=== PATIENT | male | born 1955 | race Caucasian/White ===

== ENCOUNTER → 2018-01-29 13:16 | Outpatient (CLI) | payer OTHER, SELFPAY ==
--- NOTE | 2018-01-29 14:15 | DI.REPORT_ITS ---
SYMPTOMS/DIAGNOSIS: FEVER, R50.9 PA AND LATERAL CHEST: Comparison is made with August,. The heart size is at the upper limits of normal, unchanged. The lungs appear clear. No infiltrate or effusion is seen. IMPRESSION: No acute abnormality.
[2018-01-29 14:17] LABS: Abs Immature Grans 0.23 k/cumm (0.0-0.09); Absolute Basophil Count 0.02 k/cumm (0.0-0.2); Absolute Eosinophil Count 0.05 k/cumm (0.0-0.7); Absolute Lymphocyte Count 1.39 k/cumm (1.2-3.4); Absolute Monocyte Count 0.67 k/cumm (0.11-0.7); Absolute Neutrophil Count 20.79 k/cumm (1.2-6.7); Basophils % 0.1; Eosinophils % 0.2; HCT 29.8 % (40.0-50.0); HGB 10.1 g/dL (13.5-17.5); Mean Corp. HGB Concentration 33.9 g/dL (32.0-36.0); Mean Corpuscular Hemoglobin 30.1 pg (27.0-33.0); Mean Platelet Volume 12.4 fL (8.0-11.0); Monocytes % 2.9; Neutrophils % 89.8; Platelet Count 285 x1000/uL (130-400); RBC 3.35 m/cumm (4.50-6.00); RBC Distribution Width 15.3 % (11.8-14.1); White Blood Cell Count 23.15 k/cumm (4.4-10.8)
[2018-01-29 14:56] LABS: ESR 94 MM/HR (1-20)
[2018-01-29 15:07] LABS: C-Reactive Protein 18.59 mg/dL (0.0-0.3); Creatine Kinase 91 U/L (39-308); LDH 197 U/L (85-227); Uric Acid 6.8 mg/dL (3.5-7.2)
[2018-01-29 19:37] LABS: Mono Screening Negative (Negative)
[2018-01-29 19:50] LABS: Folate 4.4 ng/mL (8.6-20.0); Vitamin B12 531 pg/mL (193-986)
[2018-01-29 20:09] LABS: Iron 16 ug/dL (50-175); Total Iron Binding Capacity 113 ug/dL (250-450); Transferrin Sat 14 % (20-55)
[2018-01-29 20:54] LABS: Ferritin 565 ng/mL (8-388)
[2018-01-30 10:21] LABS: Rheumatoid Factor 16 IU/mL (<12.5)
[2018-01-30 12:18] LABS: ANA Interpretation Positive (NEGAT); ANA Titer Pattern 1:160 Speckled
[2018-01-30 15:26] LABS: Lyme Ab w Rflx to Lyme Confirm Positive
[2018-01-30 15:35] LABS: Glucose 187 mg/dL (70-100)
[2018-01-30 15:36] LABS: BUN 104 mg/dL (7-18); CREATININE 4.59 mg/dL (0.70-1.30); Estimated GFR 13.09 (mL/min/1.73m2)
[2018-01-30 15:37] LABS: AST 46 U/L (15-37); Albumin 2.3 g/dL (3.4-5.0); Alkaline Phosphatase 223 U/L (46-116); Anion Gap 14.4 mmol/L (3-11); Bilirubin, Total 0.6 mg/dL (0.2-1.0); CO2 17.6 mmol/L (21.0-32.0); Chloride 93 mmol/L (98-107); Potassium 5.6 mmol/L (3.5-5.1); Sodium 125 mmol/L (136-145); Total Protein 5.8 g/dL (6.4-8.2)
[2018-01-30 15:38] LABS: ALT 59 U/L (12-78)
[2018-01-31 14:31] LABS: c-ANCA Negative (Negative); p-ANCA Negative (Negative)
[2018-02-02 14:40] LABS: TB Interpretation Negative (NEGAT)
[2018-02-03 15:09] LABS: IgG Western Blot Negative (Negative); IgM Western Blot Positive (Negative); Western Blot Interpretation SEE COMMENTS
== END ==
PROVIDERS: Visit Provider Nurse Practitioner
DX: R50.9 Fever, unspecified (principal); M79.1 Myalgia; D72.829 Elevated white blood cell count, unspecified
CPT/HCPCS: 36410; 80053; 82550; 85652; 87040; 71046; 81003; 82565; 82607; 82728; 82746; 83540; 83550; 83615; 84156; 84550; 85025; 85045; 85610; 86038; 86140; 86255; 86308; 86431; 86480; 86617; 86618

== ENCOUNTER → 2018-01-29 16:11 | Outpatient (REF) | payer OTHER, SELFPAY ==
[2018-01-29 21:25] LABS: Bilirubin Negative (Negative); Blood Negative (Negative); Clarity Clear; Glucose Negative (Negative); Ketones Trace mg/dL (Negative); Leukocyte Esterase Negative (Negative); Nitrite Negative (Negative); Specific Gravity 1.015 (1.005-1.025); Urobilinogen 0.2 EU/dL (Up TO 0.2)
[2018-01-29 21:37] LABS: PROTEIN 38.7 mg/dL
[2018-01-29 21:50] LABS: COMMENT (LAB VIEW ONLY) 201.59 mg/dL; Prot/Crea Ur Ratio 0.19
[2018-01-29 22:07] LABS: Bacteria Negative HPF (Negative); C & S Indicated? Yes; Casts Negative LPF (Negative); Crystals Few Amorphous HPF (Negative); Epithelial Cells Few HPF (Negative); Mucus Moderate (Negative); RBC Negative (0-2)
== END ==
LOC: NCHCN 16:11
PROVIDERS: Visit Provider Nurse Practitioner
DX: D72.829 Elevated white blood cell count, unspecified (principal); R50.9 Fever, unspecified; E11.22 Type 2 diabetes mellitus with diabetic chronic kidney disease
CPT/HCPCS: 81003; 81015; 82565; 84156; 87086

== ENCOUNTER → 2018-01-30 11:47 | Outpatient (CLI) | payer OTHER, SELFPAY ==
--- NOTE | 2018-01-30 11:45 | DI.REPORT_ITS ---
SYMPTOMS/DIAGNOSIS: ABD DISTENTION, FEVER, MYALGIAS, RENAL FAILURE, R14.0, R50.9, M79.1 ABDOMINAL AND RENAL ULTRASOUND: Routine examination was performed. The aorta could not be well visualized due to overlying bowel. The inferior vena cava is unremarkable. The liver, gallbladder, common duct, kidneys and spleen are unremarkable. The pancreas is not well visualized due to overlying bowel. The prevoid urinary bladder volume was 56 cc's. The postvoid urinary bladder volume was less than 1 cc. No intraluminal mass was identified. The ureteral jets were not visualized during this examination. IMPRESSION: Unremarkable abdominal and renal ultrasound as described above.
== END ==
PROVIDERS: Visit Provider Nurse Practitioner
DX: R14.0 Abdominal distension (gaseous) (principal); M79.1 Myalgia; N19 Unspecified kidney failure; R50.9 Fever, unspecified
CPT/HCPCS: 76770; 76700

== ENCOUNTER → 2018-01-30 14:08 | Outpatient (REF) | payer OTHER, SELFPAY ==
[2018-01-30 20:15] LABS: Abs Immature Grans 0.34 k/cumm (0.0-0.09); Absolute Lymphocyte Count 1.53 k/cumm (1.2-3.4); Eosinophils % 0.2; HCT 33.5 % (40.0-50.0); HGB 11.1 g/dL (13.5-17.5); Immature Grans % 1.3; Lymphocytes % 5.9; Mean Corp. HGB Concentration 33.1 g/dL (32.0-36.0); Mean Corpuscular Hemoglobin 29.2 pg (27.0-33.0); Mean Corpuscular Volume 88.2 fL (80-95); Monocytes % 2.2; Neutrophils % 90.4; Platelet Count 268 x1000/uL (130-400); RBC Distribution Width 15.1 % (11.8-14.1)
[2018-01-30 20:18] LABS: ALT 73 U/L (12-78); AST 76 U/L (15-37); Albumin 2.3 g/dL (3.4-5.0); Alkaline Phosphatase 239 U/L (46-116); Anion Gap 13.1 mmol/L (3-11); Bilirubin, Total 0.7 mg/dL (0.2-1.0); CO2 16.9 mmol/L (21.0-32.0); Calcium 8.2 mg/dL (8.5-10.1); Chloride 90 mmol/L (98-107); Estimated GFR 12.93 (mL/min/1.73m2); Glucose 175 mg/dL (70-100); Potassium 5.8 mmol/L (3.5-5.1)
[2018-01-30 20:30] LABS: Absolute Eosinophil Count 0.05 k/cumm (0.0-0.7); Absolute Monocyte Count 0.57 k/cumm (0.11-0.7); Absolute Neutrophil Count 23.44 k/cumm (1.2-6.7)
[2018-01-30 20:34] LABS: BUN 105 mg/dL (7-18); CREATININE 4.64 mg/dL (0.70-1.30); Sodium 120 mmol/L (136-145); White Blood Cell Count 25.93 k/cumm (4.4-10.8)
[2018-01-30 21:42] LABS: Diff Comment Diff Reviewed; RBC Morphology Normal
== END ==
LOC: NCHCN 14:08
PROVIDERS: Visit Provider Nurse Practitioner
DX: R06.00 Dyspnea, unspecified (principal)
CPT/HCPCS: 80053; 85025

== ENCOUNTER 2018-01-31 18:33 | Emergency (ER) | payer OTHER, SELFPAY ==
[2018-01-31] VITALS (17 sets, daily range): BP systolic 115–126; BP diastolic 43–54; PULSE 61–80; RESP 13–28; TEMP 37.4; O2SAT 94–98
--- NOTE | 2018-01-31 19:01 | ED.GENADUL_ITS ---
Disposition Clinical Impression: Hyponatremia, Hyperkalemia, Lhpxg-yu-hvjvlel kidney injury, Leukocytosis, Metabolic acidosis, Positive Lyme disease serology, Transaminitis Disposition: OTHER Condition: Stable Medical Decision Making - Lab Data Laboratory Tests 01/31/18 01/31/18 01/31/18 19:07 19:07 19:07 WBC 21.62 H RBC 3.63 L Hgb 10.6 L Hct 31.2 L MCV 86.0 MCH 29.2 MCHC 34.0 RDW 14.6 H Plt Count 338 MPV 11.8 H Immature Gran % 1.3 Neutrophils % 89.3 Lymphocytes % 6.8 Monocytes % 2.3 Eosinophils % 0.3 Basophils % 0.0 Absolute Neutrophils 19.31 H Absolute Lymphocytes 1.47 Absolute Monocytes 0.50 Absolute Eosinophils 0.06 Absolute Basophils 0.00 Sodium 120 L* Potassium 5.2 H Chloride 89 L Carbon Dioxide 18.0 L Anion Gap 13.0 H BUN 106 H* Creatinine 4.30 H* Estimated GFR/1.73 m2 14.11 Glucose 166 H Lactate 1.1 Calcium 7.9 L Magnesium Total Bilirubin 0.7 AST 129 H ALT 116 H Alkaline Phosphatase 268 H Troponin I Total Protein 6.5 Albumin 2.0 L Urine Color Urine Clarity Urine pH Ur Specific [place] Urine Protein Urine Ketones Urine Blood Urine Nitrite Urine Bilirubin Urine Urobilinogen Ur Leukocyte Esterase Urine Glucose 01/31/18 01/31/18 19:07 19:34 WBC RBC Hgb Hct MCV MCH MCHC RDW Plt Count MPV Immature Gran % Neutrophils % Lymphocytes % Monocytes % Eosinophils % Basophils % Absolute Neutrophils Absolute Lymphocytes Absolute Monocytes Absolute Eosinophils Absolute Basophils Sodium Potassium Chloride Carbon Dioxide Anion Gap BUN Creatinine Estimated GFR/1.73 m2 Glucose Lactate Calcium Magnesium 2.2 Total Bilirubin AST ALT Alkaline Phosphatase Troponin I < 0.02 Total Protein Albumin Urine Color Yellow Urine Clarity Clear Urine pH 5.0 Ur Specific [place] 1.015 Urine Protein Negative Urine Ketones Trace H Urine Blood Negative Urine Nitrite Negative Urine Bilirubin Small H Urine Urobilinogen 2.0 H Ur Leukocyte Esterase Negative Urine Glucose Negative 01/31/18 1951: 64 bpm. Read as possible atrial fibrillation but this appears to have flattened T waves and does not appear consistent with A. fib. Prominent T waves noted in V2 and V3. QRS 106. - Medical Decision Making 62yo M w/ a h/o really controlled noncompliant DM, HTN, and diabetic retinopathy who presents with fever, fatigue, muscle cramping and stiffness for 2 weeks. Patient was seen by PCP 2 days ago and yesterday and had lab work drawn noting multiple lab abnormalities specifically acute on chronic kidney disease, hyperkalemia, hyponatremia and positive Lyme disease antibody. Creatinine from November 2016 was 2.32. Lab work from 01/29 noted a white blood cell count of 23. Sodium 125. Creatinine 4.59. Potassium 5.6. Bicarb 17. [place] positive. Rheumatoid factor XVI. Lyme disease antibody positive. CRP 18.59. ESR 94. UA noted 5-10 WBCs. Additional findings of iron deficiency. Patient also had a negative chest x- ray and abdominal ultrasound. Lab work from 01/30 noted white blood cell count 25. Sodium 120. Creatinine 4.64. Potassium 5.8. Bicarb 16.9. On evaluation today, patient is ill-appearing. Vitals within normal limits. He is morbidly obese. Will repeat labs, urinalysis and EKG and bolus IV fluids. 2029: Labs reviewed and note a white blood cell count of 21. Sodium 120. Creatinine 4.3. Potassium 5.2. Bicarb 18. Glucose 166. UA negative. EKG notes prominent T waves in anterior leads and flattened P waves and QRS 106. No old EKG to compare. Will treat hyperkalemia with insulin and glucose, and bicarbonate. Will add doxycycline for positive Lyme disease antibody 2 days ago. It is possible that patient's fever has been due to this. Although he denies recent tick bite, he has been camping recently and has seen ticks on him. He also denies bull's-eye rash. Will plan for admission for further workup of his chronic fever and multiple lab abnormalities. At this point time I do not think he needs dialysis but will need evaluation by nephrology and infectious disease. There are no beds available here. Will call [facility]. 2044: Discussed with [facility] transfer center -there are no beds available here but will forward information to [place] for transfer. Family is okay with plan for transfer to [place]. 2144: Discussed with Dr. Almendarez at [facility] -states that they are full on the dialysis unit and are requesting a repeat BMP to see if his electrolytes have improved after fluid bolus and then if there is no worsening of potassium or renal function, will d/w nephrology and will accept patient. 2214: Repeat BMP notes improvement in sodium, potassium, and renal function. Will call [facility] for transfer. 2199: Case endorsed to Dr. Velazquez - dariusz f/u with [facility]. History of Present Illness - General Chief complaint: Fever Stated complaint: UNKNOWN Time Seen by Provider: 01/31/18 18:38 Source: patient Mode of arrival: ambulatory Limitations: no limitations - History of Present Illness Initial comments: Patient is a 62-year-old male who presents - Related Data Furosemide 40 mg PO BID 05/16/13 Insulin Aspart [Novolog] unit SQ DIRECTED 05/16/13 Insulin Glargine,Hum.rec.anlog [Lantus] 55 units SQ HS 05/16/13 Allopurinol 1 tab PO BID 08/22/14 Aspirin E.c. [Ecotrin] 81 mg PO DAILY 08/22/14 Candesartan [Atacand] 32 mg PO DAILY 08/22/14 Diltiazem HCl [Diltiazem 24Hr ER] 360 mg PO DAILY 08/22/14 Doxazosin [Cardura] 1 mg PO 01/31/18 Allergies Allergy/AdvReac Type Severity Reaction Status Date / Time No Known Allergies Allergy Unverified 01/31/18 18:59 Review of Systems Constitutional: chills, fever, malaise Eyes: denies: eye pain ENT: denies: ear pain, throat pain, dental pain Respiratory: denies: cough, shortness of breath Cardiovascular: denies: chest pain, dyspnea on exertion Gastrointestinal: denies: abdominal pain, nausea, vomiting Genitourinary: denies: urgency, dysuria, frequency Musculoskeletal: denies: back pain Skin: denies: rash, lesions Neurological: headache, weakness Past Medical History - Past Medical History Medical history: diabetes, hypertension Diabetic retinopathy Surgical history: herniorraphy, other (Laser eye surgery, Cataract surgery, Tonsillectomy) - Social History Drug use: none General Exam - General Limitations: no limitations General appearance: alert, in no apparent distress - Head Head exam: Present: atraumatic - Eye Eye exam: Present: PERRL, EOMI - ENT ENT exam: Present: normal orophraynx, mucous membranes dry - Neck Neck exam: Present: normal inspection - Respiratory Respiratory exam: Present: normal lung sounds bilaterally. Absent: respiratory distress, wheezes, rales, rhonchi, stridor - Cardiovascular Cardiovascular Exam: Present: regular rate, normal rhythm. Absent: bradycardia , tachycardia - GI/Abdominal GI/Abdominal exam: Present: soft, normal bowel sounds, other (obese abdomen). Absent: distended, tenderness, guarding, rebound, rigid - Neurological Exam Neurological exam: Present: alert, oriented X3, CN II-XII intact. Absent: motor sensory deficit - Psychiatric Psychiatric exam: Present: normal affect - Skin Skin exam: Present: warm, dry, intact Course Vital Signs - 24 hr 01/31/18 18:55 Temperature 99.3 F Pulse 61 Respiratory 16 Rate Blood Pressure 126/43 Pulse Oximetry 95
[2018-01-31 19:14] LABS: Lactate-non-spesis 1.1 mmol/L (0.6-1.4)
[2018-01-31 19:18] LABS: Abs Immature Grans 0.29 k/cumm (0.0-0.09); Absolute Eosinophil Count 0.06 k/cumm (0.0-0.7); Absolute Lymphocyte Count 1.47 k/cumm (1.2-3.4); Absolute Neutrophil Count 19.31 k/cumm (1.2-6.7); Eosinophils % 0.3; HCT 31.2 % (40.0-50.0); HGB 10.6 g/dL (13.5-17.5); Immature Grans % 1.3; Lymphocytes % 6.8; Mean Corpuscular Hemoglobin 29.2 pg (27.0-33.0); Mean Platelet Volume 11.8 fL (8.0-11.0); Monocytes % 2.3; Neutrophils % 89.3; Platelet Count 338 x1000/uL (130-400); RBC 3.63 m/cumm (4.50-6.00); RBC Distribution Width 14.6 % (11.8-14.1); White Blood Cell Count 21.62 k/cumm (4.4-10.8)
[2018-01-31] MEDS: Normal Saline 500 ML IV (19:52)
[2018-01-31 19:56] LABS: ALT 116 U/L (12-78); AST 129 U/L (15-37); Alkaline Phosphatase 268 U/L (46-116); Bilirubin, Total 0.7 mg/dL (0.2-1.0); Calcium 7.9 mg/dL (8.5-10.1); Chloride 89 mmol/L (98-107); Estimated GFR 14.11 (mL/min/1.73m2); Glucose 166 mg/dL (70-100); Potassium 5.2 mmol/L (3.5-5.1); Total Protein 6.5 g/dL (6.4-8.2)
[2018-01-31 19:58] LABS: BUN 106 mg/dL (7-18)
[2018-01-31 19:59] LABS: Magnesium 2.2 mg/dL (1.8-2.4); Sodium 120 mmol/L (136-145); Troponin I < 0.02 ng/mL (0.00-0.06)
[2018-01-31 20:12] LABS: Bilirubin Small (Negative); Blood Negative (Negative); Clarity Clear; Glucose Negative (Negative); Ketones Trace mg/dL (Negative); Leukocyte Esterase Negative (Negative); Nitrite Negative (Negative); Specific Gravity 1.015 (1.005-1.025)
[2018-01-31] MEDS: Dextrose 50%-Water 25 GM/50 ML SYR IVP (20:20)
[2018-01-31] MEDS: Insulin REGULAR-Human 100 UNITS/ML UNIT IV (20:23)
[2018-01-31] MEDS: Sodium Bicarbonate 50 MEQ/50 ML SYR IVP (20:24)
[2018-01-31] MEDS: DOXYCYCLINE 100 MG in Normal Saline 100 ML IVPB (21:39)
[2018-01-31 22:12] LABS: Anion Gap 10.3 mmol/L (3-11); CO2 19.7 mmol/L (21.0-32.0); Calcium 7.5 mg/dL (8.5-10.1); Chloride 92 mmol/L (98-107); Estimated GFR 15.84 (mL/min/1.73m2); Glucose 166 mg/dL (70-100)
[2018-01-31 22:18] LABS: BUN 105 mg/dL (7-18); CREATININE 3.89 mg/dL (0.70-1.30)
[2018-01-31 22:19] LABS: Sodium 122 mmol/L (136-145)
--- NOTE | 2018-01-31 23:14 | ED.FU_ITS ---
Disposition Clinical Impression: Hyponatremia, Hyperkalemia, Trqub-ig-ivsxwlt kidney injury, Leukocytosis, Metabolic acidosis, Positive Lyme disease serology, Transaminitis Disposition: OTHER Condition: Stable Medical Decision Making - Lab Data Laboratory Tests 01/31/18 01/31/18 01/31/18 19:07 19:07 19:07 WBC 21.62 H RBC 3.63 L Hgb 10.6 L Hct 31.2 L MCV 86.0 MCH 29.2 MCHC 34.0 RDW 14.6 H Plt Count 338 MPV 11.8 H Immature Gran % 1.3 Neutrophils % 89.3 Lymphocytes % 6.8 Monocytes % 2.3 Eosinophils % 0.3 Basophils % 0.0 Absolute Neutrophils 19.31 H Absolute Lymphocytes 1.47 Absolute Monocytes 0.50 Absolute Eosinophils 0.06 Absolute Basophils 0.00 Sodium 120 L* Potassium 5.2 H Chloride 89 L Carbon Dioxide 18.0 L Anion Gap 13.0 H BUN 106 H* Creatinine 4.30 H* Estimated GFR/1.73 m2 14.11 Glucose 166 H Lactate 1.1 Calcium 7.9 L Magnesium Total Bilirubin 0.7 AST 129 H ALT 116 H Alkaline Phosphatase 268 H Troponin I Total Protein 6.5 Albumin 2.0 L Urine Color Urine Clarity Urine pH Ur Specific [place] Urine Protein Urine Ketones Urine Blood Urine Nitrite Urine Bilirubin Urine Urobilinogen Ur Leukocyte Esterase Urine Glucose 01/31/18 01/31/18 01/31/18 19:07 19:34 21:58 WBC RBC Hgb Hct MCV MCH MCHC RDW Plt Count MPV Immature Gran % Neutrophils % Lymphocytes % Monocytes % Eosinophils % Basophils % Absolute Neutrophils Absolute Lymphocytes Absolute Monocytes Absolute Eosinophils Absolute Basophils Sodium 122 L* Potassium 5.0 Chloride 92 L Carbon Dioxide 19.7 L Anion Gap 10.3 BUN 105 H* Creatinine 3.89 H* Estimated GFR/1.73 m2 15.84 Glucose 166 H Lactate Calcium 7.5 L Magnesium 2.2 Total Bilirubin AST ALT Alkaline Phosphatase Troponin I < 0.02 Total Protein Albumin Urine Color Yellow Urine Clarity Clear Urine pH 5.0 Ur Specific [place] 1.015 Urine Protein Negative Urine Ketones Trace H Urine Blood Negative Urine Nitrite Negative Urine Bilirubin Small H Urine Urobilinogen 2.0 H Ur Leukocyte Esterase Negative Urine Glucose Negative Care Signed Out By:: dr. sharp - Vital Signs Recent Vitals - 8H: Vital Signs - 8 hr 01/31/18 18:55 Temperature 99.3 F Pulse 61 Respiratory 16 Rate Blood Pressure 126/43 Pulse Oximetry 95 - Continuation of Care Continuation of Care Plan: PT signed out to me pending call back from [facility]. Dr. Dubois from [place] called back and accepts pt in transfer. Pt hd stable during my time with him
[2018-01-31] MEDS: Normal Saline 1,000 ML 125 ML IV (23:50)
== END 2018-02-01 01:45 | disposition other institution (70) ==
PROVIDERS: Emergency Provider Physician Assistant
DX: E87.1 Hypo-osmolality and hyponatremia (principal); E87.5 Hyperkalemia; N17.9 Acute kidney failure, unspecified; N18.9 Chronic kidney disease, unspecified; D72.829 Elevated white blood cell count, unspecified; E87.2 Acidosis; A69.20 Lyme disease, unspecified; R74.0 Nonspecific elevation of levels of transaminase and lactic acid dehydrogenase [LDH]; I10 Essential (primary) hypertension; E11.319 Type 2 diabetes mellitus with unspecified diabetic retinopathy without macular edema; Z79.4 Long term (current) use of insulin
CPT/HCPCS: 36415; 36416; 80048; 80053; 82962; 93005; 96361; 96365; 96375; 99285; 81003; 83605; 83735; 84484; 85025; 93010

== ENCOUNTER → 2018-02-05 15:05 | Outpatient (REF) | payer OTHER, SELFPAY ==
[2018-02-05 20:56] LABS: INR 1.1 (1.0-3.5); Prothrombin Time 10.5 sec (9.3-10.8)
[2018-02-05 21:20] LABS: Abs Immature Grans 0.28 k/cumm (0.0-0.09); Absolute Neutrophil Count 5.99 k/cumm (1.2-6.7); HGB 11.6 g/dL (13.5-17.5); Mean Corp. HGB Concentration 33.1 g/dL (32.0-36.0); Mean Corpuscular Hemoglobin 29.1 pg (27.0-33.0); Mean Corpuscular Volume 87.7 fL (80-95); Mean Platelet Volume 12.7 fL (8.0-11.0); RBC 3.99 m/cumm (4.50-6.00); RBC Distribution Width 15.7 % (11.8-14.1); White Blood Cell Count 9.22 k/cumm (4.4-10.8)
[2018-02-05 21:31] LABS: Absolute Basophil Count 0.09 k/cumm (0.0-0.2); Absolute Eosinophil Count 0.18 k/cumm (0.0-0.7); Absolute Lymphocyte Count 2.31 k/cumm (1.2-3.4); Absolute Monocyte Count 0.46 k/cumm (0.11-0.7); Atypical Lymphocytes % 1; Diff Comment Manual Differential
[2018-02-05 21:35] LABS: ALT 130 U/L (12-78); AST 83 U/L (15-37); Albumin 2.6 g/dL (3.4-5.0); Alkaline Phosphatase 208 U/L (46-116); Anion Gap 11.9 mmol/L (3-11); Anisocytosis 1+; BUN 65 mg/dL (7-18); Bilirubin, Total 0.3 mg/dL (0.2-1.0); CO2 22.1 mmol/L (21.0-32.0); CREATININE 2.21 mg/dL (0.70-1.30); Calcium 8.9 mg/dL (8.5-10.1); Chloride 103 mmol/L (98-107); Estimated GFR 30.42 (mL/min/1.73m2); Glucose 136 mg/dL (70-100); Potassium 5.8 mmol/L (3.5-5.1); Sodium 137 mmol/L (136-145); Total Protein 6.5 g/dL (6.4-8.2)
== END ==
LOC: NCHCN 15:05
PROVIDERS: Visit Provider Nurse Practitioner
DX: I48.91 Unspecified atrial fibrillation (principal); R79.89 Other specified abnormal findings of blood chemistry
CPT/HCPCS: 80053; 85025; 85610

== ENCOUNTER → 2018-02-09 02:21 | Outpatient (CLI) | payer OTHER, SELFPAY ==
--- NOTE | 2018-02-13 08:16 | HOLTER_ITS ---
HOLTER MONITOR REPORT DATE OF DICTATION/ANALYSIS February 12, 2018 DATE OF RECORDING February 09, 2018 INDICATION Afib. REFERRAL Nica Boone N.P. FINDINGS 1. Baseline sinus rhythm with first-degree AV delay, 63-109 beats per minute, average 76 beats per m inute. 2. Rare PAC (2/2 days), No SVT, No AF. 3. Rare PVC (455/2 days), 6 couplets, no VT. 4. No pauses. 5. No symptoms recorded. Giacomo Currie M.D. AMY/tammy T - 02/13/2018
== END ==
PROVIDERS: Visit Provider Nurse Practitioner
DX: I48.91 Unspecified atrial fibrillation (principal)
CPT/HCPCS: 93225

== ENCOUNTER → 2018-02-09 17:59 | Outpatient (REF) | payer OTHER, SELFPAY ==
[2018-02-09 21:31] LABS: ALT 71 U/L (12-78); AST 42 U/L (15-37); Albumin 2.8 g/dL (3.4-5.0); Alkaline Phosphatase 180 U/L (46-116); Anion Gap 10.6 mmol/L (3-11); BUN 55 mg/dL (7-18); Bilirubin, Total 0.3 mg/dL (0.2-1.0); CO2 23.4 mmol/L (21.0-32.0); CREATININE 2.01 mg/dL (0.70-1.30); Calcium 8.8 mg/dL (8.5-10.1); Chloride 103 mmol/L (98-107); Estimated GFR 33.94 (mL/min/1.73m2); Glucose 145 mg/dL (70-100); Potassium 5.4 mmol/L (3.5-5.1); Sodium 137 mmol/L (136-145); Total Protein 6.7 g/dL (6.4-8.2)
== END ==
LOC: NCHCN 17:59
PROVIDERS: Visit Provider Nurse Practitioner
DX: E87.5 Hyperkalemia (principal); R79.89 Other specified abnormal findings of blood chemistry
CPT/HCPCS: 80053

== ENCOUNTER → 2018-02-12 08:14 | Outpatient (CLI) | payer OTHER, SELFPAY | PROVIDERS: PCP Nurse Practitioner; Visit Provider Nurse Practitioner | DX: I48.91 Unspecified atrial fibrillation (principal) | CPT/HCPCS: 93226 ==

== ENCOUNTER → 2018-02-12 14:07 | Outpatient (CLI) | payer OTHER, SELFPAY | PROVIDERS: PCP Family Medicine; Visit Provider Internal Medicine Cardiovascular Disease | DX: I44.1 Atrioventricular block, second degree (principal); I44.0 Atrioventricular block, first degree; I10 Essential (primary) hypertension | CPT/HCPCS: 93005; 93010 ==

== ENCOUNTER → 2018-02-13 10:26 | Outpatient (REF) | payer OTHER, SELFPAY ==
[2018-02-13 15:05] LABS: ALT 41 U/L (12-78); AST 26 U/L (15-37); Albumin 2.9 g/dL (3.4-5.0); Alkaline Phosphatase 162 U/L (46-116); Anion Gap 10.7 mmol/L (3-11); BUN 61 mg/dL (7-18); Bilirubin, Total 0.3 mg/dL (0.2-1.0); CO2 26.3 mmol/L (21.0-32.0); Calcium 8.8 mg/dL (8.5-10.1); Chloride 103 mmol/L (98-107); Estimated GFR 34.14 (mL/min/1.73m2); Glucose 93 mg/dL (70-100); Potassium 4.8 mmol/L (3.5-5.1); Sodium 140 mmol/L (136-145); Total Protein 6.6 g/dL (6.4-8.2)
== END ==
LOC: NCHCN 10:26
PROVIDERS: PCP Family Medicine
DX: E87.5 Hyperkalemia (principal); E87.1 Hypo-osmolality and hyponatremia
CPT/HCPCS: 80053

== ENCOUNTER → 2018-02-16 16:25 | Outpatient (REF) | payer OTHER, SELFPAY | LOC: NCHCN 16:25 | PROVIDERS: PCP Family Medicine; Visit Provider Nurse Practitioner | DX: Z53.8 Procedure and treatment not carried out for other reasons (principal); I48.91 Unspecified atrial fibrillation | CPT/HCPCS: 85610 ==

== ENCOUNTER → 2018-02-25 15:41 | Outpatient (REF) | payer OTHER, SELFPAY ==
[2018-02-25 22:25] LABS: ALT 22 U/L (12-78); AST 26 U/L (15-37); Albumin 2.6 g/dL (3.4-5.0); Alkaline Phosphatase 158 U/L (46-116); BUN 55 mg/dL (7-18); Bilirubin, Total 0.3 mg/dL (0.2-1.0); CREATININE 2.08 mg/dL (0.70-1.30); Calcium 8.2 mg/dL (8.5-10.1); Chloride 103 mmol/L (98-107); Estimated GFR 32.63 (mL/min/1.73m2); Glucose 236 mg/dL (70-100); Potassium 4.4 mmol/L (3.5-5.1); Sodium 135 mmol/L (136-145); Total Protein 6.1 g/dL (6.4-8.2)
== END ==
LOC: NCHCN 15:41
PROVIDERS: PCP Family Medicine; Visit Provider Nurse Practitioner
DX: R79.89 Other specified abnormal findings of blood chemistry (principal)
CPT/HCPCS: 80053

== ENCOUNTER 2018-03-13 17:20 | Outpatient (REF) | payer OTHER, SELFPAY ==
[2018-03-13 21:15] LABS: ALT 22 U/L (12-78); AST 19 U/L (15-37); Albumin 2.8 g/dL (3.4-5.0); Alkaline Phosphatase 136 U/L (46-116); Bilirubin, Direct 0.08 mg/dL (0.00-0.20); Bilirubin, Total 0.3 mg/dL (0.2-1.0); Total Protein 6.1 g/dL (6.4-8.2)
== END 2018-03-13 17:40 ==
LOC: NCHCN 17:20
PROVIDERS: PCP Family Medicine; Visit Provider Nurse Practitioner
DX: R79.89 Other specified abnormal findings of blood chemistry (principal)
CPT/HCPCS: 80076

== ENCOUNTER 2018-06-08 15:35 | Outpatient (CLI) | payer OTHER, SELFPAY ==
[2018-06-08 17:16] LABS: ALT 18 U/L (12-78); AST 20 U/L (15-37); Albumin 3.1 g/dL (3.4-5.0); Alkaline Phosphatase 116 U/L (46-116); Bilirubin, Total 0.3 mg/dL (0.2-1.0); Cholesterol 143 mg/dL (50-200); HDL Cholesterol 43 mg/dL (40-60); LDL CHOLESTEROL 80 mg/dL (<100); Total Protein 6.2 g/dL (6.4-8.2); Triglyceride 148 mg/dL (30-150)
[2018-06-08 17:42] LABS: Bilirubin, Direct 0.09 mg/dL (0.00-0.20)
== END 2018-06-08 15:55 ==
LOC: LBO 15:36 → NCHCO 15:36
PROVIDERS: PCP Family Medicine; Visit Provider Family Medicine
DX: R79.89 Other specified abnormal findings of blood chemistry (principal); E78.5 Hyperlipidemia, unspecified
CPT/HCPCS: 36415; 80061; 80076; 83721

== ENCOUNTER 2018-06-11 16:52 | Outpatient (REF) | payer OTHER, SELFPAY ==
[2018-06-11 21:07] LABS: Anion Gap 9.4 mmol/L (3-11); BUN 48 mg/dL (7-18); CO2 26.6 mmol/L (21.0-32.0); CREATININE 2.22 mg/dL (0.70-1.30); Calcium 8.2 mg/dL (8.5-10.1); Chloride 105 mmol/L (98-107); Estimated GFR 30.16 (mL/min/1.73m2); Glucose 193 mg/dL (70-100); Potassium 3.9 mmol/L (3.5-5.1); Sodium 141 mmol/L (136-145)
== END 2018-06-11 17:12 ==
LOC: NCHCN 16:52
PROVIDERS: PCP Family Medicine; Visit Provider Family Medicine
DX: N17.9 Acute kidney failure, unspecified (principal)
CPT/HCPCS: 80048

== ENCOUNTER 2018-07-14 01:59 | Outpatient (CLI) | payer OTHER, SELFPAY ==
[2018-07-14 16:55] LABS: Abs Immature Grans 0.02 k/cumm (0.0-0.09); Absolute Basophil Count 0.02 k/cumm (0.0-0.2); Absolute Lymphocyte Count 2.35 k/cumm (1.2-3.4); Absolute Neutrophil Count 6.66 k/cumm (1.2-6.7); Basophils % 0.2; HCT 38.3 % (40.0-50.0); HGB 12.5 g/dL (13.5-17.5); Immature Grans % 0.2; Lymphocytes % 23.9; Mean Corp. HGB Concentration 32.6 g/dL (32.0-36.0); Mean Corpuscular Volume 88.9 fL (80-95); Mean Platelet Volume 12.5 fL (8.0-11.0); Monocytes % 7.1; Neutrophils % 67.6; Platelet Count 189 x1000/uL (130-400); RBC 4.31 m/cumm (4.50-6.00); RBC Distribution Width 15.6 % (11.8-14.1); White Blood Cell Count 9.85 k/cumm (4.4-10.8)
[2018-07-14 17:05] LABS: Anion Gap 10.2 mmol/L (3-11); BUN 51 mg/dL (7-18); CO2 26.8 mmol/L (21.0-32.0); CREATININE 2.45 mg/dL (0.70-1.30); Calcium 8.5 mg/dL (8.5-10.1); Chloride 106 mmol/L (98-107); Estimated GFR 26.92 (mL/min/1.73m2); Glucose 139 mg/dL (70-100); PHOSPHORUS 3.7 mg/dL (2.6-4.7); Potassium 4.3 mmol/L (3.5-5.1); Sodium 143 mmol/L (136-145)
[2018-07-16 06:07] LABS: Vitamin D 25 Total 17.8 ng/ml (30-100)
[2018-07-16 11:40] LABS: Parathyroid Hormone,Intact 390 pg/ml (19-88)
== END 2018-07-14 02:19 ==
PROVIDERS: PCP Family Medicine; Visit Provider Internal Medicine
DX: R79.89 Other specified abnormal findings of blood chemistry (principal)
CPT/HCPCS: 36415; 80048; 82306; 83970; 84100; 85025

== ENCOUNTER 2018-08-08 10:00 | Outpatient (CLI) | payer OTHER, SELFPAY ==
[2018-08-08 11:35] LABS: Anion Gap 8.8 mmol/L (3-11); BUN 64 mg/dL (7-18); CO2 25.2 mmol/L (21.0-32.0); CREATININE 2.61 mg/dL (0.70-1.30); Calcium 8.2 mg/dL (8.5-10.1); Chloride 106 mmol/L (98-107); Estimated GFR 25.03 (mL/min/1.73m2); Glucose 144 mg/dL (70-100); Potassium 4.6 mmol/L (3.5-5.1); Sodium 140 mmol/L (136-145)
== END 2018-08-08 10:20 ==
PROVIDERS: PCP Family Medicine; Visit Provider Internal Medicine
DX: N18.4 Chronic kidney disease, stage 4 (severe) (principal)
CPT/HCPCS: 36415; 80048

== ENCOUNTER 2018-11-26 15:20 | Outpatient (CLI) | payer OTHER, SELFPAY ==
[2018-11-26 16:27] LABS: Anion Gap 8.7 mmol/L (3-11); BUN 57 mg/dL (7-18); CO2 23.3 mmol/L (21.0-32.0); CREATININE 2.62 mg/dL (0.70-1.30); Calcium 8.4 mg/dL (8.5-10.1); Chloride 106 mmol/L (98-107); Estimated GFR 24.91 (mL/min/1.73m2); Glucose 155 mg/dL (70-100); PHOSPHORUS 3.6 mg/dL (2.6-4.7); Potassium 4.7 mmol/L (3.5-5.1); Sodium 138 mmol/L (136-145)
[2018-11-26 16:50] LABS: Vitamin D 25 Total 21.1 ng/ml (30-100)
[2018-11-30 10:38] LABS: Parathyroid Hormone,Intact 480 pg/ml (19-88)
== END 2018-11-26 15:40 ==
PROVIDERS: PCP Family Medicine; Visit Provider Internal Medicine
DX: N18.9 Chronic kidney disease, unspecified (principal)
CPT/HCPCS: 36415; 80048; 82306; 83970; 84100

== ENCOUNTER 2019-05-12 15:34 | Outpatient (CLI) | payer BC, OTHER, SELFPAY ==
[2019-05-12 16:04] LABS: Abs Immature Grans 0.02 k/cumm (0.0-0.09); Absolute Basophil Count 0.02 k/cumm (0.0-0.2); Absolute Eosinophil Count 0.09 k/cumm (0.0-0.7); Absolute Lymphocyte Count 1.98 k/cumm (1.2-3.4); Absolute Monocyte Count 0.71 k/cumm (0.11-0.7); Absolute Neutrophil Count 6.22 k/cumm (1.2-6.7); Basophils % 0.2; HCT 35.2 % (40.0-50.0); HGB 11.5 g/dL (13.5-17.5); Immature Grans % 0.2; Lymphocytes % 21.9; Mean Corp. HGB Concentration 32.7 g/dL (32.0-36.0); Mean Corpuscular Hemoglobin 29.9 pg (27.0-33.0); Mean Corpuscular Volume 91.7 fL (80-95); Mean Platelet Volume 11.2 fL (8.0-11.0); Monocytes % 7.9; Neutrophils % 68.8; Platelet Count 208 x1000/uL (130-400); RBC 3.84 m/cumm (4.50-6.00); RBC Distribution Width 15.3 % (11.8-14.1); White Blood Cell Count 9.04 k/cumm (4.4-10.8)
[2019-05-12 19:43] LABS: Anion Gap 14.4 mmol/L (3-11); CO2 17.6 mmol/L (21.0-32.0); CREATININE 3.32 mg/dL (0.70-1.30); Calcium 8.2 mg/dL (8.5-10.1); Chloride 107 mmol/L (98-107); Glucose 151 mg/dL (70-100); PHOSPHORUS 3.5 mg/dL (2.6-4.7); Potassium 5.3 mmol/L (3.5-5.1); Sodium 139 mmol/L (136-145)
[2019-05-12 20:12] LABS: BUN 86 mg/dL (7-18)
[2019-05-13 05:17] LABS: Vitamin D 25 Total 30.7 ng/ml (30-100)
[2019-05-14 15:47] LABS: Parathyroid Hormone,Intact 501 pg/mL (19-88)
== END 2019-05-12 15:54 ==
PROVIDERS: PCP Family Medicine; Visit Provider Internal Medicine
DX: N18.9 Chronic kidney disease, unspecified (principal)
CPT/HCPCS: 36415; 80048; 82306; 83970; 84100; 85025

== ENCOUNTER 2019-06-18 15:35 | Outpatient (CLI) | payer BC, OTHER, SELFPAY ==
[2019-06-18 16:56] LABS: Anion Gap 10.4 mmol/L (3-11); BUN 72 mg/dL (7-18); CO2 21.6 mmol/L (21.0-32.0); CREATININE 2.87 mg/dL (0.70-1.30); Calcium 8.8 mg/dL (8.5-10.1); Chloride 106 mmol/L (98-107); Estimated GFR 22.35 (mL/min/1.73m2); Glucose 148 mg/dL (74-106); Potassium 5.7 mmol/L (3.5-5.1); Sodium 138 mmol/L (136-145)
== END 2019-06-18 15:55 ==
PROVIDERS: PCP Family Medicine; Visit Provider Internal Medicine
DX: N18.3 Chronic kidney disease, stage 3 (moderate) (principal)
CPT/HCPCS: 36415; 80048

== ENCOUNTER 2019-09-21 14:42 | Outpatient (REF) | payer BC, OTHER, SELFPAY ==
[2019-09-21 20:21] LABS: Anion Gap 6.7 mmol/L (3-11); BUN 44 mg/dL (7-18); CO2 26.3 mmol/L (21.0-32.0); CREATININE 2.67 mg/dL (0.70-1.30); Calcium 9.1 mg/dL (8.5-10.1); Chloride 107 mmol/L (98-107); Glucose 135 mg/dL (74-106); Potassium 5.4 mmol/L (3.5-5.1); Sodium 140 mmol/L (136-145)
== END 2019-09-21 15:02 ==
LOC: NCHCN 14:42
PROVIDERS: PCP Family Medicine; Visit Provider Family Medicine
DX: I10 Essential (primary) hypertension (principal); N18.9 Chronic kidney disease, unspecified; E11.9 Type 2 diabetes mellitus without complications
CPT/HCPCS: 80048

== ENCOUNTER 2019-10-14 09:46 | Outpatient (REF) | payer BC, SELFPAY ==
[2019-10-14 20:23] LABS: Abs Immature Grans 0.01 k/cumm (0.0-0.09); Absolute Basophil Count 0.01 k/cumm (0.0-0.2); Absolute Eosinophil Count 0.08 k/cumm (0.0-0.7); Absolute Lymphocyte Count 1.38 k/cumm (1.2-3.4); Absolute Monocyte Count 0.57 k/cumm (0.11-0.7); Absolute Neutrophil Count 6.23 k/cumm (1.2-6.7); Basophils % 0.1; HCT 33.9 % (40.0-50.0); HGB 10.5 g/dL (13.5-17.5); Immature Grans % 0.1 %; Lymphocytes % 16.7; Mean Corpuscular Hemoglobin 29.2 pg (27.0-33.0); Mean Corpuscular Volume 94.4 fL (80-95); Monocytes % 6.9; Neutrophils % 75.2; RBC 3.59 m/cumm (4.50-6.00); RBC Distribution Width 14.9 % (11.8-14.1); White Blood Cell Count 8.28 k/cumm (4.4-10.8)
[2019-10-14 20:44] LABS: Anion Gap 9.2 mmol/L (3-11); BUN 36 mg/dL (7-18); CO2 24.8 mmol/L (21.0-32.0); CREATININE 2.45 mg/dL (0.70-1.30); Chloride 106 mmol/L (98-107); Estimated GFR 26.83 (mL/min/1.73m2); Glucose 151 mg/dL (74-106); Potassium 4.6 mmol/L (3.5-5.1); Sodium 140 mmol/L (136-145)
[2019-10-14 20:55] LABS: Vitamin D 25 Total 47.2 ng/ml (30-100)
[2019-10-14 21:23] LABS: PHOSPHORUS 3.6 mg/dL (2.6-4.7)
[2019-10-14 21:54] LABS: Diff Comment PLT Morph Reviewed; Platelet Count 104 x1000/uL (130-400); RBC Morphology Normal
[2019-10-18 13:53] LABS: Parathyroid Hormone,Intact 403 pg/mL (19-88)
== END 2019-10-14 10:06 ==
LOC: NCHCN 09:46
PROVIDERS: PCP Family Medicine; Visit Provider Family Medicine
DX: N18.9 Chronic kidney disease, unspecified (principal); E55.9 Vitamin D deficiency, unspecified
CPT/HCPCS: 80048; 82306; 83970; 84100; 85025

== ENCOUNTER 2020-01-17 10:20 | Day surgery (SDC) | payer BC, SELFPAY ==
--- NOTE | 2020-01-17 06:14 | W.COLOREPORT ---
Date of service: 01/17/20 Time of Service: 11:44 Colonoscopy Report Date of procedure: 01/17/20 Pre-op diagnosis general: Colon Cancer Screening Post-op diagnosis procedure note: other (Transverse polyp and diverticulosis) Procedure: Colonoscopy with polypectomy Surgeon: Jody Dobson Anesthesia proc note operative: other (General/ ASA 3/ Christy Epps CRNA) Estimated blood loss (mL): 3 Pathology: other (Transverse polyp) Complications: None Disposition: same day Indications: Mr. Choi is here today for a screening colonoscopy. His last colonoscopy was 10 years ago and was normal. He has a history of DM and renal insufficiency. Risks, benefits and complications have been reviewed. Complications include but are not limited to bleeding, perforation, abdominal pain, missed small lesion or polyp, cardiac arrest or adverse reaction to the medications. Questions were entertained and answered to his satisfaction and he wished to proceed. NO guarantees were given or implied. Prep: Miralax/Dulcolax Procedure Start Time: :44 Procedure End Time: 12:18 Retraction Time: 24 minutes Findings: <1 cm pedunculated polyp Mild chang-diverticulosis Procedure Description: After informed consent was obtained the patient was taken to the procedure room and placed in a left decubitous position. Monitors were applied and a time out was done. The patients name, date of , procedure, allergies to medications and metal in their body was reviewed. The patient was then sedated. Once sedated and comfortable a rectal exam was done. External exam was normal. Internal exam revealed a normal sphincter tone and no palpable masses. The prostate felt smooth. The scope was then introduced and retro-flexed. No internal hemorrhoids, masses or polyps were identified on retro-flexion. The scope was then advanced to the cecum without difficulty. The ileocecal valve and appendiceal orifice were identified. The prep was adequate. The scope was then slowly retracted over 24 minutes back into the rectum. The scope was retracted to the proximal transverse colon were a pedunculated polyp was identified and removed with a hot snare. The polyp was too large to be able to suction it through the scope. The scope was then retracted and the polyp was placed in formalin. The scope was then replaced and advanced to the area were the polypectomy was performed. The scope was then slowly retracted the rest of the way back to the rectum. There was mild chang-diverticulosis noted as well. The scope was removed and the patient was woken up and taken back to Same day surgery in stable condition. The patient tolerated the procedure well and there were no immediate complications. Follow up: Next colonoscopy will depend on final pathology results.
--- NOTE | 2020-01-17 06:16 | W.PM.DSUDISC ---
Discharge Plan Disposition Patient Disposition: HOME Condition: Stable Discharge Details Reason For Visit: Colon Cancer Screening Attending Provider: Jody Dobson Primary Care Provider: Lizbet Mohan Home Meds and New Rx's Prescriptions: Continued doxycycline hyclate 100 MG capsule 100 mg PO BID RF: 0 insulin lispro [Humalog KwikPen Insulin] 100 unit/mL insulin pen 5 unit SC TID RF: 0 losartan 50 mg tablet 50 mg PO DAILY RF: 0 cholecalciferol (vitamin D3) 1,250 mcg (50,000 unit) capsule 1,250 mcg PO QWEEK RF: 0 atorvastatin [Lipitor] 20 mg tablet 20 mg PO QHS RF: 0 amlodipine [Norvasc] 5 mg tablet 10 mg PO HS RF: 0 furosemide 40 MG tablet 40 mg PO BID RF: 0 Lantus U-100 Insulin 100 UNIT/ML solution 55 units SQ HS RF: 0 allopurinol 100 MG tablet 1 tab PO BID RF: 0 aspirin 81 MG tablet,delayed release (DR/EC) 81 mg PO DAILY RF: 0 doxazosin 1 MG tablet 1 mg PO DAILY RF: 0 Discontinued bisacodyl [Dulcolax (bisacodyl)] 5 mg tablet,delayed release (DR/EC) 5 mg PO ONCE Qty: 4 RF: 0 polyethylene glycol 3350 17 gram powder in packet 255 g PO DAILY Qty: 15 RF: 0 Discharge Instructions Instructions: Colorectal Polyps (DC), Diverticulosis (DC) Additional Instructions: Findings: One polyp Diverticulosis Follow up: depends on pathology result Please call if you develop: fevers >101.5 Nausea or Vomiting Abdominal pain that is not transient DAY SURGERY UNIT POST ENDOSCOPY INSTRUCTIONS 1. Because there will be medication in your system for the next 24 hours, you may feel a little sleepy. Your coordination will be affected. Therefore: a. Do not drive or operate dangerous equipment for 24 hours. b. Do not drink alcohol beverages for 24 hours (not even beer). c. Plan to go home and rest for the day. 2. Generally there are no restrictions on your activity after a day or so has gone by, but you may feel a bit fatigued for a few days. 3 After you arrive home you may have a light meal and return to a normal diet as you can tolerate it without feeling sick to your stomach. 4. After surgery, you may feel pain or discomfort. This should be only transient, but if it persists please contact your doctor. 5. If there are any questions regarding the findings of your procedure, please feel free to contact your doctor. 6. If you are unable to contact your doctor with a problem, contact the hospital at [phone]. 7. Continue all your regular medications unless directed otherwise. I understand the above instructions and have no questions. Signature of Patient or Responsible Adult Escort Date/Time Name of Responsible Adult Escort Signature of Nurse Date/Time Activity:: Activity as Tolerated Diet:: high fiber diet Discharge Orders Discharge Orders: Discharge Order (Routine); Ordered 01/17/20 Ordered By: Jody Dobson
[2020-01-17 10:38] VITALS: BP 134/74; PULSE 81; RESP 16; TEMP 36.5; O2SAT 99
[2020-01-17] MEDS: Normal Saline 1,000 ML 80 ML IV (11:15)
--- NOTE | 2020-01-17 12:03 | BOWEL_PTH ---
PATIENT: Jairon Choi LOC: [facility] U#:[id number] AGE/SX: 64/M ROOM: RE01/17/[address]: Jody oDbson MD : [id number] BED: DIS: 01/17/2020 SPEC #: [id number] RECD: 01/17/20 12:54 STATUS: YASH REQ #: [id number] RAFAEL: 01/17/20 12:[address]: Jody Dobson DEPT: Surgical Specimen RECD BY: Pastora Martin ENTERED: 01/17/20 12:54 SP TYPE: Bowel OTHR DR: Lizbet Mohan Tissues: 1 - BIOPSY BOWEL Procedures: GROSS AND MICRO LEVEL 4 Comments: [id number]
[2020-01-17 12:55] VITALS: BP 117/74; PULSE 85; RESP 18; TEMP 36.3; O2SAT 95
== END 2020-01-17 13:30 | disposition home or self-care (01) ==
LOC: SUR 10:20
PROVIDERS: PCP Family Medicine; Visit Provider Surgery
PROC: 0DJD8ZZ Inspection of Lower Intestinal Tract, Via Natural or Artificial Opening Endoscopic (ICD-10-PCS; CPT 45378; principal; 2020-01-17 11:30)
DX: Z12.11 Encounter for screening for malignant neoplasm of colon (principal); D12.3 Benign neoplasm of transverse colon; K57.30 Diverticulosis of large intestine without perforation or abscess without bleeding; E11.22 Type 2 diabetes mellitus with diabetic chronic kidney disease; N18.9 Chronic kidney disease, unspecified
CPT/HCPCS: 45385; 88305; J2001; J2704

== ENCOUNTER 2020-02-03 14:56 | Outpatient (REF) | payer BC, SELFPAY ==
[2020-02-03 20:37] LABS: HCT 36.7 % (40.0-50.0); HGB 11.7 g/dL (13.5-17.5); MCH 29.8 pg (27.0-33.0); MCHC 31.9 % (32.0-36.0); MCV 93.6 fL (80-95); RBC 3.92 10^6/uL (4.36-5.78); RDW 14.7 % (11.8-14.1)
[2020-02-03 21:10] LABS: WBC 8.69 10^3/uL (4.4-10.8)
== END 2020-02-03 15:16 ==
LOC: NCHCN 14:56
PROVIDERS: PCP Family Medicine; Visit Provider Family Medicine
DX: N18.9 Chronic kidney disease, unspecified (principal)
CPT/HCPCS: 85027

== ENCOUNTER 2020-02-13 22:21 | Observation (INO) | payer BC, SELFPAY ==
[2020-02-13] VITALS (14 sets, daily range): BP systolic 137–165; BP diastolic 69–80; PULSE 81–107; RESP 10–31; TEMP 36.7; O2SAT 96–99
--- NOTE | 2020-02-13 22:15 | RT.EKG_ITS ---
APPROVED REPORT Exam: Resting ECG Patient Location: E HR:95 bpm ECG Measurements Heart Rate 95 AXIS VA 276 P 267 QRSd 93 QRS -18 QT 367 T 65 QTc 462 Conclusion EKG 22: 28 Sinus rhythm, occasional PVC, VA slightly prolonged, intervals otherwise unremarkable, no significant ST elevation or depression, no evidence of STEMI, no evidence of epsilon wave, Brugada syndrome, or [id number]. No S1Q3T3
--- NOTE | 2020-02-13 22:39 | ED.GENADUL_ITS ---
Discharge Plan Disposition Patient Disposition: [facility] INPATIENT Condition: Stable Discharge Details Chief Complaint: Dizzy/Sync Clinical Impression: Acute dyspnea, D-dimer, elevated, Malaise Primary Care Provider: Lizbet Mohan ED Provider: Fritz Whatley Home Meds and New Rx's Prescriptions: No Action insulin lispro [Humalog KwikPen Insulin] 100 unit/mL insulin pen See Protocol unit SC TID RF: 0 losartan 50 mg tablet 50 mg PO HS RF: 0 cholecalciferol (vitamin D3) 1,250 mcg (50,000 unit) capsule 1,250 mcg PO QWEEK RF: 0 atorvastatin [Lipitor] 20 mg tablet 20 mg PO QHS RF: 0 amlodipine [Norvasc] 5 mg tablet 10 mg PO DAILY RF: 0 furosemide 40 MG tablet 40 mg PO BID RF: 0 allopurinol 100 MG tablet 1 tab PO BID RF: 0 aspirin 81 MG tablet,delayed release (DR/EC) 81 mg PO DAILY RF: 0 doxazosin 1 MG tablet 1 mg PO DAILY RF: 0 ergocalciferol (vitamin D2) 1,250 mcg (50,000 unit) capsule 1,250 mcg PO QWEEK RF: 0 Medical Decision Making Pleasant 64-year-old male with a past medical history of gout, type 2 diabetes, hypertension, previous atrial fibrillation which was thought to be iatrogenic and is since resolved, not currently on blood thinners, hypertension, history of chronic Lyme which is led to transaminitis and previous renal failure, presents today for evaluation of malaise. Patient states that earlier this afternoon he was out gardening, but while gardening he felt lightheaded, and notably short of breath. He went inside drink some water sat down started to feel better with time. And later this evening while preparing dinner and eating he again developed symptoms of shortness of breath malaise mild stomach nausea and unease. Sitting down relaxing and resting again resolved his symptoms. Currently the patient feels fine. He denies any cough, fever, chill s, current abdominal pain, nausea, vomiting, diarrhea. He does take furosemide, and does have some chronic lower extremity edema and states that this is unchanged. He does admit to losing 20 to 30 pounds over the last few months but he states this is been secondary to going to a vegan diet. He denies any history of cardiac ischemic problems, or personal history of heart disease. He denies family history of heart disease. Denies PE risk factors such as recent long car rides, immobilization, recent surgery, prior history of DVT or PE, family history of PE or DVT, morbid obesity, exogenous estrogen and smoking, hemoptysis, history of cancer. Physical exam is unremarkable, trace pitting edema in the lower extremities, patient is mildly tachycardic, exam otherwise benign. Patient is PERC positive with his heart rate, differential also includes cardiac equivalent/etiology, less likely ACS. CHF is on the differential. We will get a proBNP. We will get a d-dimer, cardiac work-up monitor closely and reassess. Differential also does include overexertion in conjunction with inadequate hydration at home during the hot day that it has been today. 12: 17 AM Patient's work-up is returned relatively benign aside for a few concerning components. Patient has a slightly elevated white count of 12.3, however this appears to be relatively benign compared to some of his prior work-ups. Hemoglobin stable. Platelets normal. Renal function at baseline with a creatinine of 2.58, GFR 25, proBNP normal, initial troponin normal, lipase normal, TSH normal. D-dimer is 1173, not appropriate for age adjustment. Chest x-ray read as negative. With the patient's elevated d-dimer of 1173 in conjunction with his recent surgical procedure 2 weeks ago, and his elevated heart rate and symptoms of shortness of breath I do feel that he would benefit from further work-up and VQ scan as he is not a candidate for CTA. I did discuss this with the patient and he is amendable to it. I discussed this with the hospitalist Dr. Jones and he agrees with the assessment and plan. We will give the first dose of Lovenox and 1 mg/kg dose here in the ED, recommend every 12 hours. We will admit the patient for observation, serial troponins and further monitoring. I have extensively reviewed the treatment plan with the patient. I have addressed all patient concerns at this time. I have also discussed the plan with the admitting physician and they agree with the current assessment and plan and have agreed to assume responsibility for the patient. All parties demonstrate verbal understanding and agreement with our assessment and plan at this time. Also of note notably limited bedside cardiac echo was performed, patient does have mild trace pericardial effusion versus more likely pericardial fat pad. Good contractility is best as I can appreciate, no signs of severe right heart strain. EKG 22: 28 Sinus rhythm, occasional PVC, CO slightly prolonged, intervals otherwise unrem arkable, no significant ST elevation or depression, no evidence of STEMI, no evidence of epsilon wave, Brugada syndrome, or Pvzcf-Ymrlddqnm-Haglo. No S1Q3T3 FINDINGS: Tubes, catheters and devices: Telemetry leads overlie the thorax. Lungs: Lung volumes are adequate. Linear opacities at the peripheral left base appear similar to comparison, likely areas of chronic atelectasis/scarring. No focal consolidation is seen. Pleural space: Unremarkable. No pleural effusion. No pneumothorax. Heart/Mediastinum: Indistinct appearance of the left heart border likely represents a prominent epicardial fat pad. No cardiomegaly. Vascular calcifications are noted in the aortic arch. Bones/joints: Osseous degenerative changes commensurate with age noted. No acute fractures are seen. Other findings: Right diaphragmatic eventration noted, unchanged. IMPRESSION: No acute findings. Thank you for allowing us to participate in the care of your patient. Dictated and Authenticated by: Evan Bender MD 02/13/2020 11:50 PM Eastern Time ([place] & [place]) HPI General Date/Time Provider Initiated Documentation: 02/13/20 22:23 . HPI Narrative: Pleasant 64-year-old male with a past medical history of gout, type 2 diabetes, hypertension, previous atrial fibrillation which was thought to be i atrogenic and is since resolved, not currently on blood thinners, hypertension, history of chronic Lyme which is led to transaminitis and previous renal failure, presents today for evaluation of malaise. Patient states that earlier this afternoon he was out gardening, but while gardening he felt lightheaded, and notably short of breath. He went inside drink some water sat down started to feel better with time. And later this evening while preparing dinner and eating he again developed symptoms of shortness of breath malaise mild stomach nausea and unease. Sitting down relaxing and resting again resolved his symptoms. Currently the patient feels fine. He denies any cough, fever, chills, current abdominal pain, nausea, vomiting, diarrhea. He does take furosemide, and does have some chronic lower extremity edema and states that this is unchanged. He does admit to losing 20 to 30 pounds over the last few months but he states this is been secondary to going to a vegan diet. He denies any history of cardiac ischemic problems, or personal history of heart disease. He denies family history of heart disease. Denies PE risk factors such as recent long car rides, immobilization, recent surgery, prior history of DVT or PE, family history of PE or DVT, morbid obesity, exogenous estrogen and smoking, hemoptysis, history of cancer. Related Data Home Medications Medication Instructions Recorded Confirmed furosemide 40 mg PO BID 05/16/13 02/13/20 allopurinol 1 tab PO BID 08/22/14 02/13/20 aspirin 81 mg PO DAILY 08/22/14 02/13/20 doxazosin 1 mg PO DAILY 01/31/18 02/13/20 amlodipine 5 mg tablet 10 mg PO DAILY tab 12/08/19 02/13/20 atorvastatin 20 mg tablet 20 mg PO QHS 12/08/19 02/13/20 cholecalciferol (vitamin D3) 1,250 1,250 mcg PO QWEEK 12/08/19 02/13/20 mcg (50,000 unit) capsule insulin lispro 100 unit/mL See Protocol SC TID 12/08/19 02/13/20 subcutaneous pen losartan 50 mg tablet 50 mg PO HS 12/08/19 02/13/20 ergocalciferol (vitamin D2) 1,250 mcg PO QWEEK 02/13/20 02/13/20 Allergies Allergy/AdvReac Type Severity Reaction Status Date / Time No Known Allergies Allergy Unverified 02/13/20 22:27 General Stated Complaint: Dizzy/Sync ALEJANDRO: 3 Review of Systems All systems reviewed & are unremarkable except as noted in HPI and below [facility] Medical History Acute kidney injury (nontraumatic) Afib F/U Cardiology Dr. Currie...per pt. was told this was related to his Lyme disease and the medication he was on was causing an episode of a-fib. Chronic renal disease Depression Diabetes mellitus Diverticulosis Dyspnea Elevated LFTs First degree AV block Gout Gout, arthritis Hyperkalemia Hyperlipidemia Hypertension Kidney disease Lyme disease Myalgia Obesity Pain in right hip Retinopathy Tubulovillous adenoma of colon (Inactive) Type 2 diabetes mellitus Surgical History History of surgical procedure on eye proper using laser (Acute) pt. reports for retinopathy Hx of eye surgery (Acute) R eye Hx of tonsillectomy (Chronic) Hx of umbilical hernia repair (Acute) with mesh S/P colonoscopy (Acute) Social History Smoking/Tobacco Use Status: Former Tobacco Use Quit Date: 06/30/89 Alcohol Intake: current Alcohol Intake frequency: holidays/special occasions only Alcohol type: beer Drug use: Never Substance use type: does not use Do you feel safe at home: Yes Do you feel safe in your relationship?: Yes Exam Narrative Exam Narrative: 1.Const: Well-nourished, Well-developed, appearing stated age 2.Eyes: PERRL, no conjunctival injection, and symmetrical lids. 3.ENT: Atraumatic external nose and ears. Moist MM. Neck: Symmetric, trachea midline, No thyromegaly. 4.CVS: +S1/S2, No murmurs or gallops. Peripheral pulses 2+ and equal in all e xtremities. Brisk capillary refill in all extremities. 5.RESP: Unlabored respiratory effort. Clear to auscultation bilaterally. No wheezes rales or rhonchi 6.GI: Soft, Nontender/Nondistended, No hepatosplenomegaly. No guarding or rebound. 7.MSK: Normocephalic/Atraumatic, Extremities w/o deformity or ttp No cyanosis or clubbing, Normal movement of all extremities, trace +1 pitting edema in the lower extremities bilaterally. 8.Skin: Warm, Dry. No rashes or lesions. 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 Sensation grossly intact, no focal neurologic deficits. 10.Psych: (AAO) x3. Appropriate mood and affect Course Vital Signs Vital signs: Vital Signs Temperature 36.7 C 02/13/20 22:24 Pulse 107 H 02/13/20 22:24 Respiratory Rate 16 02/13/20 22:24 Blood Pressure 146/80 H 02/13/20 22:24 Pulse Oximetry 96 02/13/20 22:24 Temperature 36.7 C 02/13/20 22:24 Temperature Source Temporal Artery Scan 02/13/20 22:24 Pulse 104 H 02/13/20 22:26 Pulse 95 H 02/13/20 22:27 Respiratory Rate 13 02/13/20 22:27 Respiratory Effort Non-Labored 02/13/20 22:28 Blood Pressure 146/80 H 02/13/20 22:26 Blood Pressure Mean 98 02/13/20 22:26 Blood Pressure Position Sitting 02/13/20 22:24 Pulse Oximetry 97 02/13/20 22:27 Oxygen Delivery Method Room Air 02/13/20 22:24 Oxygen Flow Rate 0 02/13/20 22:24 Pain Level 0 02/13/20 22:24
[2020-02-13] MEDS: Normal Saline 500 ML 250 ML IV (22:43)
[2020-02-13 22:48] LABS: Abs Immature Grans 0.05 10^3/uL (0.0-0.06); Absolute Eosinophil Count 0.02 10^3/uL (0.0-0.7); Absolute Lymphocyte Count 2.71 10^3/uL (1.2-3.4); Absolute Monocyte Count 0.64 10^3/uL (0.1-0.8); Absolute Neutrophil Count 8.93 10^3/uL (1.2-6.7); Basophils % 0.2; Eosinophils % 0.2; Immature Grans % 0.4; Lymphocytes % 21.9; MCH 30.1 pg (27.0-33.0); MCHC 32.4 % (32.0-36.0); MCV 92.7 fL (80-95); MPV 12.9 fL (8.0-11.0); Monocytes % 5.2; Neutrophils % 72.1; Nucleated RBC 0 %; Platelet Count 164 10^3/uL (130-400); RBC 3.99 10^6/uL (4.36-5.78); RDW 14.8 % (11.8-14.1); RDW-SD 50.4 fL; WBC 12.38 10^3/uL (4.4-10.8)
[2020-02-13 22:49] LABS: Absolute Basophil Count 0.02 10^3/uL (0.0-0.2)
[2020-02-13 23:03] LABS: INR 1.1 (0.9-1.1); PTT Activated 19.6 sec (21.0-31.4); Prothrombin Time 10.9 sec (9.3-11.0)
[2020-02-13 23:12] LABS: ALT 16 U/L (16-63); AST 18 U/L (15-37); Albumin 3.2 g/dL (3.4-5.0); Alkaline Phosphatase 137 U/L (46-116); Anion Gap 9.9 mmol/L (3-11); BUN 25 mg/dL (7-18); Bilirubin, Total 0.5 mg/dL (0.2-1.0); CO2 24.1 mmol/L (21.0-32.0); CREATININE 2.58 mg/dL (0.70-1.30); Calcium 8.6 mg/dL (8.5-10.1); Chloride 102 mmol/L (98-107); Estimated GFR 25.28 (mL/min/1.73m2); Glucose 166 mg/dL (74-106); Lipase 76 U/L (73-393); NT-proBNP 389 pg/mL (<300); Sodium 136 mmol/L (136-145); TSH (W/Ref FT4) 1.48 uIU/mL (0.36-3.74); Total Protein 6.9 g/dL (6.4-8.2)
[2020-02-13 23:13] LABS: Troponin I < 0.05 ng/mL (<0.06)
--- NOTE | 2020-02-13 23:15 | DI.RAD_ITS ---
EXAM: XR CHEST 2V PA LATERAL CLINICAL HISTORY: sob, d dimer elevated, eval for hamptoms hump/cons TECHNIQUE: 2D digital imaging was performed. COMPARISON: CR CHEST 2 VIEWS PA,LAT from 01/29/2018 FINDINGS: MEDIASTINUM: Normal. HEART: Normal. PULMONARY VASCULATURE: Normal. LUNGS: Clear. PLEURAL SPACE: No pleural effusion or pneumothorax. BONE:Degenerative changes of the spine. OTHER FINDINGS:Eventration of the right diaphragm. IMPRESSION: No acute pulmonary findings. DATA REPOSITORY: RADIATION DOSE DELIVERED:
[2020-02-13 23:18] LABS: D-Dimer 1173 ng/mlFEU (<500)
--- NOTE | 2020-02-13 23:51 | DI.VRAD_ITS ---
PROCEDURE INFORMATION: Exam: XR Chest, 2 Views Exam date and time: 02/13/2020 11:32 PM Age: 64 years old Clinical indication: Abnormal findings; Abnormal diagnostic tests; Elevated d-dimer; Shortness of breath; Patient HX: SOB, elevated d dimer, eval for hamtons hump/cons TECHNIQUE: Imaging protocol: XR of the chest Views: 2 views. COMPARISON: CR CHEST 2 VIEWS PA,LAT 01/29/2018 2:08 PM FINDINGS: Tubes, catheters and devices: Telemetry leads overlie the thorax. Lungs: Lung volumes are adequate. Linear opacities at the peripheral left base appear similar to comparison, likely areas of chronic atelectasis/scarring. No focal consolidation is seen. Pleural space: Unremarkable. No pleural effusion. No pneumothorax. Heart/Mediastinum: Indistinct appearance of the left heart border likely represents a prominent epicardial fat pad. No cardiomegaly. Vascular calcifications are noted in the aortic arch. Bones/joints: Osseous degenerative changes commensurate with age noted. No acute fractures are seen. Other findings: Right diaphragmatic eventration noted, unchanged. IMPRESSION: No acute findings. Dictated and Authenticated by: Evan Bender MD. Ordering:KEESHA Hu MD
[2020-02-14] VITALS (9 sets, daily range): BP systolic 131–149; BP diastolic 68–74; PULSE 75–97; RESP 10–20; TEMP 35.5–36.8; O2SAT 96–99
--- NOTE | 2020-02-14 | DI.US_ITS ---
EXAM: US EXTREMITY VENOUS BI CLINICAL HISTORY: bilateral leg edema and elevated d-dimer. TECHNIQUE: Bilateral lower extremity venous ultrasound performed using grayscale, color-flow, and sp ectral Doppler analysis. COMPARISON: No exams were available for comparison FINDINGS: The bilateral common femoral, femoral and popliteal veins demonstrate normal compressibility, augment ation, and color Doppler. The posterior tibial veins are patent. IMPRESSION: Right: Negative for DVT Left: Negative for DVT DATA REPOSITORY:
--- NOTE | 2020-02-14 00:11 | W.PM.HP.N ---
Date of service: 02/14/20 Time of Service: 00:12 Assessment and Plan Assessment and plan (1) Dyspnea: Start date: 02/13/20 Status: Acute Assessment and plan: This is a 64-year-old gentleman who had dyspnea upon exertion with minimal activity prior to admission. He has lost weight recently but does have chronic edema and has diabetes with CKD not allowing CTA of the chest to rule out PE. He was placed on treatment dose Lovenox with VQ scan planned for this morning. His cardiac work-up was negative with a only slightly elevated BNP and normal troponin. We are trending his troponins. He does have a history of atrial fibrillation in the past but with no evidence of this upon presentation. He had no palpitations or chest pain. 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 He is willing to evaluate and seek treatment for his anxiety and coping skills. He is a full code and this was respected. Qualifiers: Dyspnea type: dyspnea on exertion Qualified Code(s): R06.00 - Dyspnea, unspecified (2) Kidney disease: Status: Chronic Assessment and plan: Stable presently but entering evaluation for possible PE. Continue to monitor with patient receiving some fluids upon admission but now on oral hydration. This is associated mostly with his long-term diabetes but was exacerbated with Lyme infection. He is at stage IV. (3) Type 2 diabetes mellitus: Status: Chronic Assessment and plan: Glucometers before meals and at bedtime with short acting insulin coverage. Patient is on only short acting insulin coverage at home but review of his home meds and is not on metformin most likely secondary to CKD but also is not on GLP-1 agonist. There is no previous hemoglobin A1c for review this to be done as an outpatient. If hemoglobin A1c is elevated consider more aggressive treatment such as GLP-1 agonist and basal insulin. He has associated CKD and anemia with his diabetes. Qualifiers: Chronic kidney disease stage: stage 4 (severe) Diabetes mellitus complication detail: with chronic kidney disease Diabetes mellitus complication status: with kidney complications Diabetes mellitus buttermaker continuous churn insulin use: with buttermaker continuous churn use Qualified Code(s): E11.22 - Type 2 diabetes mellitus with diabetic chronic kidney disease; N18.4 - Chronic kidney disease, stage 4 (severe); Z79.4 - [facility] (current) use of insulin History of Present Illness History of Present Illness Chief Complaint: Dyspnea with exertion Narrative: 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 Presented with notable dyspnea with mild exertion when he was gardening and felt slightly dizzy with some discomfort behind his neck which he now attributes to increased stress with anticipating returning to school with a COVID-19 pandemic. He had lightheadedness and shortness of breath while gardening and again while preparing dinner the evening of presentation prompting reporting to the ED. Evaluation in the ED was significant for a positive d-dimer and essentially negative cardiac evaluation for acute event. He does have chronic peripheral edema but no significant change, in fact improved but since he has lost weight of about 30 pounds recently. He does have central obesity with diabetes and CKD associated with diabetes but was exacerbated by an acute episode of Lyme disease in the recent past. This presented with fever and malaise with primary and secondary stages of Lyme suspected. He had no heart block at that time but did have atrial fibrillation which he attributed to supplements and meds and this has not continued or required anticoagulation. 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 He has had no previous cardiac events other than atrial fibrillation which was transient. He has had no previous thromboembolic events and there is no family history of hypercoagulability. Patient was admitted to observation for VQ scan today and placed on treatment dose of Lovenox for possible PE. He was unable to have CTA of the chest secondary to his CKD which is stage IV. Review of Systems Narrative: 13 point review of systems otherwise unrevealing or stable. Patient is very active. He has been on antidepressants or anxiety medicines in the past and has no ongoing counseling or treatment. [facility] Medical History Acute kidney injury (nontraumatic) Afib F/U Cardiology Dr. Currie...per pt. was told this was related to his Lyme disease and the medication he was on was causing an episode of a-fib. Chronic renal disease Depression Diabetes mellitus Diverticulosis Dyspnea Elevated LFTs First degree AV block Gout Gout, arthritis Hyperkalemia Hyperlipidemia Hypertension Kidney disease Lyme disease Myalgia Obesity Pain in right hip Retinopathy Tubulovillous adenoma of colon (Inactive) Type 2 diabetes mellitus Surgical History History of surgical procedure on eye proper using laser (Acute) pt. reports for retinopathy Hx of eye surgery (Acute) R eye Hx of tonsillectomy (Chronic) Hx of umbilical hernia repair (Acute) with mesh S/P colonoscopy (Acute) Social History Smoking/Tobacco Use Status: Former Tobacco Use Quit Date: 06/30/89 Alcohol Intake: current Alcohol Intake frequency: holidays/special occasions only Alcohol type: beer Drug use: Never Substance use type: does not use Do you feel safe at home: Yes Do you feel safe in your relationship?: Yes Meds Home Medications and Allergies Home Medications Medication Instructions Recorded Confirmed Type furosemide 40 mg PO BID 05/16/13 02/13/20 History allopurinol 1 tab PO BID 08/22/14 02/13/20 History aspirin 81 mg PO DAILY 08/22/14 02/13/20 History doxazosin 1 mg PO DAILY 01/31/18 02/13/20 History amlodipine 5 mg tablet 10 mg PO DAILY tab 12/08/19 02/13/20 History atorvastatin 20 mg tablet 20 mg PO QHS 12/08/19 02/13/20 History cholecalciferol (vitamin D3) 1,250 1,250 mcg PO QWEEK 12/08/19 02/13/20 History mcg (50,000 unit) capsule insulin lispro 100 unit/mL See Protocol SC TID 12/08/19 02/13/20 History subcutaneous pen losartan 50 mg tablet 50 mg PO HS 12/08/19 02/13/20 History ergocalciferol (vitamin D2) 1,250 mcg PO QWEEK 02/13/20 02/13/20 History Allergies Allergy/AdvReac Type Severity Reaction Status Date / Time No Known Allergies Allergy Unverified 02/13/20 22:27 Exam Narrative Exam Narrative: General: Patient appears older than stated age, moderate to severe central obesity and in no acute distress. Alert and oriented x3. Slightly flattened affect but normal variation in good eye contact. Higher than normal intelligence and insightful. HEENT: Normocephalic, eyes with pupils equal and reactive light symmetrically, extraocular movement intact and sclera anicteric. Oropharynx with normal moist mucosa and good dentition. External nose and ears normal. Neck: Supple without JVD. Back: Stooped posture with no CVA tenderness. Lungs: Clear to auscultation percussion with no focalizing rales or rhonchi. Normal inspiratory to expiratory phase ratio. No expiratory wheeze. Heart: Regular rate and rhythm with no murmurs, rubs or gallops appreciated. Abdomen: Obese contour, soft and nontender to palpation with no palpable hepatosplenomegaly. Genitalia/rectal: Exam deferred. Extremities: Without clubbing or cyanosis. 1-2+ pitting edema lower extremities below the knees especially with chronic venous stasis change of skin including hyperpigmentation, shiny atrophic skin and loss of hair but no ulcerations or open skin lesions. No palpable cords over the calves and a negative Santi's sign bilaterally. Good capillary refill bilaterally. Peripheral pulses intact. Skin: Normal color, warm and dry with no rashes except skin changes as mentioned on lower extremities. Neuro: Cranial nerves II through XII grossly intact, no focalizing motor or gross sensory deficits. Patient does have long-term diabetes with Crivitz Apollo monofilament testing not performed. Psych: Slightly flattened affect but normal mood and normal thought processes. Remote and recent memory intact. Results Imaging Imaging Studies: Exam: XR Chest, 2 Views Exam date and time: 02/13/2020 11:32 PM Age: 64 years old Clinical indication: Abnormal findings; Abnormal diagnostic tests; Elevated d-dimer; Shortness of breath; Patient HX: SOB, elevated d dimer, eval for hamtons hump/cons TECHNIQUE: Imaging protocol: XR of the chest Views: 2 views. COMPARISON: CR CHEST 2 VIEWS PA,LAT 01/29/2018 2:08 PM FINDINGS: Tubes, catheters and devices: Telemetry leads overlie the thorax. Lungs: Lung volumes are adequate. Linear opacities at the peripheral left base appear similar to comparison, likely areas of chronic atelectasis/scarring. No focal consolidation is seen. Pleural space: Unremarkable. No pleural effusion. No pneumothorax. Heart/Mediastinum: Indistinct appearance of the left heart border likely represents a prominent epicardial fat pad. No cardiomegaly. Vascular calcifications are noted in the aortic arch. Bones/joints: Osseous degenerative changes commensurate with age noted. No acute fractures are seen. Other findings: Right diaphragmatic eventration noted, unchanged. IMPRESSION: No acute findings. Dictated and Authenticated by: Evan Bender MD. Labs Result diagrams: 02/13/20 22:20 02/13/20 22:20 Labs: Laboratory Results - last 24 hr 02/13/20 02/13/20 02/13/20 22:15 22:20 22:20 WBC 12.38 H RBC 3.99 L Hgb 12.0 L Hct 37.0 L MCV 92.7 MCH 30.1 MCHC 32.4 RDW 14.8 H Plt Count 164 MPV 12.9 H Immature Gran % 0.4 Neutrophils % 72.1 Lymphocytes % 21.9 Monocytes % 5.2 Eosinophils % 0.2 Basophils % 0.2 Absolute Neutrophils 8.93 H Absolute Lymphocytes 2.71 Absolute Monocytes 0.64 Absolute Eosinophils 0.02 Absolute Basophils 0.02 PT 10.9 INR 1.1 APTT 19.6 L D-Dimer Sodium 136 Potassium 5.0 Chloride 102 Carbon Dioxide 24.1 Anion Gap 9.9 BUN 25 H Creatinine 2.58 H Estimated GFR/1.73 m2 25.28 Glucose 166 H Calcium 8.6 Total Bilirubin 0.5 AST 18 ALT 16 Alkaline Phosphatase 137 H Troponin I < 0.05 NT-Pro-B Natriuret Pep 389 H Total Protein 6.9 Albumin 3.2 L Lipase 76 TSH 1.48 02/13/20 22:20 WBC RBC Hgb Hct MCV MCH MCHC RDW Plt Count MPV Immature Gran % Neutrophils % Lymphocytes % Monocytes % Eosinophils % Basophils % Absolute Neutrophils Absolute Lymphocytes Absolute Monocytes Absolute Eosinophils Absolute Basophils PT INR APTT D-Dimer 1173 H Sodium Potassium Chloride Carbon Dioxide Anion Gap BUN Creatinine Estimated GFR/1.73 m2 Glucose Calcium Total Bilirubin AST ALT Alkaline Phosphatase Troponin I NT-Pro-B Natriuret Pep Total Protein Albumin Lipase TSH Last Vital Signs Temp 36.7 C 02/13/20 22:24 Pulse 94 H 02/14/20 00:01 Resp 14 02/14/20 00:02 BP 149/70 H 02/14/20 00:01 Pulse Ox 98 02/14/20 00:02 COVID-19 Screening Have you,or household,traveled outside [place] in last 14 days?: No Had IN PERSON contact w/suspected or confirmed C-19 person: No
[2020-02-14] MEDS: Enoxaparin 120 MG/0.8 ML SYR SC ×2 (00:24→10:35)
[2020-02-14] MEDS: Atorvastatin 20 MG TAB PO (01:38)
[2020-02-14 02:06] LABS: Troponin I < 0.05 ng/mL (<0.06)
[2020-02-14 07:10] LABS: Abs Immature Grans 0.03 10^3/uL (0.0-0.06); Absolute Basophil Count 0.02 10^3/uL (0.0-0.2); Absolute Eosinophil Count 0.08 10^3/uL (0.0-0.7); Absolute Lymphocyte Count 2.58 10^3/uL (1.2-3.4); Absolute Monocyte Count 0.69 10^3/uL (0.1-0.8); Basophils % 0.2; Eosinophils % 0.9; HCT 32.7 % (40.0-50.0); HGB 10.6 g/dL (13.5-17.5); Immature Grans % 0.4; Lymphocytes % 30.4; MCH 30.4 pg (27.0-33.0); MCHC 32.4 % (32.0-36.0); MCV 93.7 fL (80-95); MPV 12.8 fL (8.0-11.0); Monocytes % 8.1; Nucleated RBC 0 %; RBC 3.49 10^6/uL (4.36-5.78); RDW 14.7 % (11.8-14.1); RDW-SD 50.9 fL
[2020-02-14 07:18] LABS: ALT 13 U/L (16-63); AST 16 U/L (15-37); Albumin 2.7 g/dL (3.4-5.0); Alkaline Phosphatase 115 U/L (46-116); Anion Gap 8.2 mmol/L (3-11); BUN 25 mg/dL (7-18); Bilirubin, Total 0.4 mg/dL (0.2-1.0); CO2 25.8 mmol/L (21.0-32.0); CREATININE 2.27 mg/dL (0.70-1.30); Calcium 8.4 mg/dL (8.5-10.1); Chloride 105 mmol/L (98-107); Glucose 125 mg/dL (74-106); Potassium 4.4 mmol/L (3.5-5.1); Sodium 139 mmol/L (136-145); Total Protein 5.8 g/dL (6.4-8.2); Troponin I < 0.05 ng/mL (<0.06)
[2020-02-14 07:27] LABS: Platelet Count 128 10^3/uL (130-400)
[2020-02-14] MEDS: Doxazosin 1 MG TAB PO (07:52)
[2020-02-14] MEDS: Aspirin E.C. 81 MG TABEC PO (07:52)
[2020-02-14] MEDS: Furosemide 40 MG TAB PO ×2 (07:52→16:44)
[2020-02-14] MEDS: Allopurinol 100 MG TAB PO (07:53)
[2020-02-14] MEDS: amLODIPine 5 MG TAB 10 MG PO (07:53)
--- NOTE | 2020-02-14 08:00 | DI.NM_ITS ---
EXAM: NM LUNG SCAN VENT PERF GRP CLINICAL HISTORY: Dyspnea with tachycardia and positive D-Dimer. TECHNIQUE: Injected Dose: Ventilation: 33 mCi Tc-99m DTPA via inhalation Perfusion: 4 0.2 mCi Tc-99m MAA via IV COMPARISON: CR,XR XR CHEST 2V PA LATERAL from 02/13/2020 FINDINGS: Chest X-Ray: Clear lungs. Perfusion: Normal. Ventilation:Normal . IMPRESSION: 1. Low probability VQ examination. . . . Modified PIOPED II criteria Probability Criteria High Two or more segments of V/Q mismatch Low Normal Perfusion, Non segmental perfusion abnormalitie s, pleural effusion in at least 1/3 of pleural cavity with no other defect Radiograph/perfusion matched defect in mid to upper lung confined to segment, one to three small segmental perfusion defects (<25% of segment) Perfusion defect smaller than corresponding radiogra phic lesion. Intermediate All other findings DATA REPOSITORY:
--- NOTE | 2020-02-14 08:04 | INITIAL_ITS ---
- If Service Date Differs Date of service: 02/14/20 Time of Service: 08:04 Care Management Initial Assess REASON FOR HOSPITALIZATION:: Dyspnea with exertion, elevated d-dimer PAST MEDICAL HISTORY/PAST SURGICAL HISTORY:: Acute kidney injury (nontraumatic). Afib. Chronic renal disease. Depression. Diabetes mellitus. Diverticulosis. Dyspnea. Elevated LFTs. First degree AV block. Gout. Gout, arthritis. Hyperkalemia. Hyperlipidemia. Hypertension. Kidney disease. Lyme disease. Myalgia. Obesity. Pain in right hip. Retinopathy. Tubulovillous adenoma of colon (Inactive). Type 2 diabetes mellitus. Surgical History. History of surgical procedure on eye proper using laser (Acute). pt. reports for retinopathy. Hx of eye surgery (Acute). R eye. Hx of tonsillectomy (Chronic). Hx of umbilical hernia repair (Acute). 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 He is independent with ADL's and transportation. CURRENT FUNCTIONAL STATUS:: Jairon is engaged during assessment, CM did review the plan he reports he had a ultra sound this morning. He continues on Lovenox at this time, while DVT and PE is being ruled out. Anticipate he may need to transition to DO[facility] prior to discharge pending scan results. ADVANCE DIRECTIVES:: On file is spouse is his agent (Zoila) Has patient been provided with info about the portal/API?: Yes Did the patient sign up for the portal?: Yes CODE STATUS:: Full Code INSURANCE COVERAGE / FINANCIAL ISSUES:: BCBS CURRENT HOME/COMMUNITY SERVICES/EQUIPMENT:: None at this time PRIMARY CARE PHYSICIAN:: Lizbet Mohan, [facility] POTENTIAL DISCHARGE NEEDS:: Discharge instructions, limitations and follow up plan of care including ask me three and self management. PATIENT/FAMILY EDUCATION NEEDS:: Discharge education, limitations and follow up plan of care including ask me three and self management. ANTICIPATED BARRIERS TO DISCHARGE:: None identified TRANSPORTATION:: Via private car with spouse PLAN:: Jairon will be discharged when medically ready. He will not need any additional services he may need a eliquis card depending scan results. CM will continue to assess for discharge needs.
[2020-02-14] MEDS: Pantoprazole 40 MG TABCR PO (08:45)
[2020-02-14] MEDS: Insulin Aspart 300 UNITS/3 ML PEN SC ×2 (11:36→16:45)
--- NOTE | 2020-02-14 12:56 | W.PM.PROGNOT ---
Date of Service Date of service: 02/14/20 Time of Service: 12:56 Assessment and Plan Assessment and plan (1) Dyspnea: Status: Acute Assessment and plan: I talked to the patient regarding symptoms of unstable angina and myocardial infarction and instructed him that if he has any chest tightness pain or pressure or near syncopal symptoms or unusual dyspnea than he should come back to the emergency room immediately. Because he has had a history of exertional dyspnea this been going on for a few months I did recommend that he get a stress MPI study as well as an echocardiogram. These will be arranged as an outpatient in the next week. Qualifiers: Dyspnea type: dyspnea on exertion Qualified Code(s): R06.00 - Dyspnea, unspecified (2) Dizziness: Status: Acute Assessment and plan: no further dizziness, nor any CP or dyspnea. No arrhythmias overnight. Patient to have outpatient echo and stress MPI. Subjective Subjective Interval history since last seen: Patient's had no more shortness of breath and no dizziness since entering the hospital. His blood pressure stable he is not tachycardic. He denies any leg pain. Patient underwent venous duplex scan this morning and was negative for DVT. This afternoon VQ scan was read as low probability. In this setting I feel that most likely there is no evidence for pulmonary embolus. As a studies not tachycardic and he is not hypoxemic as his saturations 99% on room air. At this point the patient would like to go home. 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 Exam Narrative Exam Narrative: Obese male who is alert and oriented person place time circumstance sitting up in his bed in semi-hernandez position. Neck is supple nontender no JVD. Lungs are clear to auscultation. Heart is regular rate and rhythm without murmur rub or gallop. Abdomen soft and nontender nondistended normal active bowel sounds. Lower extremities no calf tenderness there is slight trace of bilateral edema. Objective Objective Clinical Data: Abnormal lab results 02/13/20 02/13/20 02/13/20 Range/Units 22:15 22:20 22:20 WBC 12.38 H (4.4-10.8) 10^3/uL RBC 3.99 L (4.36-5.78) 10^6/uL Hgb 12.0 L (13.5-17.5) g/dL Hct 37.0 L (40.0-50.0) % RDW 14.8 H (11.8-14.1) % Plt Count (130-400) 10^3/uL MPV 12.9 H (8.0-11.0) fL Absolute Neutrophils 8.93 H (1.2-6.7) 10^3/uL APTT 19.6 L (21.0-31.4) sec D-Dimer (<500) ng/mlFEU BUN 25 H (7-18) mg/dL Creatinine 2.58 H (0.70-1.30) mg/dL Glucose 166 H (74-106) mg/dL Calcium (8.5-10.1) mg/dL ALT (16-63) U/L Alkaline Phosphatase 137 H (46-116) U/L NT-Pro-B Natriuret Pep 389 H (<300) pg/mL Total Protein (6.4-8.2) g/dL Albumin 3.2 L (3.4-5.0) g/dL 02/13/20 02/14/20 02/14/20 Range/Units 22:20 05:52 05:52 WBC (4.4-10.8) 10^3/uL RBC 3.49 L (4.36-5.78) 10^6/uL Hgb 10.6 L (13.5-17.5) g/dL Hct 32.7 L (40.0-50.0) % RDW 14.7 H (11.8-14.1) % Plt Count 128 L (130-400) 10^3/uL MPV 12.8 H (8.0-11.0) fL Absolute Neutrophils (1.2-6.7) 10^3/uL APTT (21.0-31.4) sec D-Dimer 1173 H (<500) ng/mlFEU BUN 25 H (7-18) mg/dL Creatinine 2.27 H (0.70-1.30) mg/dL Glucose 125 H (74-106) mg/dL Calcium 8.4 L (8.5-10.1) mg/dL ALT 13 L (16-63) U/L Alkaline Phosphatase (46-116) U/L NT-Pro-B Natriuret Pep (<300) pg/mL Total Protein 5.8 L (6.4-8.2) g/dL Albumin 2.7 L (3.4-5.0) g/dL Vital Signs Temperature 35.5 C L 02/14/20 10:51 Temperature Source Tympanic 02/14/20 10:51 Pulse 76 02/14/20 10:51 Pulse Rhythm Regular 02/14/20 10:15 Pulse 85 02/14/20 00:31 Respiratory Rate 20 02/14/20 10:51 Respiratory Effort Non-Labored 02/14/20 10:15 Respiratory Depth Normal 02/14/20 10:15 Respiratory Pattern Normal 02/14/20 10:15 Blood Pressure 131/69 02/14/20 10:51 Blood Pressure Mean 84 02/14/20 00:31 Blood Pressure Position Sitting 02/13/20 22:24 Pulse Oximetry 97 02/14/20 10:51 Oxygen Delivery Method Room Air 02/14/20 10:51 Oxygen Flow Rate 0 02/14/20 10:51 Pain Level 0 02/14/20 10:51 Intake & Output 02/13/20 02/14/20 02/14/20 23:59 11:59 23:59 Intake Total 500 / 500 Output Total 550 / 550 Balance -50 / -50 Weight 115.666 kg 114.4 kg Intake: IV 500 / 500 Output: Urine 550 / 550 Other: Urine Color Pale Yellow Urine Appearance Clear Urine Odor Normal Comment Pt urinated in [place]liet independently. COMMUNICATIONS SPECIALIST did not see urinate. Voiding Methods Toilet Laboratory Results WBC 8.50 10^3/uL (4.4-10.8) D 02/14/20 05:52 RBC 3.49 10^6/uL (4.36-5.78) L 02/14/20 05:52 Hgb 10.6 g/dL (13.5-17.5) L 02/14/20 05:52 Hct 32.7 % (40.0-50.0) L 02/14/20 05:52 MCV 93.7 fL (80-95) 02/14/20 05:52 MCH 30.4 pg (27.0-33.0) 02/14/20 05:52 MCHC 32.4 % (32.0-36.0) 02/14/20 05:52 RDW 14.7 % (11.8-14.1) H 02/14/20 05:52 Plt Count 128 10^3/uL (130-400) L 02/14/20 05:52 MPV 12.8 fL (8.0-11.0) H 02/14/20 05:52 Immature Gran % 0.4 02/14/20 05:52 Neutrophils % 60.0 02/14/20 05:52 Lymphocytes % 30.4 02/14/20 05:52 Monocytes % 8.1 02/14/20 05:52 Eosinophils % 0.9 02/14/20 05:52 Basophils % 0.2 02/14/20 05:52 Absolute Neutrophils 5.10 10^3/uL (1.2-6.7) 02/14/20 05:52 Absolute Lymphocytes 2.58 10^3/uL (1.2-3.4) 02/14/20 05:52 Absolute Monocytes 0.69 10^3/uL (0.1-0.8) 02/14/20 05:52 Absolute Eosinophils 0.08 10^3/uL (0.0-0.7) 02/14/20 05:52 Absolute Basophils 0.02 10^3/uL (0.0-0.2) 02/14/20 05:52 PT 10.9 sec (9.3-11.0) 02/13/20 22:15 INR 1.1 (0.9-1.1) 02/13/20 22:15 APTT 19.6 sec (21.0-31.4) L 02/13/20 22:15 D-Dimer 1173 ng/mlFEU (<500) H 02/13/20 22:20 Sodium 139 mmol/L (136-145) 02/14/20 05:52 Potassium 4.4 mmol/L (3.5-5.1) 02/14/20 05:52 Chloride 105 mmol/L (98-107) 02/14/20 05:52 Carbon Dioxide 25.8 mmol/L (21.0-32.0) 02/14/20 05:52 Anion Gap 8.2 mmol/L (3-11) 02/14/20 05:52 BUN 25 mg/dL (7-18) H 02/14/20 05:52 Creatinine 2.27 mg/dL (0.70-1.30) H 02/14/20 05:52 Estimated GFR/1.73 m2 29.30 (mL/min/1.73m2) 02/14/20 05:52 Glucose 125 mg/dL (74-106) H 02/14/20 05:52 Calcium 8.4 mg/dL (8.5-10.1) L 02/14/20 05:52 Total Bilirubin 0.4 mg/dL (0.2-1.0) 02/14/20 05:52 AST 16 U/L (15-37) 02/14/20 05:52 ALT 13 U/L (16-63) L 02/14/20 05:52 Alkaline Phosphatase 115 U/L (46-116) 02/14/20 05:52 Troponin I < 0.05 ng/mL (<0.06) 02/14/20 05:52 NT-Pro-B Natriuret Pep 389 pg/mL (<300) H 02/13/20 22:20 Total Protein 5.8 g/dL (6.4-8.2) L 02/14/20 05:52 Albumin 2.7 g/dL (3.4-5.0) L 02/14/20 05:52 Lipase 76 U/L (73-393) 02/13/20 22:20 TSH 1.48 uIU/mL (0.36-3.74) 02/13/20 22:20
[2020-02-14 14:46] LABS: COVID-19 RT-PCR UVMMC Result Negative (Negative)
--- NOTE | 2020-02-14 14:58 | CHAPLAIN ---
Jairon was resting in bed when I visited. 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 He may be discharged today, he said.
== END 2020-02-14 17:12 | disposition home or self-care (01) ==
LOC: ER 02-14 00:33 → MS 02-14 00:58
PROVIDERS: Admitting Provider Family Medicine; Emergency Provider Student in an Organized Health Care Education/Training Program; PCP Family Medicine; Visit Provider Family Medicine
DX: R06.00 Dyspnea, unspecified (principal); R06.02 Shortness of breath; R42 Dizziness and giddiness; Z79.4 Long term (current) use of insulin; N18.4 Chronic kidney disease, stage 4 (severe); Z79.82 Long term (current) use of aspirin; Z79.899 Other long term (current) drug therapy; M10.9 Gout, unspecified; R53.1 Weakness; N17.9 Acute kidney failure, unspecified; F32.9 Major depressive disorder, single episode, unspecified; I44.0 Atrioventricular block, first degree; E78.5 Hyperlipidemia, unspecified; E66.9 Obesity, unspecified; A69.20 Lyme disease, unspecified; E11.22 Type 2 diabetes mellitus with diabetic chronic kidney disease; I12.9 Hypertensive chronic kidney disease with stage 1 through stage 4 chronic kidney disease, or unspecified chronic kidney disease; D64.9 Anemia, unspecified
CPT/HCPCS: 36415; 78582; 80053; 83690; 93005; 96360; 96372; 99219; 99285; NC; U0003; 71046; 83880; 84443; 84484; 85025; 85379; 85610; 85730; 93010; 93970; G0378; J1650

== ENCOUNTER 2020-05-22 03:50 | Outpatient (CLI) | payer BC, SELFPAY ==
[2020-05-22 16:42] LABS: Anion Gap 9.2 mmol/L (3-11); BUN 40 mg/dL (7-18); CO2 23.8 mmol/L (21.0-32.0); CREATININE 2.35 mg/dL (0.70-1.30); Calcium 8.1 mg/dL (8.5-10.1); Chloride 105 mmol/L (98-107); Estimated GFR 28.07 (mL/min/1.73m2); Glucose 179 mg/dL (74-106); PHOSPHORUS 2.8 mg/dL (2.6-4.7); Potassium 4.7 mmol/L (3.5-5.1); Sodium 138 mmol/L (136-145)
[2020-06-02 13:11] LABS: Parathyroid Hormone,Intact 256 pg/mL (15-65)
== END 2020-05-22 04:10 ==
PROVIDERS: PCP Family Medicine; Visit Provider Internal Medicine
DX: N18.4 Chronic kidney disease, stage 4 (severe) (principal)
CPT/HCPCS: 36415; 80048; 83970; 84100

== ENCOUNTER 2020-07-12 04:37 | Outpatient (CLI) | payer BC, SELFPAY ==
[2020-07-12 10:05] LABS: Hemoglobin A1C 6.6 % (<5.7)
[2020-07-12 10:09] LABS: ALT 19 U/L (16-63); AST 25 U/L (15-37); Albumin 3.2 g/dL (3.4-5.0); Alkaline Phosphatase 115 U/L (46-116); Anion Gap 9.2 mmol/L (3-11); BUN 34 mg/dL (7-18); Bilirubin, Total 0.4 mg/dL (0.2-1.0); CO2 24.8 mmol/L (21.0-32.0); CREATININE 2.26 mg/dL (0.70-1.30); Calcium 8.3 mg/dL (8.5-10.1); Chloride 106 mmol/L (98-107); Estimated GFR 29.36 (mL/min/1.73m2); Glucose 127 mg/dL (74-106); Potassium 5.1 mmol/L (3.5-5.1); Sodium 140 mmol/L (136-145); Total Protein 6.1 g/dL (6.4-8.2)
[2020-07-13 09:02] LABS: Parathyroid Hormone,Intact 236 pg/mL (19-88)
[2020-07-13 12:29] LABS: C-Peptide 4.5 ng/mL (1.1 - 4.4)
[2020-07-17 19:55] LABS: 1,25-Dihydroxyvitamin D 26 pg/mL (18-64)
== END 2020-07-12 04:57 ==
PROVIDERS: PCP Family Medicine; Visit Provider Internal Medicine Endocrinology, Diabetes & Metabolism
DX: N18.4 Chronic kidney disease, stage 4 (severe) (principal); N25.81 Secondary hyperparathyroidism of renal origin; E11.21 Type 2 diabetes mellitus with diabetic nephropathy; Z79.4 Long term (current) use of insulin
CPT/HCPCS: 36415; 80053; 82306; 82652; 83036; 83970; 84681

== ENCOUNTER 2021-01-11 03:33 | Outpatient (CLI) | payer BC, SELFPAY ==
[2021-01-11 11:38] LABS: Hemoglobin A1C 6.5 % (<5.7)
[2021-01-11 12:01] LABS: ALT 17 U/L (16-63); AST 16 U/L (15-37); Albumin 3.2 g/dL (3.4-5.0); Alkaline Phosphatase 116 U/L (46-116); Anion Gap 8.1 mmol/L (3-11); BUN 42 mg/dL (7-18); Bilirubin, Total 0.5 mg/dL (0.2-1.0); CO2 23.9 mmol/L (21.0-32.0); CREATININE 2.5 mg/dL (0.70-1.30); Calcium 8.2 mg/dL (8.5-10.1); Chloride 108 mmol/L (98-107); Estimated GFR 26.13 (mL/min/1.73m2); Glucose 123 mg/dL (74-106); Potassium 4.8 mmol/L (3.5-5.1); Sodium 140 mmol/L (136-145); Total Protein 6.1 g/dL (6.4-8.2)
[2021-01-12 10:09] LABS: Parathyroid Hormone,Intact 340 pg/mL (19-88)
[2021-01-16 09:03] LABS: 1,25-Dihydroxyvitamin D 26 pg/mL (18-64)
[2021-01-17 16:30] LABS: 25-Hydroxy D Total 45 ng/mL; 25-Hydroxy D2 40 ng/mL; 25-Hydroxy D3 5.1 ng/mL
== END 2021-01-11 03:34 | disposition home or self-care (01) ==
LOC: LBO 03:33
PROVIDERS: PCP Family Medicine; Visit Provider Internal Medicine Endocrinology, Diabetes & Metabolism
DX: E11.21 Type 2 diabetes mellitus with diabetic nephropathy (principal); Z79.4 Long term (current) use of insulin; N18.4 Chronic kidney disease, stage 4 (severe); N25.81 Secondary hyperparathyroidism of renal origin
CPT/HCPCS: 36415; 80053; 82306; 82652; 83036; 83970

== ENCOUNTER 2021-08-07 11:40 | Outpatient (REF) | payer BC, SELFPAY ==
[2021-08-09 13:05] LABS: COVID-19 RT-PCR UVMMC Result Negative (Negative)
== END 2021-08-07 11:41 | disposition home or self-care (01) ==
LOC: NCHCN 11:40
PROVIDERS: PCP Family Medicine; Visit Provider Family Medicine
DX: Z20.822 Contact with and (suspected) exposure to COVID-19 (principal)
CPT/HCPCS: U0003

== ENCOUNTER 2021-09-14 11:36 | Outpatient (CLI) | payer BC, SELFPAY ==
--- NOTE | 2021-09-14 11:30 | RT.EKG_ITS ---
APPROVED REPORT Exam: Resting ECG Reason for Exam: NPW Baseline needed Patient Location: O HR:53 bpm ECG Measurements Heart Rate 53 AXIS MI 325 P -4 QRSd 100 QRS 4 QT 417 T 124 QTc 392 Conclusion Sinus rhythm...normal P axis, V-rate 50- 99 Prolonged MI interval...MI >220, V-rate 50- 90 Low voltage, precordial leads...precordial leads <1.0mV Anteroseptal infarct, old...Q >40mS, V1-V2 Nonspecific T abnormalities, lateral leads...T <-0.10mV, I aVL V5 V6
== END 2021-09-14 11:37 | disposition home or self-care (01) ==
LOC: DI.CARD 11:38
PROVIDERS: PCP Family Medicine; Visit Provider Internal Medicine Cardiovascular Disease
DX: I10 Essential (primary) hypertension (principal); R06.02 Shortness of breath; R42 Dizziness and giddiness
CPT/HCPCS: 93010

== ENCOUNTER 2021-09-17 03:26 | Outpatient (CLI) | payer BC, SELFPAY ==
[2021-09-17 14:50] LABS: HCT 28.4 % (40.0-50.0); HGB 9.1 g/dL (13.5-17.5); MCH 29.7 pg (27.0-33.0); MCV 92.8 fL (80-95); MPV 11.2 fL (8.0-11.0); Platelet Count 161 10^3/uL (130-400); RBC 3.06 10^6/uL (4.36-5.78); RDW 15.9 % (11.8-14.1); RDW-SD 54.4 fL; WBC 6.49 10^3/uL (4.4-10.8)
[2021-09-17 15:47] LABS: ALT 13 U/L (16-63); AST 13 U/L (15-37); Albumin 2.7 g/dL (3.4-5.0); Alkaline Phosphatase 125 U/L (46-116); Anion Gap 7.6 mmol/L (3-11); BUN 53 mg/dL (7-18); Bilirubin, Total 0.4 mg/dL (0.2-1.0); CO2 21.4 mmol/L (21.0-32.0); Calcium 7.9 mg/dL (8.5-10.1); Chloride 108 mmol/L (98-107); Glucose 129 mg/dL (74-106); NT-proBNP 20845 pg/mL (<300); Sodium 137 mmol/L (136-145); Total Protein 5.6 g/dL (6.4-8.2)
[2021-09-17 16:10] LABS: CREATININE 3.6 mg/dL (0.70-1.30)
== END 2021-09-17 03:27 | disposition home or self-care (01) ==
LOC: LBO 03:26
PROVIDERS: PCP Family Medicine; Visit Provider Internal Medicine Cardiovascular Disease
DX: R06.02 Shortness of breath (principal); I10 Essential (primary) hypertension; R60.0 Localized edema
CPT/HCPCS: 36415; 80053; 85027; 83880

== ENCOUNTER 2021-09-18 00:59 | Outpatient (CLI) | payer BC, SELFPAY ==
--- NOTE | 2021-09-18 07:30 | DI.RAD_ITS ---
Exam(s) XR CHEST 2V PA LATERAL EXAM: XR CHEST 2V PA LATERAL CLINICAL HISTORY: DYSPNEA ON EXERTION,SOB, R06.02, LOWER EXT EDEMA TECHNIQUE: 2D digital imaging was performed. COMPARISON: CR,XR XR CHEST 2V PA LATERAL from 02/13/2020 FINDINGS: Moderate-sized bilateral pleural effusions, left greater than right. There is adjacent compressive a telectasis. The cardiac silhouette is obscured. No pneumothorax. Upper lobes appear clear. IMPRESSION: Moderate-sized bilateral pleural effusions, left greater than right. DATA REPOSITORY: RADIATION DOSE DELIVERED:
--- NOTE | 2021-09-18 14:49 | DI.US_ITS ---
APPROVED REPORT EXAM: Comprehensive 2D, Doppler, and color-flow Echocardiogram Patient Location: Out-Patient Protective Signal Installer Helper: Antionette Cortez RDCS (AE) Indications: SOB, Lower ext edema Other Information Study Quality: Fair. Technically limited study due to inability to position patient, body habitus. Conclusion Normal left ventricular wall thickness. Top normal chamber size. Estimated ejection fraction is 50% . Segmental wall motion could not be accurately assessed Right ventricle was not well visualized The left atrium is mildly dilated. The right atrium is normal in size The aortic valve is trileaflet and sclerotic without stenosis or regurgitation Thickened mitral leaflets with mild regurgitation Normal tricuspid valve with trace regurgitation. Estimated right ventricular systolic pressure is 30 mmHg Left pleural effusion Wall motion Left Ventricle The left ventricle is normal size. Left ventricular systolic function is mildly decreased. There is n ormal left ventricular wall thickness. Regional wall motion abnormalities cannot be excluded. There i s no ventricular septal defect visualized. LVEF is 50%. Right Ventricle Right ventricle is not well visualized. Right ventricular systolic function could not be assessed. Th e RVSP is 30 mmHg. Atria Left atrium is mildly dilated. The right atrium size is normal. The interatrial septum is intact with no evidence for an atrial septal defect. Aortic Valve The Aortic valve is sclerotic. Aortic valve is trileaflet. There is no aortic valvular stenosis. No a ortic regurgitation is present. Mitral Valve Mitral valve leaflets are mildly thickened. No evidence of mitral valve stenosis. Mild mitral regurgi tation. Tricuspid Valve The tricuspid valve is normal in structure. There is no tricuspid valve stenosis. Trace tricuspid reg urgitation. Pulmonic Valve The pulmonary valve is normal in structure. There is no pulmonic valvular stenosis. Trace pulmonic re gurgitation. Great Vessels The aortic root is normal in size. The ascending aorta is normal in size. Aortic arch is not well vis ualized. The IVC collapses <50% with inspiration. Pericardium Large pleural effusion. 2D Dimensions IVSD d PLAX 1.15 cm M: 0.6-1.2 LV Vol A2C d MOD 255.5 mL LVPW d PLAX 1.16 cm M: 0.6 - 1.2 LV Vol A4C d MOD 315.0 mL LVID d PLAX 5.65 cm M: 4.2 - 5.8 LA vol/ BSA A2C s A-L 34.4 mL/m2 LVDs 4.15 cm M: 2.5 - 4.0 LA vol/ BSA A4C s A-L 54.2 mL/m2 Ao Root d 3.45 cm M: 3.1 - 3.7 LA Vol/ BSA Biplane s A-L 45.9 mL/m2 Ao Asc Diam d 3.43 cm M: 2.6 - 3.4 LA Area A4C s MOD 31.12 cm2 LV EF Teichholz 49.9 % LA Area A2C s MOD 23.36 cm2 LVEF (Ty's) 48.93 % M: 52 - 72 LV EF A4C MOD 50.8 % LV Volume 204.30 mL M: 62 - 150 LV EF A2C MOD 48.2 % LV Volume Index 88.44 mL/m2 M: 34 - 74 LV EF Biplane MOD 48.9 % LV Vol Biplane MOD 285.3 mL SV 139.59 mL FS 25.60 % SV Index 60.32 mL/m2 M-Mode TAPSE 1.82 cm (M/F) >1.7 LV Diastology MV E' medial 0.056 (>0.07 m/s) E/A Ratio 0.7 LV E/e MED 13.25 (<14) MV E Vmax 0.74 (0.4-1.3 m/s) MV E' lateral 0.074 (>0.1 m/s) MV A Vmax 1.10 (0.4-1.3 m/s) LV E/e LAT 9.90 (<14) MV E/A Ratio 0.65 MV E/E' medial 13.26 MV E/E' lateral 9.95 Aortic Valve LVOT Area 4.12 cm2 AoV Area Vmax 3.19 cm2 LVOT Vmax 1.14 m/s AoV Area/ BSA (Vmax) 1.38 cm2/m2 LVOT Mean Fei. 0.82 m/s BRIA Mean Fei. 3.39 cm2 LVOT Peak Grad 5.2 mmHg BRIA Mean Fei. Index 1.46 cm2/m2 LVOT Mean Grad 3.1 mmHg LVOT VTI 0.278 m LVOT Diam s 2.25 cm AoV Vmax 1.47 m/s Velocity Ratio 0.77 AoV Mean Fei. 0.99 m/s AoV Peak Grad 8.7 mmHg LVOT SV 114.61 mL AoV Mean Grad 4.5 mmHg AoV VTI 0.354 m AoV Area VTI 3.24 cm2 AoV Area/ BSA (VTI) 1.40 cm/m2 Mitral Valve MV DT 356 (160-240 msec) MV PHT 103 msec MV Area PHT 2.13 cm2 MV VTI 0.411 m MV VTI Annulus 0.419 m MV Area VTI 2.84 (4.0-6.0 cm2) Pulmonary Valve PV Vmax 1.11 (0.5-1.5 m/s) RVOT Peak Gr. 2.60 mmHg PV Peak Grad 5.0 mmHg RVOT Mean Gr. 1.40 mmHg PV Mean Grad 2.3 mmHg RVOT VTI 0.210 m PV VTI 0.254 m RVOT Vmax 0.81 m/s Tricuspid Valve TR Peak Grad 22.0 mmHg TR Vmax 2.35 m/s RA Pressure 8.00 mmHg RVSP (TR) 30.0 mmHg
== END 2021-09-18 01:19 ==
PROVIDERS: PCP Family Medicine; Visit Provider Internal Medicine Cardiovascular Disease
DX: R60.0 Localized edema (principal); R06.02 Shortness of breath; J91.8 Pleural effusion in other conditions classified elsewhere
CPT/HCPCS: 71046; 93306

== ENCOUNTER → 2021-09-20 01:42 | Outpatient (CLI) | payer BC, SELFPAY ==
--- NOTE | 2021-09-20 06:45 | DI.NM_ITS ---
APPROVED REPORT Exam: Pharmacologic Patient Location: Out-Patient Room/Bed: Stress Nurse: Savannah Mnaning RN Ordering Provider:RODRICK LONDON, Contact Number: BMI: 36.58 Baseline Rhythm: Sinus Rhythm/1DHB Indications: DYSPNEA ON EXERTION, HYPERTENSION, HYPERLIPIDEMIA, DIABETES MELLITUS Medical History Medical History: AFIB (related to Lyme's Disease), DM II, HTN, HLD, Former smoker, Obesity, SOB Cardiac Medications: Metoprolol succinate, Losartan, Insulin lispro, Furosemide (on hold temporarily) , Atorvastatin, Aspirin, Amlodipine Allergies: No known drug allergies Cardiac Risk Factors: HTN, Hyperlipidemia, Diabetes (insulin), Smoking (former), SOB, Obesity Previous Cardiac Procedures: None Pretest Chest Pain Characteristics: Dyspnea Exercise History: Sedentary Lung Sounds: Diminished Heart Sounds: Regular Stress Test Details Test: Pharmacologic stress testing performed using 0.4 mg of regadenoson per 5 mL given IV over 10 s econds. Reason for pharmacologic stress test: physical limitation. Nuclear Acquisition: Rest Tc-99m/Stress Tc-99m 1 day Rest Isotope: Tc-99m Sestamibi. Dose: 11.5 Date: 09/20/2021 Injection Time: 0930 Stress Isotope: Tc-99m Sestamibi. Dose: 36.6 Date: 09/20/2021 Injection Time: 1121 HR Resting HR Supine: 59 bpm Max Heart Rate (APMHR): 155.818874 bpm Target HR (85% APMHR): 131.165361 bpm Max HR Achieved: 59 bpm % of APMHR: 38.06 Recovery HR: 56 bpm Comment: Metoprolol succinate held for 48 hours BP Resting BP Supine: 130/60 mmHg Max BP: 130/60 mmHg Recovery BP: 118/56 mmHg ECG Resting ECG: Sinus Bradycardia, 1st degree AV block Stress ECG: Sinus Bradycardia, 1st degree AV block ST Change: No significant ST segment changes noted Arrhythmia: PVCs Recovery ECG: Sinus Bradycardia, 1st degree AV block Recovery ST Change: No significant ST segment changes noted Recovery Arrhythmia: PVCs Clinical Stress Symptoms: Dyspnea, Chest pain Rate Pressure Product: [id number] Stress ECG Conclusion 1. Resting electrocardiogram showed sinus rhythm, long first-degree AV block, late transition 2. Patient underwent pharmacologic stress with regadenoson. Peak heart rate achieved was 38% of pred icted for age 3. The electrocardiographic portion of the test was nondiagnostic due to inadequate heart rate 4. See MPI report Stress Test Summary STAGE HR BP Symptoms NOTES Supine 59 130/60 1 min post Lexiscan injection 57 130/60 increased SOB, chest pain 3 min post Lexiscan injection 59 122/58 symptoms resolved 6 min post Lexiscan injection 56 118/56 MPI Conclusion There is no myocardial ischemia Inferior and posterior lateral roman appear to have a mild fixed defect The LV is dilated EF is 45% with inferior and posterior lateral hypokinesis Radiologist Interpretation Radiologist Interpretation by: Jewel Delgado MD Interpretation Date/Time: 09/21/2021 15:44:09
[2021-09-20 10:04] LABS: Anion Gap 6.2 mmol/L (3-11); BUN 53 mg/dL (7-18); CO2 23.8 mmol/L (21.0-32.0); CREATININE 3.4 mg/dL (0.70-1.30); Calcium 7.9 mg/dL (8.5-10.1); Chloride 106 mmol/L (98-107); Estimated GFR 18.27 (mL/min/1.73m2); Glucose 105 mg/dL (74-106); Potassium 5.8 mmol/L (3.5-5.1); Sodium 136 mmol/L (136-145)
[2021-09-20] MEDS: Regadenoson 0.4 MG/5 ML SYR IVP (11:14)
== END ==
PROVIDERS: Internal Medicine; PCP Family Medicine; Visit Provider Internal Medicine Cardiovascular Disease
DX: I10 Essential (primary) hypertension (principal)
CPT/HCPCS: 78452; 80048; 93017; J2785

== ENCOUNTER 2021-09-21 15:02 | Inpatient (IN) | payer BC, MEDICARE, SELFPAY ==
[2021-09-21] VITALS (17 sets, daily range): BP systolic 113–151; BP diastolic 54–74; PULSE 49–62; RESP 8–24; TEMP 36.1–36.5; O2SAT 92–97
--- NOTE | 2021-09-21 15:15 | RT.EKG_ITS ---
APPROVED REPORT Exam: Resting ECG Reason for Exam: shortness of breath Patient Location: E HR:52 bpm ECG Measurements Heart Rate 52 AXIS KY 275 P 262 QRSd 95 QRS 20 QT 433 T 120 QTc 403 Conclusion Sinus or ectopic atrial bradycardia...P axis (-45,135), rate< 60 Ventricular trigeminy...trigeminy string>6 w/ V complexes Aberrant complex...small R-R variation, aberrant QRS Prolonged KY interval...KY >220, V-rate 50- 90 Low voltage, precordial leads...precordial leads <1.0mV Consider anteroseptal infarct...Q >30mS, dimin R, V1-V2 Nonspecific T abnormalities, lateral leads...T <-0.10mV, I aVL V5 V6
--- NOTE | 2021-09-21 15:15 | DI.RAD_ITS ---
Exam(s) XR CHEST 2V PA LATERAL EXAM: XR CHEST 2V PA LATERAL CLINICAL HISTORY: shortness of breath TECHNIQUE: 2D digital imaging was performed of the chest. Two images were obtained. PA and lateral views were obtained. COMPARISON: CR XR CHEST 2V PA LATERAL from 09/18/2021 FINDINGS: MEDIASTINUM: Normal. HEART: Cardiac silhouette cannot be evaluated due to the poor inspiration bilateral pleural effusions . PULMONARY VASCULATURE: Stable. LUNGS: There are stable bilateral pleural effusions. Air bronchograms are seen in the left lung base and a left basilar infiltrate/atelectasis should be considered. PLEURAL SPACE: Stable bilateral pleural effusions. No pneumothorax. BONE:Within normal limits for the patient's age. OTHER FINDINGS:Normal. IMPRESSION: There has been no change in appearance of the chest x-ray compared to the prior examination. DATA REPOSITORY: RADIATION DOSE DELIVERED:
--- NOTE | 2021-09-21 15:30 | ED.GENADUL_ITS ---
Discharge Plan Disposition Patient Disposition: [facility] Condition: Serious Discharge Details Chief Complaint: SOB Clinical Impression: Volume overload, SHERMAN (acute kidney injury), Acute hyperkalemia Primary Care Provider: Lizbet Mohan ED Provider: Terry Marrero Home Meds and New Rx's Prescriptions: No Action insulin lispro [Humalog KwikPen Insulin] 100 unit/mL insulin pen See Protocol unit SC TID 0RF Protocol: Insulin Infusion Condition: Hyperglycemia Protocol Text: a. Independent double checks of all calculations, solution preparations, and pump rates are required. b. Discontinue subcutaneous insulin and any oral anti-hyperglycemic agents while on insulin infusion. c. Use low sorbing tubing (Nitroglycerin tubing) and flush with 20ml insulin infusion solution. d. Inline filters should NOT be used. e. Change insulin infusion bag every 24 hours. losartan 50 mg tablet 50 mg PO HS 0RF cholecalciferol (vitamin D3) 1,250 mcg (50,000 unit) capsule 1,250 mcg PO QWEEK 0RF atorvastatin [Lipitor] 20 mg tablet 20 mg PO QHS 0RF amlodipine [Norvasc] 5 mg tablet 10 mg PO DAILY 0RF metoprolol succinate 50 mg tablet extended release 24 hr 50 mg PO DAILY 0RF doxazosin 4 mg tablet 4 mg PO DAILY 0RF triamcinolone acetonide 0.1 % cream 1 applic topical BID 0RF doxazosin 2 mg tablet 2 mg PO DAILY 0RF allopurinol 100 MG tablet 1 tab PO BID 0RF aspirin 81 MG tablet,delayed release (DR/EC) 81 mg PO DAILY 0RF ergocalciferol (vitamin D2) 1,250 mcg (50,000 unit) capsule 1,250 mcg PO QWEEK 0RF Label Comments: TAKE ONE CAPSULE BY MOUTH ONCE A WEEK furosemide 20 mg tablet 20 mg PO BID 0RF Label Comments: TAKE 2 TABLETS BY MOUTH TWICE DAILY Medical Decision Making 1538 --56-year-old male with multiple medical problems occluding history of chronic kidney disease, here with progressive shortness of breath and dyspnea on exertion over the past 2 weeks, recently seen by cardiology who recommended hospitalization for IV diuresis. Patient did recently have hyperkalemia. I will treat check labs and EKG. I reviewed echocardiogram from 09/18/2021: Conclusion Normal left ventricular wall thickness.? Top normal chamber size.? Estimated ejection fraction is 50%.? Segmental wall motion could not be accurately assessed Right ventricle was not well visualized The left atrium is mildly dilated.? The right atrium is normal in size The aortic valve is trileaflet and sclerotic without stenosis or regurgitation Thickened mitral leaflets with mild regurgitation Normal tricuspid valve with trace regurgitation.? Estimated right ventricular systolic pressure is 30 mmHg Left pleural effusion There is a stress test that is not yet interpreted. 1600 --I called and spoke with the radiologist who reviewed nuclear medicine stress test that was performed on 09/20/2021 which reveals wall motion abnormalities, likely old infarct, dilated LV, EF 45%. Patient was given Lasix 20 mg IV. 170 --EKG was reviewed interpreted by me: Please see report, sinus bradycardia 52 bpm, PVCs present, first-degree AV block noted with VT interval of 275, no STEMI. Chest x-ray was reviewed and interpreted by radiology:FINDINGS: MEDIASTINUM: Normal.? HEART: Cardiac silhouette cannot be evaluated due to the poor inspiration bilateral pleural effusions.? PULMONARY VASCULATURE: Stable.? LUNGS: There are stable bilateral pleural effusions.? Air bronchograms are seen in the left lung base and a left basilar infiltrate/atelectasis should be considered. ? PLEURAL SPACE: Stable bilateral pleural effusions.? No pneumothorax.? BONE:Within normal limits for the patient's age.? OTHER FINDINGS:Normal.? IMPRESSION: There has been no change in appearance of the chest x-ray compared to the prior examination.? Labs reviewed and continues to have persistent mild hyperkalemia 5.9 with stable elevated creatinine of 3.4. I will call hospitalist to discuss hospitalizing here for continued diuresis. 1708 --I spoke with the hospitalist on-call, Dr. Veloz, discussed ED presentation course including diagnostics, she will admit the patient. Care transition at time of admission HPI General Mode of arrival: ambulatory . Date/Time Provider Initiated Documentation: 09/21/21 15:13 . Limitations to Documentation: no limitations . Information obtained by: patient . HPI Narrative: 66-year-old male with history of multiple medical problems including history of chronic kidney disease, diabetes, hyperlipidemia, hypertension, first-degree AV block, here with chief complaint of shortness of breath. Patient notes worsening and persistent shortness of breath over the past 2 weeks. Shortness of breath is moderate. Symptoms are worse with exertion. He has no associated chest pain. He does note chronic unchanged lower extremity edema. Patient was seen by cardiology recently and had echocardiogram that showed borderline normal EF 50% with no evidence of significant myocardial ischemia. He had chest x-ray that showed bilateral pleural effusions left greater than right. He also had blood work that revealed potassium significantly elevated at 5.8. Patient had a televisit with Dr. Rodriguez, cardiology, today who recommended that he present to [facility] for evaluation and treatment for IV diuretics. Patient notes he called and spoke with nephrology at [facility] who recommended he present to [facility] and noted that he could be admitted here for treatment. Related Data Home Medications Medication Instructions Recorded Confirmed allopurinol 100 mg tablet 1 tab PO BID 08/22/14 09/21/21 aspirin 81 mg tablet,delayed 81 mg PO DAILY 08/22/14 09/21/21 release amlodipine 5 mg tablet (Norvasc) 10 mg PO DAILY tab 12/08/19 09/21/21 atorvastatin 20 mg tablet (Lipitor) 20 mg PO QHS 12/08/19 09/21/21 cholecalciferol (vitamin D3) 1,250 1,250 mcg PO QWEEK 12/08/19 09/21/21 mcg (50,000 unit) capsule insulin lispro 100 unit/mL See Protocol SC TID 12/08/19 09/21/21 subcutaneous pen (Humalog KwikPen (U-100) Insulin) losartan 50 mg tablet 50 mg PO HS 12/08/19 09/21/21 ergocalciferol (vitamin D2) 1,250 1,250 mcg PO QWEEK 02/13/20 09/21/21 mcg (50,000 unit) capsule doxazosin 2 mg tablet 2 mg PO DAILY 09/13/21 09/21/21 doxazosin 4 mg tablet 4 mg PO DAILY 09/13/21 09/21/21 metoprolol succinate 50 mg 50 mg PO DAILY 09/13/21 09/21/21 tablet,extended release 24 hr triamcinolone acetonide 0.1 % 1 applic TOPICAL BID 09/13/21 09/21/21 topical cream furosemide 20 mg tablet 20 mg PO BID 09/21/21 09/21/21 Allergies Allergy/AdvReac Type Severity Reaction Status Date / Time No Known Allergies Allergy Verified 09/21/21 15:13 General Stated Complaint: SOB ALEJANDRO: 3 Review of Systems All systems reviewed & are unremarkable except as noted in HPI and below Constitutional Constitutional: Denies fever(s) Cardiovascular Cardiovascular: Reports dyspnea Respiratory Respiratory: Denies cough and Reports dyspnea PFSH All Active Problems (Updated 09/21/21 @ 17:10 by Terry Marrero MD) Volume overload (Acute) SHERMAN (acute kidney injury) (Acute) Acute hyperkalemia (Acute) Shortness of breath (Acute) Lower extremity edema (Acute) Tinnitus (Acute) Abnormal auditory perception (Acute) Sensorineural hearing loss of both ears (Acute) Dizziness (Acute) Type 2 diabetes mellitus (Chronic) Kidney disease (Chronic) Dyspnea (Acute) Essential hypertension (Acute 02/12/18) Elevated serum creatinine (Acute 01/30/18) Medical History Acute kidney injury (nontraumatic) Afib F/U Cardiology Dr. Currie...per pt. was told this was related to his Lyme disease and the medication he was on was causing an episode of a-fib. Atrioventricular block Bilateral hearing loss Chronic renal disease Depression Diabetes mellitus Diverticulosis Diverticulosis Elevated LFTs First degree AV block Gout Gout, arthritis Hyperkalemia Hyperlipidemia Hypertension Lyme disease Myalgia Neck pain Obesity Pain in right hip Retinopathy SOB (shortness of breath) Tubulovillous adenoma of colon Vitamin D deficiency Surgical History History of surgical procedure on eye proper using laser pt. reports for retinopathy Hx of eye surgery R eye Hx of tonsillectomy Hx of umbilical hernia repair with mesh S/P colonoscopy Social History Smoking/Tobacco Use Status: Former Tobacco Use Quit Date: 06/30/89 Smoking risk assessment performed?: Yes Alcohol Intake: current Alcohol Intake frequency: holidays/special occasions only Alcohol type: beer Drug use: Never Substance use type: does not use Do you feel safe at home: Yes Do you feel safe in your relationship?: Yes Exam Const General: cooperative and no acute distress HENMT Mouth: moist mucous membranes Eyes Conjunctivae: normal conjunctivae Sclera: normal sclerae Neck Neck: trachea midline and supple Resp Effort & Inspection: able to speak in complete sentences and tachypneic Auscultation: clear to auscultation bilaterally, diminished lung sounds bilaterally in the lower lung jones, no rales, no rhonchi and no wheezes Cardio Rate: bradycardic and not tachycardic Rhythm: regular rhythm Heart Sounds: no murmurs GI Palpation: soft, not firm, no guarding, no masses, not rigid and nontender Skin General skin exam: no rashes or lesions noted Neuro General: patient alert, patient awake and tone normal Extrem General: edema Laterality: bilateral Psych Appearance: grossly normal Mental Status: mental status grossly normal Speech and Movement: speech and movement normal Course Vital Signs Vital signs: Vital Signs Temperature 36.3 C L 09/21/21 15:06 Pulse 55 L 09/21/21 15:06 Respiratory Rate 24 09/21/21 15:06 Blood Pressure 117/59 L 09/21/21 15:06 Pulse Oximetry 92 09/21/21 15:06 Temperature 36.3 C L 09/21/21 15:06 Temperature Source Skin 09/21/21 15:06 Pulse 55 L 09/21/21 15:06 Respiratory Rate 24 09/21/21 15:06 Respiratory Effort Accessory Muscle Use 09/21/21 15:13 Blood Pressure 117/59 L 09/21/21 15:06 Blood Pressure Position Sitting 09/21/21 15:06 Pulse Oximetry 92 09/21/21 15:06 Oxygen Delivery Method Room Air 09/21/21 15:06 Oxygen Flow Rate 0 09/21/21 15:06 Pain Level 0 09/21/21 15:06
[2021-09-21 15:44] LABS: Abs Immature Grans 0.01 10^3/uL (0.0-0.06); Absolute Basophil Count 0.02 10^3/uL (0.0-0.2); Absolute Lymphocyte Count 0.95 10^3/uL (1.2-3.4); Absolute Monocyte Count 0.38 10^3/uL (0.1-0.8); Absolute Neutrophil Count 4.02 10^3/uL (1.2-6.7); Basophils % 0.4; Eosinophils % 1.8; HGB 9.2 g/dL (13.5-17.5); Immature Grans % 0.2; Lymphocytes % 17.3; MCH 29.3 pg (27.0-33.0); MCHC 31.7 % (32.0-36.0); MCV 92.4 fL (80-95); MPV 12.1 fL (8.0-11.0); Monocytes % 6.9; Neutrophils % 73.4; Nucleated RBC 0 %; Platelet Count 192 10^3/uL (130-400); RBC 3.14 10^6/uL (4.36-5.78); RDW 15.9 % (11.8-14.1); RDW-SD 53.6 fL; WBC 5.48 10^3/uL (4.4-10.8)
[2021-09-21] MEDS: Furosemide 20 MG/2 ML VIAL IVP (15:50)
[2021-09-21 15:57] LABS: Source Nasal/Nares
[2021-09-21 16:06] LABS: ALT 14 U/L (16-63); AST 16 U/L (15-37); Albumin 2.8 g/dL (3.4-5.0); Alkaline Phosphatase 127 U/L (46-116); Anion Gap 5.6 mmol/L (3-11); BUN 53 mg/dL (7-18); Bilirubin, Total 0.5 mg/dL (0.2-1.0); CO2 23.4 mmol/L (21.0-32.0); CREATININE 3.4 mg/dL (0.70-1.30); Calcium 8.2 mg/dL (8.5-10.1); Chloride 108 mmol/L (98-107); Estimated GFR 18.27 (mL/min/1.73m2); Glucose 151 mg/dL (74-106); NT-proBNP 15337 pg/mL (<300); Potassium 5.9 mmol/L (3.5-5.1); Sodium 137 mmol/L (136-145); Total Protein 6.2 g/dL (6.4-8.2); Troponin I < 50 ng/L (<or=60)
--- NOTE | 2021-09-21 17:17 | HPE_ITS ---
Date of service: 09/21/21 Time of Service: 17:17 Assessment and Plan Assessment and plan (1) Acute diastolic CHF (congestive heart failure): Status: Acute Assessment and plan: Will diurese with IV lasix 40 mg IV BID, while monitoring I/Os and daily weights. (2) Acute kidney injury superimposed on chronic kidney disease: Status: Acute Assessment and plan: Rule out urinary retention. Hold losartan. Monitor Cr. (3) Type 2 diabetes mellitus: Status: Chronic Assessment and plan: Cover with SSI. Qualifiers: Chronic kidney disease stage: stage 4 (severe) Diabetes mellitus complication detail: with chronic kidney disease Diabetes mellitus complication status: with kidney complications Diabetes mellitus halfway insulin use: with terminal superintendent use Qualified Code(s): E11.22 - Type 2 diabetes mellitus with diabetic chronic kidney disease; N18.4 - Chronic kidney disease, stage 4 ( severe); Z79.4 - intermediate frame tender (current) use of insulin (4) Acute electrocardiogram changes: Status: Acute Assessment and plan: These are more concerning for ischemia and lead placement issues than hyperkal emia. Continue to trend troponins. Diurese. Check magnesium. (5) Acute hyperkalemia: Status: Acute Assessment and plan: hold losartan. Lokelma. Trend chemistries. Restrict K in diet. Diuresis will also hopefully help this. (6) DVT prophylaxis: Status: Acute Assessment and plan: Sc heparin (7) Discharge planning issues: Status: Acute Assessment and plan: Full code History of Present Illness History of Present Illness Chief Complaint: Shortness of breath Narrative: Mr Choi is a 66 year old male with PMHx of CKD IV, IDDM2, HTN, hyperkalemia in the past, Afib in the past, not on anticoagulation, Obesity with BMI of 36.6 kg/m2, who was referred to the ED by cardiology today after review of his outpatient CXR (09/18/21 showing CHF and bilateral pleural effusions) as well as his echo (LVEF 50%, unable to assess wall motion, RVSP of 30 mmhg), and MPI (09/20/21 w/ regional wall motion abnormalities, no acute ischemia, EF 41%) as he was felt to benefit from diuresis. The patient was seen in cardiology office on 09/14/21 for shortness of breath, at which point all of the above studies were ordered as there was suspicion for CHF and CAD. His lasix had evidently been lowered as outpatient from 40 mg PO BID to 20 mg PO BID about a week ago after seeing worsening kidney function, but the worsening shortness of breath started before this. The patient had a positive rapid test for COVID-19 3 weeks ago which he took for an isolated symptom of shortness of breath. His PCR was negative, however. He felt better soon after, then started to have worsening shortness of breath over the last 2 weeks. He endorses no SOB at rest, but arik re NUNEZ, and orthopnea. Denies fevers, chest pain, cough, worsening edema. He does not weigh himself regularly, and we discussed how it might be helpful. He tries to control his salt intake, but has not been watching the labels. The patient is found to be in CHF on his presentation, with Cr of 3.4. His potassium is 5.9. He was initiated on IV lasix. Hospitalist admission was requested. Review of Systems All systems reviewed & are unremarkable except as noted in HPI and below PFSH All Active Problems Discharge planning issues (Acute) DVT prophylaxis (Acute) Acute electrocardiogram changes (Acute) Acute kidney injury superimposed on chronic kidney disease (Acute) Acute diastolic CHF (congestive heart failure) (Acute) Volume overload (Acute) SHERMAN (acute kidney injury) (Acute) Acute hyperkalemia (Acute) Shortness of breath (Acute) Lower extremity edema (Acute) Tinnitus (Acute) Abnormal auditory perception (Acute) Sensorineural hearing loss of both ears (Acute) Dizziness (Acute) Type 2 diabetes mellitus (Chronic) Kidney disease (Chronic) Dyspnea (Acute) Essential hypertension (Acute 02/12/18) Elevated serum creatinine (Acute 01/30/18) Medical History Acute kidney injury (nontraumatic) Afib F/U Cardiology Dr. Currie...per pt. was told this was related to his Lyme disease and the medication he was on was causing an episode of a-fib. Atrioventricular block Bilateral hearing loss Chronic renal disease Depression Diabetes mellitus Diverticulosis Diverticulosis Elevated LFTs First degree AV block Gout Gout, arthritis Hyperkalemia Hyperlipidemia Hypertension Lyme disease Myalgia Neck pain Obesity Pain in right hip Retinopathy SOB (shortness of breath) Tubulovillous adenoma of colon Vitamin D deficiency Surgical History History of surgical procedure on eye proper using laser pt. reports for retinopathy Hx of eye surgery R eye Hx of tonsillectomy Hx of umbilical hernia repair with mesh S/P colonoscopy Family History Paternal Grandfather Heart disease Hypertension Father Hypertension Diabetes Mother Cancer breast cancer Paternal Grandmother Cancer breast cancer Social History Smoking/Tobacco Use Status: Former Tobacco Use Quit Date: 06/30/89 Smoking risk assessment performed?: Yes Alcohol Intake: current Alcohol Intake frequency: holidays/special occasions only Alcohol type: beer Drug use: Never Substance use type: does not use Do you feel safe at home: Yes Do you feel safe in your relationship?: Yes Meds Allergies and Home Medications Allergies Allergy/AdvReac Type Severity Reaction Status Date / Time No Known Allergies Allergy Verified 09/21/21 15:13 Home Medications Medication Instructions Recorded Confirmed Type allopurinol 100 mg tablet 2 tab PO DAILY 08/22/14 09/21/21 History aspirin 81 mg tablet,delayed 81 mg PO DAILY 08/22/14 09/21/21 History release amlodipine 5 mg tablet (Norvasc) 10 mg PO DAILY tab 12/08/19 09/21/21 History atorvastatin 20 mg tablet (Lipitor) 20 mg PO HS 12/08/19 09/21/21 History cholecalciferol (vitamin D3) 1,250 1,250 mcg PO QWEEK 12/08/19 09/21/21 History mcg (50,000 unit) capsule insulin lispro 100 unit/mL See Protocol SC TID 12/08/19 09/21/21 History subcutaneous pen (Humalog KwikPen (U-100) Insulin) losartan 50 mg tablet 50 mg PO HS 12/08/19 09/21/21 History ergocalciferol (vitamin D2) 1,250 1,250 mcg PO QWEEK 02/13/20 09/21/21 History mcg (50,000 unit) capsule doxazosin 2 mg tablet 2 mg PO HS 09/13/21 09/21/21 History doxazosin 4 mg tablet 4 mg PO HS 09/13/21 09/21/21 History metoprolol succinate 50 mg 50 mg PO DAILY 09/13/21 09/21/21 History tablet,extended release 24 hr triamcinolone acetonide 0.1 % 1 applic TOPICAL BID 09/13/21 09/21/21 History topical cream furosemide 20 mg tablet 40 mg PO BID 09/21/21 09/21/21 History Exam Narrative Exam Narrative: General: Very pleasant mildly dyspneic middle-aged male who is sitting up in bed, A&Ox3, speaking in full sentences, on room air Neurological: A&Ox3, no focal deficits Psychiatric: Appropriate speech pattern/content Skin: Visible skin intact HEENT: Atraumatic, normocephalic, EOMI, MMM, clear oropharynx, no submandibular or cervical lymphadenopathy, no goiter or JVD Cardiovascular: RRR, no m/r/g Lungs: Diminished breath sounds up 1/2 of B lung jones, CTAB otherwise Gastrointestinal: soft, obese, nontender Genitourinary: deferred Extremities: 3+ edema BLE's, 2+ pedal pulses BLEs, no c/c, no lesions on B feet Results Imaging Additional studies: CXR: There has been no change in appearance of the chest x-ray compared to the prior examination.? Echo: Normal left ventricular wall thickness.? Top normal chamber size.? Estimated ejection fraction is 50%.? Segmental wall motion could not be accurately assessed Right ventricle was not well visualized The left atrium is mildly dilated.? The right atrium is normal in size The aortic valve is trileaflet and sclerotic without stenosis or regurgitation Thickened mitral leaflets with mild regurgitation Normal tricuspid valve with trace regurgitation.? Estimated right ventricular systolic pressure is 30 mmHg Left pleural effusion Per cardiology note, MPI on 09/20/21 did not show any evidence of myocardial i schemia.? There appeared to be fixed decreased uptake in the inferior and posterior lateral roman.? EF was 41% EKG: SB, HR 52, PVC, T wave inversions in lateral leads (new from EKG done on 09/14/2021) Labs Result diagrams: 09/21/21 15:25 09/21/21 15:25 Labs: Laboratory Results - last 24 hr 09/21/21 09/21/21 09/21/21 15:25 15:25 15:50 WBC 5.48 RBC 3.14 L Hgb 9.2 L Hct 29.0 L MCV 92.4 MCH 29.3 MCHC 31.7 L RDW 15.9 H Plt Count 192 MPV 12.1 H Immature Gran % 0.2 Neutrophils % 73.4 Lymphocytes % 17.3 Monocytes % 6.9 Eosinophils % 1.8 Basophils % 0.4 Nucleated RBC % 0 Absolute Neutrophils 4.02 Absolute Lymphocytes 0.95 L Absolute Monocytes 0.38 Absolute Eosinophils 0.10 Absolute Basophils 0.02 Sodium 137 Potassium 5.9 H Chloride 108 H Carbon Dioxide 23.4 Anion Gap 5.6 BUN 53 H Creatinine 3.4 H Estimated GFR/1.73 m2 18.27 Glucose 151 H Calcium 8.2 L Total Bilirubin 0.5 AST 16 ALT 14 L Alkaline Phosphatase 127 H Troponin I < 50 NT-Pro-B Natriuret Pep 29855 H Total Protein 6.2 L Albumin 2.8 L COVID-19 Source Nasal/Nares Last Vital Signs Temp 36.3 C L 09/21/21 15:06 Pulse 51 L 09/21/21 17:07 Resp 13 09/21/21 17:10 BP 123/58 L 09/21/21 17:07 Pulse Ox 94 09/21/21 17:10
[2021-09-21] MEDS: Furosemide 40 MG/4 ML VIAL IVP ×2 (17:28→21:33)
[2021-09-21] MEDS: Sodium Zirconium Cyclosilicate 10 GM PKT PO ×2 (17:29→21:48)
[2021-09-21 18:11] LABS: Bilirubin Negative (Negative); Blood Negative (Negative); Clarity Clear (Clear); Glucose Negative (Negative); Ketones Negative (Negative); Leukocyte Esterase Negative (Negative); Nitrite Negative (Negative); Urobilinogen 0.2 EU/dL (Up TO 0.2); pH 5.5 (5-8)
[2021-09-21 18:25] LABS: Lab Add On Test DONE
[2021-09-21 18:32] LABS: Bacteria Negative HPF (Negative); C & S Indicated? No; Casts Negative LPF (Negative); Crystals Negative HPF (Negative); Epithelial Cells Negative HPF (Negative); Mucus Negative (Negative); Other Cells Few Spermatozoa (Negative); RBC 0-2 HPF (0-2); WBC 0-2 HPF (0-5)
[2021-09-21 18:32] LABS: Magnesium 2.6 mg/dL (1.8-2.4)
[2021-09-21 19:06] LABS: Troponin I < 50 ng/L (<or=60)
[2021-09-21] MEDS: Atorvastatin 20 MG TAB PO (21:31)
[2021-09-21] MEDS: Doxazosin 2 MG TAB 6 MG PO (21:31)
[2021-09-21] MEDS: Heparin 5,000 UNITS/ML VIAL 5000 UNITS SC (21:32)
[2021-09-21] MEDS: Normal Saline Flush 10 ML SYR IVP (21:33)
[2021-09-21 21:46] LABS: COVID-19 PCR Negative (Negative)
[2021-09-21 22:02] LABS: Anion Gap 6.8 mmol/L (3-11); BUN 53 mg/dL (7-18); CO2 23.2 mmol/L (21.0-32.0); CREATININE 3.4 mg/dL (0.70-1.30); Calcium 8.2 mg/dL (8.5-10.1); Chloride 107 mmol/L (98-107); Estimated GFR 18.27 (mL/min/1.73m2); Glucose 139 mg/dL (74-106); Potassium 5.8 mmol/L (3.5-5.1); Sodium 137 mmol/L (136-145)
[2021-09-22] VITALS (9 sets, daily range): BP systolic 119–146; BP diastolic 58–70; PULSE 47–55; RESP 16–18; TEMP 36.2–36.7; O2SAT 93–96
[2021-09-22] MEDS: Sodium Zirconium Cyclosilicate 10 GM PKT PO ×3 (05:36→21:44)
[2021-09-22] MEDS: Heparin 5,000 UNITS/ML VIAL 5000 UNITS SC ×3 (05:36→21:36)
[2021-09-22 07:51] LABS: Abs Immature Grans 0.01 10^3/uL (0.0-0.06); Absolute Basophil Count 0.02 10^3/uL (0.0-0.2); Absolute Monocyte Count 0.43 10^3/uL (0.1-0.8); Absolute Neutrophil Count 2.49 10^3/uL (1.2-6.7); Basophils % 0.5; Eosinophils % 4.8; HCT 26.9 % (40.0-50.0); HGB 8.6 g/dL (13.5-17.5); Immature Grans % 0.2; Lymphocytes % 24.1; MCH 29.3 pg (27.0-33.0); MCV 91.5 fL (80-95); MPV 12.3 fL (8.0-11.0); Monocytes % 10.4; Nucleated RBC 0 %; Platelet Count 173 10^3/uL (130-400); RBC 2.94 10^6/uL (4.36-5.78); RDW 15.8 % (11.8-14.1); RDW-SD 52.9 fL; WBC 4.15 10^3/uL (4.4-10.8)
[2021-09-22 08:05] LABS: Anion Gap 7.7 mmol/L (3-11); BUN 53 mg/dL (7-18); CO2 23.3 mmol/L (21.0-32.0); CREATININE 3.3 mg/dL (0.70-1.30); Calcium 8.1 mg/dL (8.5-10.1); Chloride 107 mmol/L (98-107); Estimated GFR 18.91 (mL/min/1.73m2); Glucose 105 mg/dL (74-106); Potassium 5.4 mmol/L (3.5-5.1); Sodium 138 mmol/L (136-145)
[2021-09-22 08:11] LABS: Magnesium 2.3 mg/dL (1.8-2.4); Troponin I < 50 ng/L (<or=60)
[2021-09-22] MEDS: Furosemide 40 MG/4 ML VIAL IVP ×2 (08:54→16:56)
[2021-09-22] MEDS: amLODIPine 5 MG TAB 10 MG PO (08:55)
[2021-09-22] MEDS: Allopurinol 100 MG TAB 200 MG PO (08:55)
[2021-09-22] MEDS: Aspirin E.C. 81 MG TABEC PO (08:56)
--- NOTE | 2021-09-22 09:46 | W.PM.PROGNOT ---
Date of Service Date of service: 09/22/21 Time of Service: 09:46 Assessment and Plan Assessment and plan (1) Acute diastolic CHF (congestive heart failure): Status: Acute Assessment and plan: His fluid status is improving at a good pace on IV furosemide 40mg, will continue this. Borderline deminished LVEF is new, but right now with hyperkalemia this limits ARNI/AYAZ/ARB/spironolactone. Pulse too low to tolerate increase in metoprolol. (2) Acute kidney injury superimposed on chronic kidney disease: Status: Acute Assessment and plan: Cr slightly improved with diuresis, continue to monitor (3) Type 2 diabetes mellitus: Status: Chronic Assessment and plan: A1c in prediabetic range without medication. Continue diabetic diet. could consider SGLT-2 with CHF, though this is unlikely to lower sugars much given GFR. 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 Would be nice to treat with AYAZ/ARB if possible if potassium comes down and stabilizes. (5) Acute hyperkalemia: Status: Acute Assessment and plan: Coming down well on Lokelma and furosemide. I will stop Lokelma after 4 doses. (6) Anemia: Status: Chronic Assessment and plan: Likely associated with CKD. Will get iron/tibc as he would be candidate for EPO if iron adequate. If transferrin saturation not above 20% will supplument with iron. (7) DVT prophylaxis: Status: Acute Assessment and plan: on heparin (8) Discharge planning issues: Status: Acute Assessment and plan: Pending adequate diruresis, should have follow up with cardiology Subjective Subjective Interval history since last seen: Feels like urinating a lot with furosmide, breathing has improved. He feels well overall. He is eating well, but doesn't eat eggs/milk. no chest pain, palpitations, fever, cough, dysuria, or nausea. Exam Narrative Exam Narrative: General:? Very pleasant male who is sitting up in bed, A&Ox3, speaking in full sentences, not visibly dyspneic on room air Neurological:? A&Ox3, no focal deficits Skin:? Visible skin intact HEENT: neck supple, no JVP elevation Cardiovascular: RRR, no m/r/g Lungs: Diminished breath sounds up 1/3 of Yovany lung jones to purcussion and ascultation. CTAB otherwise Gastrointestinal: soft, obese, nontender Extremities: 2+ edema BLE's to knees Objective Last Vital Signs Temp 36.7 C 09/22/21 07:35 Pulse 50 L 09/22/21 07:35 Resp 16 09/22/21 07:35 BP 134/67 09/22/21 07:35 Pulse Ox 94 09/22/21 07:35 Laboratory Results - last 24 hr 09/21/21 09/21/21 09/21/21 15:25 15:25 15:25 WBC 5.48 RBC 3.14 L Hgb 9.2 L Hct 29.0 L MCV 92.4 MCH 29.3 MCHC 31.7 L RDW 15.9 H Plt Count 192 MPV 12.1 H Immature Gran % 0.2 Neutrophils % 73.4 Lymphocytes % 17.3 Monocytes % 6.9 Eosinophils % 1.8 Basophils % 0.4 Nucleated RBC % 0 Absolute Neutrophils 4.02 Absolute Lymphocytes 0.95 L Absolute Monocytes 0.38 Absolute Eosinophils 0.10 Absolute Basophils 0.02 Sodium 137 Potassium 5.9 H Chloride 108 H Carbon Dioxide 23.4 Anion Gap 5.6 BUN 53 H Creatinine 3.4 H Estimated GFR/1.73 m2 18.27 Glucose 151 H Hemoglobin A1c Calcium 8.2 L Magnesium Total Bilirubin 0.5 AST 16 ALT 14 L Alkaline Phosphatase 127 H Troponin I < 50 NT-Pro-B Natriuret Pep 01568 H Total Protein 6.2 L Albumin 2.8 L TSH Urine Color Urine Clarity Urine pH Ur Specific [place] Urine Protein Urine Ketones Urine Blood Urine Nitrite Urine Bilirubin Urine Urobilinogen Ur Leukocyte Esterase Urine RBC Urine WBC Ur Epithelial Cells Urine Crystals Urine Bacteria Urine Casts Urine Mucus Urine Other Ur Culture Indicated? Urine Glucose COVID-19 Source SARS-CoV-2 (PCR) Add-On Test Request DONE 09/21/21 09/21/21 09/21/21 15:25 15:25 15:25 WBC RBC Hgb Hct MCV MCH MCHC RDW Plt Count MPV Immature Gran % Neutrophils % Lymphocytes % Monocytes % Eosinophils % Basophils % Nucleated RBC % Absolute Neutrophils Absolute Lymphocytes Absolute Monocytes Absolute Eosinophils Absolute Basophils Sodium Potassium Chloride Carbon Dioxide Anion Gap BUN Creatinine Estimated GFR/1.73 m2 Glucose Hemoglobin A1c Calcium Magnesium 2.6 H Total Bilirubin AST ALT Alkaline Phosphatase Troponin I NT-Pro-B Natriuret Pep Total Protein Albumin TSH 2.10 Urine Color Urine Clarity Urine pH Ur Specific [place] Urine Protein Urine Ketones Urine Blood Urine Nitrite Urine Bilirubin Urine Urobilinogen Ur Leukocyte Esterase Urine RBC Urine WBC Ur Epithelial Cells Urine Crystals Urine Bacteria Urine Casts Urine Mucus Urine Other Ur Culture Indicated? Urine Glucose COVID-19 Source SARS-CoV-2 (PCR) Add-On Test Request DONE 09/21/21 09/21/21 09/21/21 15:50 17:32 18:36 WBC RBC Hgb Hct MCV MCH MCHC RDW Plt Count MPV Immature Gran % Neutrophils % Lymphocytes % Monocytes % Eosinophils % Basophils % Nucleated RBC % Absolute Neutrophils Absolute Lymphocytes Absolute Monocytes Absolute Eosinophils Absolute Basophils Sodium Potassium Chloride Carbon Dioxide Anion Gap BUN Creatinine Estimated GFR/1.73 m2 Glucose Hemoglobin A1c Calcium Magnesium Total Bilirubin AST ALT Alkaline Phosphatase Troponin I < 50 NT-Pro-B Natriuret Pep Total Protein Albumin TSH Urine Color Yellow Urine Clarity Clear Urine pH 5.5 Ur Specific [place] 1.020 Urine Protein 100 H Urine Ketones Negative Urine Blood Negative Urine Nitrite Negative Urine Bilirubin Negative Urine Urobilinogen 0.2 Ur Leukocyte Esterase Negative Urine RBC 0-2 Urine WBC 0-2 Ur Epithelial Cells Negative Urine Crystals Negative Urine Bacteria Negative Urine Casts Negative Urine Mucus Negative Urine Other Few [place] Ur Culture Indicated? No Urine Glucose Negative COVID-19 Source Nasal/Nares SARS-CoV-2 (PCR) Negative Add-On Test Request 09/21/21 09/22/21 09/22/21 21:50 07:00 07:00 WBC RBC Hgb Hct MCV MCH MCHC RDW Plt Count MPV Immature Gran % Neutrophils % Lymphocytes % Monocytes % Eosinophils % Basophils % Nucleated RBC % Absolute Neutrophils Absolute Lymphocytes Absolute Monocytes Absolute Eosinophils Absolute Basophils Sodium 137 138 Potassium 5.8 H 5.4 H Chloride 107 107 Carbon Dioxide 23.2 23.3 Anion Gap 6.8 7.7 BUN 53 H 53 H Creatinine 3.4 H 3.3 H Estimated GFR/1.73 m2 18.27 18.91 Glucose 139 H 105 Hemoglobin A1c Calcium 8.2 L 8.1 L Magnesium 2.3 Total Bilirubin AST ALT Alkaline Phosphatase Troponin I < 50 NT-Pro-B Natriuret Pep Total Protein Albumin TSH Urine Color Urine Clarity Urine pH Ur Specific [place] Urine Protein Urine Ketones Urine Blood Urine Nitrite Urine Bilirubin Urine Urobilinogen Ur Leukocyte Esterase Urine RBC Urine WBC Ur Epithelial Cells Urine Crystals Urine Bacteria Urine Casts Urine Mucus Urine Other Ur Culture Indicated? Urine Glucose COVID-19 Source SARS-CoV-2 (PCR) Add-On Test Request 09/22/21 09/22/21 07:00 07:00 WBC 4.15 L RBC 2.94 L Hgb 8.6 L Hct 26.9 L MCV 91.5 MCH 29.3 MCHC 32.0 RDW 15.8 H Plt Count 173 MPV 12.3 H Immature Gran % 0.2 Neutrophils % 60.0 Lymphocytes % 24.1 Monocytes % 10.4 Eosinophils % 4.8 Basophils % 0.5 Nucleated RBC % 0 Absolute Neutrophils 2.49 Absolute Lymphocytes 1.00 L Absolute Monocytes 0.43 Absolute Eosinophils 0.20 Absolute Basophils 0.02 Sodium Potassium Chloride Carbon Dioxide Anion Gap BUN Creatinine Estimated GFR/1.73 m2 Glucose Hemoglobin A1c 6.0 H Calcium Magnesium Total Bilirubin AST ALT Alkaline Phosphatase Troponin I NT-Pro-B Natriuret Pep Total Protein Albumin TSH Urine Color Urine Clarity Urine pH Ur Specific [place] Urine Protein Urine Ketones Urine Blood Urine Nitrite Urine Bilirubin Urine Urobilinogen Ur Leukocyte Esterase Urine RBC Urine WBC Ur Epithelial Cells Urine Crystals Urine Bacteria Urine Casts Urine Mucus Urine Other Ur Culture Indicated? Urine Glucose COVID-19 Source SARS-CoV-2 (PCR) Add-On Test Request
--- NOTE | 2021-09-22 13:07 | PHA.REVIEW ---
Pharmacy Admission Review - Admission Clinical Review (Last Reviewed 09/21/21 @ 19:34 by Andie Veloz MD) Discharge planning issues (Acute) DVT prophylaxis (Acute) Acute electrocardiogram changes (Acute) Acute kidney injury superimposed on chronic kidney disease (Acute) Acute diastolic CHF (congestive heart failure) (Acute) Volume overload (Acute) SHERMAN (acute kidney injury) (Acute) Acute hyperkalemia (Acute) Essential hypertension (Acute 02/12/18) No Known Allergies Allergy (Verified 09/21/21 15:13) Resuscitation Status Full Code Height 5 ft 10 in Weight 112.6 kg - Renal Dosing Renal Dosing: BUN 53 mg/dL (7-18) H 09/22/21 07:00 Creatinine 3.3 mg/dL (0.70-1.30) H 09/22/21 07:00 Medications needing adjustments: Reviewed (SCr: 3.3, eCrCl: 28.0mL/min (using adjusted body weight). All medications dosed appropriately.) - Anticoagulation Anticoagulation: Hgb 8.6 g/dL (13.5-17.5) L 09/22/21 07:00 Hct 26.9 % (40.0-50.0) L 09/22/21 07:00 Plt Count 173 10^3/uL (130-400) 09/22/21 07:00 Creatinine 3.3 mg/dL (0.70-1.30) H 09/22/21 07:00 DVT Prophylaxis: Reviewed Medications: Heparin (Heparin 5000 units SC Q8H ordered.) - Opiate Usage Evaluate Pain Scale/Pains Meds: N/A (No opiates ordered.) - Relevant Labs Sodium 138 mmol/L (136-145) 09/22/21 07:00 Potassium 5.4 mmol/L (3.5-5.1) H 09/22/21 07:00 Chloride 107 mmol/L (98-107) 09/22/21 07:00 Magnesium 2.3 mg/dL (1.8-2.4) 09/22/21 07:00 Electrolytes, C-Reactive P, ESR: Reviewed (Potassium: 5.4 (trending down), Lokelma 10gm TID ordered.) - DM Control DM Control: Glucose 105 mg/dL (74-106) 09/22/21 07:00 Hemoglobin A1c 6.0 % (<5.7) H 09/22/21 07:00 Finger Stick Blood Glucose 132 Finger Stick Blood Glucose 132 Finger Stick Blood Glucose 108 Finger Stick Blood Glucose 108 Insulin Dosing: Reviewed (Blood glucose within normal limits, insulin aspart SS ordered.) - Heart Failure/OR Heart Failure/OR: Troponin I < 50 ng/L (<or=60) 09/22/21 07:00 NT-Pro-B Natriuret Pep 63635 pg/mL (<300) H 09/21/21 15:25 EF%, AYAZ's, B-Blockers, Diuretics: Reviewed (LVEF 50%. Metoprolol, Furosemide currently ordered. ARB/AYAZ/ARNI/Spironolactone currently not ordered d/t hyperkalemia and SHERMAN.) - BP Control BP Control: Blood Pressure 124/70 Blood Pressure 134/67 Blood Pressure 146/58 If elevated: Reviewed - Qtc Review If Elevated: N/A (QTc: 403 on admission.) - IV to PO Switch IV Medications: Reviewed - Home Meds Home Med List reviewed: Reviewed Relevent Home Meds Not ordered & why?: Losartan 50mg daily not ordered d/t hyperkalemia and SHERMAN. - Current meds Current Medication Order Review: Reviewed - Comments Comments/Follow Ups: Continue to monitor potassium level, labs, vitals and for medication changes.
--- NOTE | 2021-09-22 13:34 | INITIAL_ITS ---
- If Service Date Differs Date of service: 09/22/21 Time of Service: 13:34 Care Management Initial Assess REASON FOR HOSPITALIZATION:: Acute on Chronic diastolic CHF, SHERMAN on CKD PAST MEDICAL HISTORY/PAST SURGICAL HISTORY:: Medical History . Acute kidney injury (nontraumatic). Afib. F/U Cardiology Dr. Currie...per pt. was told this was related to his Lyme disease and the medication he was on was causing an episode of a-fib. Atrioventricular block. Bilateral hearing loss. Chronic renal disease. Depression. Diabetes mellitus. Diverticulosis. Diverticulosis. Elevated LFTs. First degree AV block. Gout. Gout, arthritis. Hyperkalemia. Hyperlipidemia. Hypertension. Lyme disease. Myalgia. Neck pain. Obesity. Pain in right hip. Retinopathy. SOB (shortness of breath). Tubulovillous adenoma of colon. Vitamin D deficiency. Surgical History . History of surgical procedure on eye proper using laser. pt. reports for retinopathy. Hx of eye surgery. R eye. Hx of tonsillectomy. Hx of umbilical hernia repair. with mesh. S/P colonoscopy PREVIOUS FUNCTIONAL STATUS/SOCIAL/FAMILY SUPPORTS:: Jairon lives with his Zoila, in [place], [place]. His is currently in [facility]. 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 He is independent with ADL's and transportation. CURRENT FUNCTIONAL STATUS:: Jairon is up independently, alert and oriented. He is pleasant in interaction and identifies no needs at this time. ADVANCE DIRECTIVES:: On file is spouse is his agent (Zoila) Has patient been provided with info about the portal/API?: Yes Did the patient sign up for the portal?: Yes CODE STATUS:: Full Code INSURANCE COVERAGE / FINANCIAL ISSUES:: BC/BS CURRENT HOME/COMMUNITY SERVICES/EQUIPMENT:: None, currently. PRIMARY CARE PHYSICIAN:: [facility] POTENTIAL DISCHARGE NEEDS:: Cardiology and PCP follow up appointments. PATIENT/FAMILY EDUCATION NEEDS:: Discharge instructions, limitations and follow up plan of care including Ask Me Three and self management. ANTICIPATED BARRIERS TO DISCHARGE:: None identified. TRANSPORTATION:: Via private vehicle with his . PLAN:: Jairon will return home when ready per MD, he will follow up with his PCP and plan of care as prescribed including cardiology follow up. He will transport via private vehicle with a friend or family.
[2021-09-22] MEDS: Atorvastatin 20 MG TAB PO (20:36)
[2021-09-22] MEDS: Doxazosin 2 MG TAB 6 MG PO (21:36)
[2021-09-22] MEDS: Insulin Aspart 300 UNITS/3 ML PEN SC (21:37)
[2021-09-23] VITALS (13 sets, daily range): BP systolic 129–150; BP diastolic 53–69; PULSE 51–75; RESP 14–18; TEMP 35.8–36.7; O2SAT 93–95
[2021-09-23] MEDS: Heparin 5,000 UNITS/ML VIAL 5000 UNITS SC (05:53)
[2021-09-23 07:06] LABS: HCT 26.2 % (40.0-50.0); HGB 8.4 g/dL (13.5-17.5); MCH 29.2 pg (27.0-33.0); MCHC 32.1 % (32.0-36.0); MPV 12.3 fL (8.0-11.0); Platelet Count 170 10^3/uL (130-400); RBC 2.88 10^6/uL (4.36-5.78); RDW 15.6 % (11.8-14.1); RDW-SD 51.2 fL; WBC 4.63 10^3/uL (4.4-10.8)
[2021-09-23 07:15] LABS: Anion Gap 7.1 mmol/L (3-11); BUN 49 mg/dL (7-18); CO2 23.9 mmol/L (21.0-32.0); CREATININE 3.1 mg/dL (0.70-1.30); Calcium 7.8 mg/dL (8.5-10.1); Chloride 105 mmol/L (98-107); Estimated GFR 20.32 (mL/min/1.73m2); Glucose 105 mg/dL (74-106); Potassium 4.8 mmol/L (3.5-5.1); Sodium 136 mmol/L (136-145)
[2021-09-23 08:01] LABS: Iron 32 ug/dL (65-175); Total Iron Binding Capacity 119 ug/dL (250-450); Transferrin Sat 27 % (20-55)
[2021-09-23] MEDS: amLODIPine 5 MG TAB 10 MG PO (08:30)
[2021-09-23] MEDS: Normal Saline Flush 10 ML SYR IVP ×2 (08:30→10:59)
[2021-09-23] MEDS: Furosemide 40 MG/4 ML VIAL IVP (08:30)
[2021-09-23] MEDS: Aspirin E.C. 81 MG TABEC PO (08:30)
[2021-09-23] MEDS: Allopurinol 100 MG TAB 200 MG PO (08:30)
[2021-09-23] MEDS: IRON SUCROSE COMPLEX 300 MG in Normal Saline 250 ML 167 MG IVPB (10:59)
[2021-09-23] MEDS: Insulin Aspart 300 UNITS/3 ML PEN SC (12:14)
--- NOTE | 2021-09-23 12:22 | W.PM.PROGNOT ---
Date of Service Date of service: 09/23/21 Time of Service: Assessment and Plan Assessment and plan (1) Acute diastolic CHF (congestive heart failure): Status: Acute Assessment and plan: His fluid status is improving on IV furosemide 40mg. Will change to lasix infusion to see if renal function improves more on this regimen. Borderline deminished LVEF is new. Hyperkalemia now corrected; this was limiting use of ARNI/AYAZ/ARB/spironolactone. If K still good tomorrow will add one of the previous mentioned medications. Pulse has been too low to tolerate increase in metoprolol and has infact been held. Will lower metoprolol to 12.5mg BID with parameters on when to hold. (2) Acute kidney injury superimposed on chronic kidney disease: Status: Acute Assessment and plan: Cr slightly improved with diuresis, continue to monitor (3) Type 2 diabetes mellitus: Status: Chronic Assessment and plan: A1c in prediabetic range without medication. Continue diabetic diet. could consider SGLT-2 with CHF, though this is unlikely to lower sugars much given GFR. Qualifiers: Diabetes mellitus technician terminal and repeater insulin use: with technician terminal and repeater use Diabetes mellitus complication status: with kidney complications Diabetes mellitus complication detail: with chronic kidney disease Chronic kidney disease stage: stage 4 (severe) Qualified Code(s): E11.22 - Type 2 diabetes mellitus with diabetic chronic kidney disease; N18.4 - Chronic kidney disease, stage 4 (severe); Z79.4 - [facility] (current) use of insulin (4) Essential hypertension: Status: Acute Assessment and plan: BP slightly above goal but improving with diuresis. Would be nice to treat with AYAZ/ARB if possible if potassium comes down and stabilizes. (5) Acute hyperkalemia: Status: Acute Assessment and plan: Coming down well s/o administration of Lokelma x 4 doses and furosemide. Monitor (6) Anemia: Status: Chronic Assessment and plan: Likely associated with CKD. Iron level low at 32, TIBC low at 119. Venofer 300mg IV today and tomorrow. Monitor. (7) DVT prophylaxis: Status: Acute Assessment and plan: on heparin but now stopped d/t hemoglobin drifting lower. SCDs initiated. Encourage ambulation. If hgb stabilizes will restart heparin. (8) Discharge planning issues: Status: Acute Assessment and plan: Pending adequate diruresis, should have follow up with cardiology Subjective Subjective Patient reports: no new complaints, tolerating a regular diet, shortness of breath (with exertion. Modestly improved.) and afebrile; denies nausea or vomiting Exam Narrative Exam Narrative: General:? Very pleasant male who is sitting in recliner, A&Ox3, speaking in full sentences, not visibly dyspneic on room air. Neurological:? A&Ox3, no focal deficits Skin:? No rashes/lesions HEENT: neck supple, no JVP elevation Cardiovascular: RRR, no murmur Lungs: Diminished breath sounds up 1/3 of Yovany lung jones. CTAB otherwise Gastrointestinal: soft, obese, nontender Extremities: 2+ edema BLE's to knees Objective Last Vital Signs Temp 35.8 C L 09/23/21 07:35 Pulse 51 L 09/23/21 07:59 Resp 18 09/23/21 07:35 BP 142/61 H 09/23/21 07:35 Pulse Ox 93 09/23/21 07:35 Laboratory Results - last 24 hr 09/23/21 09/23/21 09/23/21 06:20 06:20 06:20 WBC 4.63 RBC 2.88 L Hgb 8.4 L Hct 26.2 L MCV 91.0 MCH 29.2 MCHC 32.1 RDW 15.6 H Plt Count 170 MPV 12.3 H Sodium 136 Potassium 4.8 Chloride 105 Carbon Dioxide 23.9 Anion Gap 7.1 BUN 49 H Creatinine 3.1 H Estimated GFR/1.73 m2 20.32 Glucose 105 Calcium 7.8 L Iron 32 L TIBC 119 L Transferrin % Sat 27
[2021-09-23] MEDS: Doxazosin 2 MG TAB 6 MG PO (22:10)
[2021-09-23] MEDS: Atorvastatin 20 MG TAB PO (22:11)
[2021-09-24] VITALS (7 sets, daily range): BP systolic 124–138; BP diastolic 60–73; PULSE 46–63; RESP 15–18; TEMP 35.8–37; O2SAT 92–95
[2021-09-24 06:48] LABS: Anion Gap 7.1 mmol/L (3-11); BUN 50 mg/dL (7-18); CO2 23.9 mmol/L (21.0-32.0); Calcium 7.9 mg/dL (8.5-10.1); Chloride 103 mmol/L (98-107); Estimated GFR 21.11 (mL/min/1.73m2); Glucose 99 mg/dL (74-106); Potassium 4.7 mmol/L (3.5-5.1); Sodium 134 mmol/L (136-145)
--- NOTE | 2021-09-24 07:24 | PGE_ITS ---
Date of Service Date of service: 09/24/21 Time of Service: 07:24 Assessment and Plan Assessment and plan (1) Acute diastolic CHF (congestive heart failure): Status: Acute Assessment and plan: Changed to Lasix drip yesterday 09/23. Diruesing well. Borderline deminished LVEF is new. Hyperkalemia now corrected; this was limiting use of ARNI/AYAZ/ARB/spironolactone. (2) Acute kidney injury superimposed on chronic kidney disease: Status: Acute Assessment and plan: Cr slightly improved. Monitor / now on lasix drip. (3) Type 2 diabetes mellitus: Status: Chronic Assessment and plan: A1c in prediabetic range without medication. Continue diabetic diet. could consider SGLT-2 with CHF, though this is unlikely to lower sugars much given GFR. Qualifiers: Chronic kidney disease stage: stage 4 (severe) Diabetes mellitus complication detail: with chronic kidney disease Diabetes mellitus complication status: with kidney complications Diabetes mellitus residential insulin use: with residential use Qualified Code(s): E11.22 - Type 2 diabetes mellitus with diabetic chronic kidney disease; N18.4 - Chronic kidney disease, stage 4 (severe); Z79.4 - [facility] (current) use of insulin (4) Essential hypertension: Status: Acute Assessment and plan: BP improved with diuresis. Will be holding metoprolol d/t bradycardia and a symptomatic 3 second pause. Monitor. (5) Acute hyperkalemia: Status: Acute Assessment and plan: Normalized s/p administration of Lokelma x 4 doses and furosemide. Monitor (6) Anemia: Status: Chronic Assessment and plan: Likely associated with CKD but is slowing trending downward despite diureses. Iron level low at 32, TIBC low at 119. Venofer 300mg IV x 2 doses. Monitor. (7) DVT prophylaxis: Status: Acute Assessment and plan: on heparin but now stopped d/t hemoglobin drifting lower. SCDs initiated. Encourage ambulation. If hgb stabilizes will restart heparin. (8) Discharge planning issues: Status: Acute Assessment and plan: Pending adequate diruresis, should have follow up with cardiology (9) Afib: Assessment and plan: Not on anticoagulation. Holding metoprolol now, after lowering dose just recently, d/t bradycardia and sinus pauses. Subjective Subjective Patient reports: no new complaints, shortness of breath (With exertion somewhat better.) and afebrile; denies nausea or vomiting Interval history since last seen: Tired. Had a 3 second pause noted on telemetry. He noted feeling slightly confused for that brief period of time. + bradycardia. Easily fatigued with PT Exam Narrative Exam Narrative: General:? Very pleasant male who is sitting upright in bed; sleep. Wakens readily. A&Ox3, speaking in full sentences, not visibly dyspneic on room air. Neurological:? A&Ox3, no focal deficits Skin:? No rashes/lesions HEENT: neck supple, no JVP elevation Cardiovascular: RRR, no murmur Lungs: Diminished breath sounds up 1/3 of Yovany lung jones. CTAB otherwise Gastrointestinal: soft, obese, nontender Extremities: 2+ edema BLE's to knees Objective Last Vital Signs Temp 36.6 C 09/24/21 03:25 Pulse 59 L 09/24/21 03:25 Resp 15 09/24/21 03:25 BP 136/69 09/24/21 03:25 Pulse Ox 92 09/24/21 03:25 Laboratory Results - last 24 hr 09/23/21 09/24/21 06:20 06:00 Sodium 134 L Potassium 4.7 Chloride 103 Carbon Dioxide 23.9 Anion Gap 7.1 BUN 50 H Creatinine 3.0 H Estimated GFR/1.73 m2 21.11 Glucose 99 Calcium 7.9 L Iron 32 L TIBC 119 L Transferrin % Sat 27 Multi-Disciplinary Checklist Lines/Tubes CENTRAL LINE: no ARTERIAL LINE: no BAHENA: no ENDOTRACHEAL TUBE: no Social Issues PT/OT: yes GOALS/DISPOSITION/SLP TEACHER: yes CODE STATUS: Full Prophylaxis DVT PROPHYLAXIS: yes GI PROPHYLAXIS: no
[2021-09-24] MEDS: amLODIPine 5 MG TAB 10 MG PO (08:08)
[2021-09-24] MEDS: Metoprolol 25 MG TAB 12.5 MG PO (08:09)
[2021-09-24] MEDS: Allopurinol 100 MG TAB 200 MG PO (08:10)
[2021-09-24] MEDS: Aspirin E.C. 81 MG TABEC PO (08:10)
--- NOTE | 2021-09-24 09:37 | PT.INIE ---
Date of service: 09/24/21 Time of Service: 09:37 PT Notes Visit Reasons: Acute on chronic diastolic CHF, SHERMAN on CKD Physical Therapy Inpatient Initial Evaluation Date: 09/24/2021 Referring Doctor: Eber Ferraro MD PT Orders: PT CONSULT: Eval/treat Precautions: Fall. Standard. Activity as tolerated. Patient Profile/Admitting Diagnosis: Tra is a 66-year-old male who presented to the ED on 09/21/2021 due to increasing shortness of shortness of breath and difficulty with breathing on exertion. Patient is diagnosed with acute diastolic congestive heart, acute on acute kidney injury superimposed on chronic kidney disease, type 2 diabetes mellitus, acute ECG changes, and acute hyperkalemia. PMHX: All Active Problems? Discharge planning issues (Acute) DVT prophylaxis (Acute) Acute electrocardiogram changes (Acute) Acute kidney injury superimposed on chronic kidney disease (Acute) Acute diastolic CHF (congestive heart failure) (Acute) Volume overload (Acute) SHERMAN (acute kidney injury) (Acute) Acute hyperkalemia (Acute) Shortness of breath (Acute) Lower extremity edema (Acute) Tinnitus (Acute) Abnormal auditory perception (Acute) Sensorineural hearing loss of both ears (Acute) Dizziness (Acute) Type 2 diabetes mellitus (Chronic) Kidney disease (Chronic) Dyspnea (Acute) Essential hypertension (Acute 02/12/18) Elevated serum creatinine (Acute 01/30/18) Medical History? Acute kidney injury (nontraumatic) Afib F/U Cardiology Dr. Currie...per pt. was told this was related to his Lyme disease and the medication he was on was causing an episode of a-fib.Atrioventricular block Bilateral hearing loss Chronic renal disease Depression Diabetes mellitus Diverticulosis Diverticulosis Elevated LFTs First degree AV block Gout Gout, arthritis Hyperkalemia Hyperlipidemia Hypertension Lyme disease Myalgia Neck pain Obesity Pain in right hip Retinopathy SOB (shortness of breath) Tubulovillous adenoma of colon Vitamin D deficiency Surgical History? History of surgical procedure on eye proper using laser pt. reports for retinopathyHx of eye surgery R eyeHx of tonsillectomy Hx of umbilical hernia repair with meshS/P colonoscopy Social History/Home Situation: Lives with in a private home with 2 steps to enter. Lives school assist. 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 Independent with all aspects of ADLs prior to admission. Equipment Owned/DME: FWW Subjective: Agreeable to PT consult. Initially complained of fatigue and being winded walking from the chair to the bathroom without any assistive device. Agreed to using front wheeled walker for hallway ambulation. States that he has fallen twice on the ice in the past 12 months. Planes of weak legs and fatigue with activity. Objective: General Observation: Telemetry monitoring in place. Alfredo catheter in place. Mental Status: Alert and oriented as to person, place, time, and purpose. Able to pay attention, focus, and respond appropriately. Pain: Denies Vital Signs: Oxygen saturation low of 87% and high 91% on room air. Able to recover above 88% after seated rest of a less than 1 minute. ROM: Right Upper Extremity: Shoulder Flexion WFL. Shoulder abduction WFL. Elbow flexion WFL. Wrist flexion WFL. Functional opening and closing of hand WFL. Left Upper Extremity: Shoulder Flexion WFL. Shoulder abduction WFL. Elbow flexion WFL. Wrist flexion WFL. Functional opening and closing of hand WFL. Right Lower Extremity: Hip flexion WFL. Hip abduction WFL. Knee flexion WFL. Ankle dorsiflexion WFL. Ankle plantarflexion WFL. Left Lower Extremity: Hip flexion WFL. Hip abduction WFL. Knee flexion WFL. Ankle dorsiflexion WFL. Ankle plantarflexion WFL. Strength: Right Upper Extremity: Shoulder flexors 4/5. Shoulder abductors 4/5. Elbow flexors 4/5. Elbow extensors 4/5. Gambling Floor Supervisor strong. Left Upper Extremity: Shoulder flexors 4/5. Shoulder abductors 4/5. Elbow flexors 4/5. Elbow extensors 4/5. Gambling Floor Supervisor strong. Right Lower Extremity: Hip flexors 4/5. Hip abductors 4/5. Knee flexors 4/5. Knee extensors 4/5. Ankle dorsiflexors 4/5. Ankle plantarflexors 4/5. Left Lower Extremity: Hip flexors 4/5. Hip abductors 4/5. Knee flexors 4/5. Knee extensors 4/5. Ankle dorsiflexors 4/5. Ankle plantarflexors 4/5. Bed Mobility/Transfers: Sit to stand with standby assist Stand to sit with standby assist Bed to toilet with standby assist Bed to reclining chair with standby assist Gait: Instructed patient with level surface ambulation of 15 feet with no assistive device from bedside chair to toilet holding onto the IV pole with mild shortness of breath and complaint of fatigue. Patient agreed to using front wheeled walker and was able to cover 30 feet +40 feet with 1 seated rest due to fatigue and increasing shortness of breath. [place]anah decreased. Wheelchair follow needed. Oxygen saturation 87% to 90% on RA with quick recovery of less than 1 minute. Balance: Static Sitting: Normal Dynamic Sitting: Normal Static Standing: Good Dynamic Standing: Fair Special Tests: Mobility Limitations Standardized Measure [facility] AM-PAC 6 clicks Basic Mobility Inpatient Short Form: Raw Score: 21 CMS Score: 29% deficit Informed Consent/Education: Patient was instructed in purpose of PT consult and plan of care. Agreeable to proceed with established PT POC to achieve personal goals. Assessment: Jairon demonstrates decreased activity tolerance and functional mobility decline requiring the use of front wheeled walker for all mobility ADL performance. Activity tolerance secondary limited due to admitting diagnoses. Patient presents with clinical signs and symptoms consistent with current/admitting diagnoses that have resulted to mobility limitations, gait instability, generalized weakness, and overall ADL decline as demonstrated by the following impairment level findings: 1. Decreased strength to BUE/LE major muscle groups 2. Impaired sitting/standing balance 3. Impaired activity tolerance 4. Dyspnea on exertion 5. Fatigue 6. B UE/LE swelling Impairments are contributing to the following functional limitations: 1. Decline in bed mobility skills 2. Decline in transfer skills 3. Difficulty with ambulation without assistive device and physical assistance 4. Increased completion time for mobility ADL performance 5. Increased risk for falls 6. Difficulty with managing steps alone safely Patient is assessed as a [id number] moderatecomplexity based on the following: History: 66-year-old male with past medical history as indicated above Examination: Demonstrable impairment in strength, balance, and mobility level with underlying impairments and functional limitations as exhibited above as well as deficit score of 29% utilizing the [facility] Mobility Inpatient Short Form Presentation: Evolving Decision Makin moderate complexity Goals: Goals X1 week 1. Supine-Sit independent 2. Sit-Supine independent 3. Sit-Stand independent 4. Stand-Sit independent with FWW 5. Bed-Chair independent with FWW 6. Chair-Bed independent with FWW 7. Independent gait on level surface with use of FWW for at least 300 feet without report of pain nor dyspnea 8. Independent stair negotiation while holding onto B rails for at least 3 steps without report of pain nor dyspnea 9. Independent with home exercise program 10. Good static and dynamic standing balance/tolerance Plan of Care/Treatment Plan: 1-2x/day, 7 days/week x 1 week. Plan of care has been reviewed with the CUSTOM LEATHER PRODUCTS MAKER providing the service under Physical Therapy direction. Initiate Physical Therapy intervention for pain management as needed, strengthening, bed mobility, transfers, gait, stairs, balance training, and use of assistive device. DISCHARGE RECOMMENDATIONS: [] Home with no services [] [X] Home with services. Home when medically cleared by hospitalist. Patient will benefit from home health PT services in order to progress mobility level using least restrictive assistive ambulatory device, assess home safety, identify additional equipment needs, and establish a functional maintenance program that will increase ability of patient to remain at home. [] Home with outpatient PT [] [] SNF for continued rehabilitation [] [] Glue Line Operator Care [] [] SNF versus LTC based on ability to participate and progress [] TREATMENT CODE/TIME: 94900 x 20 minutes, 85673 x 20 minutes beginning at 9:37 AM. Thank you for the opportunity to participate in the care of this patient. Theresa Bishop PT, DPT, CLT [facility] [place], [place]
--- NOTE | 2021-09-24 13:49 | PT.INTREAT ---
Date of service: 09/24/21 Time of Service: 13:01 PT Notes Visit Reasons: Acute on chronic diastolic CHF, SHERMAN on CKD Inpatient Physical Therapy Treatment Note [facility] Date: 09/24/2021 PRECAUTIONS: Fall, activity as tolerated SUBJECTIVE: Nadia is pleasant and agreeable to participating in PT. He reports that he is feeling foggy and disoriented this afternoon. He is tired. OBJECTIVE: PAIN: No c/o pain BED MOBILITY/TRANSFERS Sit-supine: I with HOB at 40 degrees Sit-stand: S Stand-sit: S GAIT Assistive Device: FWW Weight bearing: Full Assist: SBA Distance: 20' Deviation: Slow pace THEREX: Patient was instructed in an UE and LE strengthening program, completed in a seated position, as per flow sheet. ASSESSMENT: Patient tolerated session with increased fatigue and limited activity tolerance. He would benefit from continued global conditioning for improved mobility. PLAN: Continue with global strengthening and general conditioning for continued progression toward independent level of function, which is his baseline. TREATMENT CODE/TIME: 20 minutes; 64568 (13:01)
--- NOTE | 2021-09-24 15:33 | CMPROGNOTE_ITS ---
- If Service Date Differs Date of service: 09/24/21 Time of Service: 15:33 Care Management Progress Note S/O: Jairon was sitting up in bed when CM met with him. He is alert and oriented. His SOB with exertion is somewhat improved. He continues to require additional monitoring and medication management for bradycardia. He has been working with PT. CM will continue to support discharge planning needs. A: 66 year old male admitted to [facility] on 09/21/21 for Acute on Chronic diastolic CHF, SHERMAN on CKD P: Jairon will return home when ready per MD, he will follow up with his PCP and plan of care as prescribed including cardiology follow up. He will transport via private vehicle with a friend or family.
[2021-09-24] MEDS: Milk of Magnesia 30 ML CUP PO (15:56)
[2021-09-24] MEDS: IRON SUCROSE COMPLEX 300 MG in Normal Saline 250 ML 167 MG IVPB (16:04)
[2021-09-24] MEDS: Normal Saline Flush 10 ML SYR IVP (16:04)
[2021-09-24] MEDS: Doxazosin 2 MG TAB 6 MG PO (22:03)
[2021-09-24] MEDS: Atorvastatin 20 MG TAB PO (22:04)
[2021-09-24] MEDS: Insulin Aspart 300 UNITS/3 ML PEN SC (22:04)
[2021-09-25] VITALS (9 sets, daily range): BP systolic 125–157; BP diastolic 54–75; PULSE 52–64; RESP 16–17; TEMP 35.5–37; O2SAT 92–95
[2021-09-25 06:27] LABS: HCT 26.3 % (40.0-50.0); HGB 8.5 g/dL (13.5-17.5)
[2021-09-25 06:53] LABS: Anion Gap 7.3 mmol/L (3-11); BUN 55 mg/dL (7-18); CO2 23.7 mmol/L (21.0-32.0); CREATININE 3.1 mg/dL (0.70-1.30); Calcium 7.9 mg/dL (8.5-10.1); Chloride 101 mmol/L (98-107); Estimated GFR 20.32 (mL/min/1.73m2); Glucose 99 mg/dL (74-106); Potassium 4.7 mmol/L (3.5-5.1); Sodium 132 mmol/L (136-145)
[2021-09-25] MEDS: amLODIPine 5 MG TAB 10 MG PO (07:58)
[2021-09-25] MEDS: Allopurinol 100 MG TAB 200 MG PO (07:58)
[2021-09-25] MEDS: Aspirin E.C. 81 MG TABEC PO (07:59)
--- NOTE | 2021-09-25 11:13 | PDOC.CMPRO ---
- If Service Date Differs Date of service: 09/25/21 Time of Service: 11:13 Care Management Progress Note S/O: Jairon was sitting up in his recliner when CM met with him. He is alert, oriented and easy to engage in conversation. He requires inpatient admission for additional medication management and close monitoring. He is on telemetry and his metoprolol is being held at this time. His lasix was increased and monitoring diuresis. Jairon is working with PT and easily fatigues. A: 66 year old male admitted to [facility] on 09/21/21 for Acute on Chronic diastolic CHF, SHERMAN on CKD P: Anticipate, Jairon will return home when ready per MD. He will follow up with his PCP and plan of care as prescribed including cardiology follow up. He will need [facility] RN/PT orders, if needed at time of discharge. He will transport via private vehicle with a friend or family.
--- NOTE | 2021-09-25 13:23 | PT.INTREAT ---
PT Notes Visit Reasons: Acute on chronic diastolic CHF, SHERMAN on CKD Inpatient Physical Therapy Treatment Note [facility] Date: 09/25/21 PRECAUTIONS:[] SUBJECTIVE: [] OBJECTIVE: Sit-stand: CGA/SBA Stand-sit: SBA GAIT Assistive Device: FWW Weight bearing: Full Assist: CGA/SBA Distance: 30ft THEREX: Pt completed UE and LE strengthening ther ex as per flow sheet while seated. Pt did require short rest periods due to SOB. ASSESSMENT: Pt tolerated today's session fairly well. Pt did c/o SOB during his session and did require occasional rest periods because of it. PLAN: Cont as per PT POC as per mikel. TREATMENT CODE/TIME: 20 TA
--- NOTE | 2021-09-25 13:33 | W.PM.PROGNOT ---
Date of Service Date of service: 09/25/21 Time of Service: 13:33 Assessment and Plan Assessment and plan (1) Acute diastolic CHF (congestive heart failure): Status: Acute Assessment and plan: Changed to Lasix drip 09/23 at 5mg/hr Diuresed poorly on 09/24. Increased lasix to 10mg/hr Borderline deminished LVEF is new. Hyperkalemia now corrected; this was limiting use of ARNI/AYAZ/ARB/spironolactone. (2) Acute kidney injury superimposed on chronic kidney disease: Status: Acute Assessment and plan: Cr has appeared to stabilize at 3.0-3.1. Monitor / now on lasix drip. (3) Type 2 diabetes mellitus: Status: Chronic Assessment and plan: A1c in prediabetic range without medication. Continue diabetic diet. could consider SGLT-2 with CHF, though this is unlikely to lower sugars much given GFR. Qualifiers: Chronic kidney disease stage: stage 4 (severe) Diabetes mellitus complication detail: with chronic kidney disease Diabetes mellitus complication status: with kidney complications Diabetes mellitus senior living insulin use: with truck terminal manager use Qualified Code(s): E11.22 - Type 2 diabetes mellitus with diabetic chronic kidney disease; N18.4 - Chronic kidney disease, stage 4 (severe); Z79.4 - [facility] (current) use of insulin (4) Essential hypertension: Status: Acute Assessment and plan: BP improved with diuresis. Will be holding metoprolol d/t bradycardia and a symptomatic 3 second pause, then another pause w/o noted symptoms. First degree heart block. Monitor. (5) Acute hyperkalemia: Status: Acute Assessment and plan: Normalized s/p administration of Lokelma x 4 doses and furosemide. Monitor (6) Anemia: Status: Chronic Assessment and plan: Likely associated with CKD. Has slowly trended down but appears to be stabilizing. Iron level low at 32, TIBC low at 119. Venofer 300mg IV x 2 doses. Monitor. (7) DVT prophylaxis: Status: Acute Assessment and plan: on heparin but now stopped d/t hemoglobin drifting lower. SCDs initiated. Encourage ambulation. Restart heparin if hgb has more definitively stabilized. (8) Discharge planning issues: Status: Acute Assessment and plan: Pending adequate diruresis, should have follow up with cardiology (9) Afib: Assessment and plan: Not on anticoagulation. Holding metoprolol now, after lowering dose just recently, d/t bradycardia and sinus pauses. Subjective Subjective Patient reports: no new complaints, shortness of breath (With exertion somewhat better.) and afebrile; denies nausea or vomiting Interval history since last seen: Tired but somewhat better. Exam Narrative Exam Narrative: General:? Very pleasant male who is sitting in recliner; asleep. Wakens readily. A&Ox3, speaking in full sentences, not visibly dyspneic on room air. Neurological:? A&Ox3, no focal deficits Skin:? No rashes/lesions HEENT: neck supple, no JVP elevation Cardiovascular: RRR, no murmur Lungs: Diminished breath sounds up 1/3 of Yovany lung jones. CTAB otherwise Gastrointestinal: soft, obese, nontender Extremities: 2+ edema BLE's to knees Objective Last Vital Signs Temp 36.8 C 09/25/21 11:11 Pulse 59 L 09/25/21 11:11 Resp 16 09/25/21 11:11 BP 136/61 09/25/21 11:11 Pulse Ox 95 09/25/21 11:11 Laboratory Results - last 24 hr 09/25/21 09/25/21 06:07 06:07 Hgb 8.5 L Hct 26.3 L Sodium 132 L Potassium 4.7 Chloride 101 Carbon Dioxide 23.7 Anion Gap 7.3 BUN 55 H Creatinine 3.1 H Estimated GFR/1.73 m2 20.32 Glucose 99 Calcium 7.9 L
--- NOTE | 2021-09-25 14:15 | PT.INTREAT ---
PT Notes Visit Reasons: Acute on chronic diastolic CHF, SHERMAN on CKD Inpatient Physical Therapy Treatment Note [facility] Date: 09/25/2021 PRECAUTIONS: Fall, activity as tolerated SUBJECTIVE: Jairon is agreeable to participating in PT. States that he gets quite fatigued after PT sessions, which he attributes to his work of breathing. OBJECTIVE: PAIN: No c/o pain BED MOBILITY/TRANSFERS Sit-stand: SBA Stand-sit: SBA GAIT Assistive Device: FWW Weight bearing: Full Assist: SBA Distance: 30' Deviation: normal pace, cues for equipment management during turning THEREX: Patient was instructed in an UE and LE strengthening program, completed in standing position, as per flow sheet. ASSESSMENT: Patient tolerated session with increased fatigue and limited activity tolerance. Able to tolerate progression to standing exercises, although with need for increasing recovery time between exercises as he fatigued. Requires continued global conditioning for improved mobility. PLAN: Continue with global strengthening and general conditioning for continued progression toward independent level of function, which is his baseline. TREATMENT CODE/TIME: 30 minutes; [id number], [id number] ([id number])
[2021-09-25] MEDS: metOLazone 2.5 MG TAB 5 MG PO (14:20)
--- NOTE | 2021-09-25 14:25 | W.INDIABCONS ---
Date of service: 09/25/21 Time of Service: 14:25 Diabetes Inpatient Consult Reason for Visit: dm DESCRIPTION/ASSESSMENT: 66 year old male admitted with CHF with CKD with volume overload with hx of obesity, Dm2 and HTN. Has lost over 60 lbs in last 10 years, highest weight 308 lbs. Starting following vegan diet about 10 years ago and lost weight and able to manage diabetes. Continues to use humulog at meals (1:5) with most recent A1C (09/22/21): 6% indicating extremely well controlled DM. Following vegan diabetic diet with excellent intake. He includes some dairy in his vegan diet. Takes MVI and B12 on regular basis. INTERVENTION: Educated Mr. Choi on how to increase protein in diet while maintaining veganism, however, encouraged him to include a daily protein supplement - either pea protein or whey protein. Low protein intake in his current vegan diet may be contributing to his fluid retention. Does not use salt or eat packaged foods. Provided education on higher protein diet, low salt diet. PLAN: Continue current meal plan WIll continue to follow and support Time Spent in Nutritional Counseling and Treatment: 20
[2021-09-25] MEDS: ALBUMIN HUMAN 25 GM/100 ML BTL IV (16:05)
[2021-09-25] MEDS: Normal Saline Flush 10 ML SYR IVP ×2 (16:05→21:01)
[2021-09-25] MEDS: Furosemide 40 MG/4 ML VIAL IVP (16:06)
[2021-09-25] MEDS: Insulin Aspart 300 UNITS/3 ML PEN SC (21:01)
[2021-09-25] MEDS: Doxazosin 2 MG TAB 6 MG PO (21:01)
[2021-09-25] MEDS: Atorvastatin 20 MG TAB PO (21:01)
[2021-09-26] VITALS (11 sets, daily range): BP systolic 121–147; BP diastolic 47–70; PULSE 50–67; RESP 17–18; TEMP 35.8–36.7; O2SAT 92–94
[2021-09-26 06:39] LABS: HCT 25.5 % (40.0-50.0); HGB 8.4 g/dL (13.5-17.5); MCH 29.4 pg (27.0-33.0); MCHC 32.9 % (32.0-36.0); MCV 89.2 fL (80-95); MPV 12.4 fL (8.0-11.0); Platelet Count 156 10^3/uL (130-400); RBC 2.86 10^6/uL (4.36-5.78); RDW 15.5 % (11.8-14.1); RDW-SD 50.4 fL; WBC 5.49 10^3/uL (4.4-10.8)
[2021-09-26 06:50] LABS: BUN 56 mg/dL (7-18); CREATININE 3.4 mg/dL (0.70-1.30); Calcium 7.9 mg/dL (8.5-10.1); Chloride 100 mmol/L (98-107); Estimated GFR 18.27 (mL/min/1.73m2); Glucose 109 mg/dL (74-106); Potassium 5.1 mmol/L (3.5-5.1); Sodium 130 mmol/L (136-145)
[2021-09-26] MEDS: Aspirin E.C. 81 MG TABEC PO (07:56)
[2021-09-26] MEDS: Torsemide 20 MG TAB 40 MG PO (07:56)
[2021-09-26] MEDS: metOLazone 2.5 MG TAB 5 MG PO (07:56)
[2021-09-26] MEDS: Allopurinol 100 MG TAB 200 MG PO (07:56)
[2021-09-26] MEDS: amLODIPine 5 MG TAB 10 MG PO (07:57)
[2021-09-26] MEDS: Milk of Magnesia 30 ML CUP PO (10:03)
[2021-09-26] MEDS: Docusate Sodium 100 MG CAP PO (10:03)
--- NOTE | 2021-09-26 10:24 | PDOC.CMPRO ---
- If Service Date Differs Date of service: 09/26/21 Time of Service: 10:25 Care Management Progress Note S/O: Jairon requires additional monitoring and medication management. He is frustrated that his fluid retention is not responding well to diuresis. Jairon is working with pt and continues to fatigue easily. asked Dr. Ferraro to update patients , Zoila later today. A: 66 year old male admitted to [facility] on 09/21/21 for Acute on Chronic diastolic CHF, SHERMAN on CKD P: Anticipate, Jairon will return home when ready per MD. He will follow up with his PCP and plan of care as prescribed including cardiology follow up. He will need New [facility] RN/PT orders, if needed at time of discharge. He will transport via private vehicle with a friend or family.
--- NOTE | 2021-09-26 14:36 | PT.INTREAT ---
PT Notes Visit Reasons: Acute on chronic diastolic CHF, SHERMAN on CKD Inpatient Physical Therapy Treatment Note [facility] Date: 09/26/21 SUBJECTIVE: Jairon states that he is not feeling well this am and refused PT. He was agreeable to PT this pm, stating he was feeling better than this am. Indicated that he has performed his HEP x 2 this am. OBJECTIVE: [] BED MOBILITY/TRANSFERS Sit-stand: S Stand-sit: S GAIT Assistive Device: FWW Weight bearing: FWB Assist: SBA Distance: approx 65' with WC to follow ASSESSMENT: tolerated session fair, despite c/o SOB. He was able to ambulate further distance today. I did wheel him back to his room due to fatigue/ SOB. PLAN: will continue to work on his overall strength and endurance in order to improve his independent functional mobility following PT POC. TREATMENT CODE/TIME: refused in am 15 min in pm. [id number].
--- NOTE | 2021-09-26 15:11 | W.PM.PROGNOT ---
Date of Service Date of service: 09/26/21 Time of Service: 15:11 Assessment and Plan Assessment and plan (1) Acute diastolic CHF (congestive heart failure): Status: Acute Assessment and plan: No significant improvement with diureses on 10mg lasix / HR. Changed to Torsemide 40mg this AM and metolazone 5 mg daily. Will increase Torsemide to 60mg BID and cont metolazone Borderline deminished LVEF is new. Hyperkalemia now corrected but trending upward; this was limiting use of ARNI/AYAZ/ARB/spironolactone. (2) Acute kidney injury superimposed on chronic kidney disease: Status: Acute Assessment and plan: Cr had appeared to stabilize at 3.0-3.1, but now 3.4 Monitor / now on oral torsemide and metolazone. (3) Type 2 diabetes mellitus: Status: Chronic Assessment and plan: A1c in prediabetic range without medication. Continue diabetic diet. could consider SGLT-2 with CHF, though this is unlikely to lower sugars much given GFR. Qualifiers: Diabetes mellitus terminal gauger supervisor insulin use: with skilled nursing use Diabetes mellitus complication status: with kidney complications Diabetes mellitus complication detail: with chronic kidney disease Chronic kidney disease stage: stage 4 (severe) Qualified Code(s): E11.22 - Type 2 diabetes mellitus with diabetic chronic kidney disease; N18.4 - Chronic kidney disease, stage 4 (severe); Z79.4 - termite treater helper (current) use of insulin (4) Essential hypertension: Status: Acute Assessment and plan: BP improved with diuresis. Will be holding metoprolol d/t bradycardia and a symptomatic 3 second pause, then another pause w/o noted symptoms. First degree heart block. Monitor. (5) Acute hyperkalemia: Status: Acute Assessment and plan: Normalized s/p administration of Lokelma x 4 doses and furosemide. Monitor (6) Anemia: Status: Chronic Assessment and plan: Likely associated with CKD. Has slowly trended down but appears to be stabilizing. Iron level low at 32, TIBC low at 119. Venofer 300mg IV x 2 doses administered. Monitor. (7) DVT prophylaxis: Status: Acute Assessment and plan: on heparin but now stopped d/t hemoglobin drifting lower. SCDs initiated. Encourage ambulation. Restart heparin if hgb has more definitively stabilized. (8) Discharge planning issues: Status: Acute Assessment and plan: Pending adequate diruresis, should have follow up with cardiology (9) Afib: Assessment and plan: Not on anticoagulation. Holding metoprolol now, after lowering dose just recently, d/t bradycardia and sinus pauses. Subjective Subjective Patient reports: no new complaints, shortness of breath (With exertion somewhat better.) and afebrile; denies nausea or vomiting Interval history since last seen: Frustrated that fluid retention isn't responding well to diureses. Exam Narrative Exam Narrative: General:? Very pleasant male who is sitting in recliner; asleep. Wakens readily. A&Ox3, speaking in full sentences, not visibly dyspneic on room air. Neurological:? A&Ox3, no focal deficits Skin:? No rashes/lesions HEENT: neck supple, no JVP elevation Cardiovascular: RRR, no murmur Lungs: Diminished breath sounds up 1/3 of Yovany lung jones. CTAB otherwise Gastrointestinal: soft, obese, nontender Extremities: 2+ edema BLE's to knees Objective Last Vital Signs Temp 36.7 C 09/26/21 15:06 Pulse 58 L 09/26/21 15:06 Resp 18 09/26/21 15:06 BP 121/63 09/26/21 15:06 Pulse Ox 93 09/26/21 15:06 Laboratory Results - last 24 hr 09/26/21 09/26/21 06:20 06:20 WBC 5.49 RBC 2.86 L Hgb 8.4 L Hct 25.5 L MCV 89.2 MCH 29.4 MCHC 32.9 RDW 15.5 H Plt Count 156 MPV 12.4 H Sodium 130 L Potassium 5.1 Chloride 100 Carbon Dioxide 23.0 Anion Gap 7.0 BUN 56 H Creatinine 3.4 H Estimated GFR/1.73 m2 18.27 Glucose 109 H Calcium 7.9 L
--- NOTE | 2021-09-26 15:55 | CHAPLAIN ---
Jairon was sitting up in the chair when I visited. He was polite and engaged in a short conversation but did not seem interested in further conversation.
[2021-09-26] MEDS: Torsemide 20 MG TAB 60 MG PO (16:12)
[2021-09-26] MEDS: Insulin Aspart 300 UNITS/3 ML PEN SC (17:08)
[2021-09-26] MEDS: Atorvastatin 20 MG TAB PO (21:09)
[2021-09-26] MEDS: Doxazosin 2 MG TAB 6 MG PO (21:09)
[2021-09-27] VITALS (10 sets, daily range): BP systolic 139–152; BP diastolic 55–70; PULSE 61–68; RESP 18–20; TEMP 36.3–36.7; O2SAT 55–95
--- NOTE | 2021-09-27 | DI.RAD_ITS ---
Exam(s) XR CHEST 2V PA LATERAL EXAM: XR CHEST 2V PA LATERAL CLINICAL HISTORY: CHF, NUNEZ TECHNIQUE: 2D digital imaging was performed. COMPARISON: CR XR CHEST 2V PA LATERAL from 09/18/2021 FINDINGS: There has been slight interval increase in size of the previously noted large bilateral pleural effus ions. The cardiac silhouette and angi or obscured. Visualized portions of the upper lobes appear cl ear. No pneumothorax. IMPRESSION: Mild interval increase in bilateral pleural effusions. DATA REPOSITORY: RADIATION DOSE DELIVERED:
[2021-09-27 06:58] LABS: Source Nasal/Nares
[2021-09-27 07:02] LABS: Anion Gap 7.9 mmol/L (3-11); BUN 58 mg/dL (7-18); CO2 24.1 mmol/L (21.0-32.0); Calcium 8.1 mg/dL (8.5-10.1); Chloride 98 mmol/L (98-107); Glucose 117 mg/dL (74-106); Potassium 5.4 mmol/L (3.5-5.1); Sodium 130 mmol/L (136-145)
[2021-09-27 07:08] LABS: CREATININE 3.6 mg/dL (0.70-1.30)
[2021-09-27] MEDS: Aspirin E.C. 81 MG TABEC PO (08:07)
[2021-09-27] MEDS: Allopurinol 100 MG TAB 200 MG PO (08:07)
[2021-09-27] MEDS: ALBUMIN HUMAN 25 GM/100 ML BTL IV ×2 (08:08→19:55)
[2021-09-27] MEDS: Normal Saline Flush 10 ML SYR IVP ×2 (08:08→09:34)
[2021-09-27] MEDS: amLODIPine 5 MG TAB 10 MG PO (08:08)
[2021-09-27] MEDS: metOLazone 2.5 MG TAB 10 MG PO (08:11)
[2021-09-27 10:50] LABS: COVID-19 PCR Negative (Negative)
--- NOTE | 2021-09-27 12:22 | NUR.NOTE ---
Nursing Note:Patient has an increase in SOB, states it is getting worse. Patient was 86% on Room Air, and was placed on 2L via NC. Patient to bedside to use urinal. He was able to void about 1mL. Bladder scan completed and shows approximately 316mL in bladder. Charge nurse made aware.
[2021-09-27] MEDS: Lidocaine 2% Jelly 11 ML SYR UR (12:45)
[2021-09-27] MEDS: Tamsulosin 0.4 MG CAPCR PO (13:12)
[2021-09-27] MEDS: Milk of Magnesia 30 ML CUP PO (13:12)
[2021-09-27] MEDS: Docusate Sodium 100 MG CAP PO ×2 (13:12→21:40)
[2021-09-27 14:17] LABS: Sodium, Urine 26 mmol/L
--- NOTE | 2021-09-27 15:01 | PT.INNT ---
PT Notes Visit Reasons: Acute on Chronic Diastolic CHF, SHERMAN on CKD pt refused PT both am and pm sessions. He reports that he is too unwell. He indicated that he would like to go for a walk or even just get OOB, however he is too weak and SOB. Will check on him in tomorrow am.
[2021-09-27 15:17] LABS: Anion Gap 7.3 mmol/L (3-11); BUN 62 mg/dL (7-18); CO2 23.7 mmol/L (21.0-32.0); Calcium 8.2 mg/dL (8.5-10.1); Chloride 99 mmol/L (98-107); Estimated GFR 16.57 (mL/min/1.73m2); Glucose 110 mg/dL (74-106); Potassium 5.4 mmol/L (3.5-5.1); Sodium 130 mmol/L (136-145)
--- NOTE | 2021-09-27 15:20 | PGE_ITS ---
Date of Service Date of service: 09/27/21 Time of Service: 15:21 Assessment and Plan Assessment and plan (1) Acute diastolic CHF (congestive heart failure): Status: Acute Assessment and plan: Restarted lasix drip at 20mg/hr. Added 100ml bolus of 3% NS x2 doses today to bring extracellular volume into the intravascular space for improvement Increased metolazone to 10mg po daily. Spoke with Dr Boles at [facility] Nephrology; OK with lasix infusion. OK with increasing, if necessary, but suggested no higher than 30mg/hr. No indication for dialysis at this time. Will continue to keep in touch with nephrology. (2) Acute kidney injury superimposed on chronic kidney disease: Status: Acute Assessment and plan: Cr had appeared to stabilize at 3.0 - 3.1 - 3.6 - 3.7. Monitor. See above (3) Type 2 diabetes mellitus: Status: Chronic Assessment and plan: A1c in prediabetic range without medication. Continue diabetic diet. could consider SGLT-2 with CHF, though this is unlikely to lower sugars much given GFR. Qualifiers: Chronic kidney disease stage: stage 4 (severe) Diabetes mellitus complication detail: with chronic kidney disease Diabetes mellitus complication status: with kidney complications Diabetes mellitus assistant terminal manager insulin use: with [facility] use Qualified Code(s): E11.22 - Type 2 diabetes mellitus with diabetic chronic kidney disease; N18.4 - Chronic kidney disease, stage 4 (severe); Z79.4 - [facility] (current) use of insulin (4) Essential hypertension: Status: Acute Assessment and plan: BP improved with diuresis. Will be holding metoprolol d/t bradycardia and a symptomatic 3 second pause, then another pause w/o noted symptoms. First degree heart block with intermittent second degree type I Monitor. (5) Acute hyperkalemia: Status: Acute Assessment and plan: Normalized s/p administration of Lokelma x 4 doses and furosemide. Monitor (6) Anemia: Status: Chronic Assessment and plan: Likely associated with CKD. Has slowly trended down but appears to be stabilizing. Iron level low at 32, TIBC low at 119. Venofer 300mg IV x 2 doses administered. Monitor. (7) DVT prophylaxis: Status: Acute Assessment and plan: on heparin but now stopped d/t hemoglobin drifting lower. SCDs initiated. Encourage ambulation. Restart heparin if hgb has more definitively stabilized. (8) Discharge planning issues: Status: Acute Assessment and plan: Pending adequate diruresis, should have follow up with cardiology (9) Afib: Assessment and plan: Not on anticoagulation. Holding metoprolol now, after lowering dose just recently, d/t bradycardia and sinus pauses. Subjective Subjective Patient reports: no new complaints, shortness of breath (With exertion somewhat better.) and afebrile; denies nausea or vomiting Interval history since last seen: Ongoing fatigue and frustation that fluid retention isn't responding well to diureses. + dyspnea. No appetite today. Exam Narrative Exam Narrative: General:? Lying in bed with HOB raised. Neurological:? A&Ox3, no focal deficits Skin:? No rashes/lesions HEENT: neck supple, no JVP elevation Cardiovascular: RRR, no murmur Lungs: Diminished breath sounds up 1/3 of Yovany lung jones. CTAB otherwise Gastrointestinal: soft, obese, nontender Extremities: 2+ edema but improved appearing; skin creases now noted.Edema is bilateral and into the thighs. Objective Last Vital Signs Temp 36.3 C L 09/27/21 14:34 Pulse 65 09/27/21 14:34 Resp 18 09/27/21 14:34 BP 144/55 H 09/27/21 14:34 Pulse Ox 55 L 09/27/21 14:34 Laboratory Results - last 24 hr 09/27/21 09/27/21 09/27/21 06:30 06:35 12:50 Sodium 130 L Potassium 5.4 H Chloride 98 Carbon Dioxide 24.1 Anion Gap 7.9 BUN 58 H Creatinine 3.6 H* Estimated GFR/1.73 m2 17.10 Glucose 117 H Calcium 8.1 L Ur Random Sodium 26 COVID-19 Source Nasal/Nares SARS-CoV-2 (PCR) Negative
[2021-09-27 15:29] LABS: CREATININE 3.7 mg/dL (0.70-1.30)
--- NOTE | 2021-09-27 16:41 | PDOC.CMPRO ---
- If Service Date Differs Date of service: 09/27/21 Time of Service: 16:41 Care Management Progress Note S/O: Jairon requires additional monitoring and medication management. He is frustrated that his fluid retention is not responding well to diuresis, IV Lasix restarted per MD-who spoke with Zoila in length today. Jairon is working with PT and continues to fatigue easily. CM continues to follow. A: 66 year old male admitted to [facility] on 09/21/21 for Acute on Chronic diastolic CHF, SHERMAN on CKD P: Undetermined discharge plan, per MD Cummings, Jairon's is advocating for transfer. If returning home Jairon will follow up with his PCP and plan of care as prescribed including cardiology follow up. He will need New [facility] RN/PT orders, if needed at time of discharge. He will transport via private vehicle with a friend or family.
[2021-09-27] MEDS: Insulin Aspart 300 UNITS/3 ML PEN SC (21:10)
[2021-09-27] MEDS: Atorvastatin 20 MG TAB PO (21:11)
[2021-09-27] MEDS: Doxazosin 2 MG TAB 6 MG PO (21:11)
[2021-09-28] VITALS (9 sets, daily range): BP systolic 134–158; BP diastolic 62–67; PULSE 55–69; RESP 18–20; TEMP 35.8–36.7; O2SAT 92–95
[2021-09-28] MEDS: Normal Saline Flush 10 ML SYR IVP ×2 (01:56→19:56)
[2021-09-28] MEDS: ALBUMIN HUMAN 25 GM/100 ML BTL IV (01:56)
[2021-09-28 06:10] LABS: HCT 23.7 % (40.0-50.0); HGB 7.8 g/dL (13.5-17.5); MCH 29.7 pg (27.0-33.0); MCHC 32.9 % (32.0-36.0); MCV 90.1 fL (80-95); MPV 12.1 fL (8.0-11.0); Platelet Count 136 10^3/uL (130-400); RBC 2.63 10^6/uL (4.36-5.78); RDW 15.6 % (11.8-14.1); RDW-SD 51.4 fL; WBC 5.93 10^3/uL (4.4-10.8)
[2021-09-28 06:23] LABS: Anion Gap 6.2 mmol/L (3-11); BUN 60 mg/dL (7-18); CO2 26.8 mmol/L (21.0-32.0); Chloride 98 mmol/L (98-107); Estimated GFR 16.57 (mL/min/1.73m2); Glucose 113 mg/dL (74-106); Magnesium 2.8 mg/dL (1.8-2.4); Potassium 5.4 mmol/L (3.5-5.1); Sodium 131 mmol/L (136-145)
[2021-09-28 06:31] LABS: CREATININE 3.7 mg/dL (0.70-1.30)
[2021-09-28 08:31] LABS: Uric Acid 5.1 mg/dL (3.5-7.2)
[2021-09-28] MEDS: metOLazone 2.5 MG TAB 10 MG PO (08:34)
[2021-09-28] MEDS: Tamsulosin 0.4 MG CAPCR PO (08:34)
[2021-09-28] MEDS: Allopurinol 100 MG TAB 200 MG PO (08:34)
[2021-09-28] MEDS: amLODIPine 5 MG TAB 10 MG PO (08:34)
[2021-09-28] MEDS: Aspirin E.C. 81 MG TABEC PO (08:35)
--- NOTE | 2021-09-28 12:10 | PDOC.CMPRO ---
- If Service Date Differs Date of service: 09/28/21 Time of Service: 12:10 Care Management Progress Note S/O: Jairon requires additional monitoring and medication management. He is frustrated that his fluid retention is not responding well to diuresis, IV Lasix restarted per MD-who spoke with Zoila in length today. Jairon is working with PT and continues to fatigue easily. CM continues to follow. A: 66 year old male admitted to [facility] on 09/21/21 for Acute on Chronic diastolic CHF, SHERMAN on CKD P: Undetermined discharge plan, per MD Cummings, Jairon's is advocating for transfer. If returning home Jairon will follow up with his PCP and plan of care as prescribed including cardiology follow up. He will need New [facility] RN/PT orders, if needed at time of discharge. He will transport via private vehicle with a friend or family.
[2021-09-28] MEDS: Insulin Aspart 300 UNITS/3 ML PEN SC ×3 (12:19→22:23)
--- NOTE | 2021-09-28 12:23 | W.PM.PROGNOT ---
Date of Service Date of service: 09/28/21 Time of Service: 12:23 Assessment and Plan Assessment and plan (1) Acute diastolic CHF (congestive heart failure): Status: Acute Assessment and plan: Restarted lasix drip at 20mg/hr. 3% saline boluses tried yesterday. cont. metolazone 10 mg daily Diuril 500 mg IV q12H added today Dr. Ferraro spoke w/ Dr. Boles, [facility] nephrology yesterday who approved lasix drip but recommended limiting to 30 mg/hr; he felt that there is no need for hemodialysis at this time. His potassium level is 5.4 but stable and his phosphorous 4.7 and CO2 is 26.8. (2) Acute kidney injury superimposed on chronic kidney disease: Status: Acute Assessment and plan: stable BUN 60 and creatinine 3.7 w/ elevated but stable potassium 5.4. I have changed his diet to low potassium, cardiac diabetic diet. (3) Afib: Assessment and plan: Not on anticoagulation. Holding metoprolol now, after lowering dose just recently, d/t bradycardia and sinus pauses. (4) Type 2 diabetes mellitus: Status: Chronic Assessment and plan: A1c in prediabetic range without medication. Continue diabetic diet. 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 Will be holding metoprolol d/t bradycardia and a symptomatic 3 second pause, then another pause w/o noted symptoms. First degree heart block with intermittent second degree type I; remain in 1st deg AV block in sinus to sinus bradycardia; no advanced heart block and no significant pauses Monitor. (6) Acute hyperkalemia: Status: Acute Assessment and plan: Normalized s/p administration of Lokelma x 4 doses and furosemide. Monitor; place on low potassium diet (7) Anemia: Status: Chronic Assessment and plan: Likely associated with CKD. Has slowly trended down but appears to be stabilizing. Iron level low at 32, TIBC low at 119. Venofer 300mg IV x 2 doses administered. Will give one more dose today then check reticulocyte and repeat CBC in couple of days. May need epogen Monitor. (8) DVT prophylaxis: Status: Acute Assessment and plan: on heparin but now stopped d/t hemoglobin drifting lower. SCDs initiated. Encourage ambulation. Restart heparin if hgb has more definitively stabilized. (9) Discharge planning issues: Status: Acute Assessment and plan: Pending adequate diruresis, should have follow up with cardiology Subjective Subjective Interval history since last seen: Patient offers no acute complaints. Specifically he denies dyspnea, CP or abdominal pains. He still has significant bilateral leg edema and ascites. He is currently on lasix drip begun by Dr. Ferraro per his discussion w/ renal at [facility]. Patient has bridges catheter and is draining clear, yellow urine. Exam Narrative Exam Narrative: elderly white male who is sitting up in his chair watching TV. No acute distress, oriented Lungs: bilateral basilar rales; no rhonchi or wheezing Abdomen: distended but soft, positive fluid wave consistent w/ ascites Legs: 3+ pitting bilateral leg edema from knees to his feet Objective Last Vital Signs Temp 36.6 C 09/28/21 11:26 Pulse 69 09/28/21 11:26 Resp 18 09/28/21 11:26 BP 142/62 H 09/28/21 11:26 Pulse Ox 94 09/28/21 11:26 Laboratory Results - last 24 hr 09/27/21 09/27/21 09/28/21 12:50 14:50 06:00 WBC RBC Hgb Hct MCV MCH MCHC RDW Plt Count MPV Sodium 130 L 131 L Potassium 5.4 H 5.4 H Chloride 99 98 Carbon Dioxide 23.7 26.8 Anion Gap 7.3 6.2 BUN 62 H 60 H Creatinine 3.7 H* 3.7 H* Estimated GFR/1.73 m2 16.57 16.57 Glucose 110 H 113 H Uric Acid 5.1 Calcium 8.2 L 8.0 L Magnesium 2.8 H Ur Random Sodium 26 09/28/21 06:00 WBC 5.93 RBC 2.63 L Hgb 7.8 L Hct 23.7 L MCV 90.1 MCH 29.7 MCHC 32.9 RDW 15.6 H Plt Count 136 MPV 12.1 H Sodium Potassium Chloride Carbon Dioxide Anion Gap BUN Creatinine Estimated GFR/1.73 m2 Glucose Uric Acid Calcium Magnesium Ur Random Sodium Reviewed Pertinent PMH: Yes Objective Narrative Objective Narrative: XR CHEST 2V PA ? LATERAL EXAM:? XR CHEST 2V PA ? LATERAL CLINICAL HISTORY:? CHF, NUNEZ TECHNIQUE:? 2D digital imaging was performed. COMPARISON:? CR XR CHEST 2V PA ? LATERAL from 09/18/2021 FINDINGS: There has been slight interval increase in size of the previously noted large bilateral pleural effusions.? The cardiac silhouette and angi or obscured.? Visualized portions of the upper lobes appear clear.? No pneumothorax. IMPRESSION: Mild interval increase in bilateral pleural effusions. EXAM: Comprehensive 2D, Doppler, and color-flow Echocardiogram Patient Location: Out-Patient Hall Worker: Antionette Cortez RDCS (AE) Indications: SOB, Lower ext edema Other Information Study Quality: Fair. Technically limited study due to inability to position patient, body habitus. Conclusion Normal left ventricular wall thickness.? Top normal chamber size.? Estimated ejection fraction is 50%.? Segmental wall motion could not be accurately assessed Right ventricle was not well visualized The left atrium is mildly dilated.? The right atrium is normal in size The aortic valve is trileaflet and sclerotic without stenosis or regurgitation Thickened mitral leaflets with mild regurgitation Normal tricuspid valve with trace regurgitation.? Estimated right ventricular systolic pressure is 30 mmHg Left pleural effusion
[2021-09-28 12:59] LABS: Lab Add On Test DONE
[2021-09-28 13:13] LABS: PHOSPHORUS 4.7 mg/dL (2.6-4.7)
--- NOTE | 2021-09-28 14:17 | DIABASSESS_ITS ---
Date of service: 09/28/21 Time of Service: 14:17 Diabetes Note Reason for Visit: poor intake NOTE: Met with Jairon and his (Zoila). Current Diet order written for Vegan, low potassium, low salt, diabetic, heart healthy. Has had poor intake x 3 days. Weight up 10 lbs in last 24 hours, on lasix drip with fluid retention and not diuresing as expected. Suspect low protein intake (has been vegan many years) may be contributing to fluid retention. Jairon willing to include fish, dairy and eggs going forward. Operating Room Surgical Technician to change diet. May also need fluid restriction of 1500 ml. Jairon reports no BM x 3 days. Bowel regime to include mirilax. Time Spent in Nutritional Counseling and Treatment: 10 min
[2021-09-28] MEDS: Normal Saline 500 ML 30 ML IV (16:22)
[2021-09-28] MEDS: IRON SUCROSE COMPLEX 300 MG in Normal Saline 250 ML 167 MG IVPB (16:22)
--- NOTE | 2021-09-28 17:22 | PT.INNT ---
Date of service: 09/28/21 Time of Service: 17:22 PT Notes Visit Reasons: Acute on Chronic Diastolic CHF, SHERMAN on CKD Deferred all PT for today as patient has been having shortness of breath at rest and is considerably feeling weak and unable to tolerate any activity. Patient also would not want to exert unnecessary effort due to report of fatigue and weakness. Nurse Pierre is in agreement of treatment deferment. Will plan to determine appropriateness of continued services tomorrow morning.
[2021-09-28] MEDS: Docusate Sodium 100 MG CAP PO (22:23)
[2021-09-28] MEDS: Atorvastatin 20 MG TAB PO (22:23)
[2021-09-28] MEDS: Doxazosin 2 MG TAB 6 MG PO (22:23)
[2021-09-28] MEDS: Milk of Magnesia 30 ML CUP PO (22:23)
--- NOTE | 2021-09-28 23:36 | NUR.NOTE ---
ASSISTED NURSE IN HARD DOCK. UNABLE TO SCAN BAG Nursing Note:
[2021-09-29] VITALS (8 sets, daily range): BP systolic 123–137; BP diastolic 52–66; PULSE 51–62; RESP 18–24; TEMP 36–36.8; O2SAT 92–94
[2021-09-29] MEDS: Acetaminophen 325 MG TAB PO ×2 (01:40→23:16)
[2021-09-29] MEDS: ALBUMIN HUMAN 25 GM/100 ML BTL IV (01:41)
[2021-09-29 06:28] LABS: Reticulocyte 1.3 % (0.5-2.4)
[2021-09-29 06:30] LABS: Abs Immature Grans 0.02 10^3/uL (0.0-0.06); Absolute Eosinophil Count 0.06 10^3/uL (0.0-0.7); Absolute Lymphocyte Count 0.51 10^3/uL (1.2-3.4); Absolute Monocyte Count 0.52 10^3/uL (0.1-0.8); Absolute Neutrophil Count 5.11 10^3/uL (1.2-6.7); HCT 24.1 % (40.0-50.0); HGB 7.8 g/dL (13.5-17.5); Immature Grans % 0.3; Lymphocytes % 8.2; MCH 29.3 pg (27.0-33.0); MCHC 32.4 % (32.0-36.0); MCV 90.6 fL (80-95); MPV 12.1 fL (8.0-11.0); Monocytes % 8.4; Neutrophils % 82.1; Nucleated RBC 0 %; Platelet Count 130 10^3/uL (130-400); RBC 2.66 10^6/uL (4.36-5.78); RDW 15.5 % (11.8-14.1); RDW-SD 51.1 fL; WBC 6.22 10^3/uL (4.4-10.8)
[2021-09-29 06:54] LABS: Anion Gap 6.5 mmol/L (3-11); BUN 62 mg/dL (7-18); CO2 25.5 mmol/L (21.0-32.0); Calcium 8.2 mg/dL (8.5-10.1); Chloride 97 mmol/L (98-107); Estimated GFR 16.57 (mL/min/1.73m2); Glucose 132 mg/dL (74-106); Potassium 5.2 mmol/L (3.5-5.1); Sodium 129 mmol/L (136-145)
[2021-09-29 07:07] LABS: CREATININE 3.7 mg/dL (0.70-1.30)
[2021-09-29 08:16] LABS: Bilirubin Negative (Negative); Blood Moderate (Negative); Clarity Sl Cloudy (Clear); Glucose Negative (Negative); Ketones Negative (Negative); Leukocyte Esterase Negative (Negative); Nitrite Negative (Negative); Specific Gravity >= 1.030 (1.005-1.025); Urobilinogen 0.2 EU/dL (Up TO 0.2)
[2021-09-29 08:23] LABS: Bacteria Negative HPF (Negative); C & S Indicated? No; Casts 0-2 Fine Granular LPF (Negative); Crystals Negative HPF (Negative); Epithelial Cells Few HPF (Negative); Mucus Trace (Negative); RBC >50 HPF (0-2); WBC Negative HPF (0-5)
[2021-09-29] MEDS: amLODIPine 5 MG TAB 10 MG PO (08:45)
[2021-09-29] MEDS: Allopurinol 100 MG TAB 200 MG PO (08:45)
[2021-09-29] MEDS: metOLazone 2.5 MG TAB 10 MG PO (08:45)
[2021-09-29] MEDS: Tamsulosin 0.4 MG CAPCR PO (08:45)
[2021-09-29] MEDS: Empaglifozin 10 MG TAB PO (08:45)
[2021-09-29] MEDS: Aspirin E.C. 81 MG TABEC PO (08:46)
[2021-09-29] MEDS: Insulin Aspart 300 UNITS/3 ML PEN SC ×2 (08:49→21:16)
--- NOTE | 2021-09-29 11:29 | PT.INTREAT ---
PT Notes Visit Reasons: Acute on Chronic Diastolic CHF, SHERMAN on CKD Inpatient Physical Therapy Treatment Note [facility] Date: 09/29/21 PRECAUTIONS:CHF SHERMAN SUBJECTIVE: Pr reports he is still experiencing a lot of SOB and fatigue. OBJECTIVE: GAIT THEREX: Pt refused standing or walking today due to fatigue and SOB as well as his catheter being irritating if he does. Pt completed UE and LE strengthening ther ex as per flow sheet with frequent rest periods due to SOB. ASSESSMENT: Pt was not able to tolerate much during his session today due to fatigue and SOB. PLAN: Cont as per PT POC as per mikel. TREATMENT CODE/TIME: 9:30-9:45 (15) TP
--- NOTE | 2021-09-29 16:45 | PGE_ITS ---
Date of Service Date of service: 09/29/21 Time of Service: 16:45 Assessment and Plan Assessment and plan (1) Acute diastolic CHF (congestive heart failure): Status: Acute Assessment and plan: Patient now on lasix drip at 25 mg/hr and diuril 500 mg IV q12h and Zaroxolyn 10 mg daily. He is only net negative 193 mL yesterday (urine output of 1510 mL) However since midnight this morning he had U.O. of 875 mL so far. I reviewed his workup and treatment thus far with his who was present when I examined Jairon. She seemed surprised when I mentioned his CHF. She indicated that she was told by Dr. Rodriguez that his heart if fine and that his problem is his kidneys. I showed her his MPI and echo. His echo was inconclusive d/t only fair quality study and his RV could not be evaluated and RWMA could not be evaluated. He has diastolic heart failure. His MPI study did not show any ischemia but he has LVEF that is mildly reduced at 45% but he has inferior and posterolateral fixed wall motion abnormalities and dilated LV. His renal function is severely impaired w/ eGFR of 16 to 20 mL/min/1.73 m2. This is class 4 CKD. However his creatinine has not changed much since he has been admitted even w/ agressive diuretic use. His creatinine has been steady at 3.5 to 3.6. I explained to her that while his systolic LV function is not severely impaired he has diastolic CHF and we do not know what his RV function is like and his symptoms i.e. ascites, leg edema are primarily signs of RV failure. I showed her his CXR and explained that his bilateral pleural effusions are im pacting his dyspnea and that we can not adeaquately diurese this off nor could ultrafiltration remove all of this pleural effusion. I am recommending therapeutic thoracentesis. After explaining the logic, alternative treatments (i.e. continued use of diuretics, transfer for ultrafiltration/hemodialysis) she and the patient were agreeable to therapeutic thoracentesis. I told her that I would call [facility] tomorrow and discuss his case w/ nephrology and cardiology. (2) Bilateral pleural effusion: Status: Acute Assessment and plan: I performed beside POCUS exam and he has moderately large bilateral pleural effusions. I will arrange thoracentesis this evening after finishing rounds and sign out. I called the surgeon erp implementation consultant (Dr. Ospina) and she indicated that she does not perform thoracentesis as she never had adequate training in this procedure. (3) Acute kidney injury superimposed on chronic kidney disease: Status: Acute Assessment and plan: CKD in setting of CHF and impaired renal blood flow and renal venous congestion. I will continue to titrate his lasix drip, continue zaroxolyn and diuril but will also perform thoracentesis to improve his cardiopulmonary dynamics and his ventilation/oxygenation. (4) Afib: Assessment and plan: patient remains in sinus rhythm. BB has been on hold d/t long pauses. None noted today. (5) Type 2 diabetes mellitus: Status: Chronic Assessment and plan: A1c in prediabetic range without medication. Continue diabetic diet. 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 Will be holding metoprolol d/t bradycardia and a symptomatic 3 second pause, then another pause w/o noted symptoms. First degree heart block with intermittent second degree type I; remain in 1st deg AV block in sinus to sinus bradycardia; no advanced heart block and no further significant pauses since his BB has been held. Monitor. (7) Acute hyperkalemia: Status: Acute Assessment and plan: Normalized s/p administration of Lokelma x 4 doses and furosemide. Monitor; place on low potassium diet. repeat potassium 5.2 (8) Anemia: Status: Chronic Assessment and plan: Likely associated with CKD. Has slowly trended down but appears to be stabilizing at 7.7 gm. Iron level low at 32, TIBC low at 119. Venofer 300 mg x 3 doses has been given. He may need epogen. (9) DVT prophylaxis: Status: Acute Assessment and plan: on heparin but now stopped d/t hemoglobin drifting lower. SCDs initiated. Encourage ambulation. will restart heparin in a.m. if Hb remains stable. (10) Discharge planning issues: Status: Acute Assessment and plan: Pending adequate diruresis, should have follow up with cardiology as well as nephrology. I will call [facility] and discuss w/ them in the a.m. Subjective Subjective Interval history since last seen: Patient continues to experience dyspnea w/ any activity such as transfers from bed to chair or ambulation to the bathroom. No CP, cough or sputum production. He states that he has had increased anxiety. He says that he is fearful of falling asleep. He says that he hears voices that the Russians are coming. (Note he has been watching the current news of the war in [place]). However, when fully awake he seems coherent and is oriented to place/purpose of his hospitalization and the date. According to his he has neve had anxiety attacks like this. Exam Narrative Exam Narrative: Jairon is alert and oriented, he is oriented to person, place ([facility]), date (September 2021) and purpose of his visit (progressive shortness of breath and told by his providers to come to the hospital). Lungs w/ diminished breath sounds and dullness to percussion over both bases to lower 1/3. Heart: regular rate and rhythm. Abdomen: distended soft but w/ ascites Legs: bilateral 3+ to 4+ pitting edema from distal thighs to feet. Objective Last Vital Signs Temp 36.5 C 09/29/21 12:26 Pulse 62 09/29/21 15:20 Resp 24 09/29/21 15:11 BP 126/54 L 09/29/21 15:11 Pulse Ox 92 09/29/21 15:11 Laboratory Results - last 24 hr 09/29/21 09/29/21 09/29/21 06:04 06:04 06:04 WBC 6.22 RBC 2.66 L Hgb 7.8 L Hct 24.1 L MCV 90.6 MCH 29.3 MCHC 32.4 RDW 15.5 H Plt Count 130 MPV 12.1 H Reticulocyte % (Auto) 1.3 Immature Gran % 0.3 Neutrophils % 82.1 Lymphocytes % 8.2 Monocytes % 8.4 Eosinophils % 1.0 Basophils % 0.0 Nucleated RBC % 0 Absolute Neutrophils 5.11 Absolute Lymphocytes 0.51 L Absolute Monocytes 0.52 Absolute Eosinophils 0.06 Absolute Basophils 0.00 Sodium 129 L Potassium 5.2 H Chloride 97 L Carbon Dioxide 25.5 Anion Gap 6.5 BUN 62 H Creatinine 3.7 H* Estimated GFR/1.73 m2 16.57 Glucose 132 H Calcium 8.2 L Urine Color Urine Clarity Urine pH Ur Specific [place] Urine Protein Urine Ketones Urine Blood Urine Nitrite Urine Bilirubin Urine Urobilinogen Ur Leukocyte Esterase Urine RBC Urine WBC Ur Epithelial Cells Urine Crystals Urine Bacteria Urine Casts Urine Mucus Ur Culture Indicated? Urine Glucose 09/29/21 08:00 WBC RBC Hgb Hct MCV MCH MCHC RDW Plt Count MPV Reticulocyte % (Auto) Immature Gran % Neutrophils % Lymphocytes % Monocytes % Eosinophils % Basophils % Nucleated RBC % Absolute Neutrophils Absolute Lymphocytes Absolute Monocytes Absolute Eosinophils Absolute Basophils Sodium Potassium Chloride Carbon Dioxide Anion Gap BUN Creatinine Estimated GFR/1.73 m2 Glucose Calcium Urine Color Yellow Urine Clarity Sl Cloudy Urine pH 6.0 Ur Specific [place] >= 1.030 H Urine Protein 30 H Urine Ketones Negative Urine Blood Moderate H Urine Nitrite Negative Urine Bilirubin Negative Urine Urobilinogen 0.2 Ur Leukocyte Esterase Negative Urine RBC >50 H Urine WBC Negative Ur Epithelial Cells Few Urine Crystals Negative Urine Bacteria Negative Urine Casts 0-2 Fine Granular Urine Mucus Trace Ur Culture Indicated? No Urine Glucose Negative
[2021-09-29] MEDS: Furosemide 100 MG/10 ML VIAL IVP (17:03)
--- NOTE | 2021-09-29 20:45 | PAPNONF_PTH ---
PATIENT: Jairon Choi LOC: [id number]#:[id number] AGE/SX: 66/M ROOM: 215 RE09/21/[address]: Andie Veloz : 1955 BED: A DIS: 10/06/2021 SPEC #: [id number] RECD: 10/01/21 13:11 STATUS: YASH REQ #: [id number] RAFAEL: 09/29/21 20:[address]: Andie Veloz DEPT: [facility] Cytology RECD BY: Pastora Martin ENTERED: 10/01/21 13:12 SP TYPE: PAPJERRY KENNEDY DR: Lizbet Mohan Tissues: 1 - BODY FLUID CYTO(NOT S/U/N/EM)[facility] Procedures: BODY FLUID CYTO(NOT SPU/UR/NIP/ENDOM)[facility] Comments: [id number] (TOTAL VOLUME = 40 ml, SENT FRESH)
--- NOTE | 2021-09-29 20:45 | DI.RAD_ITS ---
Exam(s) XR PORTABLE CHEST AP EXAM: XR PORTABLE CHEST AP CLINICAL HISTORY: s/p right thoracentesis; follow up effusion. TECHNIQUE: 2D digital imaging was performed. COMPARISON: CR XR CHEST 2V PA LATERAL from 09/21/2021 CR XR CHEST 2V PA LATERAL from 09/27/2021 FINDINGS: Single AP portable view. Compared to 09/27/2021 and 09/21/2021 Heart size unchanged. Mediastinum not widened. There is still significant infiltrate in the left lower lobe and the size of the left pleural effusio n has not decreased. There has been some decrease in size of the right pleural effusion but there is still remains small-moderate size right pleural effusion. IMPRESSION: Mild improvement.Still significant bilateral findings. DATA REPOSITORY: RADIATION DOSE DELIVERED: All CT scans at this facility use at least one of these dose optimization techniques: automated exposure control; mA and/or kV adjustment per patient size (includes targeted e xams where dose is matched to clinical indication); or iterative reconstruction.
--- NOTE | 2021-09-29 20:59 | ROE_ITS ---
Date of service: 09/29/21 Time of Service: 21:05 Operative Note Operative Note DATE OF PROCEDURE: 09/29/21 PRE-OP DIAGNOSIS: bilateral pleural effusions, CHF, CKD POST-OP DIAGNOSIS: same PROCEDURE: ultrasound guided right sided thoracentesis SURGEON: Brady Washington ANESTHESIA TYPE: Local By Surgeon Refer to Anesthesia Record ESTIMATED BLOOD LOSS: 0 Procedure Description: After explaining indications risk and alternatives to the above procedure patient gave his informed consent with his as a witness to undergo a right- sided thoracentesis. Ultrasound was used diagnostically to evaluate both sides he was found to have large bilateral pleural effusions with the right side appear to be larger than the left. After prepping the patient in a sterile fashion and having donned sterile apparel I used an Arrow-Morillo pleural seal thoracentesis kit 8 [place]. Skin was anesthetized and subcutaneous tissue was anesthetized using 5 mL of 1% Xylocaine 2 interspaces below the tip of the right scapula. Under ultrasound guidance I attempted and successfully entered the pleural space using the enclosed polyurethane centesis device 8 [place] catheter over 18-gauge by 7-1/2 inch needle with three-way stopcock and self sealing valve and 5 mL Luer-Sonu syringe. Pleural space was successfully entered and 5 mL of clear yellow pleural fluid was drawn back into the 5 mL catheter. Introducer needle was removed and catheter was advanced. The enclosed tubing set with Brahler clamp and 18-gauge needle was attached to the three-way stopcock and then the needle was introduced into the 1000 mL Vacutainer bottle. Initially by another 10 mL f lowed into the bottle before the pleural fluid stopped. The pleural catheter appeared to be kinked and I could not obtain a more fluid therefore the Raser clamp was closed and the three-way stopcock was closed to the Vacutainer bottle and the catheter was removed. Ultrasound was used to reposition and new site 1 interspace above. Again the skin was anesthetized along with the subcutaneous tissue with 5 mL of Xylocaine. A new Arrow-Morillo pleural seal thoracentesis kit was opened and using the enclosed polyurethane centesis device an 8 [place] catheter over 18-gauge by 7 half-inch needle with three-way stopcock and self sealing valve and 5 mL Luer-Sonu syringe the pleural space was entered after the skin was incised with a small incision using the enclosed scalpel. This time the ultrasound was used to locate the space but the thoracentesis catheter and needle device was inserted using static not dynamic guidance. The needle initially encountered resistance as the needle hit rib needle was then redirected and clear yellow pleural fluid was obtained. The enclosed tubing set with rale or clamp an 18-gauge needle was attached with three-way stopcock and 1500 mL of yellow pleural fluid was obtained into to vacuum bottles. Pleural fluid was sent for cytology Gram stain culture and chemistries including LDH protein and glucose. Patient tolerated the procedure well and and he remarked afterwards that he felt that he was breathing better on the right side. Right upper chest posteriorly and anteriorly was examined while he was in the upright position to look for lung sliding. Lung sliding was confirmed. Ultrasound at the site of the thoracentesis showed a reduction in the pleural fluid. Patient's oxygen saturation throughout the procedure remained 93% or higher and at the end of the procedure went up to 98%. Stat portable chest x-ray was ordered and is pending at this time.
[2021-09-29] MEDS: Atorvastatin 20 MG TAB PO (21:15)
[2021-09-29] MEDS: Doxazosin 2 MG TAB 6 MG PO (21:15)
--- NOTE | 2021-09-29 21:45 | DI.VRAD_ITS ---
PROCEDURE INFORMATION: Exam: XR Chest Exam date and time: 09/29/2021 8:59 PM Age: 66 years old Clinical indication: Screening exam; Other screening; Patient HX: S/P right thoracentesis; Follow up effusion TECHNIQUE: Imaging protocol: XR of the chest. Views: 1 view. COMPARISON: CR XR CHEST 2V PA LATERAL 09/27/2021 9:06 AM FINDINGS: Lungs: New patchy rounded opacity within the left mid lung zone may be compatible with atelectasis or early pulmonary infiltrate. Pleural spaces: Interval decreased size of right pleural effusion, with a small amount of residual fluid. Stable small to moderate left pleural effusion. No evidence of pneumothorax. Heart/Mediastinum: Unremarkable. No cardiomegaly. Bones/joints: Unremarkable. IMPRESSION: 1. New patchy rounded opacity within the left mid lung zone may be compatible with atelectasis or early pulmonary infiltrate. 2. Interval decreased size of right pleural effusion, with a small amount of residual fluid. 3. Stable small to moderate left pleural effusion. Dictated and Authenticated by: Jamin Mortensen MD. Ordering:[facility] Felix Abreu MD
[2021-09-29 22:30] LABS: Clarity Clear; Source Pleural
[2021-09-29 22:32] LABS: Mononuclear Cells 74 %; Polynuclear Cells 26 %
[2021-09-29 22:34] LABS: Nucleated Cells 499 uL (0)
[2021-09-29] MEDS: Milk of Magnesia 30 ML CUP PO (23:17)
[2021-09-30] VITALS (9 sets, daily range): BP systolic 128–148; BP diastolic 52–71; PULSE 51–67; RESP 17–23; TEMP 36.2–37.3; O2SAT 95–97
[2021-09-30 06:45] LABS: Abs Immature Grans 0.02 10^3/uL (0.0-0.06); Absolute Basophil Count 0.01 10^3/uL (0.0-0.2); Absolute Eosinophil Count 0.01 10^3/uL (0.0-0.7); Absolute Lymphocyte Count 0.26 10^3/uL (1.2-3.4); Absolute Monocyte Count 0.39 10^3/uL (0.1-0.8); Absolute Neutrophil Count 8.62 10^3/uL (1.2-6.7); Basophils % 0.1; Eosinophils % 0.1; HCT 26.3 % (40.0-50.0); HGB 8.6 g/dL (13.5-17.5); Immature Grans % 0.2; Lymphocytes % 2.8; MCH 29.2 pg (27.0-33.0); MCHC 32.7 % (32.0-36.0); MCV 89.2 fL (80-95); MPV 11.5 fL (8.0-11.0); Monocytes % 4.2; Neutrophils % 92.6; Nucleated RBC 0 %; Platelet Count 143 10^3/uL (130-400); RBC 2.95 10^6/uL (4.36-5.78); RDW 15.3 % (11.8-14.1); RDW-SD 50.4 fL; WBC 9.31 10^3/uL (4.4-10.8)
[2021-09-30 06:47] LABS: Reticulocyte 1.7 % (0.5-2.4)
[2021-09-30 07:03] LABS: Anion Gap 5.8 mmol/L (3-11); BUN 66 mg/dL (7-18); CO2 26.2 mmol/L (21.0-32.0); Calcium 8.4 mg/dL (8.5-10.1); Chloride 97 mmol/L (98-107); Estimated GFR 16.07 (mL/min/1.73m2); Glucose 98 mg/dL (74-106); Sodium 129 mmol/L (136-145)
[2021-09-30 07:06] LABS: CREATININE 3.8 mg/dL (0.70-1.30)
[2021-09-30] MEDS: Allopurinol 100 MG TAB 200 MG PO (08:46)
[2021-09-30] MEDS: Aspirin E.C. 81 MG TABEC PO (08:46)
[2021-09-30] MEDS: Empaglifozin 10 MG TAB PO (08:46)
[2021-09-30] MEDS: amLODIPine 5 MG TAB 10 MG PO (08:46)
[2021-09-30] MEDS: metOLazone 2.5 MG TAB 10 MG PO (08:46)
[2021-09-30] MEDS: Tamsulosin 0.4 MG CAPCR PO (08:46)
--- NOTE | 2021-09-30 09:32 | PGE_ITS ---
Date of Service Date of service: 09/30/21 Time of Service: 08:50 Assessment and Plan Assessment and plan (1) Acute diastolic CHF (congestive heart failure): Status: Acute Assessment and plan: Apparently nursing never increased his Lasix drip to 35 mg an hour as I requested yesterday. Patient remains on Diuril 500 mg IV every 12 hours and Lasix 25 mg/h and Zaroxolyn 10 mg daily. Nursing discovered there error and corrected it and put him on 35 mg/h and since that time his urine output is picked up. I discussed his case both with Dr. Lopez from cardiology services at [facility] as well as Dr. Boles from nephrology services. Dr. Lopez declined to accept the patient in transfer and feels that if the patient is failing what seems to be an aggressive diuretic regimen then he needs to be transferred to the nephrology service for hemofiltration. I spoke with Dr. Boles while she was empathetic to my situation of maximizing what we can provide the [facility] she felt that since he got such improvement from the right-sided thoracentesis last night that perhaps he may respond to the left-sided thoracentesis and with the decreased pleural pressures we may see some improvement in his cardiac function and his renal blood flow. I told her that I would plan on doing a left-sided thoracentesis to improve his respiratory status as well as his overall volume status. I told her that I had increased his furosemide drip to 35 mg/h and had hoped that his urine output would cook pickled meat. I told her for not getting an adequate diuretic response by tomorrow I would be calling the nephrology service back to see if we could transfer him. She indicated that she will be off service tomorrow but Dr. Macedo would be available. (2) Bilateral pleural effusion: Status: Acute Assessment and plan: Marked improvement in his right-sided pleural effusion. Patient has severe left-sided pleural effusion for which the patient will undergo left-sided thoracentesis. (3) Acute kidney injury superimposed on chronic kidney disease: Status: Acute Assessment and plan: CKD in setting of CHF and impaired renal blood flow and renal venous congestion. I will continue to titrate his lasix drip, continue zaroxolyn and diuril but will also perform thoracentesis to improve his cardiopulmonary dynamics and his ventilation/oxygenation. Cre 3.6>3.4>3.0>3.4>3.6>3.7>3.8 as of today BUN 53>49>55>58>62>66 HCO3 26 (4) Afib: Assessment and plan: patient remains in sinus rhythm. BB has been on hold d/t long pauses. None noted today. (5) Type 2 diabetes mellitus: Status: Chronic Assessment and plan: A1c in prediabetic range without medication. Continue diabetic diet. 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 Will be holding metoprolol d/t bradycardia and a symptomatic 3 second pause, then another pause w/o noted symptoms. First degree heart block with intermittent second degree type I; remain in 1st deg AV block in sinus to sinus bradycardia; no advanced heart block and no further significant pauses since his BB has been held. Monitor. (7) Acute hyperkalemia: Status: Acute Assessment and plan: Normalized s/p administration of Lokelma x 4 doses and furosemide. Monitor; place on low potassium diet. repeat potassium 5.0 (8) Anemia: Status: Chronic Assessment and plan: Likely associated with CKD. Has slowly trended down but appears to be stabilizing at 7.7 gm. but now up to 8.6 gm Iron level low at 32, TIBC low at 119. Venofer 300 mg x 3 doses has been given. He may need epogen. (9) DVT prophylaxis: Status: Acute Assessment and plan: on heparin but now stopped d/t hemoglobin drifting lower. SCDs initiated. Encourage ambulation. will restart heparin in a.m. if Hb remains stable. (10) Discharge planning issues: Status: Acute Assessment and plan: Pending adequate diruresis, should have follow up with cardiology as well as nephrology. [place] [facility] discuss w/ them in the a.[place]. Subjective Subjective Interval history since last seen: Tra feels that the thoracentesis last night made at marked improvement in his dyspnea. He is breathing better today. He would like to proceed with having thoracentesis on the left side today. Does complain of abdominal fullness. He has not had a bowel movement in 2 days. I told Tra that I would be calling [facility] and discussing his case with cardiology and nephrology. Exam Narrative Exam Narrative: Post alert and oriented x3. He is in no acute respiratory distress. He is wearing oxygen at 2 L/min per nasal cannula and his oxygen saturation is running 95 to 96%. Lungs: Right side with markedly improved aeration down to the right base with some rales at the very posterior base on the right but the upper field is clear left side he has markedly diminished breath sounds at the left lung base to about the mid lung field. Heart is regular but bradycardic with a harsh systolic murmur over the apex grade 3/6 Abdomen is obese with positive fluid wave and distention and positive bowel sounds Legs with 3+ pitting edema Objective Last Vital Signs Temp 36.8 C 09/30/21 08:04 Pulse 51 L 09/30/21 08:04 Resp 22 09/30/21 08:04 BP 134/71 09/30/21 08:04 Pulse Ox 96 09/30/21 08:04 Laboratory Results - last 24 hr 09/29/21 09/29/21 09/30/21 20:45 20:45 06:25 WBC RBC Hgb Hct MCV MCH MCHC RDW Plt Count MPV Reticulocyte % (Auto) Immature Gran % Neutrophils % Lymphocytes % Monocytes % Eosinophils % Basophils % Nucleated RBC % Absolute Neutrophils Absolute Lymphocytes Absolute Monocytes Absolute Eosinophils Absolute Basophils Sodium 129 L Potassium 5.0 Chloride 97 L Carbon Dioxide 26.2 Anion Gap 5.8 BUN 66 H Creatinine 3.8 H* Estimated GFR/1.73 m2 16.07 Glucose 98 Calcium 8.4 L Total Protein Cancelled Fluid Source Pleural Fluid Color Yellow Fluid Clarity Clear Fluid WBC 499 Fld Polynuclear WBCs % 26 Fluid Mononuclear Cell 74 Fluid Other Cells 09/30/21 09/30/21 06:25 06:25 WBC 9.31 D RBC 2.95 L Hgb 8.6 L Hct 26.3 L MCV 89.2 MCH 29.2 MCHC 32.7 RDW 15.3 H Plt Count 143 MPV 11.5 H Reticulocyte % (Auto) 1.7 Immature Gran % 0.2 Neutrophils % 92.6 Lymphocytes % 2.8 Monocytes % 4.2 Eosinophils % 0.1 Basophils % 0.1 Nucleated RBC % 0 Absolute Neutrophils 8.62 H Absolute Lymphocytes 0.26 L Absolute Monocytes 0.39 Absolute Eosinophils 0.01 Absolute Basophils 0.01 Sodium Potassium Chloride Carbon Dioxide Anion Gap BUN Creatinine Estimated GFR/1.73 m2 Glucose Calcium Total Protein Fluid Source Fluid Color Fluid Clarity Fluid WBC Fld Polynuclear WBCs % Fluid Mononuclear Cell Fluid Other Cells
--- NOTE | 2021-09-30 12:09 | PT.INTREAT ---
PT Notes Visit Reasons: Acute on Chronic Diastolic CHF, SHERMAN on CKD Inpatient Physical Therapy Treatment Note [facility] Date: 09/30/21 PRECAUTIONS:[] SUBJECTIVE: Pt reports that he feels better today then yesterday. Pt reports that he had an anxiety attack yesterday. OBJECTIVE: Sit-stand: CGA Stand-sit: CAG GAIT Assistive Device: FWW Weight bearing: Full Assist: SBA Distance: static standing for approx 2 min THEREX: Pt completed UE and LE strengthening ther ex as per flow sheet. ASSESSMENT: Pt tolerated today' s session better than yesterday he did not seem to be as SOB. PLAN: Cont as per Pt POC. TREATMENT CODE/TIME: 9:50-10:05 (15) TP
[2021-09-30 16:14] LABS: Glucose, Fluid 133 mg/dL (See Note)
--- NOTE | 2021-09-30 19:00 | DI.RAD_ITS ---
Exam(s) XR PORTABLE CHEST AP EXAM: XR PORTABLE CHEST AP CLINICAL HISTORY: POST THOROCENTESIS. TECHNIQUE: 2D digital imaging was performed. COMPARISON: Prior chest x-ray 09/29/2021 FINDINGS: Single AP portable view. Heart size is upper normal. The mediastinum is not widened. There is now prominent area of infiltrate in the right lung involving mid and lower zone, not previou sly present. Small right pleural effusion noted. The size of the left pleural effusion has decrease d. There is no pneumothorax. Infiltrate in the left lung has improved. IMPRESSION: Improvement on the left side but significant increase in infiltrate on the right side. Close follow- up recommended DATA REPOSITORY: RADIATION DOSE DELIVERED: All CT scans at this facility use at least one of these dose optimization techniques: automated exposure control; mA and/or kV adjustment per patient size (includes targeted e xams where dose is matched to clinical indication); or iterative reconstruction.
--- NOTE | 2021-09-30 19:30 | W.PM.OP ---
Date of service: 09/30/21 Time of Service: 19:30 Operative Note Operative Note DATE OF PROCEDURE: 09/29/21 PRE-OP DIAGNOSIS: CHF, large left pleural effusion POST-OP DIAGNOSIS: same PROCEDURE: ultrasound guided left sided thoracentesis SURGEON: Brady Washington ANESTHESIA TYPE: Local By Surgeon (1% Xylocaine 5 mL x 2 doses) Refer to Anesthesia Record ESTIMATED BLOOD LOSS: 5 (mL) Indications: Respiratory failure secondary to large pleural effusion Procedure Description: Left hemithorax was imaged using [employer] ultrasound machine. An area was identified in the left posterior mid to lower lung space 2 interspaces below the left scapular tip. The C5-1 curvilinear probe was used to identify the appropriate interspace and was also used during the procedure. However the translinear probe was also used over the interspace to be sure that there were no aberrant intercostal vessels. Consent was obtained from the patient after advising the patient and his of the indications and potential complications including but not limited to pneumothorax, hemothorax, injury to intercostal vessels, infection. Alternative treatments were also discussed. Patient gave written consent to the above procedure for left hemithorax thoracentesis. After dressing sterile apparel patient's skin was prepped with chlorhexidine prep [facility] 8 Ken[place]. The skin over the interspace identified above was anesthetized with 5 mL of 1% Xylocaine. Using the enclosed polyurethane centesis device with an 8 Kenyan catheter over an 18-gauge by 7/2 inch RW needle with three-way stopcock and self sealing valve and 5 mL Luer-Sonu syringe using ultrasound guidance the needle was introduced into the pleural space pleural fluid was withdrawn however when the catheter was attempted to be advanced the catheter kinked and was unable to be advanced. The device was removed and the procedure was restarted with a new kit. The skin over the interspace was incised with the enclosed #11 safety scalpel after the skin and subcutaneous tissue was reanesthetized with 5 mL of 1% Xylocaine. Using ultrasound guidance the polyurethane centesis device with 8 Kenyan catheter over 18-gauge by 7/2 inch RW needle with 3 stopcock and self sealing valve and 5 mL Luer-Sonu syringe was introduced in the pleural space. Some bloody effusion return through the catheter as there was some bleeding from the skin site where the incision had been made with the safety scalpel. Once it was confirmed with ultrasound that the catheter and needle were in the proper space the needle was withdrawn and fluid was collected in to 1000 mL Vacutainer bottles. Fluid had a serosanguineous appearance to it and a total of 1450 mL was collected. Patient tolerated the procedure well. Patient's was present throughout the procedure as was the charge nurse. At the end of the procedure the upper tier probe was used to assess for lung sliding on the left side. No pneumothorax was seen. Stat portable chest x-ray is pending at this time.
--- NOTE | 2021-09-30 19:33 | NUR.NOTE ---
DR DELONG DID A THORACENTESIS ON THE LEFT SIDE OF PT, GUIDED BY ULTRA SOUND. [address] DELONG STATED THAT THE FLUID DID NOT NEED TO BE SENT TO LAB. PT REMAINED 97% SAT ON 1L NC. DENIES PAIN AT THIS TIME.
--- NOTE | 2021-09-30 20:00 | DI.VRAD_ITS ---
PROCEDURE INFORMATION: Exam: XR Chest Exam date and time: 09/30/2021 7:17 PM Age: 66 years old Clinical indication: Other: Post thorocentesis TECHNIQUE: Imaging protocol: XR of the chest. Views: 1 view. COMPARISON: XR PORTABLE CHEST AP 09/29/2021 8:59 PM FINDINGS: Lungs: Patchy right mid to lower lung airspace opacities appear worsened in the interval with improved left basilar opacities. Lung apices are relatively clear. Pleural spaces: Left pleural effusion is noticeably decreased in volume with trace/small residual left pleural effusion. There is also decrease in right pleural effusion however with persistent blunting of the costophrenic angle consistent with trace/small residual effusion. No pneumothorax. Heart/Mediastinum: Cardiomediastinal contours are stable. Bones/joints: No acute osseous finding. IMPRESSION: 1. Noticeably decreased left pleural effusion, mildly decreased right pleural effusion, with suggestion of trace/small residual bilateral pleural effusions. 2. Worsening patchy right mid and lower lung airspace opacities. 3. Improving patchy left basilar opacities. Dictated and Authenticated by: Will Sandoval MD. Ordering:[facility] Felix Abreu MD
[2021-09-30] MEDS: Normal Saline Flush 10 ML SYR IVP (20:38)
[2021-09-30] MEDS: Atorvastatin 20 MG TAB PO (22:41)
[2021-09-30] MEDS: Doxazosin 2 MG TAB 6 MG PO (22:41)
[2021-10-01] VITALS (9 sets, daily range): BP systolic 133–145; BP diastolic 52–59; PULSE 52–74; RESP 18–20; TEMP 36–36.8; O2SAT 94–97
[2021-10-01] MEDS: metOLazone 2.5 MG TAB 10 MG PO (08:03)
[2021-10-01] MEDS: amLODIPine 5 MG TAB 10 MG PO (08:03)
[2021-10-01] MEDS: Allopurinol 100 MG TAB 200 MG PO (08:03)
[2021-10-01] MEDS: Empaglifozin 10 MG TAB PO (08:03)
[2021-10-01] MEDS: Aspirin E.C. 81 MG TABEC PO (08:04)
[2021-10-01] MEDS: Tamsulosin 0.4 MG CAPCR PO (08:04)
--- NOTE | 2021-10-01 08:37 | PT.INTREAT ---
Date of service: 10/01/21 Time of Service: 07:49 PT Notes Visit Reasons: Acute on Chronic Diastolic CHF, SHERMAN on CKD Inpatient Physical Therapy Treatment Note [facility] Date: 10/01/2021 PRECAUTIONS: Fall, activity as tolerated SUBJECTIVE: Tra is pleasant and agreeable to participating in PT, although states that he feels weak and does not feel that he will be able to participate much in PT today. OBJECTIVE: PAIN: No c/o pain BED MOBILITY/TRANSFERS Supine-sit: S with HOB at 30 degrees Sit-stand: SBA Stand-sit: SBA Bed-Chair: SBA GAIT Assistive Device: No AD Weight bearing: Full Assist: SBA Distance: 7' Deviation: Unsteady gait, LOB with self recovery, increased fatigue, SOB, 1L O2 via NC THEREX: Patient was instructed in an UE and LE strengthening program, completed in a seated position, as per flow sheet. Patient requires frequent rests due to fatigue. ASSESSMENT: Patient tolerated session with complaint of increased fatigue with all activity. He demonstrates unsteady gait and should use FWW support with all gait for improved safety at this time. He also demonstrates global weakness due to lengthy hospitalization. PLAN: Continue with gait training and global strengthening for improved activity tolerance and mobility. TREATMENT CODE/TIME: 16 minutes; 12142 (07:49)
[2021-10-01 10:25] LABS: Abs Immature Grans 0.03 10^3/uL (0.0-0.06); Absolute Basophil Count 0.01 10^3/uL (0.0-0.2); Absolute Eosinophil Count 0.05 10^3/uL (0.0-0.7); Absolute Lymphocyte Count 0.53 10^3/uL (1.2-3.4); Absolute Monocyte Count 0.46 10^3/uL (0.1-0.8); Absolute Neutrophil Count 8.87 10^3/uL (1.2-6.7); Basophils % 0.1; Eosinophils % 0.5; HCT 25.8 % (40.0-50.0); HGB 8.3 g/dL (13.5-17.5); Immature Grans % 0.3; Lymphocytes % 5.3; MCH 28.9 pg (27.0-33.0); MCHC 32.2 % (32.0-36.0); MCV 89.9 fL (80-95); MPV 12.4 fL (8.0-11.0); Monocytes % 4.6; Neutrophils % 89.2; Nucleated RBC 0 %; Platelet Count 138 10^3/uL (130-400); RBC 2.87 10^6/uL (4.36-5.78); RDW 15.6 % (11.8-14.1); RDW-SD 50.4 fL; WBC 9.95 10^3/uL (4.4-10.8)
[2021-10-01 11:05] LABS: BUN 72 mg/dL (7-18); Calcium 8.1 mg/dL (8.5-10.1); Chloride 94 mmol/L (98-107); Estimated GFR 15.59 (mL/min/1.73m2); Glucose 83 mg/dL (74-106); Potassium 4.8 mmol/L (3.5-5.1); Sodium 127 mmol/L (136-145)
[2021-10-01 11:06] LABS: CREATININE 3.9 mg/dL (0.70-1.30)
--- NOTE | 2021-10-01 15:56 | W.PM.PROGNOT ---
Date of Service Date of service: 10/01/21 Time of Service: 15:56 Assessment and Plan Assessment and plan (1) Acute diastolic CHF (congestive heart failure): Status: Acute Assessment and plan: patient now picking up his diuresis since his thoracentesis. urine output up to 2350 mL yesterday and today he already has had 2100 mL. His oxygenation status has improved and his wt is down to 118.1 kg (from a high of 122.2 kg two days ago). I will continue the lasix drip but decrease rate slightly to 30 mg/hr but continue his zaroxolyn and diuril. Because of his hyperkalemia on admission he is not a candidate for spironolactone. His echo from 09/18 was poor quality and RV was not well seen and therefore we can not comment on RV function although clinically he is in right heart failure. His MPI scan showed mild LV systolic impairment w/ LVEF 45% and fixed wall motion hypokinetic inferior, posterior; lateral roman. (2) Bilateral pleural effusion: Status: Acute Assessment and plan: patient tolterated thoracentesis over the weekend and had 1550 mL drained from his right hemithorax and 1450 mL from his left hemithorax (3) Acute kidney injury superimposed on chronic kidney disease: Status: Acute Assessment and plan: CKD in setting of CHF and impaired renal blood flow and renal venous congestion. I will continue to titrate his lasix drip, continue zaroxolyn and diuril but will also perform thoracentesis to improve his cardiopulmonary dynamics and his ventilation/oxygenation. Cre 3.6>3.4>3.0>3.4>3.6>3.7>3.8 as of today BUN 53>49>55>58>62>66 HCO3 26 (4) Afib: Assessment and plan: patient remains in sinus rhythm. BB has been on hold d/t long pauses. None noted today. He has long first degree block w/ NE 330 to 360 msec. (5) Type 2 diabetes mellitus: Status: Chronic Assessment and plan: A1c in prediabetic range without medication. Continue diabetic diet. 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 Will be holding metoprolol d/t bradycardia and a symptomatic 3 second pause, then another pause w/o noted symptoms. First degree heart block with intermittent second degree type I; remain in 1st deg AV block in sinus to sinus bradycardia; no advanced heart block and no further significant pauses since his BB has been held. Monitor. (7) Acute hyperkalemia: Status: Acute Assessment and plan: Normalized s/p administration of Lokelma x 4 doses and furosemide. Monitor; place on low potassium diet. repeat potassium 4.8 (8) Anemia: Status: Chronic Assessment and plan: Likely associated with CKD. Has slowly trended down but appears to be stabilizing at 7.7 gm. but now up to 8.3 gm Iron level low at 32, TIBC low at 119. Venofer 300 mg x 3 doses has been given. He may need epogen. (9) DVT prophylaxis: Status: Acute Assessment and plan: on heparin but now stopped d/t hemoglobin drifting lower. SCDs initiated. Encourage ambulation. heparin held today d/t need for paracentesis. will resume in the a.m. (10) Discharge planning issues: Status: Acute Assessment and plan: patient will need follow up w/ cardiology as well as nephrology upon discharge. Subjective Subjective Interval history since last seen: Jairon feels fatigued today he states he did not sleep well last night. Dyspnea has improved since he underwent thoracentesis. We talked about performing a paracentesis to try to take some of the ascitic fluid off his abdomen and he is agreeable to undergo this procedure today. I called his and left her a message indicating that we would proceed with the paracentesis. She showed up in his room about the time I was getting ready to do his paracentesis. She was present throughout the procedure. Exam Narrative Exam Narrative: Morbidly obese gentleman who initially was sitting in his chair when I examined him he had his head tucked down on his chest dozing off but he wakes up easily. He looks fatigued but not in any acute respiratory distress. Lungs with bibasilar rales no rhonchi or wheezing he has improved air exchange at the bases of his lungs. Heart is regular rate and rhythm Abdomen is obese with positive ascitic fluid wave normal active bowel sounds. Lower extremities show improvement in the leg edema there are now 2+ borderline 3 - pitting edema whereas before they been 3+ borderline 4 edema. Alfredo catheter is draining large amount of urine output. Objective Last Vital Signs Temp 36.0 C L 10/01/21 14:30 Pulse 60 10/01/21 14:30 Resp 20 10/01/21 14:30 BP 142/59 H 10/01/21 14:30 Pulse Ox 97 10/01/21 14:30 Laboratory Results - last 24 hr 09/29/21 10/01/21 10/01/21 20:45 10:15 10:15 WBC 9.95 RBC 2.87 L Hgb 8.3 L Hct 25.8 L MCV 89.9 MCH 28.9 MCHC 32.2 RDW 15.6 H Plt Count 138 MPV 12.4 H Immature Gran % 0.3 Neutrophils % 89.2 Lymphocytes % 5.3 Monocytes % 4.6 Eosinophils % 0.5 Basophils % 0.1 Nucleated RBC % 0 Absolute Neutrophils 8.87 H Absolute Lymphocytes 0.53 L Absolute Monocytes 0.46 Absolute Eosinophils 0.05 Absolute Basophils 0.01 Sodium 127 L Potassium 4.8 Chloride 94 L Carbon Dioxide 26.0 Anion Gap 7.0 BUN 72 H Creatinine 3.9 H* Estimated GFR/1.73 m2 15.59 Glucose 83 Calcium 8.1 L Fluid Glucose 133 Reviewed Pertinent PMH: Yes Objective Narrative Objective Narrative: Urine output yesterday was 2350 and his net balance yesterday was -1188 mL his weight is down to 118.1 kg. And for today alone he is diuresed 2100 mL.
--- NOTE | 2021-10-01 17:37 | PAPNONF_PTH ---
PATIENT: Jairon Choi LOC: U#:[id number] AGE/SX: 66/M ROOM: 215 RE09/21/[address]: Andie Veloz : 1955 BED: A DIS: 10/06/2021 SPEC #: [id number] RECD: 10/02/21 13:02 STATUS: YASH REMayank #: [id number] RAFAEL: 10/01/21 17:[address]: Andie Veloz DEPT: [facility] Cytology RECD BY: Pastora Martin ENTERED: 10/02/21 13:03 SP TYPE: LEANDRO KENNEDY DR: Lizbet Mohan Tissues: 1 - BODY FLUID CYTO(NOT S/U/N/EM)[facility] Procedures: BODY FLUID CYTO(NOT SPU/UR/NIP/ENDOM)[facility] CYTOLOGY CELL BLOCK Comments: [id number] (TOTAL VOLUME = 700 ml, SENT FRESH)
--- NOTE | 2021-10-01 17:40 | CMPROGNOTE_ITS ---
- If Service Date Differs Date of service: 10/01/21 Time of Service: 17:40 Care Management Progress Note S/O: Jairon requires additional monitoring and medication management. completed parenthesis again today. CM continues to follow. A: 66 year old male admitted to [facility] on 09/21/21 for Acute on Chronic diastolic CHF, SHERMAN on CKD P: Undetermined discharge plan, per MD Cummings, Jairon's is advocating for transfer. If returning home Jairon will follow up with his PCP and plan of care as prescribed including cardiology follow up. He will need New [facility] RN/PT orders, if needed at time of discharge. He will transport via private vehicle with a friend or family.
--- NOTE | 2021-10-01 17:47 | W.PM.OP ---
Date of service: 10/01/21 Time of Service: 17:47 Operative Note Operative Note DATE OF PROCEDURE: 09/29/21 PRE-OP DIAGNOSIS: anasarca, ascites POST-OP DIAGNOSIS: same PROCEDURE: ultrasound guided paracentesis SURGEON: Brady Washington Refer to Anesthesia Record ESTIMATED BLOOD LOSS: 0 (mL) Indications: anasarca, ascites, respiratory failure Procedure Description: After obtaining writtent informed consent for paracentesis including but no limited to the risks of inadvertent vessel injury, bowel wall puncture and infection as well as alternative treatment (i.e. continued iv diuretics), I proceeded to perform paracentesis under sterile conditions. Using the [employer] paracentesis kit w/ 15 ga x 3.25 in Flores needlle and cannula and after donning sterile apparel, I proceeded to identify a clear abdominal space free from bowel. I identified a space of 8 cm of echo free space and after cleansing the skin w/ chlorhexadine and placing sterile towels around the bed and below the sterile abdomen site, I anesthetized the skin w/ 5 mL xylocaine. Under ultrasound guidance I introduced the 15 gaudge x 3.25 inch needle however could not withdraw any fluid initially so I withdrew the needle/catheter intact and re-anesthetized the skin and soft tissues and re-imaged the peritoneal space and redirected the Flores needle watching the needle entering the echo free space this time obtaining peritoneal fluid. Total of 1800 mL of tea colored peritoneal fluid was obtained. Patient tolerated the procedure well. Fluid sent for cytology, gram stain and culture, cell count and differential, glucose, LDH, protein, albumin, amylase.
[2021-10-01 20:38] LABS: Bilirubin Negative (Negative); Blood Moderate (Negative); Clarity Sl Cloudy (Clear); Glucose 100 mg/dL (Negative); Ketones Negative (Negative); Leukocyte Esterase Trace (Negative); Nitrite Negative (Negative); Specific Gravity 1.015 (1.005-1.025); Urobilinogen 0.2 EU/dL (Up TO 0.2); pH 5.5 (5-8)
[2021-10-01] MEDS: Normal Saline Flush 10 ML SYR IVP (21:03)
[2021-10-01 21:09] LABS: WBC 20-50 HPF (0-5)
[2021-10-01 21:10] LABS: Bacteria Negative HPF (Negative); C & S Indicated? Yes; Casts 10-20 Hyaline LPF (Negative); Crystals Negative HPF (Negative); Epithelial Cells Few HPF (Negative); Mucus Negative (Negative); RBC >50 HPF (0-2)
[2021-10-01] MEDS: Atorvastatin 20 MG TAB PO (22:17)
[2021-10-01] MEDS: Doxazosin 2 MG TAB 6 MG PO (22:17)
[2021-10-01] MEDS: DOXYCYCLINE 100 MG in Normal Saline 100 ML IVPB (22:18)
[2021-10-01 22:33] LABS: Clarity Cloudy; Source Peritoneal
[2021-10-01 22:37] LABS: Mononuclear Cells 23 %; Polynuclear Cells 77 %
[2021-10-02] VITALS: PULSE 57
[2021-10-02 03:30] VITALS: BP 125/63; PULSE 63; RESP 16; TEMP 35.8
[2021-10-02 06:39] LABS: Abs Immature Grans 0.04 10^3/uL (0.0-0.06); Absolute Basophil Count 0.01 10^3/uL (0.0-0.2); Absolute Eosinophil Count 0.03 10^3/uL (0.0-0.7); Absolute Lymphocyte Count 0.52 10^3/uL (1.2-3.4); Absolute Monocyte Count 0.49 10^3/uL (0.1-0.8); Absolute Neutrophil Count 7.98 10^3/uL (1.2-6.7); Basophils % 0.1; Eosinophils % 0.3; HCT 25.2 % (40.0-50.0); HGB 8.2 g/dL (13.5-17.5); Immature Grans % 0.4; Lymphocytes % 5.7; MCH 29.2 pg (27.0-33.0); MCHC 32.5 % (32.0-36.0); MCV 89.7 fL (80-95); MPV 11.9 fL (8.0-11.0); Monocytes % 5.4; Neutrophils % 88.1; Nucleated RBC 0 %; Platelet Count 128 10^3/uL (130-400); RBC 2.81 10^6/uL (4.36-5.78); RDW 15.1 % (11.8-14.1); RDW-SD 49.3 fL; WBC 9.07 10^3/uL (4.4-10.8)
[2021-10-02 06:53] LABS: ALT 12 U/L (16-63); AST 17 U/L (15-37); Albumin 2.5 g/dL (3.4-5.0); Alkaline Phosphatase 111 U/L (46-116); Anion Gap 5.3 mmol/L (3-11); BUN 77 mg/dL (7-18); Bilirubin, Total 0.3 mg/dL (0.2-1.0); C-Reactive Protein 11.97 mg/dL (0.0-0.3); CO2 26.7 mmol/L (21.0-32.0); Chloride 95 mmol/L (98-107); Estimated GFR 15.59 (mL/min/1.73m2); Glucose 85 mg/dL (74-106); NT-proBNP 12043 pg/mL (<300); Potassium 4.7 mmol/L (3.5-5.1); Sodium 127 mmol/L (136-145); Total Protein 5.3 g/dL (6.4-8.2)
[2021-10-02 07:02] LABS: CREATININE 3.9 mg/dL (0.70-1.30)
[2021-10-02 07:13] LABS: Procalcitonin 0.3 ng/mL
[2021-10-02 07:58] VITALS: PULSE 73
--- NOTE | 2021-10-02 08:00 | DI.US_ITS ---
Exam(s) US ABDOMEN EXAM: US ABDOMEN CLINICAL HISTORY: ascites, evaluate for cirrhosis TECHNIQUE: Ultrasound abdomen performed using standard protocol. COMPARISON: No exams were available for comparison FINDINGS: Examination limited due to patient cooperation. ABDOMINAL AORTA AND IVC: Visualized portions normal caliber. PANCREAS: Normal where visualized. LIVER: Normal. The contour of the liver is unremarkable. Hepatopedal flow in the Portal Vein. The l iver measures 17.1 cm long. GALLBLADDER:The gallbladder is contracted. There do appear to be small stones present. The gallblad santa wall measures 3 mm in thickness. This is in part due to contracted gallbladder. No pericholecys tic fluid identified. BILIARY SYSTEM: Common bile duct measures < 7 mm. No intrahepatic biliary ductal dilation. PEREZ'S SIGN: Negative. KIDNEYS: Kidneys are symmetric in size. No evidence of renal calculi. No evidence of hydronephrosis. No renal mass or cyst identified. SPLEEN: Not enlarged. ASCITES: Small amount of perihepatic ascites. Bilateral pleural effusions are present. IMPRESSION: 1. No hepatic mass. Liver is mildly enlarged. 2. Small amount of perihepatic ascites. Bilateral pleural effusions. 3. Contracted gallbladder. Cholelithiasis. No biliary ductal dilatation. DATA REPOSITORY:
[2021-10-02] MEDS: Empaglifozin 10 MG TAB PO (08:06)
[2021-10-02] MEDS: amLODIPine 5 MG TAB 10 MG PO (08:06)
[2021-10-02] MEDS: Tamsulosin 0.4 MG CAPCR PO (08:06)
[2021-10-02] MEDS: Aspirin E.C. 81 MG TABEC PO (08:06)
[2021-10-02 08:15] VITALS: BP 123/60; PULSE 67; RESP 18; TEMP 36.6; O2SAT 99
--- NOTE | 2021-10-02 09:05 | W.NUTRFU ---
Date of service: 10/02/21 Time of Service: 09:05 Nutrition Note NOTE: Jairon is at high nutritional risk in view of poor nutrient intake in last couple of days with increased somnolence during meal times. Renal labs continue to be elevated with impaired renal blood flow and bilateral pleural effusion. Lasix drip, down 9 lbs in last 2 days. Diet liberalized last week to include higher biological value protein from eggs, dairy and fish. Continues on low potassium/renal diet. May need appetite stimulant if unable to complete at least 75% of meals. Receiving glucerna BID. Time Spent in Nutritional Counseling and Treatment: 10
--- NOTE | 2021-10-02 09:25 | CMPROGNOTE_ITS ---
- If Service Date Differs Date of service: 10/02/21 Time of Service: 09:25 Care Management Progress Note S/O: Jairon requires additional monitoring and medication management. CM provided Palliative Care resources, Zoila is going think about a possible consult. Her and Jairon were playing a card game; 500 and both appeared to be in good spirits. Dr. Washington and Nela from PT also met with Zoila and Jairon to discuss next steps in treatment and discharge planning. CM continues to follow. A: 66 year old male admitted to [facility] on 09/21/21 for Acute on Chronic diastolic CHF, SHERMAN on CKD P: Undetermined discharge plan, per MD Cummings, Jairon's is advocating for transfer. If returning home Jairon will follow up with his PCP and plan of care as prescribed including cardiology follow up. He will need New [facility] RN/PT orders, if needed at time of discharge. He will transport via private vehicle with a friend or family.
[2021-10-02 10:46] LABS: Erythropoietin 14.3 mIU/mL (2.6 - 18.5)
[2021-10-02] MEDS: DOXYCYCLINE 100 MG in Normal Saline 100 ML IVPB ×2 (10:59→23:08)
[2021-10-02 11:29] LABS: Lactate Dehydrogenase (LD), BF 94 U/L
[2021-10-02 15:00] VITALS: BP 123/60; PULSE 53; RESP 18; TEMP 36.7; O2SAT 96
--- NOTE | 2021-10-02 16:03 | PT.INPN ---
Date of service: 10/02/21 Time of Service: 16:03 PT Notes Visit Reasons: Acute on Chronic Diastolic CHF, SHERMAN on CKD Physical Therapy Inpatient Progress Note Date: 10/02/2021 Dates of service: 09/24/2021 through 10/02/2021 Precautions: Fall. Standard. Activity as tolerated. Subjective: Reports increased ability to tolerate exercise and activities. Complains about fatigue and shortness of breath that subsided with adequate rest. Objective: General Observation: Telemetry monitoring in place.? Alfredo catheter in place. IV access in B UE. Mental Status: Alert and oriented as to person, place, time, and purpose. Able to pay attention, focus, and respond appropriately. Pain: Denies Vital Signs: Oxygen saturation of 94% through 98% on room air throughout morning and afternoon sessions today. ROM: Right Upper Extremity: ? Shoulder Flexion WFL. Shoulder abduction WFL. Elbow flexion WFL. Wrist flexion WFL. Functional opening and closing of hand WFL. Left Upper Extremity:? Shoulder Flexion WFL. Shoulder abduction WFL. Elbow flexion WFL. Wrist flexion WFL. Functional opening and closing of hand WFL. Right Lower Extremity: Hip flexion WFL. Hip abduction WFL. Knee flexion WFL. Ankle dorsiflexion WFL. Ankle plantarflexion WFL. Left Lower Extremity: Hip flexion WFL. Hip abduction WFL. Knee flexion WFL. Ankle dorsiflexion WFL. Ankle plantarflexion WFL. Strength: Right Upper Extremity: Shoulder flexors 4/5. Shoulder abductors 4/5. Elbow flexors 4/5. Elbow extensors 4/5. Academic Associate strong. Left Upper Extremity: Shoulder flexors 4/5. Shoulder abductors 4/5. Elbow flexors 4/5. Elbow extensors 4/5. Academic Associate strong. Right Lower Extremity: Hip flexors 4/5. Hip abductors 4/5. Knee flexors 4/5. Knee extensors 4/5. Ankle dorsiflexors 4/5. Ankle plantarflexors 4/5. Left Lower Extremity: Hip flexors 4/5. Hip abductors 4/5. Knee flexors 4/5. Knee extensors 4/5. Ankle dorsiflexors 4/5. Ankle plantarflexors 4/5. Bed Mobility/Transfers: Sit to stand with standby assist Stand to sit with standby assist Bed to toilet with standby assist Bed to reclining chair with standby assist Gait: 80 feet x 2 in the morning and 150 x 2 in the afternoon usi front wheeled walker and wheelchair follow for safety. Bilateral knees with the right more so than the left mildly giving way back does not result to patient losing balance but to discontinuous steps. Oxygen saturation between 92% to 98% on room air. THERA EX: Able to tolerate seated level exercises consisting of LAQ's x10 and seated flexion x10 alternated with upper extremity chest expansion exercise integrated into breathing exercises. Balance: Static Sitting: Normal Dynamic Sitting: Normal Static Standing: Good Dynamic Standing: Fair Special Tests: Mobility Limitations Standardized Measure [facility] AM-PAC 6 clicks Basic Mobility Inpatient Short Form: Raw Score: 21 CMS Score: 29% deficit? ? ? Informed Consent/Education:? Patient was instructed in purpose of PT consult and plan of care. Agreeable to proceed with established PT POC to achieve personal goals. Assessment: Activity tolerance improving. From shortness of breath mobility performance increasing. Has not required oxygen supplementation during both PT sessions today. Fatigue resolved with adequate rest. Patient presents with clinical signs and symptoms consistent with current/admitting diagnoses that have resulted to mobility limitations, gait instability, generalized weakness, and overall ADL decline as demonstrated by the following impairment level findings: 1.? Decreased strength to BUE/LE major muscle groups 2.? Impaired sitting/standing balance 3.? Impaired activity tolerance 4.? Dyspnea on exertion 5.? Fatigue 6. B UE/LE swelling Impairments are contributing to the following functional limitations: 1.? Difficulty with ambulation without assistive device 2.? Increased completion time for mobility ADL performance 3.? Increased risk for falls 4.? Difficulty with managing steps alone safely Patient is assessed as a 36631 moderatecomplexity based on the following: History: 66-year-old male with past medical history as indicated above Examination: Demonstrable impairment in strength, balance, and mobility level with underlying impairments and functional limitations as exhibited above as well as deficit score of 29% utilizing the [facility] Mobility Inpatient Short Form Presentation: Evolving Decision Makin moderate complexity Goals: Goals X1 week 1. Supine-Sit independent NOT MET, CONTINUE 2. Sit-Supine independent NOT MET, CONTINUE 3. Sit-Stand independent NOT MET, CONTINUE 4. Stand-Sit independent with FWW NOT MET, CONTINUE 5. Bed-Chair independent with FWW NOT MET, CONTINUE 6. Chair-Bed independent with FWW NOT MET, CONTINUE 7. Independent gait on level surface with use of FWW for at least 300 feet without report of pain nor dyspnea NOT MET, CONTINUE 8. Independent stair negotiation while holding onto B rails for at least 3 steps without report of pain nor dyspnea NOT MET, CONTINUE 9. Independent with home exercise program NOT MET, CONTINUE 10. Good static and dynamic standing balance/tolerance NOT MET, CONTINUE Plan of Care/Treatment Plan: 1-2x/day, 7 days/week x 1 week. Plan of care has been reviewed with the COLLATING MACHINE OPERATOR providing the service under Physical Therapy direction. Initiate Physical Therapy intervention for pain management as needed, strengthening, bed mobility, transfers, gait, stairs, balance training, and use of assistive device. DISCHARGE RECOMMENDATIONS: [] ? Home with no services [] [X] ? Home with services.? Home when medically cleared by hospitalist.? Patient will benefit from home health PT services in order to progress mobility level using least restrictive assistive ambulatory device, assess home safety, identify additional equipment needs, and establish a functional maintenance program that will increase ability of patient to remain at home. [] ? Home with outpatient PT [] [] ? SNF for continued rehabilitation [] [] ? Ski Lift Operator Care [] [] ? SNF versus LTC based on ability to participate and progress [] TREATMENT CODE/TIME: Session 1??67991 x 20 minutes, 17432 x 12 minutes at 10:53 AM. Session 2??[id number] x 39 minutes beginning at 16:03 PM Thank you for the opportunity to participate in the care of this patient. Theresa Bishop PT, DPT, CLT [facility] [place], [place]
--- NOTE | 2021-10-02 16:14 | PGE_ITS ---
Date of Service Date of service: 10/02/21 Time of Service: 16:14 Assessment and Plan Assessment and plan (1) Acute diastolic CHF (congestive heart failure): Status: Acute Assessment and plan: cont. lasix drip and diuril through tonight then switch to oral torsemide 100 mg daily along w/ Zaroxolyn 10 mg daily. Not candidate for AYAZ-I or ARB d/t he presented w/ hyperkalemia (for same reason he is not a candidate for spironolactone). (2) Bilateral pleural effusion: Status: Acute Assessment and plan: patient tolterated thoracentesis over the weekend and had 1550 mL drained from his right hemithorax and 1450 mL from his left hemithorax. Pleural fluid gram stain did not show any bacteria and culture is no growth. Pleural fluid was transudate. (3) Acute kidney injury superimposed on chronic kidney disease: Status: Acute Assessment and plan: CKD in setting of CHF and impaired renal blood flow and renal venous congestion. Cre stable at 3.9 (although this is up from his admission level of (4) Afib: Assessment and plan: patient remains in sinus rhythm. BB has been on hold d/t long pauses. None noted today. He has long first degree block w/ OH 330 to 360 msec. (5) Type 2 diabetes mellitus: Status: Chronic Assessment and plan: A1c in prediabetic range without medication. Continue diabetic diet. 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 Will be holding metoprolol d/t bradycardia and a symptomatic 3 second pause, then another pause w/o noted symptoms. First degree heart block with intermittent second degree type I; remain in 1st deg AV block in sinus to sinus bradycardia; no advanced heart block and no further significant pauses since his BB has been held. Monitor. (7) Acute hyperkalemia: Status: Acute Assessment and plan: Normalized s/p administration of Lokelma x 4 doses and furosemide. Monitor; place on low potassium diet. repeat potassium 4.7 (8) Anemia: Status: Chronic Assessment and plan: Likely associated with CKD. Has slowly trended down but appears to be stabilizing at 7.7 gm. but now up to 8.2 gm Iron level low at 32, TIBC low at 119. Venofer 300 mg x 3 doses has been given. He may need epogen. (9) DVT prophylaxis: Status: Acute Assessment and plan: on heparin but now stopped d/t hemoglobin drifting lower. SCDs initiated. Encourage ambulation. heparin now resumed. (10) Constipation: Status: Acute Assessment and plan: I will put patient on scheduled colace (he has prn colace but has not gotten any since 09/28. I will also put him on Senna and miralax and give order for prn dulcolax suppository. If he does not have a good response then will order enemas (11) Discharge planning issues: Status: Acute Assessment and plan: patient will need follow up w/ cardiology as well as nephrology upon discharge. Subjective Subjective Interval history since last seen: Jairon's breathing has improved since he has been diuresing. I met w/ him and his . His wt is down to 115.4 kg (down from peak of 122.2 kg) and his cumulative fluid balance is net negative 4200 mL. I told his that we are at a point where we could transition to oral diuretics and if he remains euvolemic on oral diuretics and depending on how he performs w/ P.T. he could hopefully go home w/ home health, home P.T. and O.T. and nursing in the next few days. He is complaining of constipation and has not had a good BM in 4 days. He has prn docusate but has not been getting this. I will order a rigorous bowel regimen. Exam Narrative Exam Narrative: Tra is sitting up in his chair, alert/oriented Lungs: bibasilar rales but improved aeration in his bases compared to prior to his thoracentesis Heart: RRR Abdomen: obese, soft, non-distended; positive fluid wave, normal bowel sounds legs: 2+ bilateral leg edema Objective Last Vital Signs Temp 36.6 C 10/02/21 08:15 Pulse 67 10/02/21 08:15 Resp 18 10/02/21 08:15 BP 123/60 10/02/21 08:15 Pulse Ox 99 10/02/21 08:15 Laboratory Results - last 24 hr 09/29/21 09/29/21 09/29/21 06:04 20:45 20:45 WBC RBC Hgb Hct MCV MCH MCHC RDW Plt Count MPV Immature Gran % Neutrophils % Lymphocytes % Monocytes % Eosinophils % Basophils % Nucleated RBC % Absolute Neutrophils Absolute Lymphocytes Absolute Monocytes Absolute Eosinophils Absolute Basophils Sodium Potassium Chloride Carbon Dioxide Anion Gap BUN Creatinine Estimated GFR/1.73 m2 Glucose Calcium Erythropoietin 14.3 Total Bilirubin AST ALT Alkaline Phosphatase C-Reactive Protein NT-Pro-B Natriuret Pep Total Protein Albumin Procalcitonin Urine Color Urine Clarity Urine pH Ur Specific [place] Urine Protein Urine Ketones Urine Blood Urine Nitrite Urine Bilirubin Urine Urobilinogen Ur Leukocyte Esterase Urine RBC Urine WBC Ur Epithelial Cells Urine Crystals Urine Bacteria Urine Casts Urine Mucus Ur Culture Indicated? Urine Glucose Fluid Type pleural effusion pleural effusion Fluid Source Fluid Color Fluid Clarity Fluid WBC Fld Polynuclear WBCs % Fluid Mononuclear Cell Fluid Other Cells Fluid Total Protein 3.0 Fluid LDH 94 10/01/21 10/01/21 10/02/21 17:37 20:00 06:15 WBC RBC Hgb Hct MCV MCH MCHC RDW Plt Count MPV Immature Gran % Neutrophils % Lymphocytes % Monocytes % Eosinophils % Basophils % Nucleated RBC % Absolute Neutrophils Absolute Lymphocytes Absolute Monocytes Absolute Eosinophils Absolute Basophils Sodium 127 L Potassium 4.7 Chloride 95 L Carbon Dioxide 26.7 Anion Gap 5.3 BUN 77 H Creatinine 3.9 H* Estimated GFR/1.73 m2 15.59 Glucose 85 Calcium 8.0 L Erythropoietin Total Bilirubin 0.3 AST 17 ALT 12 L Alkaline Phosphatase 111 C-Reactive Protein 11.97 H NT-Pro-B Natriuret Pep 43100 H Total Protein 5.3 L Albumin 2.5 L Procalcitonin Urine Color Yellow Urine Clarity Sl Cloudy Urine pH 5.5 Ur Specific [place] 1.015 Urine Protein Trace H Urine Ketones Negative Urine Blood Moderate H Urine Nitrite Negative Urine Bilirubin Negative Urine Urobilinogen 0.2 Ur Leukocyte Esterase Trace H Urine RBC >50 H Urine WBC 20-50 H Ur Epithelial Cells Few Urine Crystals Negative Urine Bacteria Negative Urine Casts 10-20 Hyaline Urine Mucus Negative Ur Culture Indicated? Yes Urine Glucose 100 Fluid Type Fluid Source Peritoneal Fluid Color Fluid Clarity Cloudy Fluid WBC Fld Polynuclear WBCs % 77 Fluid Mononuclear Cell 23 Fluid Other Cells Fluid Total Protein Fluid LDH 10/02/21 10/02/21 06:15 06:15 WBC 9.07 RBC 2.81 L Hgb 8.2 L Hct 25.2 L MCV 89.7 MCH 29.2 MCHC 32.5 RDW 15.1 H Plt Count 128 L MPV 11.9 H Immature Gran % 0.4 Neutrophils % 88.1 Lymphocytes % 5.7 Monocytes % 5.4 Eosinophils % 0.3 Basophils % 0.1 Nucleated RBC % 0 Absolute Neutrophils 7.98 H Absolute Lymphocytes 0.52 L Absolute Monocytes 0.49 Absolute Eosinophils 0.03 Absolute Basophils 0.01 Sodium Potassium Chloride Carbon Dioxide Anion Gap BUN Creatinine Estimated GFR/1.73 m2 Glucose Calcium Erythropoietin Total Bilirubin AST ALT Alkaline Phosphatase C-Reactive Protein NT-Pro-B Natriuret Pep Total Protein Albumin Procalcitonin 0.3 Urine Color Urine Clarity Urine pH Ur Specific [place] Urine Protein Urine Ketones Urine Blood Urine Nitrite Urine Bilirubin Urine Urobilinogen Ur Leukocyte Esterase Urine RBC Urine WBC Ur Epithelial Cells Urine Crystals Urine Bacteria Urine Casts Urine Mucus Ur Culture Indicated? Urine Glucose Fluid Type Fluid Source Fluid Color Fluid Clarity Fluid WBC Fld Polynuclear WBCs % Fluid Mononuclear Cell Fluid Other Cells Fluid Total Protein Fluid LDH
[2021-10-02 17:02] LABS: Glucose, Fluid 75 mg/dL (See Note)
[2021-10-02] MEDS: Insulin Aspart 300 UNITS/3 ML PEN SC ×2 (17:06→22:36)
[2021-10-02] MEDS: Bisacodyl 10 MG SUPP PR (17:06)
[2021-10-02] MEDS: Polyethylene Glycol 3350 17 GM PACKET PO (17:07)
[2021-10-02 17:37] LABS: Legionella Ag Detection Urine Negative (Negative)
[2021-10-02] MEDS: Docusate Sodium 100 MG CAP PO (21:45)
[2021-10-02] MEDS: Doxazosin 2 MG TAB 6 MG PO (21:45)
[2021-10-02] MEDS: Senna TAB 1 TAB PO (21:45)
[2021-10-02] MEDS: Atorvastatin 20 MG TAB PO (21:45)
[2021-10-02] MEDS: cefTRIAXone 2 GM/50 ML BAG IVPB (22:10)
[2021-10-02 22:28] VITALS: BP 130/62; PULSE 66; RESP 20; TEMP 35.3; O2SAT 96
[2021-10-03 07:25] LABS: Abs Immature Grans 0.03 10^3/uL (0.0-0.06); Absolute Basophil Count 0.01 10^3/uL (0.0-0.2); Absolute Eosinophil Count 0.07 10^3/uL (0.0-0.7); Absolute Lymphocyte Count 0.53 10^3/uL (1.2-3.4); Absolute Monocyte Count 0.47 10^3/uL (0.1-0.8); Absolute Neutrophil Count 6.46 10^3/uL (1.2-6.7); Basophils % 0.1; Eosinophils % 0.9; HCT 24.3 % (40.0-50.0); HGB 8.1 g/dL (13.5-17.5); Immature Grans % 0.4; MCH 29.5 pg (27.0-33.0); MCHC 33.3 % (32.0-36.0); MCV 88.4 fL (80-95); MPV 12.1 fL (8.0-11.0); Monocytes % 6.2; Neutrophils % 85.4; Nucleated RBC 0 %; Platelet Count 113 10^3/uL (130-400); RBC 2.75 10^6/uL (4.36-5.78); RDW-SD 48.1 fL; WBC 7.57 10^3/uL (4.4-10.8)
[2021-10-03 07:26] VITALS: BP 115/53; PULSE 52; RESP 20; TEMP 36; O2SAT 96
[2021-10-03 07:30] VITALS: O2SAT 96
[2021-10-03 07:40] VITALS: PULSE 59
[2021-10-03 07:42] LABS: Anion Gap 7.9 mmol/L (3-11); BUN 74 mg/dL (7-18); CO2 25.1 mmol/L (21.0-32.0); Chloride 92 mmol/L (98-107); Estimated GFR 14.72 (mL/min/1.73m2); Glucose 151 mg/dL (74-106); Potassium 4.1 mmol/L (3.5-5.1); Sodium 125 mmol/L (136-145)
[2021-10-03 07:46] LABS: CREATININE 4.1 mg/dL (0.70-1.30)
[2021-10-03] MEDS: Polyethylene Glycol 3350 17 GM PACKET PO (08:21)
[2021-10-03] MEDS: Normal Saline Flush 10 ML SYR IVP ×4 (08:22→19:47)
[2021-10-03] MEDS: Tamsulosin 0.4 MG CAPCR PO (08:23)
[2021-10-03] MEDS: Docusate Sodium 100 MG CAP PO ×3 (08:23→19:48)
[2021-10-03] MEDS: Aspirin E.C. 81 MG TABEC PO (08:23)
[2021-10-03] MEDS: Empaglifozin 10 MG TAB PO (08:24)
[2021-10-03] MEDS: Insulin Aspart 300 UNITS/3 ML PEN SC ×4 (08:25→21:21)
[2021-10-03] MEDS: Allopurinol 100 MG TAB 50 MG PO (08:25)
[2021-10-03] MEDS: amLODIPine 5 MG TAB 10 MG PO (08:35)
[2021-10-03] MEDS: metOLazone 2.5 MG TAB 10 MG PO (09:28)
[2021-10-03] MEDS: Torsemide 100 MG TAB PO (09:28)
[2021-10-03] MEDS: DOXYCYCLINE 100 MG in Normal Saline 100 ML IVPB ×2 (10:23→21:18)
[2021-10-03] MEDS: Normal Saline 500 ML 30 ML IV (10:23)
--- NOTE | 2021-10-03 10:23 | PDOC.CMPRO ---
- If Service Date Differs Date of service: 10/03/21 Time of Service: 10:23 Care Management Progress Note S/O: Tra was sitting up in a chair when CM met with him. He was polite and agreeable to conversation. Tra informed CM that his breathing is much better since he had the fluid removed from his pleural space and abdomen. He is now saturating at 96% on room air.This morning the IV Lasix was discontinued and replaced with torsemide and it is hoped that this will improve the diuresis. The provider has contacted nephrology at [facility] for further recommendations. A: 66 year old male admitted to [facility] on 09/21/21 for Acute on Chronic diastolic CHF, SHERMAN on CKD P: Undetermined discharge plan, per MD Cummings, Jairon's is advocating for transfer. If returning home Jairon will follow up with his PCP and plan of care as prescribed including cardiology follow up. He will need New [facility] RN/PT orders, if needed at time of discharge. He will transport via private vehicle with a friend or family.
--- NOTE | 2021-10-03 13:42 | W.PM.PROGNOT ---
Date of Service Date of service: 10/03/21 Time of Service: 12:50 Assessment and Plan Assessment and plan (1) Acute diastolic CHF (congestive heart failure): Status: Acute Assessment and plan: Finished lasix gtt this morning. Started on torsemide 100 mg daily and Zaroxolyn 10 mg daily. Continue diuresis, monitoring I/Os, Cr, Daily weights. I am awaiting call back from [facility] nephrology for further recommendations. (2) Bilateral pleural effusion: Status: Acute Assessment and plan: s/p B thoracenthesis on this admission (1550 mL on R, and 1450 mL out on left). Transudative effusion, however is on ceftriaxone as pleural effusion was obscuring an infiltrate. Fluid cx negative. Continue empiric ceftriaxone (day 2). (3) Acute kidney injury superimposed on chronic kidney disease: Status: Acute Assessment and plan: SHERMAN on CKD in a diabetic patient with HTN and CHF. Cr today is 4.1. Read discussion above. Attempting to transition to PO diuretics today. Continue monitoring I/O's and daily weights. Awaiting further recommendations from nephrology. (4) Afib: Assessment and plan: Remains in NSR. Not requiring rate controlling medications. Not on anticoagulation at this time. No longer on tele. (5) Type 2 diabetes mellitus: Status: Chronic Assessment and plan: A1c 6.0 - at goal. This is a true diagnosis of diabetes on insulin at home with evidence of diabetic nephropathy. Continue Jardiance, SSI. 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 No longer on tele. BP controlled. (7) Acute hyperkalemia: Status: Resolved Assessment and plan: s/p lokelma on this admission. K is 4.1 today. Continue low potassium diet. (8) Anemia: Status: Chronic Assessment and plan: Likely associated with CKD. S/p Venofer 300 mg x 3 doses. Monitor H/H. No active bleeding. (9) Constipation: Status: Acute Assessment and plan: Continue bowel regimen (10) DVT prophylaxis: Status: Acute Assessment and plan: SCDs Resume heparin SC (11) Discharge planning issues: Status: Acute Assessment and plan: Full code Continues to require hospitalization. Awaiting call back from [facility] nephrology with further recommendations. Will need follow up w/ cardiology and nephrology on discharge. Subjective Subjective Interval history since last seen: Mr Choi reports feeling tired and dizzy. He feels less short of breath today. He is on room air, saturating 96% on RA. Denies chest pain, nausea. States he has no appetite. Exam Narrative Exam Narrative: General: Very pleasant middle-aged male, sitting up in a chair, looks fatigued and weak HEENT: EOMI, dry MM Cardiovascular: RRR, no m/r/g Lungs: faint rales R base, diminished breath sounds at the L base about [address] L lung field Gastrointestinal: soft, obese, nontender Genitourinary: has a bridges catheter - small amount of light colored diluted urine in bag Extremities: 2+ edema BLE's, improved from admissio Objective Last Vital Signs Temp 36.0 C L 10/03/21 07:26 Pulse 59 L 10/03/21 07:40 Resp 20 10/03/21 07:26 BP 115/53 L 10/03/21 07:26 Pulse Ox 96 10/03/21 07:30 Laboratory Results - last 24 hr 09/29/21 09/29/21 09/29/21 06:04 20:45 20:45 WBC RBC Hgb Hct MCV MCH MCHC RDW Plt Count MPV Immature Gran % Neutrophils % Lymphocytes % Monocytes % Eosinophils % Basophils % Nucleated RBC % Absolute Neutrophils Absolute Lymphocytes Absolute Monocytes Absolute Eosinophils Absolute Basophils Sodium Potassium Chloride Carbon Dioxide Anion Gap BUN Creatinine Estimated GFR/1.73 m2 Glucose Calcium Erythropoietin 14.3 Fluid Type pleural effusion Fluid Glucose Fluid Total Protein 3.0 Fluid LDH Urine Legionella Ag Path Cons Comment SEE COMMENT 09/29/21 10/01/21 10/01/21 20:45 17:37 17:37 WBC RBC Hgb Hct MCV MCH MCHC RDW Plt Count MPV Immature Gran % Neutrophils % Lymphocytes % Monocytes % Eosinophils % Basophils % Nucleated RBC % Absolute Neutrophils Absolute Lymphocytes Absolute Monocytes Absolute Eosinophils Absolute Basophils Sodium Potassium Chloride Carbon Dioxide Anion Gap BUN Creatinine Estimated GFR/1.73 m2 Glucose Calcium Erythropoietin Fluid Type pleural effusion Fluid Glucose 75 Fluid Total Protein Fluid LDH 94 Urine Legionella Ag Path Cons Comment SEE COMMENT 10/01/21 10/03/21 10/03/21 20:00 07:05 07:05 WBC 7.57 RBC 2.75 L Hgb 8.1 L Hct 24.3 L MCV 88.4 MCH 29.5 MCHC 33.3 RDW 15.0 H Plt Count 113 L MPV 12.1 H Immature Gran % 0.4 Neutrophils % 85.4 Lymphocytes % 7.0 Monocytes % 6.2 Eosinophils % 0.9 Basophils % 0.1 Nucleated RBC % 0 Absolute Neutrophils 6.46 Absolute Lymphocytes 0.53 L Absolute Monocytes 0.47 Absolute Eosinophils 0.07 Absolute Basophils 0.01 Sodium 125 L Potassium 4.1 Chloride 92 L Carbon Dioxide 25.1 Anion Gap 7.9 BUN 74 H Creatinine 4.1 H* Estimated GFR/1.73 m2 14.72 Glucose 151 H Calcium 8.0 L Erythropoietin Fluid Type Fluid Glucose Fluid Total Protein Fluid LDH Urine Legionella Ag Negative Path Cons Comment
[2021-10-03 13:54] LABS: Fluid Type Peritoneal; Lactate Dehydrogenase (LD), BF 126 U/L
[2021-10-03 15:15] VITALS: BP 122/49; PULSE 54; RESP 17; TEMP 36.4; O2SAT 97
[2021-10-03 15:35] LABS: Streptococcus Pneumoniae Ag, U Negative (Negative)
[2021-10-03] MEDS: Tranexamic Acid 1,000 MG/10 ML VIAL 500 MG NS (15:56)
[2021-10-03 16:19] LABS: Amylase, BF 374 U/L; Fluid Type Peritoneal
[2021-10-03 16:22] LABS: Fluid Type Peritoneal; Protein,Total, BF 2.2 g/dL
[2021-10-03 16:23] LABS: Bilirubin, BF 0.2 mg/dL; Fluid Type Peritoneal
--- NOTE | 2021-10-03 18:09 | RESPIRATORY ---
spoke with pt and about CPAP and wearing it at night.
[2021-10-03 19:37] LABS: COMMENT (LAB VIEW ONLY) 26.89 mg/dL; PROTEIN 41.2 mg/dL; Prot/Crea Ur Ratio 1.53
[2021-10-03] MEDS: cefTRIAXone 2 GM/50 ML BAG IVPB (19:46)
[2021-10-03] MEDS: Senna TAB 1 TAB PO (21:19)
[2021-10-03] MEDS: Doxazosin 2 MG TAB 6 MG PO (21:19)
[2021-10-03] MEDS: Atorvastatin 20 MG TAB PO (21:19)
[2021-10-03 23:50] VITALS: BP 141/71; PULSE 57; RESP 17; TEMP 36.1; O2SAT 98
[2021-10-04 01:22] VITALS: O2SAT 100
[2021-10-04 07:06] LABS: Abs Immature Grans 0.04 10^3/uL (0.0-0.06); Absolute Eosinophil Count 0.05 10^3/uL (0.0-0.7); Absolute Lymphocyte Count 0.45 10^3/uL (1.2-3.4); Absolute Monocyte Count 0.38 10^3/uL (0.1-0.8); Absolute Neutrophil Count 5.54 10^3/uL (1.2-6.7); Eosinophils % 0.8; HCT 25.2 % (40.0-50.0); HGB 8.2 g/dL (13.5-17.5); Immature Grans % 0.6; MCH 28.5 pg (27.0-33.0); MCHC 32.5 % (32.0-36.0); MCV 87.5 fL (80-95); Monocytes % 5.9; Neutrophils % 85.7; Nucleated RBC 1 %; Platelet Count 128 10^3/uL (130-400); RBC 2.88 10^6/uL (4.36-5.78); RDW 14.9 % (11.8-14.1); RDW-SD 48.5 fL; WBC 6.46 10^3/uL (4.4-10.8)
[2021-10-04 07:27] LABS: Anion Gap 6.6 mmol/L (3-11); CO2 25.4 mmol/L (21.0-32.0); Chloride 91 mmol/L (98-107); Estimated GFR 14.72 (mL/min/1.73m2); Glucose 132 mg/dL (74-106); Magnesium 2.9 mg/dL (1.8-2.4); Potassium 4.2 mmol/L (3.5-5.1)
[2021-10-04 07:30] LABS: ALT 20 U/L (16-63); AST 17 U/L (15-37); Albumin 2.4 g/dL (3.4-5.0); Alkaline Phosphatase 109 U/L (46-116); Bilirubin, Direct 0.1 mg/dL (0.0-0.2); Bilirubin, Total 0.3 mg/dL (0.2-1.0); Total Protein 5.2 g/dL (6.4-8.2)
[2021-10-04 07:35] LABS: CREATININE 4.1 mg/dL (0.70-1.30); Sodium 123 mmol/L (136-145)
[2021-10-04 07:36] LABS: BUN 83 mg/dL (7-18)
[2021-10-04] MEDS: Normal Saline Flush 10 ML SYR IVP ×2 (07:49→20:46)
[2021-10-04] MEDS: Polyethylene Glycol 3350 17 GM PACKET PO (07:49)
[2021-10-04] MEDS: Torsemide 100 MG TAB PO (07:50)
--- NOTE | 2021-10-04 07:50 | CHAPLAIN ---
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 Zoila asked about Palliative Care and I gave her my best definition and explanation of what supports PC can offer. Tra remembered that we'd met last week. He was quiet while I was there but did respond some questions. I will continue to visit.
[2021-10-04] MEDS: metOLazone 2.5 MG TAB 20 MG PO (07:52)
[2021-10-04] MEDS: Empaglifozin 10 MG TAB PO (07:53)
[2021-10-04] MEDS: Aspirin E.C. 81 MG TABEC PO (07:53)
[2021-10-04] MEDS: Tamsulosin 0.4 MG CAPCR PO (07:53)
[2021-10-04] MEDS: amLODIPine 5 MG TAB 10 MG PO (07:53)
[2021-10-04] MEDS: Docusate Sodium 100 MG CAP PO ×3 (07:53→20:48)
[2021-10-04] MEDS: Insulin Aspart 300 UNITS/3 ML PEN SC ×4 (07:56→22:12)
[2021-10-04 08:00] VITALS: BP 135/72; PULSE 63; RESP 20; TEMP 36.3; O2SAT 99
[2021-10-04] MEDS: DOXYCYCLINE 100 MG in Normal Saline 100 ML IVPB ×2 (10:07→22:12)
--- NOTE | 2021-10-04 14:19 | W.PALLCONSUL ---
Date of service: 10/04/21 Time of Service: 14:20 History of Present Illness Narrative: Tra was seen in his hospital room, he was initially alone but his , Zoila joined the meeting. He reports feeling better overall than he was when he came into the hospital. He reports that he is feeling tired and lethargic. He is dozing off throughout the day. He cannot walk independently, he is able to walk with PT. He has SOB with activity. He feels weak. His appetite is decreased from his baseline. His has discomfort in his legs at times, improves when he changes positions. We discussed dialysis and the lifestyle changes that accompany it. He is open to having dialysis if that is what is recommended by Nephrology. We discussed goals. Being home is important to him. He would prefer not to go to a rehab when he is discharged from the hosptial. He would be willing to do PT at home. Zoila would also prefer that he is discharged home and does not want him to go to rehab. His goal is to be able to life normally, like being able to walk up the flight of stairs to go to bed and go out into the garden and work. He works at [employer] now. 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 We briefly discussed CODE status. He is currently a FULL CODE. We will continue to discuss advanced care plans and CODE status at future visits. Assessment and Plan Assessment and plan (1) Acute kidney injury superimposed on chronic kidney disease: Status: Acute (2) Acute diastolic CHF (congestive heart failure): Status: Acute (3) Bilateral pleural effusion: Status: Acute (4) Anemia: Status: Chronic (5) Shortness of breath: Status: Acute (6) Lower extremity edema: Status: Acute (7) Type 2 diabetes mellitus: Status: Chronic Qualifiers: Diabetes mellitus shelter insulin use: with intermodal customer service use Diabetes mellitus complication status: with kidney complications Diabetes mellitus complication detail: with chronic kidney disease Chronic kidney disease stage: stage 4 (severe) Qualified Code(s): E11.22 - Type 2 diabetes mellitus with diabetic chronic kidney disease; N18.4 - Chronic kidney disease, stage 4 (severe); 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 The hospitalist has been in close contact with Nephrology at [facility]. It is possible that he might need transfer to a tertiary care facility for dialysis. Palliative care was consulted to discuss goals of care and advanced care plans. He has advanced directives on file that state that he would not want aggressive care if he is near the end of his life. He has named his , Zoila to be his health care agent, with his son and daughter listed as alternate agents. He is a FULL CODE at this time, we will continue to discuss code status at future visits, especially as things evolve with his health status. His goals are to be home, to be able to go upstairs to his room, to be able to work in his garden. He also hopes to be able to volunteer at the [employer] eventually. He is open to dialysis. He does not want to go to rehab, he would prefer to do PT at home. Follow up with palliative as an outpatient. Review of Systems All systems reviewed & are unremarkable except as noted in HPI and below PFSH All Active Problems (Updated 10/04/21 @ 15:39 by Zoie Parekh NP) Palliative care patient (Acute) Constipation (Acute) Bilateral pleural effusion (Acute) Anemia (Chronic) Discharge planning issues (Acute) DVT prophylaxis (Acute) Acute electrocardiogram changes (Acute) Acute kidney injury superimposed on chronic kidney disease (Acute) Acute diastolic CHF (congestive heart failure) (Acute) Volume overload (Acute) SHERMAN (acute kidney injury) (Acute) Shortness of breath (Acute) Lower extremity edema (Acute) Tinnitus (Acute) Abnormal auditory perception (Acute) Sensorineural hearing loss of both ears (Acute) Dizziness (Acute) Type 2 diabetes mellitus (Chronic) Kidney disease (Chronic) Dyspnea (Acute) Essential hypertension (Acute 02/12/18) Elevated serum creatinine (Acute 01/30/18) Medical History Acute kidney injury (nontraumatic) Afib F/U Cardiology Dr. Currie...per pt. was told this was related to his Lyme disease and the medication he was on was causing an episode of a-fib. Atrioventricular block Bilateral hearing loss Chronic renal disease Depression Diabetes mellitus Diverticulosis Diverticulosis Elevated LFTs First degree AV block Gout Gout, arthritis Hyperkalemia Hyperlipidemia Hypertension Lyme disease Myalgia Neck pain Obesity Pain in right hip Retinopathy SOB (shortness of breath) Tubulovillous adenoma of colon Vitamin D deficiency Surgical History History of surgical procedure on eye proper using laser pt. reports for retinopathy Hx of eye surgery R eye Hx of tonsillectomy Hx of umbilical hernia repair with mesh S/P colonoscopy Family History Paternal Grandfather Heart disease Hypertension Father Hypertension Diabetes Mother Cancer breast cancer Paternal Grandmother Cancer breast cancer Social History Smoking/Tobacco Use Status: Former Tobacco Use Quit Date: 06/30/89 Smoking risk assessment performed?: Yes Alcohol Intake: current Alcohol Intake frequency: holidays/special occasions only Alcohol type: beer Drug use: Never Substance use type: does not use Do you feel safe at home: Yes Do you feel safe in your relationship?: Yes Exam Narrative Exam Narrative: General: very pleasant man, appears older than stated age, falling asleep during visit, awakens easily to verbal stimuli. He answers questions appropriately. present. HEENT: normocephalic, atraumatic, EOMI, makes eye contact, mucous membranes moist. Neck: supple. Respiratory: mildly increased work of breathing noted. Extremities: edema noted to BUE and BLEs. Moves all 4 extremities freely. Results Last Vital Signs Temp 36.3 C L 10/04/21 08:00 Pulse 63 10/04/21 08:00 Resp 20 10/04/21 08:00 BP 135/72 10/04/21 08:00 Pulse Ox 99 10/04/21 08:00 Labs Result diagrams: 10/04/21 06:45 10/04/21 06:45 Labs: Laboratory Results - last 24 hr 10/01/21 10/01/21 10/01/21 17:37 17:37 17:37 WBC RBC Hgb Hct MCV MCH MCHC RDW Plt Count MPV Immature Gran % Neutrophils % Lymphocytes % Monocytes % Eosinophils % Basophils % Nucleated RBC % Absolute Neutrophils Absolute Lymphocytes Absolute Monocytes Absolute Eosinophils Absolute Basophils Sodium Potassium Chloride Carbon Dioxide Anion Gap BUN Creatinine Estimated GFR/1.73 m2 Glucose Calcium Magnesium Total Bilirubin Conjugated Bilirubin AST ALT Alkaline Phosphatase Total Protein Albumin Ur Random Creatinine U Random Total Protein U [place] Prot/Creat Ratio Fluid Type Peritoneal Peritoneal Peritoneal Fluid Total Protein Fluid Tot Bilirubin 0.2 Fluid LDH 126 Fluid Amylase 374 Ur Strep pneumoniae Ag 10/01/21 10/01/21 10/03/21 17:37 20:00 14:55 WBC RBC Hgb Hct MCV MCH MCHC RDW Plt Count MPV Immature Gran % Neutrophils % Lymphocytes % Monocytes % Eosinophils % Basophils % Nucleated RBC % Absolute Neutrophils Absolute Lymphocytes Absolute Monocytes Absolute Eosinophils Absolute Basophils Sodium Potassium Chloride Carbon Dioxide Anion Gap BUN Creatinine Estimated GFR/1.73 m2 Glucose Calcium Magnesium Total Bilirubin Conjugated Bilirubin AST ALT Alkaline Phosphatase Total Protein Albumin Ur Random Creatinine 26.89 U Random Total Protein 41.2 U [place] Prot/Creat Ratio 1.53 Fluid Type Peritoneal Fluid Total Protein 2.2 Fluid Tot Bilirubin Fluid LDH Fluid Amylase Ur Strep pneumoniae Ag Negative 10/04/21 10/04/21 10/04/21 06:45 06:45 06:45 WBC 6.46 RBC 2.88 L Hgb 8.2 L Hct 25.2 L MCV 87.5 MCH 28.5 MCHC 32.5 RDW 14.9 H Plt Count 128 L MPV 12.0 H Immature Gran % 0.6 Neutrophils % 85.7 Lymphocytes % 7.0 Monocytes % 5.9 Eosinophils % 0.8 Basophils % 0.0 Nucleated RBC % 1 Absolute Neutrophils 5.54 Absolute Lymphocytes 0.45 L Absolute Monocytes 0.38 Absolute Eosinophils 0.05 Absolute Basophils 0.00 Sodium 123 L* Potassium 4.2 Chloride 91 L Carbon Dioxide 25.4 Anion Gap 6.6 BUN 83 H* Creatinine 4.1 H* Estimated GFR/1.73 m2 14.72 Glucose 132 H Calcium 8.0 L Magnesium 2.9 H Total Bilirubin 0.3 Conjugated Bilirubin 0.1 AST 17 ALT 20 Alkaline Phosphatase 109 Total Protein 5.2 L Albumin 2.4 L Ur Random Creatinine U Random Total Protein U [place] Prot/Creat Ratio Fluid Type Fluid Total Protein Fluid Tot Bilirubin Fluid LDH Fluid Amylase Ur Strep pneumoniae Ag
[2021-10-04 15:04] VITALS: BP 114/50; PULSE 56; RESP 20; TEMP 36; O2SAT 99
--- NOTE | 2021-10-04 15:48 | PT.INTREAT ---
Date of service: 10/04/21 Time of Service: 10:07 PT Notes Visit Reasons: Acute on Chronic Diastolic CHF, SHERMAN on CKD Inpatient Physical Therapy Treatment Note [facility] Date: 10/04/2021 PRECAUTIONS: Fall, Activity as tolerated SUBJECTIVE: Tra reports that he is feeling better this morning. He is agreeable to participating in PT, although requires encouragement to attempt progression in gait distance. OBJECTIVE: PAIN: No c/o pain BED MOBILITY/TRANSFERS Sit-stand: CGA Stand-sit: CGA GAIT Assistive Device: FWW Weight bearing: Full Assist: CGA Distance: 15' + 40' + 60' Deviation: LOB x3 with Min A for recovery, SOB, increased fatigue, seated rest x2, 2L O2 via NC ASSESSMENT: Patient tolerated session with c/o increasing fatigue and SOB with gait training, requiring seated rest x2. He demonstrates significant deconditioning and increasing weakness, demonstrating increased losses of balance with gait training and decreased activity tolerance. PLAN: Continue with globa strengthening and gait and transfer training for improved mobility and activity tolerance. TREATMENT CODE/TIME: 17 minutes; [id number] (10:07)
--- NOTE | 2021-10-04 17:04 | CMPROGNOTE_ITS ---
- If Service Date Differs Date of service: 10/04/21 Time of Service: 17:04 Care Management Progress Note S/O: Bill remains inpatient, CM continues to follow. A: 66 year old male admitted to [facility] on 09/21/21 for Acute on Chronic diastolic CHF, SHERMAN on CKD P: Undetermined discharge plan, per MD Cummings, Jairon's is advocating for transfer. If returning home Jairon will follow up with his PCP and plan of care as prescribed including cardiology follow up. He will need [facility] RN/PT orders, if needed at time of discharge. He will transport via private vehicle with a friend or family.
--- NOTE | 2021-10-04 17:43 | W.PM.PROGNOT ---
Date of Service Date of service: 10/04/21 Time of Service: 17:43 Assessment and Plan Assessment and plan (1) Acute kidney injury superimposed on chronic kidney disease: Status: Acute Assessment and plan: SHERMAN on CKD in a diabetic patient with HTN and CHF. Cr today is 4.1, stable, but there is evidence of encephalopathy now. [place] [facility] [place] for initiation of dialysis. No beds available. Discussed case with Dr Dan, who agrees that the patient would ideally be at [facility], but since there are no beds available, to consider sending him to a different facility or calling [facility] back tomorrow. There is no emergent need for dialysis today, and the patient would like to wait for tomorrow before trying other hospitals. His strong preference is [facility]. Continue torsemide 100 mg PO daily + metolazone 20 mg daily. Continue monitoring I/O's and daily weights. The patient only tolerated 2hrs of CPAP last night. Will attempt transfer to [facility] again tomorrow. (2) Acute diastolic CHF (congestive heart failure): Status: Acute Assessment and plan: As above. Continue torsemide 100 mg daily and Zaroxolyn 20 mg daily. Continue diuresis, monitoring I/Os, Cr, Daily weights. (3) Bilateral pleural effusion: Status: Acute Assessment and plan: s/p B thoracenthesis on this admission (1550 mL on R, and 1450 mL out on left). Transudative effusion, however is on ceftriaxone as pleural effusion was obscuring an infiltrate. Fluid cx negative. Continue empiric ceftriaxone/doxycycline (day 3). (4) Afib: Assessment and plan: Remains in NSR. Not requiring rate controlling medications. Not on anticoagulation at this time. No longer on tele. (5) Type 2 diabetes mellitus: Status: Chronic Assessment and plan: A1c 6.0 - at goal. This is a true diagnosis of diabetes on insulin at home with evidence of diabetic nephropathy. Continue SSI. D/c jardiance given worsening kidney function. 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 No longer on tele. BP controlled. (7) Acute hyperkalemia: Status: Resolved Assessment and plan: s/p lokelma on this admission. K is 4.1 today. Continue low potassium diet. (8) Anemia: Status: Chronic Assessment and plan: Likely associated with CKD. S/p Venofer 300 mg x 3 doses. Monitor H/H. No active bleeding. (9) Constipation: Status: Acute Assessment and plan: Continue bowel regimen (10) DVT prophylaxis: Status: Acute Assessment and plan: heparin SC was held yesterday due to epistaxis yesterday. Would attempt to restart again tonight. (11) Discharge planning issues: Status: Acute Assessment and plan: Full code Continues to require hospitalization. Will reattempt transfer to [facility] again tomorrow. If no beds at [facility], will attempt [facility]. Will need follow up w/ cardiology on discharge as well. Subjective Subjective Interval history since last seen: Mr Choi continues to feel tired and weak. Today he thinks it's August initially, but then corrects himself and says that it is September. denies dizziness, chest pain, shortness of breath, nausea. Was put on oxygen this am for O2 sats in high 80s, per patient's - but O2 is now discontinued. Exam Narrative Exam Narrative: General: Very pleasant middle-aged male, sitting up in a chair, looks fatigued and weak, + asterexis, A&Ox3, but initially gets the year wrong. HEENT: EOMI, dry MM Cardiovascular: RRR, no m/r/g Lungs:Diminished breath sounds R base, improved aeration of L lung base. Gastrointestinal: soft, obese, nontender Genitourinary: has a bridges catheter Extremities: 2+ edema BLEs, unchanged from yesterday Objective Last Vital Signs Temp 36 C L 10/04/21 15:04 Pulse 56 L 10/04/21 15:04 Resp 20 10/04/21 15:04 BP 114/50 L 10/04/21 15:04 Pulse Ox 99 10/04/21 15:04 Laboratory Results - last 24 hr 10/01/21 10/01/21 10/01/21 17:37 17:37 17:37 WBC RBC Hgb Hct MCV MCH MCHC RDW Plt Count MPV Immature Gran % Neutrophils % Lymphocytes % Monocytes % Eosinophils % Basophils % Nucleated RBC % Absolute Neutrophils Absolute Lymphocytes Absolute Monocytes Absolute Eosinophils Absolute Basophils Sodium Potassium Chloride Carbon Dioxide Anion Gap BUN Creatinine Estimated GFR/1.73 m2 Glucose Calcium Magnesium Total Bilirubin Conjugated Bilirubin AST ALT Alkaline Phosphatase Total Protein Albumin Ur Random Creatinine U Random Total Protein U [place] Prot/Creat Ratio Fluid Type Peritoneal Peritoneal Peritoneal Fluid Total Protein Fluid Tot Bilirubin 0.2 Fluid LDH 126 Fluid Amylase 374 Ur Strep pneumoniae Ag 10/01/21 10/01/21 10/03/21 17:37 20:00 14:55 WBC RBC Hgb Hct MCV MCH MCHC RDW Plt Count MPV Immature Gran % Neutrophils % Lymphocytes % Monocytes % Eosinophils % Basophils % Nucleated RBC % Absolute Neutrophils Absolute Lymphocytes Absolute Monocytes Absolute Eosinophils Absolute Basophils Sodium Potassium Chloride Carbon Dioxide Anion Gap BUN Creatinine Estimated GFR/1.73 m2 Glucose Calcium Magnesium Total Bilirubin Conjugated Bilirubin AST ALT Alkaline Phosphatase Total Protein Albumin Ur Random Creatinine 26.89 U Random Total Protein 41.2 U [place] Prot/Creat Ratio 1.53 Fluid Type Peritoneal Fluid Total Protein 2.2 Fluid Tot Bilirubin Fluid LDH Fluid Amylase Ur Strep pneumoniae Ag Negative 10/04/21 10/04/21 10/04/21 06:45 06:45 06:45 WBC 6.46 RBC 2.88 L Hgb 8.2 L Hct 25.2 L MCV 87.5 MCH 28.5 MCHC 32.5 RDW 14.9 H Plt Count 128 L MPV 12.0 H Immature Gran % 0.6 Neutrophils % 85.7 Lymphocytes % 7.0 Monocytes % 5.9 Eosinophils % 0.8 Basophils % 0.0 Nucleated RBC % 1 Absolute Neutrophils 5.54 Absolute Lymphocytes 0.45 L Absolute Monocytes 0.38 Absolute Eosinophils 0.05 Absolute Basophils 0.00 Sodium 123 L* Potassium 4.2 Chloride 91 L Carbon Dioxide 25.4 Anion Gap 6.6 BUN 83 H* Creatinine 4.1 H* Estimated GFR/1.73 m2 14.72 Glucose 132 H Calcium 8.0 L Magnesium 2.9 H Total Bilirubin 0.3 Conjugated Bilirubin 0.1 AST 17 ALT 20 Alkaline Phosphatase 109 Total Protein 5.2 L Albumin 2.4 L Ur Random Creatinine U Random Total Protein U [place] Prot/Creat Ratio Fluid Type Fluid Total Protein Fluid Tot Bilirubin Fluid LDH Fluid Amylase Ur Strep pneumoniae Ag
[2021-10-04] MEDS: Heparin 5,000 UNITS/ML VIAL 5000 UNITS SC (18:18)
[2021-10-04] MEDS: Atorvastatin 20 MG TAB PO (20:47)
[2021-10-04] MEDS: cefTRIAXone 2 GM/50 ML BAG IVPB (20:47)
[2021-10-04] MEDS: Doxazosin 2 MG TAB 6 MG PO (20:48)
[2021-10-04] MEDS: Senna TAB 1 TAB PO (22:11)
[2021-10-05 03:09] VITALS: BP 148/69; PULSE 64; RESP 18; TEMP 36.2; O2SAT 96
[2021-10-05 06:16] LABS: Abs Immature Grans 0.07 10^3/uL (0.0-0.06); Absolute Basophil Count 0.01 10^3/uL (0.0-0.2); Absolute Eosinophil Count 0.06 10^3/uL (0.0-0.7); Absolute Monocyte Count 0.35 10^3/uL (0.1-0.8); Absolute Neutrophil Count 4.39 10^3/uL (1.2-6.7); Basophils % 0.2; Eosinophils % 1.1; HCT 24.1 % (40.0-50.0); Immature Grans % 1.3; Lymphocytes % 9.3; MCH 29.2 pg (27.0-33.0); MCHC 33.2 % (32.0-36.0); MPV 10.8 fL (8.0-11.0); Monocytes % 6.5; Neutrophils % 81.6; Nucleated RBC 1 %; Platelet Count 122 10^3/uL (130-400); RBC 2.74 10^6/uL (4.36-5.78); RDW 14.8 % (11.8-14.1); RDW-SD 47.5 fL; WBC 5.38 10^3/uL (4.4-10.8)
[2021-10-05 06:30] LABS: Anion Gap 5.8 mmol/L (3-11); CO2 26.2 mmol/L (21.0-32.0); Chloride 90 mmol/L (98-107); Estimated GFR 14.72 (mL/min/1.73m2); Glucose 136 mg/dL (74-106); Magnesium 2.8 mg/dL (1.8-2.4); Potassium 4.3 mmol/L (3.5-5.1)
[2021-10-05 06:59] LABS: BUN 86 mg/dL (7-18); CREATININE 4.1 mg/dL (0.70-1.30); Sodium 122 mmol/L (136-145)
[2021-10-05 07:48] VITALS: BP 131/61; PULSE 67; RESP 18; TEMP 36.5; O2SAT 97
[2021-10-05] MEDS: Polyethylene Glycol 3350 17 GM PACKET PO (08:02)
[2021-10-05] MEDS: metOLazone 2.5 MG TAB 20 MG PO (08:02)
[2021-10-05] MEDS: Allopurinol 100 MG TAB 50 MG PO (08:02)
[2021-10-05] MEDS: amLODIPine 5 MG TAB 10 MG PO (08:02)
[2021-10-05] MEDS: Tamsulosin 0.4 MG CAPCR PO (08:02)
[2021-10-05] MEDS: Docusate Sodium 100 MG CAP PO ×3 (08:03→20:45)
[2021-10-05] MEDS: Aspirin E.C. 81 MG TABEC PO (08:03)
[2021-10-05] MEDS: Torsemide 100 MG TAB PO (08:03)
[2021-10-05] MEDS: Insulin Aspart 300 UNITS/3 ML PEN SC ×3 (08:04→22:01)
[2021-10-05 08:06] VITALS: BP 141/63; PULSE 63; RESP 12; TEMP 36.3; O2SAT 97
[2021-10-05] MEDS: DOXYCYCLINE 100 MG in Normal Saline 100 ML IVPB ×2 (10:09→20:44)
[2021-10-05] MEDS: Normal Saline Flush 10 ML SYR IVP ×2 (10:09→19:40)
[2021-10-05 10:30] LABS: Kappa Free Light Chain 14.69 mg/dL (0.33-1.94); Lambda Free Light Chain 13.43 mg/dL (0.57-2.63)
[2021-10-05 10:50] LABS: ALT 7 U/L (7-55); AST, S 19 U/L (8 - 48); Alpha-2-Macroglobulin 180 mg/dL (100 - 280); Apoliprotein A1 59 mg/dL (>=120); Bilirubin, Total 0.2 mg/dL (<=1.2); Cholesterol, Total, S 70 mg/dL; FibroTest Interpretation no fibrosis; FibroTest Score 0.26; FibroTest Stage F0-F1; GGT 14 U/L (8 - 61); Glucose, Fasting, P 78 mg/dL (70 - 100); Haptoglobin 134 mg/dL (30 - 200); NashTest 2 Grade N0; SteatoTest 2 Score 0.17; Triglycerides, S 44 mg/dL
--- NOTE | 2021-10-05 13:31 | PT.INTREAT ---
Date of service: 10/05/21 Time of Service: 10:07 PT Notes Visit Reasons: Acute on Chronic Diastolic CHF, SHERMAN on CKD Inpatient Physical Therapy Treatment Note [facility] Date: 10/05/2021 PRECAUTIONS: Fall, Activity as tolerated SUBJECTIVE: Tra reports feeling tired today and states I did not sleep well last night. He is agreeable, although requires encouragement to participate in PT due to his extreme fatigue. OBJECTIVE: Patient refused afternoon PT session due to not feeling well and feeling very fatigued. PAIN: No c/o pain BED MOBILITY/TRANSFERS/GAIT: Refused THEREX: Patient was instructed in a LE and UE strengthening program, completed in both seated and long-sitting positions. He requires frequent rests between exercises due to fatigue and weakness. ASSESSMENT: Patient tolerated session with c/o increasing fatigue and SOB with activity, requiring frequent rests between exercises. He demonstrates significant deconditioning and increasing weakness. PLAN: Continue with global strengthening and gait and transfer training for improved mobility and activity tolerance. TREATMENT CODE/TIME: 14 minutes; [id number] (10:26)
[2021-10-05 14:03] LABS: Creatinine,Urine 41.28 mg/dL; Sodium, Urine 53 mmol/L
[2021-10-05 15:08] VITALS: BP 140/56; PULSE 63; RESP 20; TEMP 36.1; O2SAT 97
--- NOTE | 2021-10-05 15:44 | CMPROGNOTE_ITS ---
- If Service Date Differs Date of service: 10/05/21 Time of Service: 15:44 Care Management Progress Note S/O: Bill remains inpatient, per MD transfer, again, is being sought. CM continues to follow. A: 66 year old male admitted to [facility] on 09/21/21 for Acute on Chronic diastolic CHF, SHERMAN on CKD P: Undetermined discharge plan, per MD transfer is being sought. If returning home Jairon will follow up with his PCP and plan of care as prescribed including cardiology follow up. He will need [facility] RN/PT orders, if needed at time of discharge. He will transport via private vehicle with a friend or family.
--- NOTE | 2021-10-05 18:41 | W.PM.PROGNOT ---
Date of Service Date of service: 10/05/21 Time of Service: 12:00 Assessment and Plan Assessment and plan (1) Acute kidney injury superimposed on chronic kidney disease: Status: Acute Assessment and plan: SHERMAN on CKD in a diabetic patient with HTN and CHF. Cr remains 4.1, stable, but there is evidence of encephalopathy. Hyponatremia could be dilutional as well, and the patient's weight is going up. [facility] [place]. [facility] does accept the patient in transfer for evaluation for nephrology for possible hemodialysis. The patient is being transitioned to IV furosemide infusion since he is failing oral diuretics. Continue metolazone. Will add salt tabs. Checking fractional secretion of urea. Await transfer - per [facility] transfer center, will be happening tomorrow. Continue monitoring I/O's and daily weights. (2) Encephalopathy acute: Status: Acute Assessment and plan: Probably multifactorial, due to SHERMAN on CKD/uremia as well as hyponatremia. UA/Urine C&S were not c/w UTI on 10/01, but there was some staph lugdunensis bacteriuria, and we are exchanging a bridges catheter and repeating UA today. He is on ceftriaxone which should have covered this organism. Will try treating hyponatremia with salt tabs. Monitor mental status. (3) Hyponatremia: Status: Acute Assessment and plan: As above Try salt tabs as staying here tonight, though this hyponatremia is probably dilutional. Intensify diuresis. Continue to monitor sodiums. Possibly contributing to mental status changes - will monitor as well. (4) Acute diastolic CHF (congestive heart failure): Status: Acute Assessment and plan: As above. furosemide Infusion being re-initiated in addition. Continue metolazone 20 mg daily. Continue diuresis, monitoring I/Os, Cr, Daily weights. (5) Bilateral pleural effusion: Status: Acute Assessment and plan: s/p B thoracenthesis on this admission (1550 mL on R 09/30/21, and 1450 mL out on left on 09/29/21). Transudative effusion, however is on ceftriaxone as pleural effusion was obscuring an infiltrate. Fluid cx negative. Continue empiric ceftriaxone/doxycycline (day 4). (6) Afib: Assessment and plan: Remains in NSR. Not requiring rate controlling medications. Not on anticoagulation at this time. No longer on tele. (7) Type 2 diabetes mellitus: Status: Chronic Assessment and plan: A1c 6.0 - at goal. This is a true diagnosis of diabetes on insulin at home with evidence of diabetic nephropathy. Continue SSI. jardiance d/c'ed. Qualifiers: Diabetes mellitus intermediate insulin use: with long term care phlebotomist use Diabetes mellitus complication status: with kidney complications Diabetes mellitus complication detail: with chronic kidney disease Chronic kidney disease stage: stage 4 (severe) Qualified Code(s): E11.22 - Type 2 diabetes mellitus with diabetic chronic kidney disease; N18.4 - Chronic kidney disease, stage 4 (severe); Z79.4 - [facility] (current) use of insulin (8) Essential hypertension: Status: Acute Assessment and plan: Holding metoprolol as had evidence of bradycardia and significant pauses. No longer on tele. BP controlled. (9) Acute hyperkalemia: Status: Resolved Assessment and plan: s/p lokelma on this admission. K is 4.3 today. Continue low potassium diet. (10) Anemia: Status: Chronic Assessment and plan: Likely associated with CKD. S/p Venofer 300 mg x 3 doses. Monitor H/H. No active bleeding. (11) Constipation: Status: Acute Assessment and plan: Continue bowel regimen (12) DVT prophylaxis: Status: Acute Assessment and plan: SC heparin (13) Discharge planning issues: Status: Acute Assessment and plan: Full code Accepted in transfer by [facility] - Dr Eric. Bed expected tomorrow. Will need follow up w/ cardiology as outpatient. Subjective Subjective Interval history since last seen: Mr Choi continues to feel tired. He spent a lot of the day sleeping. He denies shotness of breath at rest, chest pain, nausea. He does feel a little dizzy. [facility] [place] to request transfer for higher level of care and possible initiation of hemodilaysis, but no beds were available again today. [facility] nephrology consultation was sought and the patient was felt appropriate for transfer there for further evaluation and treatment of his kidney failure, including possible dialysis. There is a concern that his hyponatremia might be contributing to his mental status, but there is a question of whether it is dilutional and a function of his fluid status. Exam Narrative Exam Narrative: General: Somnolent middle-aged male, asleep sitting up in a chair, looks worse, more fatigued and weak, + asterexis, A&Ox3, difficulty naming the date but does get it right again today; overall looks worse than yesterday HEENT: EOMI, dry MM Cardiovascular: RRR, no m/r/g Lungs:crackles at B bases Gastrointestinal: soft, obese, nontender Genitourinary: has a bridges catheter Extremities: 3+ edema BLEs, a little worse than yesterday Objective Last Vital Signs Temp 36.1 C L 10/05/21 15:08 Pulse 63 10/05/21 15:08 Resp 20 10/05/21 15:08 BP 140/56 L 10/05/21 15:08 Pulse Ox 97 10/05/21 15:08 Laboratory Results - last 24 hr 10/02/21 10/04/21 10/05/21 06:15 06:45 06:00 WBC RBC Hgb Hct MCV MCH MCHC RDW Plt Count MPV Immature Gran % Neutrophils % Lymphocytes % Monocytes % Eosinophils % Basophils % Nucleated RBC % Absolute Neutrophils Absolute Lymphocytes Absolute Monocytes Absolute Eosinophils Absolute Basophils Sodium 122 L* Potassium 4.3 Chloride 90 L Carbon Dioxide 26.2 Anion Gap 5.8 BUN 86 H* Creatinine 4.1 H* Estimated GFR/1.73 m2 14.72 Glucose 136 H ALVARADO Glucose 78 ALVAR[place]O Haptoglobin 134 Calcium 8.0 L Magnesium 2.8 H ALVARADO Total Bilirubin 0.2 ALVARADO GGT 14 [place]VAR[place]O AST 19 ALVARADO ALT 7 Liver Fib Fibro Score 0.26 Liver Fibrosis Interp no fibrosis ALVARADO Interpretation no ALVARADO ALVARADO Steatosis Interp no steatosis (<5%) ALVARADO BP Serial # [id number] ALVAR[place]O Comment See Comment Liver Fib Fibro Stage F0-F1 AL[place]O Steatosis Score 0.17 [place] Score 0.00 [place] Steatosis Grade S0 [place] Grade N0 ALVARADO [id number] 180 ALVARDAO Triglycerides 44 ALVARADO Cholesterol 70 ALVARADO Apolipoprotein A-1 59 L Ur Random Creatinine Ur Random Sodium Free [place] LC, Quant 14.69 H Free Lambda LC, Quant 13.43 H Free [place]/Lambda Ratio 1.09 10/05/21 10/05/21 06:00 13:40 WBC 5.38 RBC 2.74 L Hgb 8.0 L Hct 24.1 L MCV 88.0 MCH 29.2 MCHC 33.2 RDW 14.8 H Plt Count 122 L MPV 10.8 Immature Gran % 1.3 Neutrophils % 81.6 Lymphocytes % 9.3 Monocytes % 6.5 Eosinophils % 1.1 Basophils % 0.2 Nucleated RBC % 1 Absolute Neutrophils 4.39 Absolute Lymphocytes 0.50 L Absolute Monocytes 0.35 Absolute Eosinophils 0.06 Absolute Basophils 0.01 Sodium Potassium Chloride Carbon Dioxide Anion Gap BUN Creatinine Estimated GFR/1.73 m2 Glucose ALVARADO Glucose ALVARADO Haptoglobin Calcium Magnesium ALVARADO Total Bilirubin ALVARADO GGT ALVARADO AST ALVARADO ALT Liver Fib Fibro Score Liver Fibrosis Interp ALVARADO Interpretation ALVARADO Steatosis Interp ALVARADO BP Serial # ALVARADO Comment Liver Fib Fibro Stage ALVARADO Steatosis Score ALVARADO Score ALVARADO Steatosis Grade ALVARADO Grade ALVARADO [id number] ALVARADO Triglycerides ALVARADO Cholesterol ALVARADO Apolipoprotein A-1 Ur Random Creatinine 41.28 Ur Random Sodium 53 Free [place] LC, Quant Free Lambda LC, Quant Free [place]/Lambda Ratio
[2021-10-05] MEDS: Heparin 5,000 UNITS/ML VIAL 5000 UNITS SC (20:45)
[2021-10-05] MEDS: cefTRIAXone 2 GM/50 ML BAG IVPB (20:45)
[2021-10-05] MEDS: Senna TAB 1 TAB PO (20:45)
[2021-10-05] MEDS: Doxazosin 2 MG TAB 6 MG PO (20:45)
[2021-10-05] MEDS: Atorvastatin 20 MG TAB PO (21:13)
[2021-10-05] MEDS: Salt Supplement (BUFFERED) TAB 1 TAB PO (22:01)
[2021-10-05 22:12] LABS: Urea Nitrogen Random Urine 284 mg/dL (See Note)
[2021-10-05 23:10] VITALS: BP 139/61; PULSE 59; RESP 20; TEMP 36.5; O2SAT 98
[2021-10-06 01:48] LABS: Bilirubin Negative (Negative); Blood Large (Negative); Clarity Turbid (Clear); Glucose 100 mg/dL (Negative); Ketones Negative (Negative); Leukocyte Esterase Negative (Negative); Nitrite Negative (Negative); Urobilinogen 0.2 EU/dL (Up TO 0.2); pH 5.5 (5-8)
[2021-10-06 01:53] LABS: Epithelial Cells Rare HPF (Negative); RBC >50 HPF (0-2); WBC 0-2 HPF (0-5)
[2021-10-06 01:54] LABS: Bacteria Rare HPF (Negative); Crystals Moderate Amorphous HPF (Negative); Mucus Trace (Negative)
[2021-10-06 01:55] LABS: C & S Indicated? No
[2021-10-06 06:05] VITALS: BP 133/65; PULSE 65; RESP 14; TEMP 36.3; O2SAT 98
[2021-10-06 06:41] LABS: Abs Immature Grans 0.09 10^3/uL (0.0-0.06); Absolute Basophil Count 0.01 10^3/uL (0.0-0.2); Absolute Eosinophil Count 0.05 10^3/uL (0.0-0.7); Absolute Lymphocyte Count 0.51 10^3/uL (1.2-3.4); Absolute Neutrophil Count 4.03 10^3/uL (1.2-6.7); Basophils % 0.2; HGB 8.3 g/dL (13.5-17.5); Immature Grans % 1.8; Lymphocytes % 10.2; MCH 28.9 pg (27.0-33.0); MCHC 33.2 % (32.0-36.0); MCV 87.1 fL (80-95); MPV 12.5 fL (8.0-11.0); Neutrophils % 80.8; Nucleated RBC 1 %; Platelet Count 112 10^3/uL (130-400); RBC 2.87 10^6/uL (4.36-5.78); RDW 14.6 % (11.8-14.1); RDW-SD 46.6 fL; WBC 4.99 10^3/uL (4.4-10.8)
[2021-10-06 06:55] LABS: Anion Gap 7.4 mmol/L (3-11); CO2 24.6 mmol/L (21.0-32.0); Chloride 88 mmol/L (98-107); Estimated GFR 14.31 (mL/min/1.73m2); Glucose 164 mg/dL (74-106); Magnesium 2.7 mg/dL (1.8-2.4); Potassium 4.3 mmol/L (3.5-5.1)
[2021-10-06 07:00] LABS: BUN 88 mg/dL (7-18)
[2021-10-06 07:01] LABS: CREATININE 4.2 mg/dL (0.70-1.30)
[2021-10-06 07:02] LABS: Sodium 120 mmol/L (136-145)
[2021-10-06 07:57] VITALS: BP 126/60; PULSE 63; RESP 14; TEMP 36.6; O2SAT 97
[2021-10-06] MEDS: metOLazone 2.5 MG TAB 20 MG PO (08:57)
[2021-10-06] MEDS: Tamsulosin 0.4 MG CAPCR PO (08:57)
[2021-10-06] MEDS: Aspirin E.C. 81 MG TABEC PO (08:57)
[2021-10-06] MEDS: Polyethylene Glycol 3350 17 GM PACKET PO (08:57)
[2021-10-06] MEDS: Salt Supplement (BUFFERED) TAB 1 TAB PO (08:57)
[2021-10-06] MEDS: amLODIPine 5 MG TAB 10 MG PO (08:57)
[2021-10-06] MEDS: Docusate Sodium 100 MG CAP PO (08:58)
[2021-10-06] MEDS: Insulin Aspart 300 UNITS/3 ML PEN SC ×2 (08:58→11:47)
[2021-10-06] MEDS: DOXYCYCLINE 100 MG in Normal Saline 100 ML IVPB (10:27)
[2021-10-06 11:35] VITALS: BP 142/60; PULSE 85; RESP 19; TEMP 36.4; O2SAT 97
[2021-10-06] MEDS: Normal Saline Flush 10 ML SYR IVP (11:46)
[2021-10-06] MEDS: Pantoprazole 40 MG VIAL 80 MG IVP (11:47)
[2021-10-06] MEDS: Sucralfate 1 GM TAB PO (11:47)
[2021-10-06 12:12] LABS: HCT 23.9 % (40.0-50.0); HGB 8.1 g/dL (13.5-17.5)
--- NOTE | 2021-10-06 12:57 | PT.INTREAT ---
PT Notes Visit Reasons: Acute on Chronic Diastolic CHF, SHERMAN on CKD Inpatient Physical Therapy Treatment Note [facility] Date: 10/06/21 SUBJECTIVE: Pt agreeable to chair ex only this am. He feels he is too weak to go for a walk or even stand. OBJECTIVE: [] BED MOBILITY/TRANSFERS pt already seated in recliner. Refused to get into standing position today. THEREX: performed a global LE strengthening routine while seated in chair. See flowsheet for details. ASSESSMENT: tolerated session fairly well. SOB noted during ex. Pt indicated that he had enough due to fatigue. PLAN: will check in with him tomorrow am in hopes to progress to some standing ex and perhaps ambulation. TREATMENT CODE/TIME: 15 min [id number]
--- NOTE | 2021-10-06 13:15 | DI.RAD_ITS ---
Exam(s) XR PORTABLE CHEST AP POST LINE EXAM: XR PORTABLE CHEST AP POST LINE CLINICAL HISTORY: Confirm PICC placement TECHNIQUE: COMPARISON: CR,XR XR PORTABLE CHEST AP from 09/30/2021 CR XR PORTABLE CHEST AP POST LINE from 10/06/2021 FINDINGS: Portable AP chest at 1400 hours and portable AP chest at 1442 hours were obtained. Heart is enlarged , lungs poorly visualized due to poor inspiration but probable bilateral atelectasis and/or consolida tion. PICC line is visible on both images and unchanged in position between the 2 images, the tip of the PI CC line extends across the midline and may lie in right or left brachiocephalic vein. IMPRESSION: RADIATION DOSE DELIVERED: Total DLP
--- NOTE | 2021-10-06 14:15 | DSE_ITS ---
Date of service: 10/06/21 Time of Service: 14:16 DS: Diagnosis Discharge Diagnosis (1) Acute kidney injury superimposed on chronic kidney disease: Status: Acute (2) Encephalopathy acute: Status: Acute (3) Hyponatremia: Status: Acute (4) Acute diastolic CHF (congestive heart failure): Status: Acute (5) Bilateral pleural effusion: Status: Acute (6) Afib: (7) Type 2 diabetes mellitus: Status: Chronic (8) Essential hypertension: Status: Acute (9) Acute hyperkalemia: Status: Resolved (10) Anemia: Status: Chronic (11) Thrombocytopenia: Status: Chronic (12) Ascites: Status: Acute (13) Gastrointestinal hemorrhage with melena: Status: Acute (14) Hematuria: Status: Acute (15) Constipation: Status: Resolved (16) Obesity: Discharge Plan Disposition Patient Disposition: [facility] Condition: Serious Discharge Details Reason For Visit: Acute on Chronic Diastolic CHF, SHERMAN on CKD Admit Date/Time: 09/21/21 17:10 Admit Provider: Andie Veloz Attending Provider: Andie Veloz Primary Care Provider: Lizbet Mohan [place] [facility] Hospital Course: Mr Choi is a 66 year old male with PMHx of CKD IV with baseline Cr of about 2.5, as well as h/o IDDM2, HTN, episodes of hyperkalemia in the past, Afib not on anticoagulation, obesity with BMI of 38 kg/m2, who was admitted to [facility] hospitalist service on 09/21/21 with shortness of breath and evidence of acute fluid overload with bilateral pleural effusions and anasarca. Immediately prior to his hospitalization, the patient already had an echocardiogram and an MPI stress test as an outpatient. His echo on 09/18/21 showed LVEF of 50%, no significant valvular disease, and RVSP of 30 mmHg. Regional wall motion could not be assessed, but there was evidence of pleural effusion. His MPI stress test on 09/20/21 showed no myocardial ischemia. Inferior and posterior lateral roman appeared to have a mild fixed defect, LV was dilated, and EF was 45% by MPI. His workup in the ED revealed SHERMAN on CKD with Cr of 3.6 and a potassium of 6.0. He was initiated on furosemide 40 mg IV BID and lokelma and his outpatient losartan was held. He did respond to both therapies, and his Cr actually initially improved slightly. To achieve faster diuresis, he was switched to lasix infusion on 09/23/21. On 09/24/21, his Cr is down to 3.0, which is the lowest on this admission. On 09/25/21, while on lasix gtt at 10 mg/hr, the patient had not made urine in 5 hrs, so the lasix gtt was stopped, and he was switched to IV lasix bolus (40 mg) in addition to an albumin infusion, but this did not result in singificant improvement of output. At this point, he was switched to torsemide in combination with metolazone (torsemide 60 mg PO BID + metolazone 5 mg daily). His creatinine is starting to go back up to 3.1 and continues to increase for the remainder of his hospitalization. On 09/27/21, he was restarted on lasix drip at 20 mg/hr and received two doses (100 mL each) of hypertonic saline while increasing metolazone dose to 10 mg daily upon consultation with [facility] nephrology via phone. (His sodium is 130). He also received 2 more boluses of albumin. It was not felt that he met criteria for hemodialysis at that time. On 09/28/21, diuril 500 mg IV Q12H was added and two more boluses of albumin were given. On 09/29/21, R-sided thoracenthesis was pursued with 1500 cc of transudative fluid taken out. Lasix drip rate was increased to 25 mg/hr, while continuing both diuril and zaroxolyn with some improvement in his UOP. On 09/30/21, L-sided thoracenthesis was done with 1450 mL out, again transudative. Cultures on both pleural fluid samples were negative. Transfer to [facility] was attempted. Lasix infusion was increased to 35 mg/hr. On 10/01/21, the patient underwent an ultrasound guided paracenthesis as he also had ascites. 1800 cc of tea colored peritoneal fluid was removed. Fluid analysis of this fluid was interpreted as exhudative. Antibiotics (doxycycline, ceftriaxone) got started for a L-sided infiltrate seen after the thoracenthesis (he did not have a fever). There is no evidence of cirrhosis by ultrasound. His fibratest score is 0.25, not consistent with fibrosis. On 10/02/21, the patient was continued on lasix 30 mg/hr in addition to zaroxolyn 10 mg daily. On 10/03/21, he was switched to torsemide 100 mg daily while kept on zaroxolyn 10 mg daily. [facility] nephrology recommended increasing xaroxolyn to 20 mg daily and ca lling back if it was felt that these measure were ineffective in maintaining a stable weight x 48 hrs as the patient would need to be transferred on inpatient basis for a possible initiation of dialysis. On 10/04/21, The patient is noted to have difficulty with naming a date and to have asterexis. His UOP is adequate, but he is starting to gain weight on the oral therapy. The patient was refused in transfer to [facility] due to bed capacity. Recommendation was made to call back the following day to try again. The patient wanted to try [facility] the following day rather than go to [facility] as [facility] would be much more convenient. Sodium is 123. BUN is 83 and Cr is 4.1. On 10/05/21, the patient was noted to be more encephalopathic. His BUN is 86 and Cr is 4.1. Transfer to [facility] again declined for capacity. [facility] accepts the patient in transfer (Dr Eric is the accepting MD) after consultation with Dr Espinosa. UOP remained adequate, however, weight continues to rise. Sodium is down to 122. The patient is resumed on lasix drip and salt tablets are added. [facility] accepts the patient in transfer. On 10/06/21, the patient's sodium is 120. His BUN is 88 and Cr is 4.2. He still has asterexis, but is actually more alert. Nursing noted a black heme + bowel movement without abdominal pain or nausea. Hemoglobinc is stable at 8.3 this am and 8.1 on noon recheck. His platelet count is 112. He is made NPO and started on IV protonix and carafate. He is also noted to have hematuria post traumatic re-insertion of bridges catheter (had a contaminated urine sample on 10/01/21 which grew 10,000-50,000 Staph Lugdunensis). There is no evidence of UTI by repeat UA with a fresh catheter. Case again discussed with [facility] hospitalist medicine and nephrology. Initiation of hypertonic saline is recommended. PICC line placement is attempted but unsuccessful. The patient is initiated on hypertonic saline peripherally. The patient's status is upgraded to the ICU, but as verified with [facility], he still meets medical surgical floor level of care there. There is a concern about platelet dysfunction given SHERMAN on CKD. The patient is felt to require a tertiary level of care due to need of nephrology and possibility of initiation of dialysis, both of which are not available at [facility]. Additionally, on this admission, for his chronic anemia he received venofer. He was noted to be too bradycardic to tolerate his usual beta blockers with HR in the 40s and symptomatic pauses on tele up to 3 seconds with any attempts of beta blockade. The patient is hemodynamically stable and agreeable to transfer. We appreciate the assistance of the [facility] clinical team and wish the patient well. Total Critical Care Time 90 minutes. Please, look at MAR for list of inpatient medications. The list of medications below reflects outpatient prescriptions. Home Meds and New Rx's Prescriptions: No Action insulin lispro [Humalog KwikPen Insulin] 100 unit/mL insulin pen See Protocol unit SC TID 0RF Protocol: Insulin Infusion Condition: Hyperglycemia Protocol Text: a. Independent double checks of all calculations, solution preparations, and pump rates are required. b. Discontinue subcutaneous insulin and any oral anti-hyperglycemic agents while on insulin infusion. c. Use low sorbing tubing (Nitroglycerin tubing) and flush with 20ml insulin infusion solution. d. Inline filters should NOT be used. e. Change insulin infusion bag every 24 hours. losartan 50 mg tablet 50 mg PO HS 0RF cholecalciferol (vitamin D3) 1,250 mcg (50,000 unit) capsule 1,250 mcg PO QWEEK 0RF atorvastatin [Lipitor] 20 mg tablet 20 mg PO HS 0RF amlodipine [Norvasc] 5 mg tablet 10 mg PO DAILY 0RF metoprolol succinate 50 mg tablet extended release 24 hr 50 mg PO DAILY 0RF doxazosin 4 mg tablet 4 mg PO HS 0RF triamcinolone acetonide 0.1 % cream 1 applic topical BID 0RF doxazosin 2 mg tablet 2 mg PO HS 0RF allopurinol 100 MG tablet 2 tab PO DAILY 0RF aspirin 81 MG tablet,delayed release (DR/EC) 81 mg PO DAILY 0RF ergocalciferol (vitamin D2) 1,250 mcg (50,000 unit) capsule 1,250 mcg PO QWEEK 0RF Label Comments: TAKE ONE CAPSULE BY MOUTH ONCE A WEEK furosemide 20 mg tablet 40 mg PO BID 0RF Label Comments: TAKE 2 TABLETS BY MOUTH TWICE DAILY Discharge Instructions Instructions: Acute Kidney Injury (DC), Chronic Kidney Disease (DC) Referrals: NEPHROLOGY,[facility] [OTHER] - Lizbet Mohan [Primary Care Provider] - Marielos Rodriguez MD [ [facility] STAFF PHYSICIAN] - Activity:: Activity as Tolerated Equipment/Supplies:: No Equipment Needed Diet:: NPO Discharge Orders Discharge Orders: Discharge Order (Routine); Ordered 10/06/21 Ordered By: Andie Veloz Discharge Data Discharge Date/Time-TO BE ENTERED AT DEPARTURE: 10/06/21 15:19 DS: Summary Time Spent with Patient providing and/or coordinating discharge services: Greater than 30 minutes Status at Discharge Functional status at discharge: uses cane/walker Overall status at discharge: patient is not back to baseline Mental Status: other Speech and Movement: speech and movement normal Mood: other Affect: sad Exam Narrative Exam Narrative: General: Middle-aged male, sitting up in a chair, looks a little better, more interactive, + asterexis, A&Ox3, able to answer the date quickly HEENT: EOMI, dry MM Cardiovascular: RRR, no m/r/g Lungs:crackles at B bases Gastrointestinal: soft, obese, nontender Genitourinary: has a bridges catheter, hematuria Extremities: 3+ edema BLEs, unchanged from yesterday Psych Mental Status: other Speech and Movement: speech and movement normal Mood: other Affect: sad DS: Data Vitals/I&O Vitals and I&O: Vital Signs Temperature 36.6 C 10/06/21 07:57 Temperature Source Tympanic 10/06/21 07:57 Pulse 63 10/06/21 07:57 Pulse Rhythm Regular 10/06/21 08:00 Pulse 57 L 09/21/21 17:31 Respiratory Rate 14 10/06/21 07:57 Respiratory Effort Short of Breath 10/06/21 08:00 Respiratory Depth Normal 10/06/21 08:00 Respiratory Pattern Normal 10/06/21 08:00 Blood Pressure 126/60 10/06/21 07:57 Blood Pressure Mean 79 09/21/21 17:31 Blood Pressure Position Sitting 09/21/21 15:06 Pulse Oximetry 97 10/06/21 07:57 Oxygen Delivery Method Room Air 10/06/21 07:57 Oxygen Flow Rate 0 10/06/21 07:57 Fraction of Inspired Oxygen (FIO2) 21 10/06/21 08:57 Pain Level 0 10/06/21 07:57 Comment 09/23/21 20:43 Intake & Output 10/05/21 10/06/21 10/06/21 23:59 11:59 23:59 Intake Total 250 / 760 878 / 978 100 / 978 Output Total 430 / 780 1000 / 1000 Balance -180 / -20 -122 / -22 100 / -22 Weight 119.7 kg Intake: IV 250 / 510 398 / 498 100 / 498 Oral 480 / 480 Output: Urine 430 / 780 1000 / 1000 Other: Urine Color Brown Dark Red Bright Red Urine Appearance Sediment Hematuria Urine Odor None Stool Occult Blood Positive Stool Size Copious Stool Characteristics Formed Hard Brown Black Bloody Data Completed and Pending Completed studies during hospitalization [Text1]: CXR 09/21/21: There has been no change in appearance of the chest x-ray compared to the prior examination.? CXR 09/27/21: Mild interval increase in bilateral pleural effusions. CXR 09/29/21: Mild improvement.Still significant bilateral findings. CXR 09/30/21: Improvement on the left side but significant increase in infiltrate on the right side.? Close follow-up recommended US abdomen 10/02/21: 1. No hepatic mass.? Liver is mildly enlarged. 2. Small amount of perihepatic ascites.? Bilateral pleural effusions. 3. Contracted gallbladder.? Cholelithiasis.? No biliary ductal dilatation.? CXR 10/06/21: Portable AP chest at 1400 hours and portable AP chest at 1442 hours were obtained.? Heart is enlarged, lungs poorly visualized due to poor inspiration but probable bilateral atelectasis and/or consolidation. PICC line is visible on both images and unchanged in position between the 2 images, the tip of the PICC line extends across the midline and may lie in right or left brachiocephalic vein. Labs on day of discharge: Labs from last 24 hours 10/06/21 10/06/21 10/06/21 23:00 19:00 15:00 WBC RBC Hgb Hct MCV MCH MCHC RDW Plt Count MPV Immature Gran % Neutrophils % Lymphocytes % Monocytes % Eosinophils % Basophils % Nucleated RBC % Absolute Neutrophils Absolute Lymphocytes Absolute Monocytes Absolute Eosinophils Absolute Basophils Sodium Pending Pending Pending Potassium Chloride Carbon Dioxide Anion Gap BUN Creatinine Estimated GFR/1.73 m2 Glucose Calcium Magnesium Urine Color Urine Clarity Urine pH Ur Specific [place] Urine Protein Urine Ketones Urine Blood Urine Nitrite Urine Bilirubin Urine Urobilinogen Ur Leukocyte Esterase Urine RBC Urine WBC Ur Epithelial Cells Urine Crystals Urine Bacteria Urine Casts Urine Mucus Urine Other Ur Culture Indicated? Urine Urea Nitrogen Urine Glucose 10/06/21 10/06/21 10/06/21 12:00 06:10 06:10 WBC 4.99 RBC 2.87 L Hgb 8.1 L 8.3 L Hct 23.9 L 25.0 L MCV 87.1 MCH 28.9 MCHC 33.2 RDW 14.6 H Plt Count 112 L MPV 12.5 H Immature Gran % 1.8 Neutrophils % 80.8 Lymphocytes % 10.2 Monocytes % 6.0 Eosinophils % 1.0 Basophils % 0.2 Nucleated RBC % 1 Absolute Neutrophils 4.03 Absolute Lymphocytes 0.51 L Absolute Monocytes 0.30 Absolute Eosinophils 0.05 Absolute Basophils 0.01 Sodium 120 L* Potassium 4.3 Chloride 88 L Carbon Dioxide 24.6 Anion Gap 7.4 BUN 88 H* Creatinine 4.2 H* Estimated GFR/1.73 m2 14.31 Glucose 164 H Calcium 8.0 L Magnesium 2.7 H Urine Color Urine Clarity Urine pH Ur Specific [place] Urine Protein Urine Ketones Urine Blood Urine Nitrite Urine Bilirubin Urine Urobilinogen Ur Leukocyte Esterase Urine RBC Urine WBC Ur Epithelial Cells Urine Crystals Urine Bacteria Urine Casts Urine Mucus Urine Other Ur Culture Indicated? Urine Urea Nitrogen Urine Glucose 10/06/21 10/05/21 01:15 13:40 WBC RBC Hgb Hct MCV MCH MCHC RDW Plt Count MPV Immature Gran % Neutrophils % Lymphocytes % Monocytes % Eosinophils % Basophils % Nucleated RBC % Absolute Neutrophils Absolute Lymphocytes Absolute Monocytes Absolute Eosinophils Absolute Basophils Sodium Potassium Chloride Carbon Dioxide Anion Gap BUN Creatinine Estimated GFR/1.73 m2 Glucose Calcium Magnesium Urine Color Red Urine Clarity Turbid Urine pH 5.5 Ur Specific [place] 1.020 Urine Protein 100 H Urine Ketones Negative Urine Blood Large H Urine Nitrite Negative Urine Bilirubin Negative Urine Urobilinogen 0.2 Ur Leukocyte Esterase Negative Urine RBC >50 H Urine WBC 0-2 Ur Epithelial Cells Rare Urine Crystals Moderate Amorphous Urine Bacteria Rare Urine Casts Urine Mucus Trace Urine Other Rare [place] Ur Culture Indicated? No Urine Urea Nitrogen 284 Urine Glucose 100 PFSH All Active Problems (Updated 10/06/21 @ 14:18 by Andie Veloz MD) Hematuria (Acute) Gastrointestinal hemorrhage with melena (Acute) Ascites (Acute) Thrombocytopenia (Chronic) Hyponatremia (Acute) Encephalopathy acute (Acute) Palliative care patient (Acute) Bilateral pleural effusion (Acute) Anemia (Chronic) Discharge planning issues (Acute) DVT prophylaxis (Acute) Acute electrocardiogram changes (Acute) Acute kidney injury superimposed on chronic kidney disease (Acute) Acute diastolic CHF (congestive heart failure) (Acute) Volume overload (Acute) SHERMAN (acute kidney injury) (Acute) Shortness of breath (Acute) Lower extremity edema (Acute) Tinnitus (Acute) Abnormal auditory perception (Acute) Sensorineural hearing loss of both ears (Acute) Dizziness (Acute) Type 2 diabetes mellitus (Chronic) Kidney disease (Chronic) Dyspnea (Acute) Essential hypertension (Acute 02/12/18) Elevated serum creatinine (Acute 01/30/18) Medical History Acute kidney injury (nontraumatic) Afib F/U Cardiology Dr. Currie...per pt. was told this was related to his Lyme disease and the medication he was on was causing an episode of a-fib. Atrioventricular block Bilateral hearing loss Chronic renal disease Depression Diabetes mellitus Diverticulosis Diverticulosis Elevated LFTs First degree AV block Gout Gout, arthritis Hyperkalemia Hyperlipidemia Hypertension Lyme disease Myalgia Neck pain Obesity Pain in right hip Retinopathy SOB (shortness of breath) Tubulovillous adenoma of colon Vitamin D deficiency Surgical History History of surgical procedure on eye proper using laser pt. reports for retinopathy Hx of eye surgery R eye Hx of tonsillectomy Hx of umbilical hernia repair with mesh S/P colonoscopy Family History Paternal Grandfather Heart disease Hypertension Father Hypertension Diabetes Mother Cancer breast cancer Paternal Grandmother Cancer breast cancer Social History Smoking/Tobacco Use Status: Former Tobacco Use Quit Date: 06/30/89 Smoking risk assessment performed?: Yes Alcohol Intake: current Alcohol Intake frequency: holidays/special occasions only Alcohol type: beer Drug use: Never Substance use type: does not use Do you feel safe at home: Yes Do you feel safe in your relationship?: Yes
--- NOTE | 2021-10-06 14:52 | DI.VRAD_ITS ---
Addendum created by Alla Machado MD on 10/06/2021 2:52:48 PM EDT: THIS REPORT CONTAINS FINDINGS THAT MAY BE CRITICAL TO PATIENT CARE. The findings were verbally communicated via telephone conference at 2:52 PM EDT on 10/06/2021 with Andie Veloz. The findings were acknowledged and understood. Initial report created on 10/06/2021 2:52:18 PM EDT: PROCEDURE INFORMATION: Exam: XR Chest Exam date and time: 10/06/2021 1:29 PM Age: 66 years old Clinical indication: Device placement; Picc TECHNIQUE: Imaging protocol: XR of the chest. Views: 1 view. COMPARISON: XR PORTABLE CHEST AP 09/30/2021 7:17 PM FINDINGS: Tubes, catheters and devices: A PICC line catheter is present with the wire utilized for placement still within the catheter lumen. PICC line catheter tip is not in a correct location, potentially intra arterial placement. Lungs: There are hazy opacities in the right lower lung field. Pleural spaces: Small bilateral pleural effusions are present. Heart/Mediastinum: The cardiac silhouette is mostly obscured. Vasculature: Atherosclerotic calcifications are noted at the aortic arch. Bones/joints: Unremarkable. IMPRESSION: 1. Malposition of the PICC line which is potentially intra-arterially placed, with the placement wire still noted within the catheter lumen. 2. Small bilateral pleural effusions. 3. Hazy opacity at the right lung base, which may be due to atelectasis or infiltrate. Dictated and Authenticated by: Alla Machado MD. Ordering:MIRZA Chaves MD
--- NOTE | 2021-10-06 14:56 | DI.VRAD_ITS ---
PROCEDURE INFORMATION: Exam: XR Chest Exam date and time: 10/06/2021 1:41 PM Age: 66 years old Clinical indication: Device placement; Picc TECHNIQUE: Imaging protocol: XR of the chest. Views: 1 view. COMPARISON: CR XR PORTABLE CHEST AP 10/06/2021 1:29 PM FINDINGS: Tubes, catheters and devices: Persistent malposition of the PICC line which has more redundancy in the catheter on the current exam. Malposition is considered very likely. The wire utilized for placement is also still within the catheter lumen. Lungs: Pulmonary findings are unchanged with small bilateral pleural effusions and hazy opacity in the right lower lung field. Pleural spaces: See Lungs finding. Heart/Mediastinum: Unremarkable. No cardiomegaly. Bones/joints: Unremarkable. IMPRESSION: Persistent malposition of the catheter. Catheter removal is recommended. Dictated and Authenticated by: Alla Machado MD. Ordering:MIRZA Chaves MD
[2021-10-06] MEDS: SODIUM CHLORIDE 3% 500 ML 30 ML IV (15:19)
[2021-10-08 14:47] LABS: Albumin 54.1 % (55.8-66.1); Comment (See Note); Monoclonal Spike 1.9 % (None Seen); Total Protein 4.7 g/dL (6.3-8.2)
--- NOTE | 2021-10-08 17:30 | PT.INDS ---
Date of service: 10/08/21 PT Notes Visit Reasons: Acute on Chronic Diastolic CHF, SHERMAN on CKD Physical Therapy Inpatient Discharge Summary Date: 10/08/2021 Dates of service: 09/04/2021 through 10/05/2021 This is a clinical summary of care provided for the duration of dates listed above. No charge was made in the completion of this documentation. Referring Doctor: Eber Ferraro MD PT Orders: PT CONSULT: Eval/treat Precautions: Fall. Standard. Activity as tolerated. Patient Profile/Admitting Diagnosis: Tra is a 66-year-old male who presented to the ED on 09/21/2021 due to increasing shortness of shortness of breath and difficulty with breathing on exertion.? Patient is diagnosed with acute diastolic congestive heart, acute on acute kidney injury superimposed on chronic kidney disease, type 2 diabetes mellitus, acute ECG changes, and acute hyperkalemia. PMHX: All Active Problems? Discharge planning issues (Acute) DVT prophylaxis (Acute) Acute electrocardiogram changes (Acute) Acute kidney injury superimposed on chronic kidney disease (Acute) Acute diastolic CHF (congestive heart failure) (Acute) Volume overload (Acute) SHERMAN (acute kidney injury) (Acute) Acute hyperkalemia (Acute) Shortness of breath (Acute) Lower extremity edema (Acute) Tinnitus (Acute) Abnormal auditory perception (Acute) Sensorineural hearing loss of both ears (Acute) Dizziness (Acute) Type 2 diabetes mellitus (Chronic) Kidney disease (Chronic) Dyspnea (Acute) Essential hypertension (Acute 02/12/18) Elevated serum creatinine (Acute 01/30/18) Medical History? Acute kidney injury (nontraumatic) Afib F/U Cardiology Dr. Currie...per pt. was told this was related to his Lyme disease and the medication he was on was causing an episode of a-fib.Atrioventricular block Bilateral hearing loss Chronic renal disease Depression Diabetes mellitus Diverticulosis Diverticulosis Elevated LFTs First degree AV block Gout Gout, arthritis Hyperkalemia Hyperlipidemia Hypertension Lyme disease Myalgia Neck pain Obesity Pain in right hip Retinopathy SOB (shortness of breath) Tubulovillous adenoma of colon Vitamin D deficiency Surgical History? History of surgical procedure on eye proper using laser pt. reports for retinopathyHx of eye surgery R eyeHx of tonsillectomy Hx of umbilical hernia repair with meshS/P colonoscopy Social History/Home Situation: Lives with in a private home with 2 steps to enter.? Lives school assist.? 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 Independent with all aspects of ADLs prior to admission. Equipment Owned/DME:? FWW Subjective: NT. See most recent ONLINE MERCHANDISING COORDINATOR notes. Objective: General Observation: NT. See most recent ONLINE MERCHANDISING COORDINATOR notes. Mental Status: NT. See most recent ONLINE MERCHANDISING COORDINATOR notes. Pain: NT. See most recent ONLINE MERCHANDISING COORDINATOR notes. Vital Signs: NT. See most recent ONLINE MERCHANDISING COORDINATOR notes. ROM: Right Upper Extremity: ? Shoulder Flexion WFL. Shoulder abduction WFL. Elbow flexion WFL. Wrist flexion WFL. Functional opening and closing of hand WFL. Left Upper Extremity:? Shoulder Flexion WFL. Shoulder abduction WFL. Elbow flexion WFL. Wrist flexion WFL. Functional opening and closing of hand WFL. Right Lower Extremity: Hip flexion WFL. Hip abduction WFL. Knee flexion WFL. Ankle dorsiflexion WFL. Ankle plantarflexion WFL. Left Lower Extremity: Hip flexion WFL. Hip abduction WFL. Knee flexion WFL. Ankle dorsiflexion WFL. Ankle plantarflexion WFL. Strength: Right Upper Extremity: Shoulder flexors 4/5. Shoulder abductors 4/5. Elbow flexors 4/5. Elbow extensors 4/5. Cleaning Specialist strong. Left Upper Extremity: Shoulder flexors 4/5. Shoulder abductors 4/5. Elbow flexors 4/5. Elbow extensors 4/5. Cleaning Specialist strong. Right Lower Extremity: Hip flexors 4/5. Hip abductors 4/5. Knee flexors 4/5. Knee extensors 4/5. Ankle dorsiflexors 4/5. Ankle plantarflexors 4/5. Left Lower Extremity: Hip flexors 4/5. Hip abductors 4/5. Knee flexors 4/5. Knee extensors 4/5. Ankle dorsiflexors 4/5. Ankle plantarflexors 4/5. Bed Mobility/Transfers: Sit to stand with CGA Stand to sit with CGA Bed to toilet with CGA Bed to reclining chair with CGA Gait: Instructed patient with level surface ambulation of 15 feet + 40 feet + 60 feet with FWW with CGA and wheelchair follow with LOB x 3 requiring ,minimal assit for recovery.? Patient agreed to using front wheeled walker and was able to cover 30 feet +40 feet with 1 seated rest due to fatigue and increasing shortness of breath.? [place] decreased.? Wheelchair follow needed.? Oxygen saturation 87% to 90% on RA with quick recovery of less than 1 minute. Balance: Static Sitting: Normal Dynamic Sitting: Normal Static Standing: Good Dynamic Standing: Fair Assessment: Jairon demonstrates decreased activity tolerance and functional mobility decline requiring the use of front wheeled walker for all mobility ADL performance.? Activity tolerance secondary limited due to admitting diagnoses.? Patient presents with clinical signs and symptoms consistent with current/admitting diagnoses that have resulted to mobility limitations, gait instability, generalized weakness, and overall ADL decline as demonstrated by the following impairment level findings: 1.? Decreased strength to BUE/LE major muscle groups 2.? Impaired sitting/standing balance 3.? Impaired activity tolerance 4.? Dyspnea on exertion 5.? Fatigue 6. B UE/LE swelling Impairments are contributing to the following functional limitations: 1.? Decline in bed mobility skills 2.? Decline in transfer skills 3.? Difficulty with ambulation without assistive device and physical assistance 4.? Increased completion time for mobility ADL performance 5.? Increased risk for falls 6.? Difficulty with managing steps alone safely Goals: Goals X1 week 1. Supine-Sit independent NOT MET 2. Sit-Supine independent NOT MET 3. Sit-Stand independent NOT MET 4. Stand-Sit independent with FWW NOT MET 5. Bed-Chair independent with FWW NOT MET 6. Chair-Bed independent with FWW NOT MET 7. Independent gait on level surface with use of FWW for at least 300 feet without report of pain nor dyspnea NOT MET 8. Independent stair negotiation while holding onto B rails for at least 3 steps without report of pain nor dyspnea NOT MET 9. Independent with home exercise program NOT MET 10. Good static and dynamic standing balance/tolerance NOT MET DISCHARGE RECOMMENDATIONS: D/C to tertiary [facility] for immediate medical intervention TREATMENT CODE/TIME: RI Thank you for the opportunity to participate in the care of this patient. Theresa Bishop PT, DPT, CLT [facility] [place], [place]
[2021-10-10 14:49] LABS: Immunotyping, Serum (See Note)
[2021-10-10 17:01] LABS: Albumin, Urine % 61.3 %; Globulins, Urine % 38.7 %; Immunotyping, Urine (See Note); Total Protein Urine 41 mg/dL (See Note)
== END 2021-10-06 15:19 | DRG 291 ==
LOC: ER 17:49 → MS 09-22 15:57
PROVIDERS: Family Medicine; Internal Medicine; Admitting Provider Internal Medicine; Emergency Provider Student in an Organized Health Care Education/Training Program; PCP Family Medicine; Visit Provider Internal Medicine
DX: I13.0 Hypertensive heart and chronic kidney disease with heart failure and stage 1 through stage 4 chronic kidney disease, or unspecified chronic kidney disease (principal); I50.31 Acute diastolic (congestive) heart failure; N17.9 Acute kidney failure, unspecified; N18.4 Chronic kidney disease, stage 4 (severe); J91.8 Pleural effusion in other conditions classified elsewhere; G93.40 Encephalopathy, unspecified; E87.1 Hypo-osmolality and hyponatremia; K92.1 Melena; E11.22 Type 2 diabetes mellitus with diabetic chronic kidney disease; H90.3 Sensorineural hearing loss, bilateral; E87.5 Hyperkalemia; F32.A Depression, unspecified; I44.0 Atrioventricular block, first degree; E55.9 Vitamin D deficiency, unspecified; M10.9 Gout, unspecified; E78.5 Hyperlipidemia, unspecified; E66.9 Obesity, unspecified; Z68.37 Body mass index [BMI] 37.0-37.9, adult; Z79.4 Long term (current) use of insulin; R94.31 Abnormal electrocardiogram [ECG] [EKG]; I48.91 Unspecified atrial fibrillation; D63.1 Anemia in chronic kidney disease; I49.5 Sick sinus syndrome; K59.00 Constipation, unspecified; R27.8 Other lack of coordination
CPT/HCPCS: 49082; 32554; 36415; 36569; 71045; 80048; 80053; 80076; 82172; 82247; 82465; 82668; 82947; 82977; 83010; 83883; 84145; 84156; 84166; 84450; 84460; 84478; 85027; 86335; 87077; 87081; 87449; 87635; 93005; 96374; 96376; 97110; 97162; 97530; 99285; J3490; 71046; 76700; 81003; 81015; 81373; 82150; 82565; 83036; 83540; 83550; 83615; 83735; 83880; 84100; 84155; 84157; 84165; 84295; 84300; 84443; 84484; 84540; 84550; 85014; 85018; 85025; 85045; 86140; 86320; 87070; 87075; 87086; 87186; 87205; 87899; 88104; 88305; 89051; 93010; 94660; 99223; 99232; 99233; 99291; J0696; J1644; J1756; J1940; J1941

== ENCOUNTER → 2022-01-25 10:38 | Outpatient (BNVA) | payer MEDICARE, SELFPAY | PROVIDERS: PCP Family Medicine; Referring Provider Family Medicine; Visit Provider Internal Medicine Cardiovascular Disease | DX: I48.0 Paroxysmal atrial fibrillation (principal); N18.4 Chronic kidney disease, stage 4 (severe); E11.22 Type 2 diabetes mellitus with diabetic chronic kidney disease; Z79.4 Long term (current) use of insulin | CPT/HCPCS: 99214; 99213 ==

== ENCOUNTER 2022-02-27 08:13 | Outpatient (REF) | payer MEDICARE, OTHER, SELFPAY ==
[2022-02-27 18:05] LABS: ALT 23 U/L (16-63); AST 23 U/L (15-37); Albumin 2.9 g/dL (3.4-5.0); Alkaline Phosphatase 112 U/L (46-116); BUN 36 mg/dL (7-18); Bilirubin, Total 0.4 mg/dL (0.2-1.0); CREATININE 2.9 mg/dL (0.70-1.30); Calcium 8.7 mg/dL (8.5-10.1); Chloride 101 mmol/L (98-107); Estimated GFR 23.28 (mL/min/1.73m2); Glucose 135 mg/dL (74-106); Potassium 3.9 mmol/L (3.5-5.1); Sodium 139 mmol/L (136-145); Total Protein 6.3 g/dL (6.4-8.2)
[2022-03-01 15:02] LABS: PSA, Screening 2.4 ng/mL (<=4.5)
== END 2022-02-27 08:14 | disposition home or self-care (01) ==
LOC: NCHCN 08:13
PROVIDERS: PCP Family Medicine; Visit Provider Family Medicine
DX: E78.5 Hyperlipidemia, unspecified (principal); E11.9 Type 2 diabetes mellitus without complications; I10 Essential (primary) hypertension; Z12.5 Encounter for screening for malignant neoplasm of prostate
CPT/HCPCS: 80053; 84153

== ENCOUNTER → 2022-08-09 12:54 | Outpatient (BNVA) | payer MEDICARE, SELFPAY | PROVIDERS: PCP Family Medicine; Referring Provider Family Medicine; Visit Provider Internal Medicine Cardiovascular Disease | DX: I48.0 Paroxysmal atrial fibrillation (principal); E11.22 Type 2 diabetes mellitus with diabetic chronic kidney disease; N18.6 End stage renal disease; Z99.2 Dependence on renal dialysis; Z79.4 Long term (current) use of insulin | CPT/HCPCS: 99213 ==

== ENCOUNTER 2022-08-12 15:34 | Outpatient (REF) | payer MEDICARE, SELFPAY ==
[2022-08-14 12:25] LABS: COVID-19 RT-PCR UVMMC Result Negative (Negative)
== END 2022-08-12 15:35 | disposition home or self-care (01) ==
LOC: NCHCN 15:34
PROVIDERS: PCP Family Medicine; Visit Provider Family Medicine
DX: Z20.822 Contact with and (suspected) exposure to COVID-19 (principal)
CPT/HCPCS: U0003

== ENCOUNTER 2023-04-14 20:29 | Emergency (ER) | payer MEDICARE, SELFPAY ==
[2023-04-14] VITALS (7 sets, daily range): BP systolic 165–175; BP diastolic 58–75; PULSE 75–80; RESP 15–18; TEMP 36.9; O2SAT 94–98
--- NOTE | 2023-04-14 20:00 | RT.EKG_ITS ---
APPROVED REPORT Exam: Resting ECG Reason for Exam: chest pain Patient Location: E HR:87 bpm ECG Measurements Heart Rate 87 AXIS NE [id number] P [id number] QRSd 99 QRS -6 QT 360 T 57 QTc 433 Conclusion Atrial fibrillation...? atrial activity Multiple ventricular premature complexes.. No ST segment or T wave abnormalities to suggest occlusive DC
--- NOTE | 2023-04-14 20:30 | DI.RAD_ITS ---
Exam(s) XR CHEST 2V PA LATERAL EXAM: XR CHEST 2V PA LATERAL CLINICAL HISTORY: shortness of breath. TECHNIQUE: 2D digital imaging was performed. COMPARISON: CR,XR XR PORTABLE CHEST AP POST LINE from 10/06/2021 FINDINGS: 2 views: Distal tip of the central line is at the junction of the SVC and right atrium. Heart size is normal. The mediastinum is not widened. Lungs are clear. No infiltrates nor pleural effusions. No evidence of pulmonary edema. No pneumoth orax. Tenting of both hemidiaphragms again noted. IMPRESSION: No acute pulmonary findings. DATA REPOSITORY: RADIATION DOSE DELIVERED:
[2023-04-14 20:45] LABS: Abs Immature Grans 0.13 10^3/uL (0.0-0.06); Absolute Basophil Count 0.03 10^3/uL (0.0-0.2); Absolute Lymphocyte Count 2.11 10^3/uL (1.2-3.4); Absolute Monocyte Count 0.65 10^3/uL (0.1-0.8); Absolute Neutrophil Count 4.94 10^3/uL (1.2-6.7); Basophils % 0.4; Eosinophils % 1.3; HCT 36.7 % (40.0-50.0); HGB 12.2 g/dL (13.5-17.5); Immature Grans % 1.6; Lymphocytes % 26.5; MCH 30.8 pg (27.0-33.0); MCHC 33.2 % (32.0-36.0); MCV 93 fL (80-95); MPV 12.3 fL (8.0-11.0); Monocytes % 8.2; Platelet Count 108 10^3/uL (130-400); RBC 3.96 10^6/uL (4.36-5.78); RDW 14.6 % (11.8-14.1); RDW-SD 49.9 fL; WBC 7.96 10^3/uL (4.4-10.8)
--- NOTE | 2023-04-14 21:14 | DI.VRAD_ITS ---
PROCEDURE INFORMATION: Exam: XR Chest Exam date and time: 04/14/2023 8:57 PM Age: 67 years old Clinical indication: Shortness of breath TECHNIQUE: Imaging protocol: Radiologic exam of the chest. Views: 2 views. COMPARISON: CR XR PORTABLE CHEST AP POST LINE 10/06/2021 1:41 PM FINDINGS: Left IJ central venous catheter at the cavoatrial junction Lungs: Unremarkable. No consolidation. Pleural spaces: Unremarkable. No pleural effusion. No pneumothorax. Heart/Mediastinum: Grossly stable. Bones/joints: Unremarkable. IMPRESSION: No acute findings. Dictated and Authenticated by: Azael Domingo MD. Ordering:CHELI Ray MD
--- NOTE | 2023-04-14 21:24 | ED.GENADUL_ITS ---
Discharge Plan Disposition Patient Disposition: Home Condition: Good Discharge Details Clinical Impression: Chest pain Primary Care Provider: Lizbet Mohan ED Provider: Fritz Whatley Home Meds and New Rx's Prescriptions: No Action levetiracetam 250 mg tablet 250 mg PO BID diltiazem HCl 30 mg tablet 30 mg PO DAILY allopurinol 100 mg tablet 50 mg PO DAILY Tradjenta 5 mg tablet 5 mg PO DAILY warfarin 4 mg tablet 4 mg PO DAILY insulin aspart U-100 100 unit/mL (3 mL) insulin pen 5 unit subcut TID iron fum-vit C-B complex-FA 100-1 mg tablet 1 tab PO DAILY calcium carbonate-vitamin D3 500 mg-3.125 mcg (125 unit) tablet 1 tab PO DAILY insulin lispro [Humalog KwikPen Insulin] 100 unit/mL insulin pen See Protocol SC TID Protocol: Custom Insulin Infusion Condition: Hyperglycemia Protocol Text: a. Independent double checks of all calculations, solution preparations, and pump rates are required. b. Discontinue subcutaneous insulin and any oral anti-hyperglycemic agents while on insulin infusion. c. Use low sorbing tubing (Nitroglycerin tubing) and flush with 20ml insulin infusion solution. d. Inline filters should NOT be used. e. Change insulin infusion bag every 24 hours. triamcinolone acetonide 0.1 % cream 1 applic topical BID atorvastatin 80 mg tablet 80 mg PO DAILY Discharge Instructions Instructions: Chest Pain (ED) Additional Instructions: At this time thankfully your work-up shows no evidence of significant abnormality suggesting blood clots, heart attack, or other notably concerning etiology. If you notice any worsening of your symptoms, or any new symptoms such as vomiting, diarrhea, fever, chills, shortness of breath, chest pain, numbness, weakness, or fainting , please return immediately to the emergency department for reevaluation. Please follow up with your primary care provider as soon as possible for reassessment and reevaluation. As always, it was a pleasure participating in your medical care today. Referrals: Lizbet Mohan [Primary Care Provider] - Discharge Data Discharge Date/Time-TO BE ENTERED AT DEPARTURE: 04/15/23 01:18 Medical Decision Making <Flor Bearden MD - Last Filed: 04/16/23 14:26> 67yo M with ESRD on home dialysis, afib, HTN, T2DM, CHF, prior CVA, seizure, presenting for chest pain/pressure, symptoms started just after he completed home dialysis. Associated shortness of breath and head/neck heaviness as well. Still present but improving. Hypertensive on arrival, vital signs and physical exam otherwise reassuring. History not particularly suggestive of acute coronary syndrome however given risk factors will workup. EKG afib with rate in 80's, no sequela of occlusive SC. CXR independently reviewed, no focal pneumonia or pneumothorax on my view, agree with radiology read below. Labs reviewed as below, CBC with mild anemia (Hg 12.2, improved from priors last year with baseline at that time around 8), mild thrombocytopenia with platelets of 108. CMP with Cr of 3.9 (at baseline on [facility] record review) and mild hyponatremia to 131. Initial troponin negative. BNP elevated at 1846 (most recent prior 10/02/21 of 72974), not overtly volume overloaded on exam. Dimer elevated. CT for PE independently reviewed, no large saddle embolus on my view; agree with radiology read below. On reassessment reports symptoms have resolved, feels well. Signed out to overnight physician with repeat troponin pending; if negative would discharge home to outpatient followup with PCP. Imaging Data Radiologic Study: Imaging: X-Ray Radiologist's impression: IMPRESSION: No acute findings. Radiologic Study #2: Imaging: CT Scan Radiologist's impression: IMPRESSION: No pulmonary emboli observed Lab Data Lab results reviewed: Yes I reviewed the patient's lab results. Labs: Laboratory Tests Range/Units 04/14/23 04/14/23 20:30 20:55 WBC (4.4-10.8) 10^3/uL 7.96 RBC (4.36-5.78) 10^6/uL 3.96 L Hgb (13.5-17.5) g/dL 12.2 L Hct (40.0-50.0) % 36.7 L MCV (80-95) fL 93 MCH (27.0-33.0) pg 30.8 MCHC (32.0-36.0) % 33.2 RDW (11.8-14.1) % 14.6 H Plt Count (130-400) 10^3/uL 108 L MPV (8.0-11.0) fL 12.3 H Immature Gran % 1.6 Neutrophils % 62.0 Lymphocytes % 26.5 Monocytes % 8.2 Eosinophils % 1.3 Basophils % 0.4 Nucleated RBC % (0.0-0.3) % 0.0 Absolute Neutrophils (1.2-6.7) 10^3/uL 4.94 Absolute Lymphocytes (1.2-3.4) 10^3/uL 2.11 Absolute Monocytes (0.1-0.8) 10^3/uL 0.65 Absolute Eosinophils (0.0-0.7) 10^3/uL 0.10 Absolute Basophils (0.0-0.2) 10^3/uL 0.03 D-Dimer Cancelled 1651 H Sodium Cancelled 131 L Potassium Cancelled 3.7 Chloride Cancelled 95 L Carbon Dioxide Cancelled 29.5 Anion Gap Cancelled 6.5 BUN Cancelled 30 H Creatinine Cancelled 3.9 H* Est GFR (CKD-EPI 2020) Cancelled 16.21 Glucose Cancelled 123 H Calcium Cancelled 9.2 Magnesium Cancelled 1.8 Total Bilirubin Cancelled 0.4 AST Cancelled 28 ALT Cancelled 21 Alkaline Phosphatase Cancelled 92 Troponin I Cancelled < 50 NT-Pro-B Natriuret Pep Cancelled 1846 H Total Protein Cancelled 7.3 Albumin Cancelled 3.3 L Lipase Cancelled 46 <Fritz Whatley, DO - Last Filed: 04/15/23 00:25> 67yo M with ESRD on home dialysis, afib, HTN, T2DM, CHF, prior CVA, seizure, presenting for chest pain/pressure, symptoms started just after he completed home dialysis. Associated shortness of breath and head/neck heaviness as well. Still present but improving. Hypertensive on arrival, vital signs and physical exam otherwise reassuring. History not particularly suggestive of acute coronary syndrome however given risk factors will workup. EKG afib with rate in 80's, no sequela of occlusive SC. CXR independently reviewed, no focal pneumonia or pneumothorax on my view, agree with radiology read below. Labs reviewed as below, CBC with mild anemia (Hg 12.2, improved from priors last year with baseline at that time around 8), mild thrombocytopenia with platelets of 108. CMP with Cr of 3.9 (at baseline on [facility] record review) and mild hypo natremia to 131. Initial troponin negative. BNP elevated at 1846 (most recent prior 10/02/21 of 7[address]52), not overtly volume overloaded on exam. Dimer elevated. CT for PE independently reviewed, no large saddle embolus on my view; agree with radiology read below. On reassessment reports symptoms have resolved, feels well. Signed out to overnight physician with repeat troponin pending; if negative would discharge home to outpatient followup with PCP. Dr. Whatley's documentation Patient was signed out to me by my colleague Briana Amado. Please refer to her HPI, physical exam, assessment and plan. Work-up had returned notably unremarkable up until this point. We were pending repeat troponin. CTA negative for acute process, initial troponin normal. EKG benign per previous read. Laboratory work-up stable. Repeat troponin has returned normal. Patient continues to feel well and is requesting discharge. Symptoms at this time appear clinically inconsistent with ACS, PE, or dissection. Patient stable for discharge. Discussed case with patient and family at bedside. They agree with plan. I have extensively reviewed the treatment plan and discharge instructions with the patient and their family. I have addressed all patient concerns at this time. The patient and family was made aware of what symptoms to monitor for that would warrant a return to the emergency department. Discussed the plan with the patient and family, they demonstrate verbal understanding and agreement with our assessment and plan at this time. The documentation in this chart was dictated using [employer] dictation software. Please excuse any dictation errors. HPI <Flor Bearden MD - Last Filed: 04/16/23 14:26> General Mode of arrival: EMS . Date/Time Provider Initiated Documentation: 04/14/23 20:35 . Limitations to Documentation: no limitations . Information obtained by: patient, family and EMS . HPI Narrative: 67yo M with ESRD on home dialysis, afib, HTN, T2DM, CHF, prior CVA, seizure, presenting for chest pain/pressure. Symptoms started just after he completed home dialysis. After heparin flush, he felt a sensation of head, neck, and c hest heaviness with associated shortness of breath. No presyncope. Never experienced anything similar before. Initially symptoms were moderate to severe, for about 30 minutes, since then have eased and are still present but currently mild. He is otherwise in his usual state of health with no fevers, chills, nausea, vomiting, abdominal pain, numbness, weakness, LE edema or other concerns. Related Data Home Medications Medication Instructions Recorded Confirmed insulin lispro 100 unit/mL See Protocol subcut TID 12/08/19 04/14/23 subcutaneous pen (Humalog KwikPen (U-100) Insulin) triamcinolone acetonide 0.1 % 1 applic topical BID 09/13/21 04/14/23 topical cream atorvastatin 80 mg tablet 80 mg PO DAILY 12/14/21 04/14/23 allopurinol 100 mg tablet 50 mg PO DAILY 01/25/22 04/14/23 diltiazem HCl 30 mg tablet 30 mg PO DAILY 01/25/22 04/14/23 levetiracetam 250 mg tablet 250 mg PO BID 01/25/22 04/14/23 linagliptin 5 mg tablet (Tradjenta) 5 mg PO DAILY 01/25/22 04/14/23 calcium carbonate 500 mg-vitamin 1 tab PO DAILY 08/09/22 04/14/23 D3 3.125 mcg (125 unit) tablet insulin aspart U-100 100 unit/mL 5 unit subcut TID 08/09/22 04/14/23 (3 mL) subcutaneous pen iron fum-vit C-B complex-FA 100 1 tab PO DAILY 08/09/22 04/14/23 mg-1 mg tablet warfarin 4 mg tablet 4 mg PO DAILY 08/09/22 04/14/23 Allergies Allergy/AdvReac Type Severity Reaction Status Date / Time No Known Allergies Allergy Verified 08/09/22 12:59 General Stated Complaint: Chest Pain ALEJANDRO: 2 Review of Systems <Flor Bearden MD - Last Filed: 04/16/23 14:26> Narrative: see HPI PFSH <Flor Bearden MD - Last Filed: 04/16/23 14:26> All Active Problems (Updated 04/15/23 @ 00:24 by Fritz Whatley DO) Chest pain (Acute) End stage renal disease (Acute) Paroxysmal atrial fibrillation (Acute) Hematuria (Acute) Gastrointestinal hemorrhage with melena (Acute) Ascites (Acute) Thrombocytopenia (Chronic) Hyponatremia (Acute) Encephalopathy acute (Acute) Bilateral pleural effusion (Acute) Anemia (Chronic) Acute electrocardiogram changes (Acute) Acute kidney injury superimposed on chronic kidney disease (Acute) Acute diastolic CHF (congestive heart failure) (Acute) Volume overload (Acute) SHERMAN (acute kidney injury) (Acute) Shortness of breath (Acute) Lower extremity edema (Acute) Tinnitus (Acute) Abnormal auditory perception (Acute) Sensorineural hearing loss of both ears (Acute) Dizziness (Acute) Type 2 diabetes mellitus (Chronic) Kidney disease (Chronic) Dyspnea (Acute) Essential hypertension (Acute 02/12/18) Elevated serum creatinine (Acute 01/30/18) Medical History Acute ischemic stroke 11/24/21 [facility] Acute kidney injury (nontraumatic) Afib F/U Cardiology Dr. Currie...per pt. was told this was related to his Lyme disease and the medication he was on was causing an episode of a-fib. Atrioventricular block Bilateral hearing loss Chronic renal disease Depression Diabetes mellitus Diverticulosis Diverticulosis Elevated LFTs First degree AV block Gout Gout, arthritis Hyperkalemia Hyperlipidemia Hypertension Lyme disease Myalgia Neck pain Obesity Pain in right hip Palliative care patient Retinopathy SOB (shortness of breath) Tubulovillous adenoma of colon Vitamin D deficiency Surgical History History of surgical procedure on eye proper using laser pt. reports for retinopathy Hx of eye surgery R eye Hx of tonsillectomy Hx of umbilical hernia repair with mesh S/P colonoscopy Family History Paternal Grandfather Heart disease Hypertension Father Hypertension Diabetes Mother Cancer breast cancer Paternal Grandmother Cancer breast cancer Social History Smoking/Tobacco Use Status: Former Tobacco Use Quit Date: 06/30/89 Smoking risk assessment performed?: Yes Alcohol Intake: current Alcohol Intake frequency: holidays/special occasions only Alcohol type: beer Drug use: Never Substance use type: does not use Housing: house Do you feel safe at home: Yes Do you feel safe in your relationship?: Yes Exam <Flor Bearden MD - Last Filed: 04/16/23 14:26> Narrative Exam Narrative: General: Alert, well appearing, well nourished, in no acute distress. Head: Normocephalic, atraumatic Neck: Trachea midline, Neck supple. Midline cervical paraspinal muscle tenderness. Cardiac: RRR, no murmurs appreciated Resp: No respiratory distress. CTAB. Abd: Soft, non-distended, nontender : No suprapubic tenderness. No CVA tenderness. Extremities: No deformities. No peripheral edema. Neurologic: GCS 15. Moves all extremities freely against gravity Course <Flor Bearden MD - Last Filed: 04/16/23 14:26> Vital Signs Vital signs: Vital Signs Temperature 36.9 C 04/14/23 20:15 Pulse 80 04/14/23 20:15 Respiratory Rate 18 04/14/23 20:15 Blood Pressure 175/58 H 04/14/23 20:15 Pulse Oximetry 98 04/14/23 20:15 Temperature 36.9 C 04/14/23 20:15 Pulse 78 04/14/23 21:08 Pulse 79 04/14/23 20:50 Respiratory Rate 15 04/14/23 20:50 Respiratory Effort Normal, Non-Labored 04/14/23 20:21 Respiratory Depth Normal 04/14/23 20:21 Respiratory Pattern Normal 04/14/23 20:21 Blood Pressure 165/75 H 04/14/23 21:08 Blood Pressure Mean 105 04/14/23 21:08 Blood Pressure Position Sitting 04/14/23 20:15 Pulse Oximetry 97 04/14/23 21:10 Oxygen Delivery Method Room Air 04/14/23 20:15 Oxygen Flow Rate 0 04/14/23 20:15 Pain Level 5 04/14/23 20:15 Lab/Test Results Lab/Test Results: Laboratory Tests Range/Units 04/14/23 20:30 WBC (4.4-10.8) 10^3/uL 7.96 RBC (4.36-5.78) 10^6/uL 3.96 L Hgb (13.5-17.5) g/dL 12.2 L Hct (40.0-50.0) % 36.7 L MCV (80-95) fL 93 MCH (27.0-33.0) pg 30.8 MCHC (32.0-36.0) % 33.2 RDW (11.8-14.1) % 14.6 H Plt Count (130-400) 10^3/uL 108 L MPV (8.0-11.0) fL 12.3 H Immature Gran % 1.6 Neutrophils % 62.0 Lymphocytes % 26.5 Monocytes % 8.2 Eosinophils % 1.3 Basophils % 0.4 Nucleated RBC % (0.0-0.3) % 0.0 Absolute Neutrophils (1.2-6.7) 10^3/uL 4.94 Absolute Lymphocytes (1.2-3.4) 10^3/uL 2.11 Absolute Monocytes (0.1-0.8) 10^3/uL 0.65 Absolute Eosinophils (0.0-0.7) 10^3/uL 0.10 Absolute Basophils (0.0-0.2) 10^3/uL 0.03 D-Dimer Cancelled Sodium Cancelled Potassium Cancelled Chloride Cancelled Carbon Dioxide Cancelled Anion Gap Cancelled BUN Cancelled Creatinine Cancelled Est GFR (CKD-EPI 2020) Cancelled Glucose Cancelled Calcium Cancelled Magnesium Cancelled Total Bilirubin Cancelled AST Cancelled ALT Cancelled Alkaline Phosphatase Cancelled Troponin I Cancelled NT-Pro-B Natriuret Pep Cancelled Total Protein Cancelled Albumin Cancelled Lipase Cancelled Sign Out <Flor Bearden MD - Last Filed: 04/16/23 14:26> Sign Out Data: Sign Out Comment: Head/neck/chest pressure starting after completed home dialysis, since resolved. Pending repeat trop, if negative would discharge home. Last updated by Flor Bearden MD at 04/14/23 23:12
[2023-04-14 21:25] LABS: ALT 21 U/L (16-63); AST 28 U/L (15-37); Albumin 3.3 g/dL (3.4-5.0); Alkaline Phosphatase 92 U/L (46-116); Anion Gap 6.5 mmol/L (3-11); BUN 30 mg/dL (7-18); Bilirubin, Total 0.4 mg/dL (0.2-1.0); CO2 29.5 mmol/L (21.0-32.0); Calcium 9.2 mg/dL (8.5-10.1); Chloride 95 mmol/L (98-107); Estimated GFR 16.21 (mL/min/1.73m2); Glucose 123 mg/dL (74-106); Lipase 46 U/L (16-77); Magnesium 1.8 mg/dL (1.8-2.4); NT-proBNP 1846 pg/mL (<300); Potassium 3.7 mmol/L (3.5-5.1); Sodium 131 mmol/L (136-145); Total Protein 7.3 g/dL (6.4-8.2); Troponin I < 50 ng/L (<or=60)
[2023-04-14 21:26] LABS: CREATININE 3.9 mg/dL (0.70-1.30)
--- NOTE | 2023-04-14 21:30 | DI.CT_ITS ---
Exam(s) CT CHEST PE CTA EXAM: CT CHEST PE CTA CLINICAL HISTORY: chest pain, shortness of breath, dimer elevated. TECHNIQUE: Imaging Protocol: CT angiography of the chest was performed using pulmonary embolus eugenio col. Multi planar reconstructions were performed. CONTRAST MATERIAL: Intravenous: Omnipaque 350 Contrast volume: 75 cc COMPARISON: Chest x-ray 04/14/2023. FINDINGS: CHEST: PULMONARY ARTERIES: There are no obvious intraluminal filling defects to suggest acute pulmonary embo li. Other: Distal tip of central line is at the SVC-RA junction LUNGS: There are no infiltrates nor evidence of pulmonary infarction.. There are no pleural effusions . MEDIASTINUM: There is no hilar nor mediastinal adenopathy. Visualized thyroid unremarkable. CARDIAC: Heart size is upper normal. There is no pericardial effusion.Caliber of the thoracic aorta is within normal limits. No dissection. There is no significant shift of the interventricular septum . PARTIALLY VISUALIZED UPPERMOST ABDOMEN: Just of subtle gallstones. No evidence of acute cholecystiti s OSSEOUS: No significant osseous lesions.. IMPRESSION: 1. No evidence of acute pulmonary emboli. No evidence of pulmonary infarction. No infiltrates. No pleural effusions. 2. No intrathoracic adenopathy evident. RADIATION DOSE DELIVERED: Total DLP DATA REPOSITORY: All CT scans at this facility are submitted to the National Radiology Data Registry (NRDR) Dose Index Registry (DIR) with the [employer] (ACR). RADIATION OPTIMIZATION: All CT scans at this facility use at least one of these dose optimization te chniques: automated exposure control; mA and/or kV adjustment per patient size (includes targeted exa ms where dose is matched to clinical indication); or iterative reconstruction.
[2023-04-14 21:32] LABS: D-Dimer 1651 ng/mlFEU (<500)
[2023-04-14] MEDS: Omnipaque 350 MG/ML 100 ML BTL IJ (22:04)
[2023-04-14] MEDS: Normal Saline Flush 10 ML SYR IVP (22:07)
--- NOTE | 2023-04-14 23:04 | DI.VRAD_ITS ---
PROCEDURE INFORMATION: Exam: CTA Chest With Contrast Exam date and time: 04/14/2023 10:10 PM Age: 67 years old Clinical indication: Patient HX: Chest pain, shortness of breath, dimer elevated TECHNIQUE: Imaging protocol: Computed tomographic angiography of the chest with contrast. Exam focused on the arteries. 3D rendering (Not supervised by radiologist): MIP and/or 3D reconstructed images were created by the technologist. Radiation optimization: All CT scans at this facility use at least one of these dose optimization techniques: automated exposure control; mA and/or kV adjustment per patient size (includes targeted exams where dose is matched to clinical indication); or iterative reconstruction. Contrast material: OMNIPAQUE 350; Contrast volume: 75 ml; Contrast route: INTRAVENOUS (IV); COMPARISON: CR XR CHEST 2V PA LATERAL 04/14/2023 8:57 PM FINDINGS: Left IJ central venous catheter at the cavoatrial junction Mildly limited due to respiratory motion artifact Pulmonary arteries: No pulmonary emboli. Aorta: No aortic aneurysm. No aortic dissection. Lungs: Minimal subsegmental atelectasis versus scarring No consolidation. No masses. Pleural spaces: No pneumothorax. No pleural effusion. Heart: No cardiomegaly. Coronary stents/calcifications No pericardial effusion. Lymph nodes: Unremarkable. No enlarged lymph nodes. Bones/joints: Unremarkable. No acute fracture. Soft tissues: Unremarkable. Question faint gallstones versus artifact IMPRESSION: No pulmonary emboli observed Dictated and Authenticated by: Azael Domingo MD. Ordering:CHELI Ray MD
[2023-04-14] MEDS: Acetaminophen 500 MG TAB 1000 MG PO (23:05)
[2023-04-14] MEDS: levETIRAcetam 250 MG TAB PO (23:05)
[2023-04-14 23:58] LABS: Troponin I 52 ng/L (<or=60)
[2023-04-15 00:49] VITALS: BP 175/80; PULSE 68; RESP 18; TEMP 36.8; O2SAT 100
== END 2023-04-15 01:18 | disposition home or self-care (01) ==
PROVIDERS: Student in an Organized Health Care Education/Training Program; Emergency Provider Student in an Organized Health Care Education/Training Program; PCP Family Medicine
DX: R07.9 Chest pain, unspecified (principal); D64.9 Anemia, unspecified; D69.6 Thrombocytopenia, unspecified; E87.1 Hypo-osmolality and hyponatremia; I13.2 Hypertensive heart and chronic kidney disease with heart failure and with stage 5 chronic kidney disease, or end stage renal disease; E11.22 Type 2 diabetes mellitus with diabetic chronic kidney disease; N18.6 End stage renal disease; E11.319 Type 2 diabetes mellitus with unspecified diabetic retinopathy without macular edema; I48.0 Paroxysmal atrial fibrillation; Z79.4 Long term (current) use of insulin; Z99.2 Dependence on renal dialysis; Z86.73 Personal history of transient ischemic attack (TIA), and cerebral infarction without residual deficits; Z79.899 Other long term (current) drug therapy
CPT/HCPCS: 36415; 71275; 80053; 83690; 93005; 99285; 71046; 83735; 83880; 84484; 85025; 85379; 93010; 99284; J3490

== ENCOUNTER 2023-07-03 04:06 | Outpatient (CLI) | payer MEDICARE, SELFPAY ==
--- OUTSIDE RECORDS SUMMARY | 2023-07-03 04:08 | XMS_ITS ---
Author Name Nestor Nath Address [address] [place] [id number] Phone [phone] Organization [facility] e, NA DOCUMENT DISCLAIMER The information in the [facility] Dialysis Provider Note Document represents a providersdocumented clinical note containing certain health and medical information. It may not contain the complete medical history for the patient and should be independently verified. The represented time in the document is Eastern Time PROVIDER ROUNDING NOTE COMPREHENSIVE Patient:?Jairon?Jimbo,?1955,?67y,?M Dialysis?Location:?[facility] Attending?Cabin Service Agent:?Nestor?Pham Service?Date:?07/24/2022 Service?Provider:?Nestor?Pham,? I?met?face?to?face?with?the?patient?today. 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 Medications?and?labs?reviewed. DIALYSIS?PRESCRIPTION ??IHD?3x?Week?Start?date:?04/10/22 ??Dialyzer:?180NRe?Optiflux ??BFR:?450 ??DFR:?Manual?500 ??Potassium:?2.0 ??Sodium:?137 ??EDW:?83 ??Duration:?4:00 ??Calcium:?2.5 ??Bicarb:?35 ??Rx?updated?on:?04/09/2022 TREATMENT?ASSESSMENT Blood?pressure?controlled.?No?changes?indicated.? BP?Stand?Pre ??07/22/2022:?130/59 BP?Sit?Pre ??07/22/2022:?144/67 ??07/19/2022:?119/72 ??07/17/2022:?109/72 BP?Stand?Post ??07/22/2022:?129/66 ??07/19/2022:?106/60 ??07/17/2022:?129/74 BP?Sit?Post ??07/22/2022:?131/72 ??07/19/2022:?133/72 ??07/17/2022:?120/78 Tx?Duration ??07/22/2022:?4:04 ??07/19/2022:?3:22 ??07/17/2022:?4:00 Missed?Treatments 0?-?last?30?days 0?-?last?60?days FLUID?ASSESSMENT Fluid?status?not?acceptable.?Interdialytic?weight?gain?not?a cceptable.?Optimal?weight?discussed.? EDW?(kg) ??07/22/2022:?83.0 ??07/19/2022:?83.0 ??07/17/2022:?83.0 Weight?Pre?(kg) ??07/22/2022:?89.4 ??07/19/2022:?87.8 ??07/17/2022:?87.7 Weight?Post?(kg) ??07/22/2022:?85.3 ??07/19/2022:?83.8 ??07/17/2022:?83.9 PWV?(kg) ??07/22/2022:?2.3 ??07/19/2022:?0.8 ??07/17/2022:?0.9 UF?Rate?(mL/kg/hr) ??07/22/2022:?11.8 ??07/19/2022:?14.2 ??07/17/2022:?11.3 ADEQUACY?ASSESSMENT Adequacy?target?met.?Prescription?compliance?acceptable.? spKt/V,?URR ??07/01/2022:?1.69,?74.0 ??06/10/2022:?1.51,?71.0 ??05/15/2022:?1.59,?72.0 ACCESS?ASSESSMENT ??Access?Type:?AVGraft ??Access?SubType:?Synthetic?-?[place]?Acuseal ??Access?Status:?Active?(In?Use)?-?03/26/2022 ??Access?Location:?Left?Upper?Arm ??Created:?02/19/2022 Flow ??07/05/2022:?1249 ??07/03/2022:?990 ??06/12/2022:?>2000 Vascular?access?reviewed.?Current?access?is?permanent?and?functioning?well. ANEMIA?ASSESSMENT EVER?adjusted?per?protocol.?Anemia?reviewed.? HGB ??07/22/2022:?11.2 ??07/15/2022:?11.5 ??07/08/2022:?10.6 ?? Ferritin ??07/01/2022:?380.0 ??06/10/2022:?491.0 ??05/13/2022:?542.0 Mircera,?IVP?(mcg) ??06/21/2022:?50 ??04/26/2022:?50 Iron?Sucrose?(Venofer)?(mg) ??05/17/2022:?100 ??05/15/2022:?100 ??05/13/2022:?100 BMM?ASSESSMENT PTH?within?target.?Bone?and?mineral?metabolism?parameters?re viewed.?Calcium?controlled.?Phosphorus?controlled.? Phosphorus,?Calcium ??07/01/2022:?4.6,?8.7 ??06/10/2022:?4.4,?8.6 ??05/13/2022:?3.9,?9.0 ?? PTH,?Intact ??07/01/2022:?269.0 ??06/10/2022:?366.0 ??05/13/2022:?182.0 Vitamin?D?(Calcitriol)?Oral?(mcg) ??07/22/2022:?0.75 ??07/19/2022:?0.75 ??07/17/2022:?0.75 NUTRITION?ASSESSMENT Nutrition?reviewed.?Potassium?controlled.? Albumin,?Potassium ??07/01/2022:?3.5,?4.6 ??06/10/2022:?3.6,?4.3 ??05/13/2022:?3.6,?4.2 ?? eNPCR ??07/01/2022:?1.15 ??06/10/2022:?0.94 ??05/15/2022:?1.17 PHYSICAL?EXAM Exam?Performed.?Vital?Signs?Reviewed.?Lungs?-?Clear. DIAGNOSIS Chief?Complaint:?N18.6?End?stage?renal?disease Patient?data?updated?07/24/2022?at?10:15?AM Signed?By:?Pham,?Nestor???on?07/24/2022?10:16:45 AM END OF DOCUMENT
--- OUTSIDE RECORDS SUMMARY | 2023-07-03 04:08 | XMS_ITS ---
Author Name Ni Faisal Address [address] [place] [address] Phone [phone] Organization [facility] e, NA DOCUMENT DISCLAIMER Multiple document versions may exist, please be sure you review the latest version. The information in the [facility] Progress Note Document represents a providers documented clinical note containing certain health and medical information. It may not contain the complete medical history for the patient and should be independently verified. The represented time in the document is Eastern Time PROVIDER ROUNDING NOTE HHD Patient:?Jairon?Jimbo,?1955,?67y,?M Dialysis?Location:?[place]?-?[place] Attending?Athletic Instructor:?Faisal?Ni Service?Date:?11/14/2022 Service?Provider:?Faisal?Ni,? I?met?face?to?face?with?the?patient?today. 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 Medications?and?labs?reviewed. VITALS?ASSESSMENT Vitals?measured?in-clinic. BP?Sit ??10/23/2022:?114/70 ??09/25/2022:?149/68 ??08/27/2022:?157/73 BP?Stand ??08/27/2022:?142/75 Weight?(kg) ??10/23/2022:?85.5 ??09/25/2022:?85.1 ??08/27/2022:?86.1 Temp ??10/23/2022:?97.8 Respirations ??10/23/2022:?16 Pulse ??10/23/2022:?69 Height ??09/09/2022:?5'?10'' TREATMENT?ASSESSMENT Blood?pressure?controlled.?No?changes?indicated.? BP?Stand?Pre ??11/13/2022:?115/73 ??11/12/2022:?111/55 ??11/11/2022:?147/66 BP?Sit?Pre ??11/13/2022:?148/70 ??11/12/2022:?129/65 ??11/11/2022:?151/72 BP?Stand?Post ??11/13/2022:?117/55 ??11/12/2022:?101/54 ??11/11/2022:?144/72 BP?Sit?Post ??11/13/2022:?130/66 ??11/12/2022:?122/68 ??11/11/2022:?158/70 Tx?Duration ??11/13/2022:?3:01 ??11/12/2022:?3:11 ??11/11/2022:?4:14 %?Dialysate?Processed ??11/13/2022:?100 ??11/12/2022:?100 ??11/11/2022:?100 FLUID?ASSESSMENT EDW?(kg) ??11/13/2022:?85 ??11/12/2022:?85 ??11/11/2022:?85 Weight?Pre?(kg) ??11/13/2022:?86.1 ??11/12/2022:?88.5 ??11/11/2022:?89.9 Weight?Post?(kg) ??11/13/2022:?85.4 ??11/12/2022:?86 ??11/11/2022:?86.4 PWV?(kg) ??11/13/2022:?0.4 ??11/12/2022:?1 ??11/11/2022:?1.4 UF?Rate?(mL/kg/hr) ??11/13/2022:?2.7 ??11/12/2022:?9.1 ??11/11/2022:?9.6 DIALYSIS?PRESCRIPTION ??HHD?4x?Week?Start?date:?09/27/22 ??Cartridge:?CAR?170 ??BFR:?450 ??DFR:?13.3 ??Potassium:?2.0 ??Lactate:?45 ??EDW:?85 ??Volume:?40 ??Est.?Time:?3:00 ??Rx?updated?on:?09/25/2022 Comments:?To?maintain?KT/V?>?2?in?nextstage?dialysis. Continue?greater?than?3x?more?frequent?dialysis?prescription ADEQUACY?ASSESSMENT Adequacy?target?met.?No?changes?indicated.? spKt/V,?wstd?Kt/V,?URR ??10/28/2022:?0.77,?2.1,?49.0 ??10/13/2022:?0.81,?2.4,?52.0 ??09/30/2022:?0.74,?1.8,?46.0 ACCESS?ASSESSMENT ??Access?Type:?AVGraft ??Access?SubType:?Synthetic?-?[place]?Acuseal ??Access?Status:?Active?(In?Use)?-?08/27/2022 ??Access?Location:?Left?Upper?Arm ??Created:?02/19/2022 Flow ??07/05/2022:?1249 ??07/03/2022:?990 ??06/12/2022:?>2000 Comments:?Resolved?infiltrate?appreciated? Bruising?visible.?Thrill?present.?Normal?bruit.?Cannulator:?Patie nt.?Hemostasis?<?10-15?minutes?per?needle?site. ANEMIA?ASSESSMENT Anemia?reviewed.?Anemia?targets?met.? HGB,?TSAT ??10/28/2022:?9.8,?29.0 ??10/20/2022:?10.2,?- ??09/30/2022:?11.4,?43.0 ?? Ferritin ??10/28/2022:?342.0 ??09/30/2022:?380.0 ??09/02/2022:?351.0 Mircera,?Sub?Q?(mcg) ??10/07/2022:?30 ??09/09/2022:?50 Mircera?Self?Administer?at?Home,?Sub?Q?(mcg) ??11/08/2022:?50 Iron?Sucrose?(Venofer)?Self?Administer?at?Home?(mg) ??11/11/2022:?50 ??11/04/2022:?50 ??10/28/2022:?50 BMM?ASSESSMENT Comments:?Phos?borderline?lower PTH?within?target.?Vitamin?D?administered?at?home.?Bone&#160 ;and?mineral?metabolism?parameters?reviewed.?Calcium?controlled.? Phosphorus?controlled.? Phosphorus,?Calcium ??10/28/2022:?2.8,?9.2 ??10/13/2022:?-,?8.2 ??09/30/2022:?5.0,?10.1 ?? PTH,?Intact ??10/28/2022:?361.0 ??10/13/2022:?663.0 ??09/30/2022:?125.0 Vitamin?D?(Calcitriol)?Oral?(mcg) ??08/26/2022:?0.75 ??08/23/2022:?0.75 ??08/21/2022:?0.75 NUTRITION?ASSESSMENT Nutrition?reviewed.?Caloric?intake?addressed.? Albumin,?Potassium ??10/28/2022:?3.8,?4.4 ??10/13/2022:?-,?4.3 ??09/30/2022:?4.0,?5.3 ?? eNPCR ??08/07/2022:?1.24 ??07/01/2022:?1.15 ??06/10/2022:?0.94 PHYSICAL?EXAM Exam?Performed.?Vital?Signs?Reviewed.?Lungs?-?Clear.?CV&#160 ;-?Blood?pressure?noted.?EXT?-?No?edema.?EXT?-?No& #160;ulcers.?AVF/AVG?Positive?thrill/bruit. DIAGNOSIS Chief?Complaint:?N18.6?End?stage?renal?disease Patient?data?updated?11/14/2022?at?5:03?PM Signed?By:?Ni,?Faisal,???on?11/14/2022?5:14:13?PM END OF DOCUMENT
--- OUTSIDE RECORDS SUMMARY | 2023-07-03 04:08 | XMS_ITS ---
Author Name Ni Faisal Address [address] [place] [address] Phone [phone] Organization [facility], NA DOCUMENT DISCLAIMER Multiple document versions may exist, please be sure you review the latest version. The information in the [facility] Progress Note Document represents a providers documented clinical note containing certain health and medical information. It may not contain the complete medical history for the patient and should be independently verified. The represented time in the document is Eastern Time PROVIDER ROUNDING NOTE HHD Patient:?Jairon?Jimbo,?1955,?67y,?M Dialysis?Location:?[place]?-?[place] Attending?[employer] Resource Teacher:?Faisal?Ni Service?Date:?03/13/2023 Service?Provider:?Faisal?Ni,? I?met?face?to?face?with?the?patient?today. 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 Medications?and?labs?reviewed. VITALS?ASSESSMENT Vitals?measured?in-clinic. BP?Sit ??02/21/2023:?148/64 ??01/16/2023:?131/67 ??12/11/2022:?131/65 Weight?(kg) ??02/21/2023:?87 ??01/16/2023:?86.1 ??12/11/2022:?87.6 Temp ??02/21/2023:?97.8 Respirations ??02/21/2023:?16 Pulse ??02/21/2023:?74 Height ??09/09/2022:?5'?10'' TREATMENT?ASSESSMENT Blood?pressure?controlled.?No?changes?indicated.? BP?Stand?Pre ??03/12/2023:?101/54 ??03/10/2023:?100/55 ??03/09/2023:?124/67 BP?Sit?Pre ??03/12/2023:?134/65 ??03/10/2023:?112/60 ??03/09/2023:?137/70 BP?Stand?Post ??03/12/2023:?104/55 ??03/10/2023:?114/62 ??03/09/2023:?107/63 BP?Sit?Post ??03/12/2023:?115/68 ??03/10/2023:?136/69 ??03/09/2023:?130/66 Tx?Duration ??03/12/2023:?3:32 ??03/10/2023:?3:02 ??03/09/2023:?3:01 %?Dialysate?Processed ??03/12/2023:?100 ??03/10/2023:?100 ??03/09/2023:?100 FLUID?ASSESSMENT Comments:?Patient?has?gained?weight,?will?adjust?weight?1/2 Kg? EDW?(kg) ??03/12/2023:?85.5 ??03/10/2023:?85.5 ??03/09/2023:?85.5 Weight?Pre?(kg) ??03/12/2023:?89.8 ??03/10/2023:?88.7 ??03/09/2023:?89 Weight?Post?(kg) ??03/12/2023:?87 ??03/10/2023:?87.2 ??03/09/2023:?87.2 PWV?(kg) ??03/12/2023:?1.5 ??03/10/2023:?1.7 ??03/09/2023:?1.7 UF?Rate?(mL/kg/hr) ??03/12/2023:?9.1 ??03/10/2023:?5.7 ??03/09/2023:?6.8 DIALYSIS?PRESCRIPTION ??HHD?4x?Week?Start?date:?12/13/22 ??Cartridge:?CAR?170 ??BFR:?450 ??DFR:?13.3 ??Potassium:?2.0 ??Lactate:?45 ??EDW:?85.5 ??Volume:?40 ??Est.?Time:?3:00 ??Rx?updated?on:?12/12/2022 Comments:?To?maintain?KT/V?>?2?in?nextstage?dialysis. ?And?CHF Continue?greater?than?3x?more?frequent?dialysis?prescription ADEQUACY?ASSESSMENT Adequacy?target?met.?Prescription?compliance?acceptable.?No?changes?indicated.? spKt/V,?wstd?Kt/V,?URR ??03/05/2023:?0.8,?2.3,?50.0 ??01/28/2023:?0.87,?2.4,?52.0 ??01/02/2023:?0.78,?2.4,?48.0 ACCESS?ASSESSMENT ??Access?Type:?AVGraft ??Access?SubType:?Synthetic?-?[place]?Acuseal ??Access?Status:?Active?(In?Use)?-?08/27/2022 ??Access?Location:?Left?Upper?Arm ??Created:?02/19/2022 Flow ??07/05/2022:?1249 ??07/03/2022:?990 ??06/12/2022:?>2000 Comments:?Will?discuss?with?vascular?the?hematoma?and?have set?up?imaging ANEMIA?ASSESSMENT Comments:?Increasing?Mircera? HGB?at?goal.?Iron?parameters?acceptable.?EVER?dose?inadequate.? HGB,?TSAT ??03/05/2023:?9.3,?24.0 ??01/28/2023:?10.7,?31.0 ??01/02/2023:?9.6,?27.0 ?? Ferritin ??03/05/2023:?539.0 ??01/28/2023:?524.0 ??01/02/2023:?542.0 Mircera?Self?Administer?at?Home,?Sub?Q?(mcg) ??02/14/2023:?50 ??02/07/2023:?50 ??01/10/2023:?50 Iron?Sucrose?(Venofer)?Self?Administer?at?Home?(mg) ??01/27/2023:?100 ??01/26/2023:?100 ??01/24/2023:?100 BMM?ASSESSMENT PTH?controlled.?Calcium?controlled.?Phosphorus?controlled.?BMM?me ds?adherence?acceptable.? Phosphorus,?Calcium ??03/05/2023:?3.0,?8.8 ??01/28/2023:?3.9,?9.0 ??01/02/2023:?3.6,?8.8 ?? PTH,?Intact ??03/05/2023:?277.0 ??01/28/2023:?434.0 ??01/02/2023:?375.0 NUTRITION?ASSESSMENT Potassium?controlled.?Albumin?controlled.? Albumin,?Potassium ??03/05/2023:?3.9,?4.5 ??01/28/2023:?3.8,?4.9 ??01/02/2023:?3.7,?4.3 PHYSICAL?EXAM Exam?Performed.?Vital?Signs?Reviewed.?Lungs?-?Clear.?CV&#160 ;-?Blood?pressure?noted.?EXT?-?No?edema.?EXT?-?No ulcers. DIAGNOSIS Chief?Complaint:?N18.6?End?stage?renal?disease Patient?data?updated?03/13/2023?at?4:40?PM Signed?By:?Ni,?Faisal,???on?03/13/2023?4:50:39?PM END OF DOCUMENT
--- OUTSIDE RECORDS SUMMARY | 2023-07-03 04:08 | XMS_ITS ---
Author Name ValeriaHectorcy Address [address] [place] [id number] Phone [phone] Organization [facility] e, NA DOCUMENT DISCLAIMER The information in the [facility] Dialysis Provider Note Document represents a providersdocumented clinical note containing certain health and medical information. It may not contain the complete medical history for the patient and should be independently verified. The represented time in the document is Eastern Time PROVIDER ROUNDING NOTE BASIC Patient:?Jairon?Jimbo,?1955,?67y,?M Dialysis?Location:?[facility] Attending?Direct Support Specialist:?Nestor?Pham Service?Date:?06/14/2022 Service?Provider:?Bonnie?Valeria,?SHAGGER I?met?face?to?face?with?the?patient?today. 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 06/10/22?-?Stable?treatment Working?towards?home?hemodialysis? Medications?and?labs?reviewed. DIALYSIS?PRESCRIPTION ??IHD?3x?Week?Start?date:?04/10/22 ??Dialyzer:?180NRe?Optiflux ??BFR:?450 ??DFR:?Manual?500 ??Potassium:?2.0 ??Sodium:?137 ??EDW:?83 ??Duration:?4:00 ??Calcium:?2.5 ??Bicarb:?35 ??Rx?updated?on:?04/09/2022 TREATMENT?ASSESSMENT BP?Stand?Pre ??06/12/2022:?121/56 ??06/10/2022:?116/69 ??06/07/2022:?113/49 BP?Sit?Pre ??06/12/2022:?143/99 ??06/10/2022:?146/69 ??06/07/2022:?94/70 BP?Stand?Post ??06/12/2022:?101/58 ??06/10/2022:?129/71 ??06/07/2022:?99/60 BP?Sit?Post ??06/12/2022:?120/56 ??06/10/2022:?138/75 ??06/07/2022:?107/65 Tx?Duration ??06/12/2022:?3:55 ??06/10/2022:?3:56 ??06/07/2022:?3:51 Missed?Treatments 0?-?last?30?days 0?-?last?60?days FLUID?ASSESSMENT EDW?(kg) ??06/12/2022:?83.0 ??06/10/2022:?83.0 ??06/07/2022:?83.0 Weight?Pre?(kg) ??06/12/2022:?87.3 ??06/10/2022:?86.7 ??06/07/2022:?87.1 Weight?Post?(kg) ??06/12/2022:?83.3 ??06/10/2022:?83.4 ??06/07/2022:?82.7 PWV?(kg) ??06/12/2022:?0.3 ??06/10/2022:?0.4 ??06/07/2022:?-0.3 UF?Rate?(mL/kg/hr) ??06/12/2022:?12.3 ??06/10/2022:?10.1 ??06/07/2022:?13.8 ADEQUACY?ASSESSMENT spKt/V,?URR ??06/10/2022:?1.51,?71.0 ??05/15/2022:?1.59,?72.0 ??04/10/2022:?1.49,?71.0 ACCESS?ASSESSMENT ??Access?Type:?AVGraft ??Access?SubType:?Synthetic?-?[place]?Acuseal ??Access?Status:?Active?(In?Use)?-?03/26/2022 ??Access?Location:?Left?Upper?Arm ??Created:?02/19/2022 Flow ??06/12/2022:?>1999 ??05/27/2022:?>1999 ??05/24/2022:?1467 ANEMIA?ASSESSMENT HGB,?TSAT ??06/10/2022:?11.1,?38.0 ??06/03/2022:?10.9,?- ??05/27/2022:?10.7,?- ?? Ferritin ??06/10/2022:?491.0 ??05/13/2022:?542.0 ??04/08/2022:?271.0 Mircera,?IVP?(mcg) ??04/26/2022:?50 ??03/30/2022:?50 Iron?Sucrose?(Venofer)?(mg) ??05/17/2022:?100 ??05/15/2022:?100 ??05/13/2022:?100 BMM?ASSESSMENT Phosphorus,?Calcium ??06/10/2022:?4.4,?8.6 ??05/13/2022:?3.9,?9.0 ??04/08/2022:?4.1,?8.7 ?? PTH,?Intact ??06/10/2022:?366.0 ??05/13/2022:?182.0 ??04/08/2022:?245.0 Vitamin?D?(Calcitriol)?Oral?(mcg) ??06/12/2022:?0.75 ??06/10/2022:?0.75 ??06/07/2022:?0.75 NUTRITION?ASSESSMENT Albumin,?Potassium ??06/10/2022:?3.6,?4.3 ??05/13/2022:?3.6,?4.2 ??04/08/2022:?3.4,?4.7 ?? eNPCR ??06/10/2022:?0.94 ??05/15/2022:?1.17 ??04/10/2022:?0.88 DIAGNOSIS Chief?Complaint:?N18.6?End?stage?renal?disease Patient?data?updated?06/14/2022?at?9:54?AM Signed?By:?Valeria,?Bonnie,?SHAGGER??on?06/14/2022?9:54:32?AM END OF DOCUMENT
--- OUTSIDE RECORDS SUMMARY | 2023-07-03 04:08 | XMS_ITS ---
Author Name Nestor Nath Address [address] [place] [id number] Phone [phone] Organization [facility] e, NA DOCUMENT DISCLAIMER The information in the [facility] Provider Note Document represents a providersdocumented clinical note containing certain health and medical information. It may not contain the complete medical history for the patient and should be independently verified. The represented time in the document is Eastern Time PROVIDER ROUNDING NOTE BASIC Patient:?Jairon?Jimbo,?1955,?67y,?M Dialysis?Location:?[facility] [[email or web address] Attending?Electrocardiograph Operator:?Nestor?Pham Service?Date:?06/07/2022 Service?Provider:?Nsetor?Pham,? I?met?face?to?face?with?the?patient?today. 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 Medications?and?labs?reviewed. DIALYSIS?PRESCRIPTION ??IHD?3x?Week?Start?date:?04/10/22 ??Dialyzer:?180NRe?Optiflux ??BFR:?450 ??DFR:?Manual?500 ??Potassium:?2.0 ??Sodium:?137 ??EDW:?83 ??Duration:?4:00 ??Calcium:?2.5 ??Bicarb:?35 ??Rx?updated?on:?04/09/2022 TREATMENT?ASSESSMENT BP?Stand?Pre ??06/05/2022:?120/44 ??06/03/2022:?129/52 ??05/31/2022:?135/64 BP?Sit?Pre ??06/05/2022:?119/57 ??06/03/2022:?150/74 ??05/31/2022:?138/88 BP?Stand?Post ??06/05/2022:?99/56 ??06/03/2022:?116/63 ??05/31/2022:?104/62 BP?Sit?Post ??06/05/2022:?106/68 ??06/03/2022:?129/73 ??05/31/2022:?112/68 Tx?Duration ??06/05/2022:?3:59 ??06/03/2022:?3:39 ??05/31/2022:?4:00 Missed?Treatments 0?-?last?30?days 0?-?last?60?days FLUID?ASSESSMENT EDW?(kg) ??06/05/2022:?83.0 ??06/03/2022:?83.0 ??05/31/2022:?83.0 Weight?Pre?(kg) ??06/05/2022:?85.9 ??06/03/2022:?87.3 ??05/31/2022:?86.1 Weight?Post?(kg) ??06/05/2022:?83.1 ??06/03/2022:?83.3 ??05/31/2022:?82.7 PWV?(kg) ??06/05/2022:?0.1 ??06/03/2022:?0.3 ??05/31/2022:?-0.3 UF?Rate?(mL/kg/hr) ??06/05/2022:?8.5 ??06/03/2022:?13.2 ??05/31/2022:?10.3 ADEQUACY?ASSESSMENT spKt/V,?URR ??05/15/2022:?1.59,?72.0 ??04/10/2022:?1.49,?71.0 ??03/12/2022:?1.56,?72.0 ACCESS?ASSESSMENT ??Access?Type:?AVGraft ??Access?SubType:?Synthetic?-?Angwin?Acuseal ??Access?Status:?Active?(In?Use)?-?03/26/2022 ??Access?Location:?Left?Upper?Arm ??Created:?02/19/2022 Flow ??05/27/2022:?>2000 ??05/24/2022:?1467 ??04/24/2022:?>2000 ANEMIA?ASSESSMENT HGB ??06/03/2022:?10.9 ??05/27/2022:?10.7 ??05/20/2022:?11.4 ?? Ferritin ??05/13/2022:?542.0 ??04/08/2022:?271.0 ??03/12/2022:?429.0 Mircera,?IVP?(mcg) ??04/26/2022:?50 ??03/30/2022:?50 Iron?Sucrose?(Venofer)?(mg) ??05/17/2022:?100 ??05/15/2022:?100 ??05/13/2022:?100 BMM?ASSESSMENT Phosphorus,?Calcium ??05/13/2022:?3.9,?9.0 ??04/08/2022:?4.1,?8.7 ??03/12/2022:?3.8,?8.7 ?? PTH,?Intact ??05/13/2022:?182.0 ??04/08/2022:?245.0 ??03/12/2022:?320.0 Vitamin?D?(Calcitriol)?Oral?(mcg) ??06/05/2022:?0.75 ??06/03/2022:?0.75 ??05/31/2022:?0.75 NUTRITION?ASSESSMENT Albumin,?Potassium ??05/13/2022:?3.6,?4.2 ??04/08/2022:?3.4,?4.7 ??03/12/2022:?3.2,?4.2 ?? eNPCR ??05/15/2022:?1.17 ??04/10/2022:?0.88 ??03/12/2022:?0.74 Patient?data?updated?06/07/2022?at?9:00?AM Signed?By:?Pham,?Nestor,???on?06/07/2022?9:01:22?AM END OF DOCUMENT
--- OUTSIDE RECORDS SUMMARY | 2023-07-03 04:08 | XMS_ITS ---
Author Name Ni Faisal Address [address] [place] [address] Phone [phone] Organization [facility] e, NA DOCUMENT DISCLAIMER Multiple document versions may exist, please be sure you review the latest version. The information in the [facility] Progress Note Document represents a providers documented clinical note containing certain health and medical information. It may not contain the complete medical history for the patient and should be independently verified. The represented time in the document is Eastern Time PROVIDER ROUNDING NOTE HHD Patient:?Jairon?Jimbo,?1955,?68y,?M Dialysis?Location:?[place]?-?[place] Attending?Special Crimes Investigator:?Faisal?Ni Service?Date:?05/26/2023 Service?Provider:?Faisal?iN,? I?spoke?with?the?patient?today?over?telephone. 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 VITALS?ASSESSMENT Vitals?measured?in-clinic. BP?Sit ??04/10/2023:?150/69 ??03/13/2023:?126/64 ??02/21/2023:?148/64 Weight?(kg) ??04/10/2023:?91.2 ??03/13/2023:?90.9 ??02/21/2023:?87 Temp ??04/10/2023:?98 Respirations ??04/10/2023:?16 Pulse ??04/10/2023:?71 TREATMENT?ASSESSMENT Blood?pressure?controlled.?No?changes?indicated.? BP?Stand?Pre ??05/23/2023:?121/68 ??05/21/2023:?118/61 ??05/19/2023:?108/80 BP?Sit?Pre ??05/23/2023:?135/72 ??05/21/2023:?136/70 ??05/19/2023:?108/62 BP?Stand?Post ??05/23/2023:?123/57 ??05/21/2023:?100/59 ??05/19/2023:?89/59 BP?Sit?Post ??05/23/2023:?126/68 ??05/21/2023:?123/68 ??05/19/2023:?100/56 Tx?Duration ??05/23/2023:?3:47 ??05/21/2023:?3:11 ??05/19/2023:?3:01 %?Dialysate?Processed ??05/23/2023:?100 ??05/21/2023:?100 ??05/19/2023:?100 FLUID?ASSESSMENT Comments:?Patient?reports?fluid?is?up?due?to?missing?tr eatment?on?account?of?kids?being?in?town?for?holiday. Fluid?status?acceptable.?Interdialytic?weight?gain?acceptable.?No ?changes?indicated.? EDW?(kg) ??05/23/2023:?87.5 ??05/21/2023:?87.5 ??05/19/2023:?87.5 Weight?Pre?(kg) ??05/23/2023:?91 ??05/21/2023:?90.1 ??05/19/2023:?89 Weight?Post?(kg) ??05/23/2023:?88.2 ??05/21/2023:?87.8 ??05/19/2023:?87.7 PWV?(kg) ??05/23/2023:?0.7 ??05/21/2023:?0.3 ??05/19/2023:?0.2 UF?Rate?(mL/kg/hr) ??05/23/2023:?8.4 ??05/21/2023:?8.2 ??05/19/2023:?4.9 DIALYSIS?PRESCRIPTION ??HHD?4x?Week?Start?date:?04/02/23 ??Cartridge:?CAR?172 ??BFR:?450 ??DFR:?13.3 ??Potassium:?2.0 ??Lactate:?45 ??EDW:?87.5 ??Volume:?40 ??Est.?Time:?3:00 ??Rx?updated?on:?04/02/2023 Comments:?To?maintain?KT/V?>?2?in?nextstage?dialysis. ?And?CHF Continue?greater?than?3x?more?frequent?dialysis?prescription ADEQUACY?ASSESSMENT Adequacy?target?met.?Prescription?compliance?acceptable.?No?changes?indicated.? spKt/V,?wstd?Kt/V,?URR ??04/30/2023:?0.7,?2.1,?45.0 ??03/31/2023:?0.71,?2.1,?47.0 ??03/05/2023:?0.8,?2.3,?50.0 ACCESS?ASSESSMENT ??Access?Type:?CVCatheter ??Access?SubType:?Tunneled ??Access?Status:?Active?(In?Use)?-?03/21/2023 ??Access?Location:?Chest ??Placed:?03/20/2023 Comments:?Cleared?to?use?newly?revised?access ANEMIA?ASSESSMENT HGB?at?goal.?Iron?parameters?acceptable.?EVER?dose?adequate.& #160;No?changes?indicated.? HGB,?TSAT ??04/30/2023:?11.3,?25.0 ??03/31/2023:?10.9,?27.0 ??03/05/2023:?9.3,?24.0 ?? Ferritin ??04/30/2023:?528.0 ??03/31/2023:?463.0 ??03/05/2023:?539.0 Mircera,?Sub?Q?(mcg) ??04/10/2023:?50 Iron?Sucrose?(Venofer)?Self?Administer?at?Home?(mg) ??05/23/2023:?50 ??05/16/2023:?50 ??05/09/2023:?50 BMM?ASSESSMENT PTH?elevated.?Calcium?controlled.?Phosphorus?elevated.?BMM?meds&# 160;adherence?acceptable.?No?changes?indicated.? Phosphorus,?Calcium ??04/30/2023:?3.6,?8.9 ??03/31/2023:?2.8,?9.5 ??03/05/2023:?3.0,?8.8 ?? PTH,?Intact ??04/30/2023:?425.0 ??03/31/2023:?199.0 ??03/05/2023:?277.0 NUTRITION?ASSESSMENT Potassium?controlled.?Albumin?controlled.?No?changes?indicated.? Albumin,?Potassium ??04/30/2023:?3.8,?4.4 ??03/31/2023:?4.2,?5.2 ??03/05/2023:?3.9,?4.5 PHYSICAL?EXAM Exam?Not?Performed. DIAGNOSIS Chief?Complaint:?N18.6?End?stage?renal?disease Patient?data?updated?05/26/2023?at?4:32?PM Signed?By:?Ni,?Faisal,???on?05/26/2023?4:39:37?PM END OF DOCUMENT
--- OUTSIDE RECORDS SUMMARY | 2023-07-03 04:08 | XMS_ITS ---
Author Name Nestor Nath Address [address] [place] [address] Phone [phone] Organization [facility] e, NA DOCUMENT DISCLAIMER The information in the [facility] Provider Note Document represents a providersdocumented clinical note containing certain health and medical information. It may not contain the complete medical history for the patient and should be independently verified. The represented time in the document is Eastern Time PROVIDER ROUNDING NOTE BASIC Revised?By:?Nestor?Pham? Revised?Date:?07/01/2022?12:19:32?PM Revised?Reason:?Wrong?date Patient:?Jairon?Jimbo,?1955,?67y,?M Dialysis?Location:?[facility] Attending?Editorial Assistant:?Nestor?Pham Service?Date:?07/01/2022 Service?Provider:?Nestor?Pham? I?met?face?to?face?with?the?patient?today. 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 Comments:?07/01/22?did?water?test?at?house?in?prep?for NxStage DIALYSIS?PRESCRIPTION ??IHD?3x?Week?Start?date:?04/10/22 ??Dialyzer:?180NRe?Optiflux ??BFR:?450 ??DFR:?Manual?500 ??Potassium:?2.0 ??Sodium:?137 ??EDW:?83 ??Duration:?4:00 ??Calcium:?2.5 ??Bicarb:?35 ??Rx?updated?on:?04/09/2022 TREATMENT?ASSESSMENT BP?Stand?Pre ??06/28/2022:?137/67 ??06/26/2022:?125/62 ??06/24/2022:?150/62 BP?Sit?Pre ??06/28/2022:?129/64 ??06/26/2022:?126/67 ??06/24/2022:?115/60 BP?Stand?Post ??06/28/2022:?114/66 ??06/26/2022:?99/59 ??06/24/2022:?105/62 BP?Sit?Post ??06/28/2022:?145/97 ??06/26/2022:?118/71 ??06/24/2022:?125/67 Tx?Duration ??06/28/2022:?3:53 ??06/26/2022:?4:01 ??06/24/2022:?4:03 Missed?Treatments 0?-?last?30?days 0?-?last?60?days FLUID?ASSESSMENT EDW?(kg) ??06/28/2022:?83.0 ??06/26/2022:?83.0 ??06/24/2022:?83.0 Weight?Pre?(kg) ??06/28/2022:?86.0 ??06/26/2022:?87.6 ??06/24/2022:?88.2 Weight?Post?(kg) ??06/28/2022:?83.1 ??06/26/2022:?83.3 ??06/24/2022:?84.7 PWV?(kg) ??06/28/2022:?0.1 ??06/26/2022:?0.3 ??06/24/2022:?1.7 UF?Rate?(mL/kg/hr) ??06/28/2022:?9 ??06/26/2022:?12.9 ??06/24/2022:?10.2 ADEQUACY?ASSESSMENT spKt/V,?URR ??06/10/2022:?1.51,?71.0 ??05/15/2022:?1.59,?72.0 ??04/10/2022:?1.49,?71.0 ACCESS?ASSESSMENT ??Access?Type:?AVGraft ??Access?SubType:?Synthetic?-?[place]?Acuseal ??Access?Status:?Active?(In?Use)?-?03/26/2022 ??Access?Location:?Left?Upper?Arm ??Created:?02/19/2022 Flow ??06/12/2022:?>1999 ??05/27/2022:?>1999 ??05/24/2022:?1467 ANEMIA?ASSESSMENT HGB,?TSAT ??06/17/2022:?10.6,?- ??06/10/2022:?11.1,?38.0 ??06/03/2022:?10.9,?- ?? Ferritin ??06/10/2022:?491.0 ??05/13/2022:?542.0 ??04/08/2022:?271.0 Mircera,?IVP?(mcg) ??06/21/2022:?50 ??04/26/2022:?50 Iron?Sucrose?(Venofer)?(mg) ??05/17/2022:?100 ??05/15/2022:?100 ??05/13/2022:?100 BMM?ASSESSMENT Phosphorus,?Calcium ??06/10/2022:?4.4,?8.6 ??05/13/2022:?3.9,?9.0 ??04/08/2022:?4.1,?8.7 ?? PTH,?Intact ??06/10/2022:?366.0 ??05/13/2022:?182.0 ??04/08/2022:?245.0 Vitamin?D?(Calcitriol)?Oral?(mcg) ??06/28/2022:?0.75 ??06/26/2022:?0.75 ??06/24/2022:?0.75 NUTRITION?ASSESSMENT Albumin,?Potassium ??06/10/2022:?3.6,?4.3 ??05/13/2022:?3.6,?4.2 ??04/08/2022:?3.4,?4.7 ?? eNPCR ??06/10/2022:?0.94 ??05/15/2022:?1.17 ??04/10/2022:?0.88 Patient?data?updated?07/01/2022?at?8:49?AM Signed?By:?Pham,?Nestor,???on?07/01/2022?12:19:32 PM END OF DOCUMENT
--- OUTSIDE RECORDS SUMMARY | 2023-07-03 04:08 | XMS_ITS ---
Author Name Ni Faisal Address [address] [place] [address] Phone [phone] Organization [facility] e, NA DOCUMENT DISCLAIMER Multiple document versions may exist, please be sure you review the latest version. The information in the [facility] Progress Note Document represents a providers documented clinical note containing certain health and medical information. It may not contain the complete medical history for the patient and should be independently verified. The represented time in the document is Eastern Time PROVIDER ROUNDING NOTE HHD Patient:?Jairon?Jimbo,?1955,?67y,?M Dialysis?Location:?[facility]?-?[place] Attending?Senior Database Administrator:?Faisal?Ni Service?Date:?10/23/2022 Service?Provider:?Faisal?Ni,? I?met?face?to?face?with?the?patient?today. 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 BP?Sit ??09/25/2022:?149/68 ??08/27/2022:?157/73 BP?Stand ??08/27/2022:?142/75 Weight?(kg) ??09/25/2022:?85.1 ??08/27/2022:?86.1 Temp ??09/25/2022:?96 Respirations ??09/25/2022:?16 Pulse ??09/25/2022:?60 Height ??09/09/2022:?5'?10'' TREATMENT?ASSESSMENT Comments:?Some?cramping?with?treatments?will?adjust?EDW?if&# 160;this?is?persistent?phenomena BP?Stand?Pre ??10/22/2022:?140/64 ??10/21/2022:?134/69 ??10/20/2022:?123/64 BP?Sit?Pre ??10/22/2022:?160/75 ??10/21/2022:?141/64 ??10/20/2022:?139/65 BP?Stand?Post ??10/21/2022:?139/72 ??10/20/2022:?112/57 BP?Sit?Post ??10/21/2022:?148/69 ??10/20/2022:?144/66 Tx?Duration ??10/22/2022:?0:02 ??10/21/2022:?0:10 ??10/20/2022:?3:16 %?Dialysate?Processed ??10/22/2022:?1 ??10/21/2022:?5 ??10/20/2022:?100 FLUID?ASSESSMENT Fluid?status?acceptable.?Interdialytic?weight?gain?acceptable.?No ?changes?indicated.? EDW?(kg) ??10/21/2022:?85 ??10/20/2022:?85 Weight?Pre?(kg) ??10/22/2022:?87.9 ??10/21/2022:?86.2 ??10/20/2022:?86.8 Weight?Post?(kg) ??10/21/2022:?86.2 ??10/20/2022:?85.1 PWV?(kg) ??10/21/2022:?1.2 ??10/20/2022:?0.1 UF?Rate?(mL/kg/hr) ??10/21/2022:?0 ??10/20/2022:?6.1 DIALYSIS?PRESCRIPTION ??HHD?4x?Week?Start?date:?09/27/22 ??Cartridge:?CAR?170 ??BFR:?450 ??DFR:?13.3 ??Potassium:?2.0 ??Lactate:?45 ??EDW:?85 ??Volume:?40 ??Est.?Time:?3:00 ??Rx?updated?on:?09/25/2022 Comments:?To?maintain?KT/V?>?2?in?nextstage?dialysis. Continue?greater?than?3x?more?frequent?dialysis?prescription ADEQUACY?ASSESSMENT Adequacy?target?met.?Prescription?compliance?acceptable.?No?changes?indicated.? spKt/V,?wstd?Kt/V,?URR ??10/13/2022:?0.81,?2.4,?52.0 ??09/30/2022:?0.74,?1.8,?46.0 ??09/18/2022:?0.89,?2.0,?52.0 ACCESS?ASSESSMENT ??Access?Type:?AVGraft ??Access?SubType:?Synthetic?-?[place]?Acuseal ??Access?Status:?Active?(In?Use)?-?08/27/2022 ??Access?Location:?Left?Upper?Arm ??Created:?02/19/2022 Flow ??07/05/2022:?1249 ??07/03/2022:?990 ??06/12/2022:?>2000 Comments:?Evidence? Bruising?visible.?Thrill?present.?Normal?bruit.?Cannulator:?Patie nt.?Hemostasis?<?10-15?minutes?per?needle?site. ANEMIA?ASSESSMENT Anemia?reviewed.?Anemia?targets?met.? HGB,?TSAT ??10/20/2022:?10.2,?- ??09/30/2022:?11.4,?43.0 ??09/02/2022:?10.5,?37.0 ?? Ferritin ??09/30/2022:?380.0 ??09/02/2022:?351.0 ??08/05/2022:?559.0 Mircera,?Sub?Q?(mcg) ??10/07/2022:?30 ??09/09/2022:?50 ??08/09/2022:?50 Iron?Sucrose?(Venofer)?Self?Administer?at?Home?(mg) ??10/21/2022:?50 ??10/14/2022:?50 ??10/07/2022:?50 BMM?ASSESSMENT Comments:?PTH?up-trended?patient?reinitiated?calcitriol Phosphorus,?Calcium ??10/13/2022:?-,?8.2 ??09/30/2022:?5.0,?10.1 ??09/02/2022:?4.0,?9.0 ?? PTH,?Intact ??10/13/2022:?663.0 ??09/30/2022:?125.0 ??09/02/2022:?578.0 Vitamin?D?(Calcitriol)?Oral?(mcg) ??08/26/2022:?0.75 ??08/23/2022:?0.75 ??08/21/2022:?0.75 NUTRITION?ASSESSMENT Nutrition?reviewed.?Referred?to?dietitian?for?further?counseling.? Albumin,?Potassium ??10/13/2022:?-,?4.3 ??09/30/2022:?4.0,?5.3 ??09/02/2022:?3.8,?4.7 ?? eNPCR ??08/07/2022:?1.24 ??07/01/2022:?1.15 ??06/10/2022:?0.94 PHYSICAL?EXAM Exam?Performed.?Vital?Signs?Reviewed.?Lungs?-?Clear.?CV&#160 ;-?Blood?pressure?noted.?CV?-?RRR.?EXT?-?No?edema. ?EXT?-?No?ulcers.?AVF/AVG?Positive?thrill/bruit. DIAGNOSIS Chief?Complaint:?N18.6?End?stage?renal?disease Patient?data?updated?10/23/2022?at?1:14?PM Signed?By:?Ni,?Faisal???on?10/23/2022?1:19:42?PM END OF DOCUMENT
--- OUTSIDE RECORDS SUMMARY | 2023-07-03 04:08 | XMS_ITS ---
Author Name Shaji Hill Address [address] [place] [id number] Phone [phone] Organization [facility] e, NA DOCUMENT DISCLAIMER Multiple document versions may exist, please be sure you review the latest version. The information in the [facility] Progress Note Document represents a providers documented clinical note containing certain health and medical information. It may not contain the complete medical history for the patient and should be independently verified. The represented time in the document is Eastern Time PROVIDER ROUNDING NOTE HHD Patient:?Jairon?Jimbo,?1955,?67y,?M Dialysis?Location:?[facility]?-?[place] Attending?Boiler Operators Supervisor:?Abi Service?Date:?04/10/2023 Service?Provider:?Shaji?Sergio,? I?met?face?to?face?with?the?patient?today. 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 VITALS?ASSESSMENT Vitals?measured?in-clinic. BP?Sit ??03/13/2023:?126/64 ??02/21/2023:?148/64 ??01/16/2023:?131/67 Weight?(kg) ??03/13/2023:?90.9 ??02/21/2023:?87 ??01/16/2023:?86.1 Temp ??03/13/2023:?98 Respirations ??03/13/2023:?18 Pulse ??03/13/2023:?68 TREATMENT?ASSESSMENT Blood?pressure?controlled.?No?changes?indicated.? BP?Stand?Pre ??04/09/2023:?114/73 ??04/07/2023:?124/62 ??04/06/2023:?107/66 BP?Sit?Pre ??04/09/2023:?137/76 ??04/07/2023:?136/66 ??04/06/2023:?140/67 BP?Stand?Post ??04/09/2023:?110/55 ??04/07/2023:?112/62 ??04/06/2023:?131/70 BP?Sit?Post ??04/09/2023:?136/70 ??04/07/2023:?124/60 ??04/06/2023:?140/70 Tx?Duration ??04/09/2023:?3:54 ??04/07/2023:?3:11 ??04/06/2023:?2:35 %?Dialysate?Processed ??04/09/2023:?100 ??04/07/2023:?100 ??04/06/2023:?83 FLUID?ASSESSMENT Comments:?Patient?has?gained?weight,?will?adjust?weight?1/2 Kg? Fluid?status?acceptable.?Interdialytic?weight?gain?acceptable.?No ?changes?indicated.? EDW?(kg) ??04/09/2023:?87.5 ??04/07/2023:?87.5 ??04/06/2023:?87.5 Weight?Pre?(kg) ??04/09/2023:?91.4 ??04/07/2023:?89.9 ??04/06/2023:?90.7 Weight?Post?(kg) ??04/09/2023:?88.1 ??04/07/2023:?87.4 ??04/06/2023:?89 PWV?(kg) ??04/09/2023:?0.6 ??04/07/2023:?-0.1 ??04/06/2023:?1.5 UF?Rate?(mL/kg/hr) ??04/09/2023:?9.6 ??04/07/2023:?9.0 ??04/06/2023:?7.4 DIALYSIS?PRESCRIPTION ??HHD?4x?Week?Start?date:?04/02/23 ??Cartridge:?CAR?172 ??BFR:?450 ??DFR:?13.3 ??Potassium:?2.0 ??Lactate:?45 ??EDW:?87.5 ??Volume:?40 ??Est.?Time:?3:00 ??Rx?updated?on:?04/02/2023 Comments:?To?maintain?KT/V?>?2?in?nextstage?dialysis. ?And?CHF Discontinue?greater?than?3x?more?frequent?dialysis?prescription ADEQUACY?ASSESSMENT Adequacy?target?met.?Prescription?compliance?acceptable.?No?changes?indicated.? spKt/V,?wstd?Kt/V,?URR ??03/31/2023:?0.71,?2.1,?47.0 ??03/05/2023:?0.8,?2.3,?50.0 ??01/28/2023:?0.87,?2.4,?52.0 ACCESS?ASSESSMENT ??Access?Type:?CVCatheter ??Access?SubType:?Tunneled ??Access?Status:?Active?(In?Use)?-?03/21/2023 ??Access?Location:?Chest ??Placed:?03/20/2023 Comments:?New?AVG?well?healed.?Awaiting?eye?surgery?next&#16 0;month?and?hopefully?vision?will?improve?sufficiently?to?self?cannulate.? No?discoloration,?bruising,?drainage.?Aneurysm?absent.?Thrill?pre sent.?Normal?bruit.?Cannulator:?Patient. ANEMIA?ASSESSMENT HGB?at?goal.?Iron?parameters?acceptable.?EVER?dose?adequate.& #160;No?changes?indicated.? HGB,?TSAT ??03/31/2023:?10.9,?27.0 ??03/05/2023:?9.3,?24.0 ??01/28/2023:?10.7,?31.0 ?? Ferritin ??03/31/2023:?463.0 ??03/05/2023:?539.0 ??01/28/2023:?524.0 Mircera?Self?Administer?at?Home,?Sub?Q?(mcg) ??02/14/2023:?50 ??02/07/2023:?50 ??01/10/2023:?50 Iron?Sucrose?(Venofer)?Self?Administer?at?Home?(mg) ??01/27/2023:?100 ??01/26/2023:?100 ??01/24/2023:?100 BMM?ASSESSMENT PTH?controlled.?Calcium?controlled.?Phosphorus?controlled.?BMM?me ds?adherence?acceptable.?No?changes?indicated.? Phosphorus,?Calcium ??03/31/2023:?2.8,?9.5 ??03/05/2023:?3.0,?8.8 ??01/28/2023:?3.9,?9.0 ?? PTH,?Intact ??03/31/2023:?199.0 ??03/05/2023:?277.0 ??01/28/2023:?434.0 NUTRITION?ASSESSMENT Potassium?controlled.?Albumin?controlled.?No?changes?indicated.? Albumin,?Potassium ??03/31/2023:?4.2,?5.2 ??03/05/2023:?3.9,?4.5 ??01/28/2023:?3.8,?4.9 PHYSICAL?EXAM Exam?Performed.?Vital?Signs?Reviewed.?Lungs?-?Clear.?CV&#160 ;-?Blood?pressure?noted.?CV?-?RRR.?EXT?-?No?edema. ?AVF/AVG?Positive?thrill/bruit. DIAGNOSIS Chief?Complaint:?N18.6?End?stage?renal?disease Patient?data?updated?04/10/2023?at?4:04?PM Signed?By:?Sergio,?Shaji,???on?04/10/2023?4:07:06?PM END OF DOCUMENT
--- OUTSIDE RECORDS SUMMARY | 2023-07-03 04:08 | XMS_ITS ---
Author Name Hector Shawcy Address [address] [place] [address] Phone [phone] Organization [facility] e, NA DOCUMENT DISCLAIMER Multiple document versions may exist, please be sure you review the latest version. The information in the [facility] Progress Note Document represents a providers documented clinical note containing certain health and medical information. It may not contain the complete medical history for the patient and should be independently verified. The represented time in the document is Eastern Time PROVIDER ROUNDING NOTE BASIC Patient:?Jairon?Jimbo,?1955,?67y,?M Dialysis?Location:?[facility] Attending?Human Resource Statistician:?Nestor?Pham Service?Date:?08/21/2022 Service?Provider:?Bonnie?Valeria,?BAG MA[employer]ER I?met?face?to?face?with?the?patient?today. 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 no?difficulty.??Running??at?BPS?of?400?with?good&# 160;pressures.??Will?order?catheter?removal?at?[facility]?for&#160 ;the?next?1-2?weeks.??No?edema?or?sob.??EDW?increased.?? 08/14?had?to?neg?COVID?ag?test/?waiting?for?PCR?but ?he?is?fine/doing?well.?Set?to?start?home?HD?training?08/2708/07/22-?Tolerating?HD?well?via?his?TDC?in?isolation?melissa m?due?to?concerns?of?possible?COVID?+ve?status.?Subject ively?he?endorses?feeling?well?and?denies?any?new?compl aints.?Bp?stable.?Metabolic?and?volume?parameters?reviewed.? Scheduled?fistulogram?on?08/16?due?to?prior?large?infiltrate. 07/31?High?venous?pressures?and?some?oozing?when?w e?pull?needles?from?his?left?upper?arm?graft/?will&#160 ;schedule?fistulogram/?He?is?planning?on?starting?training?f or?[facility]?in?August?in?[place].?His??will?be?his partner Medications?and?labs?reviewed. DIALYSIS?PRESCRIPTION ??IHD?3x?Week?Start?date:?04/10/22 ??Dialyzer:?180NRe?Optiflux ??BFR:?450 ??DFR:?Manual?500 ??Potassium:?2.0 ??Sodium:?137 ??EDW:?83 ??Duration:?4:00 ??Calcium:?2.5 ??Bicarb:?35 ??Rx?updated?on:?04/09/2022 TREATMENT?ASSESSMENT BP?Stand?Pre ??08/19/2022:?178/73 ??08/14/2022:?131/64 BP?Sit?Pre ??08/19/2022:?167/77 ??08/16/2022:?139/68 ??08/14/2022:?145/65 BP?Stand?Post ??08/19/2022:?152/78 ??08/16/2022:?111/61 ??08/14/2022:?114/63 BP?Sit?Post ??08/19/2022:?180/97 ??08/16/2022:?130/72 ??08/14/2022:?141/76 Tx?Duration ??08/19/2022:?4:00 ??08/16/2022:?3:58 ??08/14/2022:?4:02 Missed?Treatments 0?-?last?30?days 0?-?last?60?days FLUID?ASSESSMENT EDW?(kg) ??08/19/2022:?83.0 ??08/16/2022:?83.0 ??08/14/2022:?83.0 Weight?Pre?(kg) ??08/19/2022:?91.4 ??08/16/2022:?89.4 ??08/14/2022:?89.3 Weight?Post?(kg) ??08/19/2022:?86.9 ??08/16/2022:?85.7 ??08/14/2022:?85.3 PWV?(kg) ??08/19/2022:?3.9 ??08/16/2022:?2.7 ??08/14/2022:?2.3 UF?Rate?(mL/kg/hr) ??08/19/2022:?12.9 ??08/16/2022:?10.9 ??08/14/2022:?11.6 ADEQUACY?ASSESSMENT spKt/V,?URR ??08/07/2022:?1.46,?70.0 ??07/01/2022:?1.69,?74.0 ??06/10/2022:?1.51,?71.0 ACCESS?ASSESSMENT ??Access?Type:?CVCatheter ??Access?SubType:?Tunneled ??Access?Status:?Active?(In?Use)?-?08/07/2022 ??Access?Location:?Chest ??Placed:?08/06/2022 Comments:?08/14?had?catheter?placed/to?have?fistulogram?this? week?for?his?left?upper?arm?gortex ANEMIA?ASSESSMENT HGB,?TSAT ??08/19/2022:?10.3,?- ??08/12/2022:?9.9,?- ??08/05/2022:?10.5,?45.0 ?? Ferritin ??08/05/2022:?559.0 ??07/01/2022:?380.0 ??06/10/2022:?491.0 Mircera,?IVP?(mcg) ??08/09/2022:?50 ??06/21/2022:?50 BMM?ASSESSMENT Phosphorus,?Calcium ??08/05/2022:?4.2,?8.5 ??07/01/2022:?4.6,?8.7 ??06/10/2022:?4.4,?8.6 ?? PTH,?Intact ??08/05/2022:?316.0 ??07/01/2022:?269.0 ??06/10/2022:?366.0 Vitamin?D?(Calcitriol)?Oral?(mcg) ??08/19/2022:?0.75 ??08/16/2022:?0.75 ??08/14/2022:?0.75 NUTRITION?ASSESSMENT Albumin,?Potassium ??08/05/2022:?3.5,?4.6 ??07/01/2022:?3.5,?4.6 ??06/10/2022:?3.6,?4.3 ?? eNPCR ??08/07/2022:?1.24 ??07/01/2022:?1.15 ??06/10/2022:?0.94 DIAGNOSIS Chief?Complaint:?N18.6?End?stage?renal?disease Patient?data?updated?08/21/2022?at?10:41?AM Signed?By:?Valeria,?Bonnie,?BAG MAKER??on?08/21/2022?10:42:48 AM END OF DOCUMENT
--- OUTSIDE RECORDS SUMMARY | 2023-07-03 04:08 | XMS_ITS ---
Author Name Shaji Hill Address [address] [place] [id number] Phone [phone] Organization [facility] e, NA DOCUMENT DISCLAIMER Multiple document versions may exist, please be sure you review the latest version. The information in the [facility] Progress Note Document represents a providers documented clinical note containing certain health and medical information. It may not contain the complete medical history for the patient and should be independently verified. The represented time in the document is Eastern Time PROVIDER ROUNDING NOTE HHD Patient:?Jairon?Jimbo,?1955,?68y,?M Dialysis?Location:?[place]?-?[place] Attending?Clinical Program Director:?Faisal?Ni Service?Date:?06/16/2023 Service?Provider:?Shaji?Sergio,? I?spoke?with?the?patient?today?over?telephone. 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 VITALS?ASSESSMENT Vitals?measured?in-clinic. BP?Sit ??05/26/2023:?133/75 ??04/10/2023:?150/69 ??03/13/2023:?126/64 BP?Stand ??05/26/2023:?113/70 Weight?(kg) ??05/26/2023:?89.2 ??04/10/2023:?91.2 ??03/13/2023:?90.9 Temp ??05/26/2023:?97.8 Respirations ??05/26/2023:?16 Pulse ??05/26/2023:?69 TREATMENT?ASSESSMENT Comments:?Edw?88 Blood?pressure?low.?Target?weight?adjusted.? BP?Stand?Pre ??06/15/2023:?124/67 ??06/13/2023:?100/60 ??06/11/2023:?108/58 BP?Sit?Pre ??06/15/2023:?131/70 ??06/13/2023:?126/69 ??06/11/2023:?130/67 BP?Stand?Post ??06/15/2023:?112/62 ??06/13/2023:?105/66 ??06/11/2023:?100/54 BP?Sit?Post ??06/15/2023:?121/66 ??06/13/2023:?120/68 ??06/11/2023:?116/65 Tx?Duration ??06/15/2023:?3:37 ??06/13/2023:?3:11 ??06/11/2023:?3:11 %?Dialysate?Processed ??06/15/2023:?100 ??06/13/2023:?100 ??06/11/2023:?100 FLUID?ASSESSMENT Comments:?Patient?reports?fluid?is?up?due?to?missing?tr eatment?on?account?of?kids?being?in?town?for?holiday. Fluid?status?acceptable.?Interdialytic?weight?gain?acceptable.?Op timal?weight?discussed.?EDW?adjusted.? EDW?(kg) ??06/15/2023:?87.5 ??06/13/2023:?87.5 ??06/11/2023:?87.5 Weight?Pre?(kg) ??06/15/2023:?91 ??06/13/2023:?90.7 ??06/11/2023:?90.5 Weight?Post?(kg) ??06/15/2023:?88.7 ??06/13/2023:?88.6 ??06/11/2023:?88.3 PWV?(kg) ??06/15/2023:?1.2 ??06/13/2023:?1.1 ??06/11/2023:?0.8 UF?Rate?(mL/kg/hr) ??06/15/2023:?7.2 ??06/13/2023:?7.4 ??06/11/2023:?7.8 DIALYSIS?PRESCRIPTION ??HHD?4x?Week?Start?date:?04/02/23 ??Cartridge:?CAR?172 ??BFR:?450 ??DFR:?13.3 ??Potassium:?2.0 ??Lactate:?45 ??EDW:?87.5 ??Volume:?40 ??Est.?Time:?3:00 ??Rx?updated?on:?04/02/2023 Comments:?To?maintain?KT/V?>?2?in?nextstage?dialysis. ?And?CHF Continue?greater?than?3x?more?frequent?dialysis?prescription ADEQUACY?ASSESSMENT Comments:?Slight?reduction?in?clearance?this?month.?Repeat. Adequacy?target?not?met.?Prescription?compliance?acceptable.?No&# 160;changes?indicated.? spKt/V,?wstd?Kt/V,?URR ??06/02/2023:?0.77,?1.9,?49.0 ??04/30/2023:?0.7,?2.1,?45.0 ??03/31/2023:?0.71,?2.1,?47.0 ACCESS?ASSESSMENT ??Access?Type:?AVGraft ??Access?SubType:?Synthetic?-?Standard?(PTFE) ??Access?Status:?Active?(In?Use)?-?06/06/2023 ??Access?Location:?Left?Upper?Arm ??Created:?03/20/2023 Comments:?Cleared?to?use?newly?revised?access Discoloration.?Aneurysm?absent.?Thrill?present.?Normal?bruit.?Can nulator:?Caregiver. ANEMIA?ASSESSMENT HGB?at?goal.?Iron?parameters?acceptable.?EVER?dose?adequate. HGB,?TSAT ??06/02/2023:?11.5,?24.0 ??04/30/2023:?11.3,?25.0 ??03/31/2023:?10.9,?27.0 ?? Ferritin ??06/02/2023:?654.0 ??04/30/2023:?528.0 ??03/31/2023:?463.0 Mircera,?Sub?Q?(mcg) ??04/10/2023:?50 Iron?Sucrose?(Venofer)?Self?Administer?at?Home?(mg) ??06/13/2023:?50 ??06/06/2023:?50 ??05/30/2023:?50 BMM?ASSESSMENT PTH?controlled.?Calcium?controlled.?Phosphorus?controlled.?BMM?me ds?adherence?acceptable.?No?changes?indicated.? Phosphorus,?Calcium ??06/02/2023:?4.4,?8.9 ??04/30/2023:?3.6,?8.9 ??03/31/2023:?2.8,?9.5 ?? PTH,?Intact ??06/02/2023:?332.0 ??04/30/2023:?425.0 ??03/31/2023:?199.0 NUTRITION?ASSESSMENT Potassium?controlled.?Albumin?below?goal.?Referred?to?dietitian. Albumin,?Potassium ??06/02/2023:?3.8,?4.8 ??04/30/2023:?3.8,?4.4 ??03/31/2023:?4.2,?5.2 PHYSICAL?EXAM Comments:?Phone?visit.?Normal?speech?and?respiratory?effort. Exam?Not?Performed. DIAGNOSIS Chief?Complaint:?N18.6?End?stage?renal?disease Patient?data?updated?06/16/2023?at?3:25?PM Signed?By:?Sergio,?Shaji,???on?06/16/2023?3:28:51?PM END OF DOCUMENT
--- OUTSIDE RECORDS SUMMARY | 2023-07-03 04:08 | XMS_ITS ---
Author Name Yogesh Lui [facility] Address [address] [place] [id number] Phone [phone] Organization [facility] e, NA DOCUMENT DISCLAIMER The information in the [facility] Provider Note Document represents a providersdocumented clinical note containing certain health and medical information. It may not contain the complete medical history for the patient and should be independently verified. The represented time in the document is Eastern Time PROVIDER ROUNDING NOTE BASIC Patient:?Jairon?Jimbo,?1955,?67y,?M Dialysis?Location:?[facility] Attending?Steam Turbine Operator:?Nestor?Pham Service?Date:?07/17/2022 Service?Provider:?Cornelia?Sania,?SUPERVISOR DRAWING I?met?face?to?face?with?the?patient?today. 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 Metabolic?and?volume?parameters?reviewed.? Patient?express?interest?in?doing?home?PD. Discussed?with?FA?on?options?to?facilitate?due?to?staff ing?constraints?and?the?fact?that?the?patient?will?be&# 160;a?great?candidate.?FA?will?reach?out?to?the?DO&#160 ;and?home?program?managers?and?get?back?to?me. ? 07/12/22?Doing?well/?will?have?to?see?what?arrangements? we?can?make?for?training?for?[employer]?given?recent?staff ing?issues.?He?is?an?excellent?candidate?and?is?aware&# 160;that?this?may?take?a?bit?longer?to?find?a?training?spot. DIALYSIS?PRESCRIPTION ??IHD?3x?Week?Start?date:?04/10/22 ??Dialyzer:?180NRe?Optiflux ??BFR:?450 ??DFR:?Manual?500 ??Potassium:?2.0 ??Sodium:?137 ??EDW:?83 ??Duration:?4:00 ??Calcium:?2.5 ??Bicarb:?35 ??Rx?updated?on:?04/09/2022 TREATMENT?ASSESSMENT BP?Stand?Pre ??07/12/2022:?161/69 ??07/10/2022:?123/67 BP?Sit?Pre ??07/15/2022:?127/75 ??07/12/2022:?126/75 ??07/10/2022:?119/54 BP?Stand?Post ??07/15/2022:?107/63 ??07/12/2022:?108/68 ??07/10/2022:?105/58 BP?Sit?Post ??07/15/2022:?140/73 ??07/12/2022:?116/70 ??07/10/2022:?117/77 Tx?Duration ??07/15/2022:?3:58 ??07/12/2022:?3:21 ??07/10/2022:?3:43 Missed?Treatments 0?-?last?30?days 0?-?last?60?days FLUID?ASSESSMENT EDW?(kg) ??07/15/2022:?83.0 ??07/12/2022:?83.0 ??07/10/2022:?83.0 Weight?Pre?(kg) ??07/15/2022:?88.5 ??07/12/2022:?87.3 ??07/10/2022:?87.3 Weight?Post?(kg) ??07/15/2022:?84.4 ??07/12/2022:?83.3 ??07/10/2022:?84.4 PWV?(kg) ??07/15/2022:?1.4 ??07/12/2022:?0.3 ??07/10/2022:?1.4 UF?Rate?(mL/kg/hr) ??07/15/2022:?12.2 ??07/12/2022:?14.3 ??07/10/2022:?9.2 ADEQUACY?ASSESSMENT spKt/V,?URR ??07/01/2022:?1.69,?74.0 ??06/10/2022:?1.51,?71.0 ??05/15/2022:?1.59,?72.0 ACCESS?ASSESSMENT ??Access?Type:?AVGraft ??Access?SubType:?Synthetic?-?Story?Acuseal ??Access?Status:?Active?(In?Use)?-?03/26/2022 ??Access?Location:?Left?Upper?Arm ??Created:?02/19/2022 Flow ??07/05/2022:?1249 ??07/03/2022:?990 ??06/12/2022:?>2000 ANEMIA?ASSESSMENT HGB,?TSAT ??07/15/2022:?11.5,?- ??07/08/2022:?10.6,?- ??07/01/2022:?11.0,?33.0 ?? Ferritin ??07/01/2022:?380.0 ??06/10/2022:?491.0 ??05/13/2022:?542.0 Mircera,?IVP?(mcg) ??06/21/2022:?50 ??04/26/2022:?50 Iron?Sucrose?(Venofer)?(mg) ??05/17/2022:?100 ??05/15/2022:?100 ??05/13/2022:?100 BMM?ASSESSMENT Phosphorus,?Calcium ??07/01/2022:?4.6,?8.7 ??06/10/2022:?4.4,?8.6 ??05/13/2022:?3.9,?9.0 ?? PTH,?Intact ??07/01/2022:?269.0 ??06/10/2022:?366.0 ??05/13/2022:?182.0 Vitamin?D?(Calcitriol)?Oral?(mcg) ??07/15/2022:?0.75 ??07/12/2022:?0.75 ??07/10/2022:?0.75 NUTRITION?ASSESSMENT Albumin,?Potassium ??07/01/2022:?3.5,?4.6 ??06/10/2022:?3.6,?4.3 ??05/13/2022:?3.6,?4.2 ?? eNPCR ??07/01/2022:?1.15 ??06/10/2022:?0.94 ??05/15/2022:?1.17 DIAGNOSIS Chief?Complaint:?N18.6?End?stage?renal?disease Patient?data?updated?07/17/2022?at?9:32?AM Signed?By:?Priscilla-Malou,?Cornelia,?SUPERVISOR DRAWING??on?07/17/2022?9:38:19?AM END OF DOCUMENT
--- OUTSIDE RECORDS SUMMARY | 2023-07-03 04:08 | XMS_ITS ---
Author Name Ni Faisal Address [address] [place] [address] Phone [phone] Organization [facility] e, NA DOCUMENT DISCLAIMER Multiple document versions may exist, please be sure you review the latest version. The information in the [facility] Progress Note Document represents a providers documented clinical note containing certain health and medical information. It may not contain the complete medical history for the patient and should be independently verified. The represented time in the document is Eastern Time PROVIDER ROUNDING NOTE HHD Patient:?Jairon?Jimbo,?1955,?67y,?M Dialysis?Location:?[place]?-?[place] Attending?Microsoft Office Instructor:?Faisal?Ni Service?Date:?02/21/2023 Service?Provider:?Faisal?Ni,? I?met?face?to?face?with?the?patient?today. 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 BP?Sit ??01/16/2023:?131/67 ??12/11/2022:?131/65 ??11/14/2022:?136/68 Weight?(kg) ??01/16/2023:?86.1 ??12/11/2022:?87.6 ??11/14/2022:?86 Temp ??01/16/2023:?97.1 Respirations ??01/16/2023:?16 Pulse ??01/16/2023:?71 Height ??09/09/2022:?5'?10'' TREATMENT?ASSESSMENT BP?Stand?Pre ??02/21/2023:?115/61 ??02/18/2023:?115/63 ??02/17/2023:?109/51 BP?Sit?Pre ??02/21/2023:?148/63 ??02/18/2023:?138/68 ??02/17/2023:?126/55 BP?Stand?Post ??02/18/2023:?101/54 ??02/17/2023:?110/78 BP?Sit?Post ??02/18/2023:?122/68 ??02/17/2023:?134/64 Tx?Duration ??02/21/2023:?0:00 ??02/18/2023:?3:46 ??02/17/2023:?3:46 %?Dialysate?Processed ??02/21/2023:?0 ??02/18/2023:?100 ??02/17/2023:?100 FLUID?ASSESSMENT Comments:?Patient?has?gained?weight,?will?adjust?weight Fluid?status?not?acceptable.?Interdialytic?weight?gain?acceptable .?EDW?adjusted.? EDW?(kg) ??02/18/2023:?85.5 ??02/17/2023:?85.5 Weight?Pre?(kg) ??02/21/2023:?90.4 ??02/18/2023:?89.8 ??02/17/2023:?91.5 Weight?Post?(kg) ??02/18/2023:?86.9 ??02/17/2023:?88.5 PWV?(kg) ??02/18/2023:?1.4 ??02/17/2023:?3 UF?Rate?(mL/kg/hr) ??02/18/2023:?8.9 ??02/17/2023:?9.0 DIALYSIS?PRESCRIPTION ??HHD?4x?Week?Start?date:?12/13/22 ??Cartridge:?CAR?170 ??BFR:?450 ??DFR:?13.3 ??Potassium:?2.0 ??Lactate:?45 ??EDW:?85.5 ??Volume:?40 ??Est.?Time:?3:00 ??Rx?updated?on:?12/12/2022 Comments:?To?maintain?KT/V?>?2?in?nextstage?dialysis. ?And?CHF Continue?greater?than?3x?more?frequent?dialysis?prescription ADEQUACY?ASSESSMENT Adequacy?target?met.?Prescription?compliance?acceptable.?No?changes?indicated.? spKt/V,?wstd?Kt/V,?URR ??01/28/2023:?0.87,?2.4,?52.0 ??01/02/2023:?0.78,?2.4,?48.0 ??12/02/2022:?0.86,?2.2,?54.0 ACCESS?ASSESSMENT ??Access?Type:?AVGraft ??Access?SubType:?Synthetic?-?[place]?Acuseal ??Access?Status:?Active?(In?Use)?-?08/27/2022 ??Access?Location:?Left?Upper?Arm ??Created:?02/19/2022 Flow ??07/05/2022:?1249 ??07/03/2022:?990 ??06/12/2022:?>2000 Comments:?Will?discuss?with?vascular?the?hematoma?and?have set?up?imaging ANEMIA?ASSESSMENT HGB?at?goal.?Iron?parameters?acceptable.?EVER?dose?adequate.& #160;No?changes?indicated.? HGB,?TSAT ??01/28/2023:?10.7,?31.0 ??01/02/2023:?9.6,?27.0 ??12/02/2022:?10.2,?27.0 ?? Ferritin ??01/28/2023:?524.0 ??01/02/2023:?542.0 ??12/02/2022:?413.0 Mircera?Self?Administer?at?Home,?Sub?Q?(mcg) ??02/14/2023:?50 ??02/07/2023:?50 ??01/10/2023:?50 Iron?Sucrose?(Venofer)?Self?Administer?at?Home?(mg) ??01/27/2023:?100 ??01/26/2023:?100 ??01/24/2023:?100 BMM?ASSESSMENT PTH?controlled.?Calcium?controlled.?Phosphorus?controlled.?No?pelon nges?indicated.? Phosphorus,?Calcium ??01/28/2023:?3.9,?9.0 ??01/02/2023:?3.6,?8.8 ??12/02/2022:?2.7,?9.1 ?? PTH,?Intact ??01/28/2023:?434.0 ??01/02/2023:?375.0 ??12/02/2022:?370.0 NUTRITION?ASSESSMENT Albumin,?Potassium ??01/28/2023:?3.8,?4.9 ??01/02/2023:?3.7,?4.3 ??12/02/2022:?3.8,?4.7 ?? eNPCR ??08/07/2022:?1.24 PHYSICAL?EXAM Exam?Performed.?Vital?Signs?Reviewed.?Lungs?-?Clear.?CV&#160 ;-?Blood?pressure?noted.?EXT?-?No?edema. DIAGNOSIS Chief?Complaint:?N18.6?End?stage?renal?disease Patient?data?updated?02/21/2023?at?2:37?PM Signed?By:?Ni,?Faisal,???on?02/21/2023?2:42:44?PM END OF DOCUMENT
--- OUTSIDE RECORDS SUMMARY | 2023-07-03 04:08 | XMS_ITS ---
Author Name Ni Faisal Address [address] [place] [address] Phone [phone] Organization [facility] e, NA DOCUMENT DISCLAIMER Multiple document versions may exist, please be sure you review the latest version. The information in the [facility] Progress Note Document represents a providers documented clinical note containing certain health and medical information. It may not contain the complete medical history for the patient and should be independently verified. The represented time in the document is Eastern Time PROVIDER ROUNDING NOTE HHD Patient:?Jairon?Jimbo,?1955,?67y,?M Dialysis?Location:?[place]?-?[place] Attending?Silk Screen Operator:?Faisal?Ni Service?Date:?12/11/2022 Service?Provider:?Faisal?Ni,? I?met?face?to?face?with?the?patient?today. 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 VITALS?ASSESSMENT Vitals?measured?in-clinic. BP?Sit ??11/14/2022:?136/68 ??10/23/2022:?114/70 ??09/25/2022:?149/68 Weight?(kg) ??11/14/2022:?86 ??10/23/2022:?85.5 ??09/25/2022:?85.1 Temp ??11/14/2022:?98 Respirations ??11/14/2022:?16 Pulse ??11/14/2022:?61 Height ??09/09/2022:?5'?10'' TREATMENT?ASSESSMENT BP?Stand?Pre ??12/11/2022:?124/69 ??12/09/2022:?113/56 ??12/08/2022:?150/71 BP?Sit?Pre ??12/11/2022:?139/67 ??12/09/2022:?132/55 ??12/08/2022:?156/68 BP?Stand?Post ??12/11/2022:?116/60 ??12/09/2022:?106/46 ??12/08/2022:?132/68 BP?Sit?Post ??12/11/2022:?124/65 ??12/09/2022:?115/60 ??12/08/2022:?139/66 Tx?Duration ??12/11/2022:?3:39 ??12/09/2022:?3:07 ??12/08/2022:?3:53 %?Dialysate?Processed ??12/11/2022:?100 ??12/09/2022:?100 ??12/08/2022:?100 FLUID?ASSESSMENT Comments:?EDW?increased?85.5Kg? EDW?(kg) ??12/11/2022:?85 ??12/09/2022:?85 ??12/08/2022:?85 Weight?Pre?(kg) ??12/11/2022:?88.4 ??12/09/2022:?87 ??12/08/2022:?88.6 Weight?Post?(kg) ??12/11/2022:?85.6 ??12/09/2022:?85.9 ??12/08/2022:?85.9 PWV?(kg) ??12/11/2022:?0.6 ??12/09/2022:?0.9 ??12/08/2022:?0.9 UF?Rate?(mL/kg/hr) ??12/11/2022:?9.0 ??12/09/2022:?4.1 ??12/08/2022:?8.1 DIALYSIS?PRESCRIPTION ??HHD?4x?Week?Start?date:?09/27/22 ??Cartridge:?CAR?170 ??BFR:?450 ??DFR:?13.3 ??Potassium:?2.0 ??Lactate:?45 ??EDW:?85 ??Volume:?40 ??Est.?Time:?3:00 ??Rx?updated?on:?09/25/2022 Comments:?To?maintain?KT/V?>?2?in?nextstage?dialysis. Continue?greater?than?3x?more?frequent?dialysis?prescription ADEQUACY?ASSESSMENT Adequacy?target?met.?Prescription?compliance?acceptable.?No?changes?indicated.? spKt/V,?wstd?Kt/V,?URR ??12/02/2022:?0.86,?2.2,?54.0 ??10/28/2022:?0.77,?2.1,?49.0 ??10/13/2022:?0.81,?2.4,?52.0 ACCESS?ASSESSMENT ??Access?Type:?AVGraft ??Access?SubType:?Synthetic?-?Stella?Acuseal ??Access?Status:?Active?(In?Use)?-?08/27/2022 ??Access?Location:?Left?Upper?Arm ??Created:?02/19/2022 Flow ??07/05/2022:?1249 ??07/03/2022:?990 ??06/12/2022:?>2000 Comments:?Infiltrate?bruise?resolving? Thrill?present.?Normal?bruit.?Hemostasis?<?10-15?minutes?per?needle?site. ANEMIA?ASSESSMENT Anemia?reviewed.?Anemia?targets?met.? HGB,?TSAT ??12/02/2022:?10.2,?27.0 ??10/28/2022:?9.8,?29.0 ??10/20/2022:?10.2,?- ?? Ferritin ??12/02/2022:?413.0 ??10/28/2022:?342.0 ??09/30/2022:?380.0 Mircera,?Sub?Q?(mcg) ??10/07/2022:?30 Mircera?Self?Administer?at?Home,?Sub?Q?(mcg) ??11/08/2022:?30 Iron?Sucrose?(Venofer)?Self?Administer?at?Home?(mg) ??12/09/2022:?50 ??12/02/2022:?50 ??11/25/2022:?50 BMM?ASSESSMENT Comments:?Phos?borderline?low.?Recommended?liberalizing?intake Phosphorus,?Calcium ??12/02/2022:?2.7,?9.1 ??10/28/2022:?2.8,?9.2 ??10/13/2022:?-,?8.2 ?? PTH,?Intact ??12/02/2022:?370.0 ??10/28/2022:?361.0 ??10/13/2022:?663.0 NUTRITION?ASSESSMENT Nutrition?reviewed.?Caloric?intake?addressed.? Albumin,?Potassium ??12/02/2022:?3.8,?4.7 ??10/28/2022:?3.8,?4.4 ??10/13/2022:?-,?4.3 ?? eNPCR ??08/07/2022:?1.24 ??07/01/2022:?1.15 ??06/10/2022:?0.94 PHYSICAL?EXAM Exam?Performed.?Vital?Signs?Reviewed.?Lungs?-?Clear.?CV&#160 ;-?Blood?pressure?noted.?EXT?-?No?edema.?EXT?-?No& #160;ulcers.?AVF/AVG?Positive?thrill/bruit. DIAGNOSIS Chief?Complaint:?N18.6?End?stage?renal?disease Patient?data?updated?12/11/2022?at?4:29?PM Signed?By:?Ni,?Faisal,???on?12/11/2022?4:32:35?PM END OF DOCUMENT
--- OUTSIDE RECORDS SUMMARY | 2023-07-03 04:08 | XMS_ITS ---
Author Name Valeria Bonnie Address [address] [place] [address] Phone [phone] Organization [facility] e NA DOCUMENT DISCLAIMER The information in the [facility]ialysis Provider Note Document represents a providersdocumented clinical note containing certain health and medical information. It may not contain the complete medical history for the patient and should be independently verified. The represented time in the document is Eastern Time PROVIDER ROUNDING NOTE BASIC Patient:?Jairon?Jimbo,?1955,?67y,?M Dialysis?Location:?[facility] Attending?Sole Leveling Machine Operator:?Nestor?Pham Service?Date:?06/10/2022 Service?Provider:?Bonnie?Valeria,?MANAGER STAFFING I?met?face?to?face?with?the?patient?today. 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 Medications?and?labs?reviewed. DIALYSIS?PRESCRIPTION ??IHD?3x?Week?Start?date:?04/10/22 ??Dialyzer:?180NRe?Optiflux ??BFR:?450 ??DFR:?Manual?500 ??Potassium:?2.0 ??Sodium:?137 ??EDW:?83 ??Duration:?4:00 ??Calcium:?2.5 ??Bicarb:?35 ??Rx?updated?on:?04/09/2022 TREATMENT?ASSESSMENT BP?Stand?Pre ??06/07/2022:?113/49 ??06/05/2022:?120/44 ??06/03/2022:?129/52 BP?Sit?Pre ??06/07/2022:?94/70 ??06/05/2022:?119/57 ??06/03/2022:?150/74 BP?Stand?Post ??06/07/2022:?99/60 ??06/05/2022:?99/56 ??06/03/2022:?116/63 BP?Sit?Post ??06/07/2022:?107/65 ??06/05/2022:?106/68 ??06/03/2022:?129/73 Tx?Duration ??06/07/2022:?3:51 ??06/05/2022:?3:59 ??06/03/2022:?3:39 Missed?Treatments 0?-?last?30?days 0?-?last?60?days FLUID?ASSESSMENT EDW?(kg) ??06/07/2022:?83.0 ??06/05/2022:?83.0 ??06/03/2022:?83.0 Weight?Pre?(kg) ??06/07/2022:?87.1 ??06/05/2022:?85.9 ??06/03/2022:?87.3 Weight?Post?(kg) ??06/07/2022:?82.7 ??06/05/2022:?83.1 ??06/03/2022:?83.3 PWV?(kg) ??06/07/2022:?-0.3 ??06/05/2022:?0.1 ??06/03/2022:?0.3 UF?Rate?(mL/kg/hr) ??06/07/2022:?13.8 ??06/05/2022:?8.5 ??06/03/2022:?13.2 ADEQUACY?ASSESSMENT spKt/V,?URR ??05/15/2022:?1.59,?72.0 ??04/10/2022:?1.49,?71.0 ??03/12/2022:?1.56,?72.0 ACCESS?ASSESSMENT ??Access?Type:?AVGraft ??Access?SubType:?Synthetic?-?[place]?Acuseal ??Access?Status:?Active?(In?Use)?-?03/26/2022 ??Access?Location:?Left?Upper?Arm ??Created:?02/19/2022 Flow ??05/27/2022:?>2000 ??05/24/2022:?1467 ??04/24/2022:?>2000 ANEMIA?ASSESSMENT HGB ??06/03/2022:?10.9 ??05/27/2022:?10.7 ??05/20/2022:?11.4 ?? Ferritin ??05/13/2022:?542.0 ??04/08/2022:?271.0 ??03/12/2022:?429.0 Mircera,?IVP?(mcg) ??04/26/2022:?50 ??03/30/2022:?50 Iron?Sucrose?(Venofer)?(mg) ??05/17/2022:?100 ??05/15/2022:?100 ??05/13/2022:?100 BMM?ASSESSMENT Phosphorus,?Calcium ??05/13/2022:?3.9,?9.0 ??04/08/2022:?4.1,?8.7 ??03/12/2022:?3.8,?8.7 ?? PTH,?Intact ??05/13/2022:?182.0 ??04/08/2022:?245.0 ??03/12/2022:?320.0 Vitamin?D?(Calcitriol)?Oral?(mcg) ??06/07/2022:?0.75 ??06/05/2022:?0.75 ??06/03/2022:?0.75 NUTRITION?ASSESSMENT Albumin,?Potassium ??05/13/2022:?3.6,?4.2 ??04/08/2022:?3.4,?4.7 ??03/12/2022:?3.2,?4.2 ?? eNPCR ??05/15/2022:?1.17 ??04/10/2022:?0.88 ??03/12/2022:?0.74 DIAGNOSIS Chief?Complaint:?N18.6?End?stage?renal?disease Patient?data?updated?06/10/2022?at?9:20?AM Signed?By:?Valeria,?Bonnie,?MANAGER STAFFING??on?06/10/2022?9:20:42?AM END OF DOCUMENT
--- OUTSIDE RECORDS SUMMARY | 2023-07-03 04:08 | XMS_ITS ---
Author Name Nestor Nath Address [address] [place] [id number] Phone [phone] Organization [facility] e, NA DOCUMENT DISCLAIMER The information in the [facility] [place] [facility] Provider Note Document represents a providersdocumented clinical note containing certain health and medical information. It may not contain the complete medical history for the patient and should be independently verified. The represented time in the document is Eastern Time PROVIDER ROUNDING NOTE BASIC Patient:?Jairon?Jimbo,?1955,?67y,?M Dialysis?Location:?[facility] Attending?Senior Systems Software Engineer:?Nestor?Pham Service?Date:?07/01/2022 Service?Provider:?Nestor?Pham,? I?met?face?to?face?with?the?patient?today. 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 Comments:?08/01/22?did?water?test?at?house?in?prep?for NxStage DIALYSIS?PRESCRIPTION ??IHD?3x?Week?Start?date:?04/10/22 ??Dialyzer:?180NRe?Optiflux ??BFR:?450 ??DFR:?Manual?500 ??Potassium:?2.0 [...] ADEQUACY?ASSESSMENT spKt/V,?URR ??06/10/2022:?1.51,?71.0 ??05/15/2022:?1.59,?72.0 ??04/10/2022:?1.49,?71.0 ACCESS?ASSESSMENT ??Access?Type:?AVGraft ??Access?SubType:?Synthetic?-?[place]?Acuseal ??Access?Status:?Active?(In?Use)?-?03/26/2022 ??Access?Location:?Left?Upper?Arm ??Created:?02/19/2022 Flow ??06/12/2022:?>1999 ??05/27/2022:?>1999 ??05/24/2022:?1467 ANEMIA?ASSESSMENT HGB,?TSAT ??06/17/2022:?10.6,?- ??06/10/2022:?11.1,?38.0 ??06/03/2022:?10.9,?- ?? Ferritin ??06/10/2022:?491.0 ??05/13/2022:?542.0 ??04/08/2022:?271.0 Mircera,?IVP?(mcg) ??06/21/2022:?50 ??04/26/2022:?50 Iron?Sucrose?(Venofer)?(mg) ??05/17/2022:?100 ??05/15/2022:?100 ??05/13/2022:?100 BMM?ASSESSMENT Phosphorus,?Calcium ??06/10/2022:?4.4,?8.6 ??05/13/2022:?3.9,?9.0 ??04/08/2022:?4.1,?8.7 ?? PTH,?Intact ??06/10/2022:?366.0 ??05/13/2022:?182.0 ??04/08/2022:?245.0 Vitamin?D?(Calcitriol)?Oral?(mcg) ??06/28/2022:?0.75 ??06/26/2022:?0.75 ??06/24/2022:?0.75 NUTRITION?ASSESSMENT Albumin,?Potassium ??06/10/2022:?3.6,?4.3 ??05/13/2022:?3.6,?4.2 ??04/08/2022:?3.4,?4.7 ?? eNPCR ??06/10/2022:?0.94 ??05/15/2022:?1.17 ??04/10/2022:?0.88 Patient?data?updated?07/01/2022?at?8:49?AM Signed?By:?Pham,?Nestor,???on?07/01/2022?8:52:16?AM END OF DOCUMENT
--- OUTSIDE RECORDS SUMMARY | 2023-07-03 04:08 | XMS_ITS ---
Author Name Nestor Nath Address [address] [place] [id number] Phone [phone] Organization [facility] e, NA DOCUMENT DISCLAIMER Multiple document versions may exist, please be sure you review the latest version. The information in the [facility] Progress Note Document represents a providers documented clinical note containing certain health and medical information. It may not contain the complete medical history for the patient and should be independently verified. The represented time in the document is Eastern Time PROVIDER ROUNDING NOTE BASIC Patient:?Jairon?Jimbo,?1955,?67y,?M Dialysis?Location:?[facility] Attending?[employer] Technician:?Nestor?Pham Service?Date:?07/31/2022 Service?Provider:?Nestor?Pham,? I?met?face?to?face?with?the?patient?today. 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 training?for?HHD?in?August?in?[place].?His??will be?his?partner DIALYSIS?PRESCRIPTION ??IHD?3x?Week?Start?date:?04/10/22 ??Dialyzer:?180NRe?Optiflux ??BFR:?450 ??DFR:?Manual?500 ??Potassium:?2.0 ??Sodium:?137 ??EDW:?83 ??Duration:?4:00 ??Calcium:?2.5 ??Bicarb:?35 ??Rx?updated?on:?04/09/2022 TREATMENT?ASSESSMENT BP?Sit?Pre ??07/29/2022:?160/79 ??07/26/2022:?151/73 ??07/24/2022:?149/79 BP?Stand?Post ??07/29/2022:?152/72 ??07/26/2022:?103/59 ??07/24/2022:?117/65 BP?Sit?Post ??07/29/2022:?169/82 ??07/26/2022:?129/72 ??07/24/2022:?128/75 Tx?Duration ??07/29/2022:?3:57 ??07/26/2022:?4:01 ??07/24/2022:?4:00 Missed?Treatments 0?-?last?30?days 0?-?last?60?days FLUID?ASSESSMENT EDW?(kg) ??07/29/2022:?83.0 ??07/26/2022:?83.0 ??07/24/2022:?83.0 Weight?Pre?(kg) ??07/29/2022:?89.5 ??07/26/2022:?88.8 ??07/24/2022:?89.4 Weight?Post?(kg) ??07/29/2022:?85.4 ??07/26/2022:?84.5 ??07/24/2022:?85.2 PWV?(kg) ??07/29/2022:?2.4 ??07/26/2022:?1.5 ??07/24/2022:?2.2 UF?Rate?(mL/kg/hr) ??07/29/2022:?12.2 ??07/26/2022:?12.7 ??07/24/2022:?12.3 ADEQUACY?ASSESSMENT spKt/V,?URR ??07/01/2022:?1.69,?74.0 ??06/10/2022:?1.51,?71.0 ??05/15/2022:?1.59,?72.0 ACCESS?ASSESSMENT ??Access?Type:?AVGraft ??Access?SubType:?Synthetic?-?[place]?Acuseal ??Access?Status:?Active?(In?Use)?-?03/26/2022 ??Access?Location:?Left?Upper?Arm ??Created:?02/19/2022 Flow ??07/05/2022:?1249 ??07/03/2022:?990 ??06/12/2022:?>2000 ANEMIA?ASSESSMENT HGB ??07/29/2022:?11.2 ??07/22/2022:?11.2 ??07/15/2022:?11.5 ?? Ferritin ??07/01/2022:?380.0 ??06/10/2022:?491.0 ??05/13/2022:?542.0 Mircera,?IVP?(mcg) ??06/21/2022:?50 Iron?Sucrose?(Venofer)?(mg) ??05/17/2022:?100 ??05/15/2022:?100 ??05/13/2022:?100 BMM?ASSESSMENT Phosphorus,?Calcium ??07/01/2022:?4.6,?8.7 ??06/10/2022:?4.4,?8.6 ??05/13/2022:?3.9,?9.0 ?? PTH,?Intact ??07/01/2022:?269.0 ??06/10/2022:?366.0 ??05/13/2022:?182.0 Vitamin?D?(Calcitriol)?Oral?(mcg) ??07/29/2022:?0.75 ??07/26/2022:?0.75 ??07/24/2022:?0.75 NUTRITION?ASSESSMENT Albumin,?Potassium ??07/01/2022:?3.5,?4.6 ??06/10/2022:?3.6,?4.3 ??05/13/2022:?3.6,?4.2 ?? eNPCR ??07/01/2022:?1.15 ??06/10/2022:?0.94 ??05/15/2022:?1.17 Patient?data?updated?07/31/2022?at?9:25?AM Signed?By:?Pham,?Nestor,???on?07/31/2022?9:26:25?AM END OF DOCUMENT
== END 2023-07-03 04:07 | disposition home or self-care (01) ==
LOC: LBO 04:06
PROVIDERS: PCP Family Medicine; Visit Provider Transplant Surgery
DX: R97.20 Elevated prostate specific antigen [PSA] (principal); Z94.0 Kidney transplant status; N18.6 End stage renal disease; Z99.2 Dependence on renal dialysis
CPT/HCPCS: 36415; 84153

== ENCOUNTER → 2023-07-08 13:03 | Outpatient (BNVA) | payer MEDICARE, SELFPAY | PROVIDERS: PCP Family Medicine; Referring Provider Family Medicine; Visit Provider Surgery | DX: Z12.11 Encounter for screening for malignant neoplasm of colon (principal); Z86.010 Personal history of colon polyps ==

== ENCOUNTER → 2023-08-11 13:03 | Outpatient (BNVA) | payer MEDICARE, SELFPAY | PROVIDERS: PCP Family Medicine; Visit Provider Internal Medicine Cardiovascular Disease | DX: I48.0 Paroxysmal atrial fibrillation (principal); N18.6 End stage renal disease | CPT/HCPCS: 99213 ==

== ENCOUNTER 2023-09-10 16:46 | Outpatient (REF) | payer MEDICARE, SELFPAY ==
[2023-09-10 18:44] LABS: Absolute Basophil Count 0.06 10^3/uL (0.0-0.2); Absolute Eosinophil Count 0.08 10^3/uL (0.0-0.7); Absolute Lymphocyte Count 1.17 10^3/uL (1.2-3.4); Absolute Monocyte Count 0.86 10^3/uL (0.1-0.8); Absolute Neutrophil Count 9.66 10^3/uL (1.2-6.7); Basophils % 0.5; Eosinophils % 0.7; HCT 30.7 % (40.0-50.0); Immature Grans % 0.8; Lymphocytes % 9.8; MCH 30.5 pg (27.0-33.0); MCHC 32.6 % (32.0-36.0); MCV 94 fL (80-95); MPV 11.1 fL (8.0-11.0); Monocytes % 7.2; Platelet Count 231 10^3/uL (130-400); RBC 3.28 10^6/uL (4.36-5.78); RDW 14.6 % (11.8-14.1); RDW-SD 49.1 fL; WBC 11.93 10^3/uL (4.4-10.8)
[2023-09-10 19:06] LABS: ALT 25 U/L (16-63); AST 23 U/L (15-37); Albumin 2.6 g/dL (3.4-5.0); Alkaline Phosphatase 135 U/L (46-116); Anion Gap 12.8 mmol/L (3-11); BUN 44 mg/dL (7-18); Bilirubin, Total 0.4 mg/dL (0.2-1.0); CO2 24.2 mmol/L (21.0-32.0); Chloride 96 mmol/L (98-107); Estimated GFR 9.42 (mL/min/1.73m2); Glucose 170 mg/dL (74-106); Potassium 4.6 mmol/L (3.5-5.1); Sodium 133 mmol/L (136-145); Total Protein 7.1 g/dL (6.4-8.2); Vancomycin, Trough 14.7 ug/mL (10.0-20.0)
[2023-09-10 19:17] LABS: CREATININE 6.1 mg/dL (0.70-1.30)
== END 2023-09-10 16:47 | disposition home or self-care (01) ==
LOC: LBN 16:46
PROVIDERS: PCP Family Medicine; Visit Provider Internal Medicine Infectious Disease
DX: R78.81 Bacteremia (principal); B95.7 Other staphylococcus as the cause of diseases classified elsewhere; M86.8X8 Other osteomyelitis, other site; E11.22 Type 2 diabetes mellitus with diabetic chronic kidney disease; N18.4 Chronic kidney disease, stage 4 (severe); Z79.2 Long term (current) use of antibiotics
CPT/HCPCS: 80053; 80202; 85025

== ENCOUNTER 2024-08-05 17:42 | Outpatient (REF) | payer MEDICARE, SELFPAY ==
[2024-08-05 14:38] LABS: Source Nasopharynx
[2024-08-12 12:47] LABS: COVID-19 PCR POSITIVE (Negative)
== END 2024-08-05 17:43 | disposition home or self-care (01) ==
LOC: LBN 17:42
PROVIDERS: PCP Family Medicine; Visit Provider Registered Nurse Nephrology
DX: Z13.83 Encounter for screening for respiratory disorder NEC (principal)
CPT/HCPCS: 87635

== ENCOUNTER → 2024-10-22 09:13 | Outpatient (BNVA) | payer MEDICARE, SELFPAY | PROVIDERS: PCP Family Medicine; Visit Provider Internal Medicine Cardiovascular Disease | DX: Z95.0 Presence of cardiac pacemaker (principal); I48.0 Paroxysmal atrial fibrillation; E11.22 Type 2 diabetes mellitus with diabetic chronic kidney disease; N18.6 End stage renal disease; Z79.4 Long term (current) use of insulin; Z99.2 Dependence on renal dialysis | CPT/HCPCS: 99213 ==